=== PATIENT | female | born 1955 | race African-American/Black ===

== ENCOUNTER → 2016-08-01 | Outpatient (CLI) | payer BC ==
--- NOTE | 2016-08-02 08:00 | MM ---
Reason for exam: screening (asymptomatic). Last mammogram was performed 1 year ago. History: Patient is postmenopausal and has history of other cancer at age 47. Family history of breast cancer in sister. Benign left mammotome panel of the left breast, October 08, 2012. Took hormonal contraceptives beginning at age 15. Physical Findings: A clinical breast exam by your physician is recommended on an annual basis and results should be correlated with mammographic findings. MG Screening Mammo w CAD Bilateral CC and MLO view(s) were taken. Prior study comparison: July 27, 2015, bilateral MG screening mammo w CAD. May 26, 2014, bilateral MG screening mammo w CAD. The breast tissue is heterogeneously dense. This may lower the sensitivity of mammography. Finding: There are typically benign dystrophic, grouped/clustered calcifications in the posterior position of the left breast. Previous mammotome biopsy in the left breast. There is no dominant lesion. Asymmetric breast tissue in the left breast, stable. Left axillary pacemaker. ASSESSMENT: Benign, BI-RAD 2 RECOMMENDATION: Routine screening mammogram of both breasts in 1 year.
== END | disposition home or self-care (01) ==
LOC: RADMAMWWP 07:59
PROVIDERS: ATTEND Internal Medicine
DX: Z12.31 Encounter for screening mammogram for malignant neoplasm of breast (principal)

== ENCOUNTER → 2016-08-25 | Outpatient (CLI) | payer BC ==
[2016-08-25 11:12] LABS: Basophils # (A) 0.1 k/uL (0-0.2); Basophils % (A) 1 %; CH 30.9; Eosinophils # (A) 0.4 k/uL (0-0.7); Eosinophils % (A) 6 %; HCT 44.1 % (34.0-46.0); HDW 2.32; Luc # (Auto) 0.28; Luc % (Auto) 4; Lymphocytes # (A) 1.5 k/uL (1.0-4.8); Lymphocytes % (A) 23 %; MCH 30.8 pg (25.0-35.0); MCHC 31.8 g/dL (31.0-37.0); Monocytes # (A) 0.5 k/uL (0-1.0); Monocytes % (A) 8 %; Neutrophils # (A) 3.7 k/uL (1.3-7.7); Neutrophils % (A) 57 %; RBC 4.55 m/uL (3.80-5.40); RDW 12.9 % (11.5-15.5); WBC 6.4 k/uL (3.8-10.6); WBC (Perox) 6.52
[2016-08-25 11:16] LABS: Anion Gap 12 mmol/L; Blood Urea Nitrogen 14 mg/dL (7-17); Calcium 9.3 mg/dL (8.4-10.2); Carbon Dioxide 26 mmol/L (22-30); Chloride 103 mmol/L (98-107); Glucose 138 mg/dL (74-99); Non-African American GFR(MDRD) >60 (>60 ml/min/1.73 sqM); Sodium 141 mmol/L (137-145)
--- NOTE | 2016-08-25 11:48 | XR ---
EXAMINATION TYPE: XR chest 2V DATE OF EXAM: 08/25/2016 11:40 AM COMPARISON: 09/07/2015 HISTORY: 60-year-old female with cough and congestion for one week TECHNIQUE: Frontal and lateral views FINDINGS: Lung volumes slightly low with crowded vascular markings. Some diffuse interstitial prominence is unc hanged and appears chronic. Strandy atelectasis at the left base. No consolidation or pleural effusio n. Midthoracic vertebroplasty changes are present. Left anterior chest wall pacemaker generator with right atrial and right ventricular leads. No pleural effusion. IMPRESSION: Hypoventilatory changes. Other chronic parenchymal changes which could reflect chronic bronchitis/ast hma. No acute process seen.
== END | disposition home or self-care (01) ==
LOC: PROCWHC3 10:36
PROVIDERS: ATTEND Internal Medicine
DX: J98.4 Other disorders of lung (principal); J06.9 Acute upper respiratory infection, unspecified; E11.65 Type 2 diabetes mellitus with hyperglycemia; I10 Essential (primary) hypertension
CPT/HCPCS: 71020; 80048; 85025; 87502

== ENCOUNTER → 2016-11-14 | Outpatient (CLI) | payer BC ==
[2016-11-14 12:17] LABS: ALT 34 U/L (9-52); AST 25 U/L (14-36); Alkaline Phosphatase 132 U/L (38-126); Anion Gap 11 mmol/L; Blood Urea Nitrogen 16 mg/dL (7-17); Calcium 9.2 mg/dL (8.4-10.2); Carbon Dioxide 28 mmol/L (22-30); Chloride 103 mmol/L (98-107); Cholesterol 157 mg/dL (<200); Glucose 154 mg/dL (74-99); HDL Cholesterol 46 mg/dL (40-60); Non-African American GFR(MDRD) 59 (>60 ml/min/1.73 sqM); Potassium 4.4 mmol/L (3.5-5.1); Sodium 142 mmol/L (137-145); Total Bilirubin 0.6 mg/dL (0.2-1.3); Total Protein 8.2 g/dL (6.3-8.2); Triglycerides 237 mg/dL (<150)
[2016-11-14 12:18] LABS: Hemoglobin A1C 9.3 % (4.2-6.1)
== END | disposition home or self-care (01) ==
LOC: LABWHC1 11:20
PROVIDERS: ATTEND Internal Medicine Endocrinology, Diabetes & Metabolism
DX: E11.65 Type 2 diabetes mellitus with hyperglycemia (principal)
CPT/HCPCS: 36415; 80053; 80061; 82043; 82570; 83036

== ENCOUNTER → 2017-08-10 | Outpatient (CLI) | payer BC ==
--- NOTE | 2017-08-11 10:36 | XR ---
Thoracic spine HISTORY: Pain, osteoarthritis, degenerative disc disease 3 views of the thoracic spine correlated to previous exam 05/06/2015, CT 06/06/2015 The vertebral plasty change at T8 is again noted, slight kyphosis due to loss of height. There is mul tilevel spondylosis. Thoracic vertebral bodies are otherwise showing preserved height. There is a mil d spinal curvature. Pacemaker leads noted incidentally in the right atrium and ventricle, heart may b e enlarged. IMPRESSION: Postprocedural changes, thoracic spondylosis and additional findings above.
== END | disposition home or self-care (01) ==
LOC: RADXRMAIN 16:37
PROVIDERS: ATTEND Internal Medicine
DX: M47.814 Spondylosis without myelopathy or radiculopathy, thoracic region (principal); Z98.890 Other specified postprocedural states
CPT/HCPCS: 72072

== ENCOUNTER → 2017-09-13 | Outpatient (CLI) | payer BC ==
--- NOTE | 2017-09-14 10:50 | MM ---
Reason for exam: screening (asymptomatic). Last mammogram was performed 1 year and 1 month ago. History: Patient is postmenopausal and has history of other cancer at age 47. Family history of breast cancer in sister. Benign left mammotome panel of the left breast, October 08, 2012. Took hormonal contraceptives beginning at age 15. Physical Findings: A clinical breast exam by your physician is recommended on an annual basis and results should be correlated with mammographic findings. MG Screening Mammo w CAD Bilateral CC and MLO view(s) were taken. Prior study comparison: August 01, 2016, bilateral MG screening mammo w CAD. July 27, 2015, bilateral MG screening mammo w CAD. The breast tissue is heterogeneously dense. This may lower the sensitivity of mammography. Finding: There are typically benign round calcifications in both breasts. Asymmetric breast tissue in the left central position, stable. Left axillary pacemaker. Group of new calcifications left posterior upper aspect. ASSESSMENT: Incomplete: need additional imaging evaluation, BI-RAD 0 RECOMMENDATION: Special view mammogram of the left breast. If lesion persists on supplemental views, image directed ultrasound is recommended. [facility] will attempt to contact patient to return for supplemental views and ultrasound if indicated.
== END | disposition home or self-care (01) ==
LOC: RADMAMWWP 15:07
PROVIDERS: ATTEND Internal Medicine
DX: Z12.31 Encounter for screening mammogram for malignant neoplasm of breast (principal)
CPT/HCPCS: 77067

== ENCOUNTER → 2017-09-19 | Outpatient (CLI) | payer BC ==
--- NOTE | 2017-09-19 10:16 | MM ---
Reason for exam: additional evaluation requested from abnormal screening. Last mammogram was performed less than 1 month ago. History: Patient is postmenopausal and has history of other cancer at age 47. Family history of breast cancer in sister. Benign left mammotome panel of the left breast, October 08, 2012. Took hormonal contraceptives beginning at age 15. Physical Findings: Nurse did not find any significant physical abnormalities on exam. MG Work Up Mamm w CAD LT LM, CC with magnification, and ML with magnification view(s) were taken of the left breast. Prior study comparison: September 13, 2017, bilateral MG screening mammo w CAD. August 01, 2016, bilateral MG screening mammo w CAD. Coarse calcifications are not suspicious. Density left breast is improved. These results were verbally communicated with the patient and result sheet given to the patient on 09/19/17. ASSESSMENT: Benign, BI-RAD 2 RECOMMENDATION: Return to routine screening mammogram schedule for both breasts.
== END | disposition home or self-care (01) ==
LOC: RADMAMWWP 09:03
PROVIDERS: ATTEND Internal Medicine
DX: R92.8 Other abnormal and inconclusive findings on diagnostic imaging of breast (principal)
CPT/HCPCS: 77065

== ENCOUNTER → 2017-12-21 | Outpatient (CLI) | payer BC ==
--- NOTE | 2017-12-21 12:12 | XR ---
EXAMINATION TYPE: XR chest 2V DATE OF EXAM: 12/21/2017 COMPARISON: 08/25/2016 INDICATION: Pneumonia, short of breath, congestion TECHNIQUE: Frontal and lateral views of the chest are obtained. FINDINGS: The heart size is mildly prominent. The pulmonary vasculature is normal. The lungs are clear. Pacemaker overlies left chest. Prior vertebroplasty is within the mid thoracic spine. IMPRESSION: 1. No acute pulmonary process. 2. Exam is stable from comparison
[2017-12-21 12:42] LABS: Basophils % (A) 0 %; Eosinophils # (A) 0.1 k/uL (0-0.7); Eosinophils % (A) 1 %; HCT 39.5 % (34.0-46.0); HGB 12.8 gm/dL (11.4-16.0); Lymphocytes # (A) 2.9 k/uL (1.0-4.8); Lymphocytes % (A) 26 %; MCHC 32.4 g/dL (31.0-37.0); MCV 92.4 fL (80.0-100.0); Mean Platelet Volume 7.6; Monocytes # (A) 0.6 k/uL (0-1.0); Monocytes % (A) 5 %; Neutrophils # (A) 7.2 k/uL (1.3-7.7); Neutrophils % (A) 65 %; Platelet Count 217 k/uL (150-450); RBC 4.27 m/uL (3.80-5.40); RDW 13.1 % (11.5-15.5); WBC 11.1 k/uL (3.8-10.6)
[2017-12-21 12:55] LABS: Calcium 9.4 mg/dL (8.4-10.2); Potassium 4.1 mmol/L (3.5-5.1)
[2017-12-21 20:45] LABS: Hemoglobin A1C 10.1 % (4.0-6.0)
== END | disposition home or self-care (01) ==
LOC: RADXRMAIN 11:46
PROVIDERS: ATTEND Internal Medicine
DX: E11.22 Type 2 diabetes mellitus with diabetic chronic kidney disease (principal); N18.3 Chronic kidney disease, stage 3 (moderate); J12.9 Viral pneumonia, unspecified; J06.9 Acute upper respiratory infection, unspecified
CPT/HCPCS: 36415; 71046; 80048; 83036; 85025

== ENCOUNTER → 2018-06-20 | Outpatient (CLI) | payer BC ==
--- NOTE | 2018-06-20 15:22 | US ---
EXAMINATION TYPE: US kidneys/renal and bladder DATE OF EXAM: 06/20/2018 COMPARISON: NONE CLINICAL HISTORY: R10.9 left sided flank pain Z87.442 Personal. EXAM MEASUREMENTS: Right Kidney: 10.9 x 4.1 x 5.1 cm Left Kidney: 11.0 x 4.8 x 5.9 cm Morbidly obese patient limiting study. Right Kidney: parapelvic cysts noted largest measuring 1.0 x 0.9 x 0.9cm Left Kidney: parapelvic cysts noted largest measuring 1.4 x 1.2 x 1.3cm Bladder: limited views due to large pannus. IMPRESSION: 1. Bilateral small peripelvic cysts.
[2018-06-20 15:42] LABS: Basophils % (A) 1 %; Eosinophils # (A) 0.3 k/uL (0-0.7); Eosinophils % (A) 4 %; HCT 37.9 % (34.0-46.0); HGB 12.5 gm/dL (11.4-16.0); Lymphocytes # (A) 2.1 k/uL (1.0-4.8); Lymphocytes % (A) 30 %; MCH 30.5 pg (25.0-35.0); MCHC 32.9 g/dL (31.0-37.0); MCV 92.7 fL (80.0-100.0); Mean Platelet Volume 6.1; Monocytes # (A) 0.3 k/uL (0-1.0); Monocytes % (A) 4 %; Neutrophils # (A) 4.1 k/uL (1.3-7.7); Neutrophils % (A) 59 %; Platelet Count 331 k/uL (150-450); RBC 4.08 m/uL (3.80-5.40); RDW 12.7 % (11.5-15.5); WBC 6.9 k/uL (3.8-10.6)
[2018-06-20 15:43] LABS: Magnesium 2.3 mg/dL (1.6-2.3); Phosphorus 4.7 mg/dL (2.5-4.5); Potassium 4.5 mmol/L (3.5-5.1); Uric Acid 6.8 mg/dL (3.7-7.4)
[2018-06-20 19:25] LABS: Parathyroid Hormone Intact 52.5 pg/mL (14.0-72.0)
[2018-06-20 20:18] LABS: Vitamin D 25 Hydroxy 32.8 ng/mL (30.0-100.0)
== END | disposition home or self-care (01) ==
LOC: RADUSWWP 14:22
PROVIDERS: ATTEND Internal Medicine
DX: N28.1 Cyst of kidney, acquired (principal); I12.9 Hypertensive chronic kidney disease with stage 1 through stage 4 chronic kidney disease, or unspecified chronic kidney disease; N18.3 Chronic kidney disease, stage 3 (moderate); E55.9 Vitamin D deficiency, unspecified; C90.00 Multiple myeloma not having achieved remission; Z87.442 Personal history of urinary calculi; Z88.8 Allergy status to other drugs, medicaments and biological substances
CPT/HCPCS: 36415; 76770; 80048; 82306; 83735; 83970; 84100; 84550; 85025

== ENCOUNTER → 2018-07-10 | Outpatient (CLI) | payer BC ==
--- NOTE | 2018-07-11 08:54 | CT ---
EXAMINATION TYPE: CT thor lumbar spine wo con DATE OF EXAM: 07/10/2018 COMPARISON: 06/06/2015 HISTORY: Low back pain. CT DLP: [address] of the thoracic and lumbar spine was performed. Bone and soft tissue window settings a re submitted as well as coronal and sagittal reconstructions. Thoracic spine: Again noted are vertebroplasty changes at T9. Loss of height of the T9 vertebral segm ent. A small amount of methylmethacrylate is noted to extend posteriorly centrally and to the left. M ild central stenosis suggested. Overall appearance is unchanged. No new compression fractures are stanford ntified of the thoracic spine. There is scoliotic curvature noted. Mild scattered degenerative disc s pace narrowing and spondylosis. Lumbar spine: Grade 1 anterolisthesis L4 and L5 measuring 7.5 mm. No evidence for spondylolysis. Dege nerative change facet joints. Moderate degenerative narrowing L4-5 and L5-S1. Remaining levels are wi thin normal limits. IMPRESSION: 1. Vertebroplasty changes at T9 with extruded methylmethacrylate posteriorly as noted and mild centra l stenosis unchanged from prior study. 2. Grade 1 anterolisthesis L4 and L5 with associated degenerative change.
== END | disposition home or self-care (01) ==
LOC: RADCTMAIN 15:50
PROVIDERS: ATTEND Orthopaedic Surgery Orthopaedic Surgery of the Spine
DX: M48.04 Spinal stenosis, thoracic region (principal); M51.24 Other intervertebral disc displacement, thoracic region; M43.16 Spondylolisthesis, lumbar region; M47.816 Spondylosis without myelopathy or radiculopathy, lumbar region; Z85.79 Personal history of other malignant neoplasms of lymphoid, hematopoietic and related tissues; Z98.890 Other specified postprocedural states; Z95.0 Presence of cardiac pacemaker
CPT/HCPCS: 72128; 72131

== ENCOUNTER → 2018-07-20 | Outpatient (CLI) | payer BC ==
--- NOTE | 2018-07-20 11:37 | XR ---
EXAMINATION TYPE: XR chest 2V DATE OF EXAM: 07/20/2018 COMPARISON: Prior chest x-ray December 21, 2017. HISTORY: Presurgical study. TECHNIQUE: Frontal and lateral views of the chest are obtained. FINDINGS: There is chronic parenchymal change without suspicious focal air space opacity, pleural ef fusion, or pneumothorax seen. The cardiac silhouette size remains enlarged with dual lead pacemaker and atherosclerotic and ectatic thoracic aorta. Vertebral plasty at compression fracture mid to lower thoracic spine is redemonstrated. IMPRESSION: Cardiomegaly and chronic changes without acute pulmonary process. No significant change from prior.
[2018-07-20 11:46] LABS: Basophils # (A) 0.1 k/uL (0-0.2); Basophils % (A) 1 %; Eosinophils # (A) 0.4 k/uL (0-0.7); Eosinophils % (A) 7 %; HCT 39.5 % (34.0-46.0); HGB 12.5 gm/dL (11.4-16.0); Hypochromasia Slight; Lymphocytes # (A) 1.4 k/uL (1.0-4.8); Lymphocytes % (A) 25 %; MCH 30.3 pg (25.0-35.0); MCHC 31.6 g/dL (31.0-37.0); MCV 95.6 fL (80.0-100.0); Mean Platelet Volume 6.4; Monocytes # (A) 0.3 k/uL (0-1.0); Monocytes % (A) 6 %; Neutrophils # (A) 3.2 k/uL (1.3-7.7); Neutrophils % (A) 58 %; Platelet Count 322 k/uL (150-450); RBC 4.13 m/uL (3.80-5.40); RDW 13.2 % (11.5-15.5); WBC 5.5 k/uL (3.8-10.6)
[2018-07-20 12:03] LABS: Potassium 5.7 mmol/L (3.5-5.1)
[2018-07-20 12:09] LABS: Appearance,Urine Cloudy (Clear); Bacteria,Urine Many /hpf; Bilirubin,Urine Negative (Negative); Blood,Urine Negative (Negative); Color,Urine Yellow; Glucose,Urine (UA) Negative (Negative); Ketones,Urine Negative (Negative); Leukocyte Esterase,Urine Large (Negative); Mucus,Urine Occasional /hpf; Nitrite,Urine Negative (Negative); Protein,Urine Trace (Negative); RBC,Urine 2 /hpf (0-5); Specific Gravity,Urine 1.019 (1.001-1.035); Squamous Epithelial Cell,Urine 1 /hpf (0-4); Urobilinogen,Urine <2.0 mg/dL (<2.0); WBC,Urine 36 /hpf (0-5)
[2018-07-20 12:37] LABS: INR 1.1 (<1.2); Partial Thromboplastin Time 39.1 sec (22.0-30.0); Prothrombin Time 11.2 sec (9.0-12.0)
== END | disposition home or self-care (01) ==
LOC: LABPAT 10:11
PROVIDERS: ATTEND Orthopaedic Surgery Orthopaedic Surgery of the Spine
DX: Z01.818 Encounter for other preprocedural examination (principal); I51.7 Cardiomegaly; S22.089A Unspecified fracture of T11-T12 vertebra, initial encounter for closed fracture; R91.8 Other nonspecific abnormal finding of lung field; Z01.812 Encounter for preprocedural laboratory examination
CPT/HCPCS: 36415; 71046; 80048; 81001; 85025; 85610; 85730; 93005

== ENCOUNTER → 2018-07-23 | Outpatient (CLI) | payer BC | END | disposition home or self-care (01) | LOC: LABWHC1 12:35 | PROVIDERS: ATTEND Internal Medicine | DX: E87.5 Hyperkalemia (principal) | CPT/HCPCS: 36415; 84132 ==

== ENCOUNTER 2018-07-24 07:25 | Day surgery (SDC) | payer BC ==
[~2018-07-24 07:25] MED LIST: DEXAMETHASONE SOD PHOSPHATE 10 MG/ML 1 ML VIAL IV ONE; HYDROmorphone 0.5 MG/0.5 ML SYRINGE IVP PRN; MIDAZOLAM (PF) 2 MG/2 ML VIAL IV PRN; ONDANSETRON 4 MG/2 ML VIAL IVP ONE; SCOPOLAMINE 1.5MG/72HR PATCH TRANSDERM ONE; SODIUM CHLORIDE 0.9% IRRIGATIO 1,000 ML IRRIGATION ONE; ceFAZolin IN SWFI 2 GM/20 ML SYRINGE IVP ONE
[2018-07-24] MEDS ORDERED: LIDOCAINE 1% INJ 10MG/ML (20 ML MDV) ONE (08:03)
[2018-07-24] MEDS ORDERED: PHENYLEPHRINE-0.9% NACL SYG 1 MG/10 ML SYRINGE ONE (08:03)
[2018-07-24] MEDS ORDERED: PROPOFOL 10 MG/ML 20 ML VIAL IV ONE (08:03)
[2018-07-24] MEDS ORDERED: MIDAZOLAM 2 MG/2 ML VIAL ONE (08:03)
[2018-07-24] MEDS ORDERED: SUCCINYLCHOLINE CHLORIDE 100 MG/5 ML SYR IV ONE (08:03)
[2018-07-24] MEDS ORDERED: fentaNYL (PF) 50 MCG/ML 2 ML AMP ONE (08:03)
[2018-07-24] MEDS: LACTATED RINGERS 1,000 ML IV SCH (08:08)
[2018-07-24] MEDS ORDERED: LIDOCAINE 1% 20 ML VIAL (10MG/ML) FOR IV START INTRADERMA ONE (08:09)
[2018-07-24 08:33] LABS: Glucose,Whole Blood 144 mg/dL (75-99)
[2018-07-24] MEDS ORDERED: IOPAMIDOL M200 10 ML VIAL MISCELLANE ONE (09:27)
[2018-07-24] MEDS ORDERED: BENZOCAINE/MENTHOL LOZENG 1 EACH LOZENGE MUCOUS MEM PRN (09:39)
--- NOTE | 2018-07-24 09:39 | P.OP ---
Date of Procedure: 07/24/18 Preoperative Diagnosis: T12 vertebral compression fracture, acute Postoperative Diagnosis: Same Anesthesia: GETA Pathology: other (T12 vertebral body biopsy sent to pathology) Condition: stable Disposition: PACU Description of Procedure: BRIEF OPERATIVE NOTE Preoperative Diagnosis: Vertebral compression fracture T12, acute Postoperative Diagnosis: Same Procedure: Kyphoplasty of T12 Vertebral body biopsy of T12 Use of biplanar fluoroscopic guidance Surgeon: Dr. Padron Certified Pathology Assistant: Greg Sam is present throughout the entire the case persistence during positioning, dissection, exposure, visualization, and all crucial elements of the case as well as closure. Anesthesia: General anesthesia Estimated blood loss: Less than 10 mL Specimen: Vertebral body biopsy of T12 sent to pathology in formalin Complications: None apparent Components implanted: Bone cement approximate 6 mL Disposition: To recovery room in good stable condition. OPERATIVE INDICATIONS The patient has been having issues in their back ever since sustaining an injury. She has some evidence of osteopenia and sustained a compression fracture at T12. She had new acute pain at her upper lumbar lower thoracic area which correlated well with the new findings of fracture at T12. She was unable to tolerate brace use. The patient has been through conservative treatment. They attempted conservative care with bracing however they're not having any benefit despite brace use. They continue to have significant pain and debility due to their fracture. We discussed the fact that she has significant degenerative changes at her lower lumbar spine with spondylolisthesis and disc degeneration which was also continue returning to her pain at her lower back and her symptoms into her lower extremities. She understood that the fracture was causing new pain for her at T12 and this was not in dressing the issues at her lower lumbar spine. We discussed various treatment options including surgery, and the patient wishes to proceed with surgery We discussed the risk, patient's alternatives and benefits of surgery including but not limited to, risk of bleeding risk of infection, risk of need for further surgery, risk of decreased, loss of motion, loss of function, cement extravasation, nerve damage, paralysis, heart attack, blindness and . OPERATIVE SUMMARY After discussing all the risks, patient alternatives and benefits at length, the patient elected to proceed with surgical intervention, signed informed consent, and presented for their procedure. The patient was seen and examined in the preoperative holding area and the surgical site was marked. The patient was given antibiotics and brought to the operating room. The patient was sedated and intubated by anesthesia in standard fashion. The patient was positioned on to the operating room table in a prone position on the appropriate well-padded and well molded bilateral chest rolls. We were careful to pad any bony prominences and pressure points. We were careful to maintain the patient's cervical spine and good neutral alignment and position throughout. We used 2 C-arm machines to establish biplanar fluoroscopic guidance in AP and lateral positions. We were able to localize the fractures appropriately. The patient was prepped and draped in a normal standard fashion. An appropriate timeout and keystone protocol performed. We were able to proceed with the surgery. The local wound area was infiltrated with local anesthetic at T12 on the left. An incision was made over the lateral aspect of the pedicle over the appropriate levels with a small 2 mm stab incision. Intraoperative fluoroscopy was taken which showed a marker at the appropriate level of T12. With the appropriate level positively confirmed, I was able to position a sharp trocar over the lateral aspect of the pedicle. As able to advance the trocar into the pedicle and into the posterior aspect of vertebral body being careful to avoid penetration cephalad caudad or medially. The trocar was placed appropriately into the posterior aspect of vertebral body at the appropriate levels of T12. This was confirmed with C-arm guidance. With the trocar intact I was then able to take a bone biopsy with a biopsy punch or a bony drill. The biopsy specimen was passed off to be sent to pathology in formalin. I was then able to place the kyphoplasty balloon within the vertebral body. The position was checked on C-arm. I was able to inflate the balloon under low pressure and visualization with C-arm. The balloon was well enclosed within the vertebral body. The cement was prepared. With the cement at appropriate working condition the balloons were deflated and removed. I was able to place bony cement with trocar with the cement delivery device under low pressure. It had good fill within the vertebral body. We're able to place May 6 mL of bony cement within the T12 vertebral body There is no evidence of any extravasation of the cement posteriorly toward the canal. The cement was well contained at the appropriate levels. The cement was allowed to cure appropriately. The trochars removed and final images were taken on C-arm. This showed the cement at the appropriate levels at T12. We were able to proceed with closure. The wound was cleaned and dried and dressed with the appropriate dressing. The drapes were broken down. The patient was gently rolled back onto their hospital bed being careful to maintain their cervical spine and good neutral alignment and position. They were woken up by anesthesia, extubated, and brought to the recovery room in good stable condition. The patient will be admitted to the hospital for observation and for appropriate postoperative care, medical management and monitoring. We will continue to follow them closely about the postoperative course.
[2018-07-24] MEDS ORDERED: HYDROmorphone 0.5 MG/0.5 ML SYRINGE IVP PRN (09:40)
[2018-07-24] MEDS ORDERED: ONDANSETRON 4 MG/2 ML VIAL IVP PRN (09:40)
[2018-07-24] MEDS ORDERED: IBUPROFEN 600 MG TAB PO PRN (09:40)
[2018-07-24] MEDS ORDERED: HYDROcodone/APAP 5-325MG 1 EACH TAB PO PRN ×3 (09:40→09:41)
[2018-07-24 10:08] LABS: Glucose,Whole Blood 149 mg/dL (75-99)
[2018-07-24 11:11] LABS: Glucose,Whole Blood 177 mg/dL (75-99)
[2018-07-24 11:12] VITALS: BMI 35.7
[2018-07-24] MEDS: KETOROLAC 30 MG/ML 1 ML VIAL IVP PRN ×2 (11:15→19:43)
--- NOTE | 2018-07-24 11:17 | FL ---
EXAMINATION TYPE: FL guidance operating room, XR thoracic spine 2V DATE OF EXAM: 07/24/2018 CLINICAL HISTORY: Back pain compression fracture. TECHNIQUE: Fluoroscopy. Intraoperative 2 view thoracic spine. COMPARISON: CT thoracic spine July 10, 2018. FINDINGS: Fluoroscopic guidance was provided during kyphoplasty procedure performed by Dr. Padron. A total of 71 seconds of fluoroscopic time was utilized during the procedure and 2 spot intraoperative images are acquired. Intraoperative images acquired show new cement injection at suspected L1 level with perhaps minimal h eight loss. IMPRESSION: As Above.
[2018-07-24] MEDS: INSULIN ASPART (NovoLOG) 100 UNIT/ML VIAL SQ SCH ×3 (12:29→21:12)
[2018-07-24] MEDS ORDERED: INSULIN ASPART SQ SCH (12:30)
[2018-07-24] MEDS: ceFAZolin IN SWFI 2 GM/20 ML SYRINGE IVP SCH ×2 (16:13→23:31)
[2018-07-24 16:39] LABS: Glucose,Whole Blood 217 mg/dL (75-99)
[2018-07-24 19:40] LABS: Glucose,Whole Blood 209 mg/dL (75-99)
[2018-07-24] MEDS ORDERED: GABAPENTIN 100 MG CAP PO SCH (21:00)
[2018-07-24] MEDS ORDERED: amLODIPine 10 MG TAB PO SCH (21:00)
[2018-07-24] MEDS: APIXABAN 5 MG TAB PO SCH (21:11)
[2018-07-24] MEDS: NITROFURANTOIN MONOHYD/M-CRYST 100 MG CAP PO SCH (21:12)
[2018-07-24] MEDS: INSULIN DETEMIR (LEVEMIR) 100 UNIT/ML SYR SQ SCH ×2 (21:12→21:18)
[2018-07-25] MEDS: KETOROLAC 30 MG/ML 1 ML VIAL IVP PRN (02:35)
[2018-07-25 07:29] LABS: Glucose,Whole Blood 224 mg/dL (75-99)
[2018-07-25 07:35] VITALS: BP 144/82; PULSE 72; RESP 15; TEMP 98.6
[2018-07-25] MEDS: INSULIN ASPART (NovoLOG) 100 UNIT/ML VIAL SQ SCH (07:46)
--- NOTE | 2018-07-25 08:28 | P.DS ---
Providers Date of admission: 07/24/18 Attending physician: Michael Padron Primary care physician: Carl Cid [facility] Hospital Course: The patient presented on the day of admission as per their operative note. She feels her back is doing better at the site of the kyphoplasty. She is significantly better today than she was yesterday. Was able get some rest. She not have any changes on her lower extremities Physical Exam The incision site is clean dry and intact. There is no erythema no drainage. There is no purulence no evidence of infection. There is no active drainage. Abdomen soft and nontender. Chest has good excursion with deep inspiration and expiration. The patient has active and passive range of motion intact at the upper and lower extremities. There is no acute change in neurologic status. Hospital Course Postoperative day #1 status post T12 vertebral biopsy and kyphoplasty for her vertebral compression fracture. The patient has been making good progress postoperatively. She is having significant pain yesterday afternoon was having difficulty with her independent activities and was not safe with her mobilization on her own, and had to stay overnight for observation. They have completed the prophylactic antibiotics without any signs or symptoms of infection. The patient has been able to advance their diet, and is tolerating diet adequately. The pain was initially controlled with IV medications and is now controlled appropriately with oral medications. The patient has been able to increase their mobilization. The patient has progressed appropriately. I think they are in good stable condition for discharge today. They will be sent home with appropriate prescriptions. I answered their questions to the best of my ability in a language that they can understand and they are agreeable with the plan. They will follow up as directed in approximately 2 weeks or sooner if she is having any problems. Patient Condition at Discharge: Good Plan - Discharge Summary Discharge Rx Participant: Yes New Discharge Prescriptions: No Action amLODIPine [Norvasc] 10 mg PO HS Atenolol [Tenormin] 25 mg PO DAILY tab HYDROcodone/APAP 5-325MG [[place] 5-325] 1 tab PO Q4HR PRN PRN Reason: Pain Insulin Glargine,Hum.rec.anlog [Toujeo Solostar] 80 units SQ HS INSULIN ASPART (NovoLOG) [NovoLOG (formulary)] See Protocol SQ ACHS Ascorbic Acid [Vitamin C] 500 mg PO DAILY Gabapentin [Neurontin] 200 mg PO HS Apixaban [Eliquis] 5 mg PO BID Cholecalciferol (Vitamin D3) [Vitamin D3] 2,000 unit PO DAILY Nitrofurantoin Monohyd/M-Cryst [Macrobid] 100 mg PO Q12HR Discharge Medication List amLODIPine [Norvasc] 10 mg PO HS 05/28/15 [History] Atenolol [Tenormin] 25 mg PO DAILY tab 09/07/15 [Rx] Apixaban [Eliquis] 5 mg PO BID 07/22/18 [History] Ascorbic Acid [Vitamin C] 500 mg PO DAILY 07/22/18 [History] Cholecalciferol (Vitamin D3) [Vitamin D3] 2,000 unit PO DAILY 07/22/18 [History] Gabapentin [Neurontin] 200 mg PO HS 07/22/18 [History] HYDROcodone/APAP 5-325MG [[place] 5-325] 1 tab PO Q4HR PRN 07/22/18 [History] INSULIN ASPART (NovoLOG) [NovoLOG (formulary)] See Protocol SQ ACHS 07/22/18 [History] Insulin Glargine,Hum.rec.anlog [Toujeo Solostar] 80 units SQ HS 07/22/18 [History] Nitrofurantoin Monohyd/M-Cryst [Macrobid] 100 mg PO Q12HR 07/23/18 [History] Follow up Appointment(s)/Referral(s): Michael Padron DO [Doctor of Osteopathic Medicine] - 2 Weeks Activity/Diet/Wound Care/Special Instructions: Keep site clean. May shower with waterproof Tegaderm intact. Do not soak in a tub. After 72 hours postoperatively, patient May remove dressing and then may shower with area uncovered. Leave Steri-Strips intact and allow them to fray off on their own. May ambulate as tolerated. Avoid heavy or rigorous activity. No repetitive bending twisting or lifting. No overhead work. Discharge Disposition: HOME SELF-CARE
[2018-07-25] MEDS ORDERED: ASCORBIC ACID 500 MG TAB PO SCH (09:00)
[2018-07-25] MEDS ORDERED: CHOLECALCIFEROL 1,000 UNIT TAB PO SCH (09:00)
[2018-07-25] MEDS ORDERED: ATENOLOL 25 MG TAB PO SCH (09:00)
[2018-07-25] MEDS: NITROFURANTOIN MONOHYD/M-CRYST 100 MG CAP PO SCH (09:13)
[2018-07-25] MEDS: APIXABAN 5 MG TAB PO SCH (09:13)
[2018-07-25] MEDS: LACTATED RINGERS 1,000 ML IV SCH (09:22)
== END 2018-07-25 10:23 | disposition home or self-care (01) ==
LOC: OR 07:25 → 4SSUR 09:58 → OR 07-25 10:23
PROVIDERS: ATTEND Orthopaedic Surgery Orthopaedic Surgery of the Spine
DX: M48.54XA Collapsed vertebra, not elsewhere classified, thoracic region, initial encounter for fracture (principal); M85.80 Other specified disorders of bone density and structure, unspecified site; E11.22 Type 2 diabetes mellitus with diabetic chronic kidney disease; I12.9 Hypertensive chronic kidney disease with stage 1 through stage 4 chronic kidney disease, or unspecified chronic kidney disease; N18.9 Chronic kidney disease, unspecified; C90.00 Multiple myeloma not having achieved remission; Z72.0 Tobacco use; E78.5 Hyperlipidemia, unspecified; R63.4 Abnormal weight loss; Z68.35 Body mass index [BMI] 35.0-35.9, adult; I44.2 Atrioventricular block, complete; Z95.0 Presence of cardiac pacemaker; Z79.01 Long term (current) use of anticoagulants; Z79.4 Long term (current) use of insulin; Z79.899 Other long term (current) drug therapy; Z82.49 Family history of ischemic heart disease and other diseases of the circulatory system; Z88.8 Allergy status to other drugs, medicaments and biological substances; Z91.040 Latex allergy status
CPT/HCPCS: 72070; 88307; 88311; 88341; 88342

== ENCOUNTER → 2018-09-25 | Outpatient (CLI) | payer BC ==
--- NOTE | 2018-09-26 11:32 | MM ---
Reason for exam: screening (asymptomatic). Last mammogram was performed 1 year ago. History: Patient is postmenopausal and has history of other cancer at age 47. Family history of breast cancer in sister. Benign left mammotome panel of the left breast, October 08, 2012. Took hormonal contraceptives beginning at age 15. Physical Findings: A clinical breast exam by your physician is recommended on an annual basis and results should be correlated with mammographic findings. MG Screening Mammo w CAD Bilateral CC and MLO view(s) were taken. Prior study comparison: September 19, 2017, left breast MG work up mamm w CAD LT. September 13, 2017, bilateral MG screening mammo w CAD. The breast tissue is heterogeneously dense. This may lower the sensitivity of mammography. There are benign appearing regional, round calcifications bilaterally. There is no discrete abnormality. Left axillary pacemaker noted. ASSESSMENT: Benign, BI-RAD 2 RECOMMENDATION: Routine screening mammogram of both breasts in 1 year.
== END | disposition home or self-care (01) ==
LOC: RADMAMWWP 14:08
PROVIDERS: ATTEND Internal Medicine
DX: Z12.31 Encounter for screening mammogram for malignant neoplasm of breast (principal)
CPT/HCPCS: 77067

== ENCOUNTER → 2019-01-02 | Outpatient (CLI) | payer MEDICARE ==
--- NOTE | 2019-01-02 15:35 | XR ---
EXAMINATION TYPE: XR chest 2V DATE OF EXAM: 01/02/2019 COMPARISON: 07/20/2018 HISTORY: Shortness of breath and cough TECHNIQUE: Frontal and lateral views of the chest are obtained. FINDINGS: There is an enlarged cardiac mediastinal silhouette with dual lead left-sided cardiac klaus ce. Vertebroplasty change of a mid to lower thoracic vertebral body is seen as well as diffuse osseou s demineralization and mild multilevel degenerative changes of the thoracic spine. No new focal conso lidation, pleural effusion or pneumothorax. IMPRESSION: Stable exam from the prior with enlarged cardiomediastinal silhouette. No acute pulmonar y process.
[2019-01-02 15:47] LABS: Basophils % (A) 0 %; Eosinophils # (A) 0.1 k/uL (0-0.7); Eosinophils % (A) 1 %; HGB 9.3 gm/dL (11.4-16.0); Hypochromasia Slight; Lymphocytes # (A) 1.7 k/uL (1.0-4.8); Lymphocytes % (A) 20 %; MCHC 31.1 g/dL (31.0-37.0); MCV 90.2 fL (80.0-100.0); Mean Platelet Volume 6.7; Monocytes # (A) 0.6 k/uL (0-1.0); Monocytes % (A) 6 %; Neutrophils # (A) 6.1 k/uL (1.3-7.7); Neutrophils % (A) 70 %; Platelet Count 547 k/uL (150-450); RBC 3.32 m/uL (3.80-5.40); RDW 14.2 % (11.5-15.5); WBC 8.8 k/uL (3.8-10.6)
[2019-01-02 18:56] LABS: African American GFR (CKD) 77.8 (60.0-200.0); Anion Gap 10.7 mmol/L (4.00-12.00); Carbon Dioxide 29.3 mmol/L (21.6-31.8); Potassium 5.4 mmol/L (3.5-5.5)
[2019-01-02 20:14] LABS: Iron Saturation 6.9 (12.00-45.00)
== END | disposition home or self-care (01) ==
LOC: LABWHC1 14:36
PROVIDERS: ATTEND Internal Medicine
DX: I51.7 Cardiomegaly (principal); D64.9 Anemia, unspecified; K92.2 Gastrointestinal hemorrhage, unspecified
CPT/HCPCS: 36415; 71046; 80048; 82728; 83010; 83540; 83550; 83615; 85025

== ENCOUNTER → 2019-01-08 | Outpatient (CLI) | payer MEDICARE ==
[2019-01-08 08:59] LABS: Reticulocyte % 1.4 % (0.5-2.0)
[2019-01-08 17:57] LABS: Albumin 3.6 g/dL (3.80-4.90); Albumin/Globulin Ratio 0.97 (1.60-3.17); Bilirubin, Conjugated 0.3 mg/dL (0.20-0.40); Bilirubin,Unconjugated 0.1 mg/dL; Globulin 3.7 g/dL (1.6-3.3); Total Bilirubin 0.4 mg/dL (0.2-1.2); Total Protein 7.3 g/dL (6.2-8.2)
== END | disposition home or self-care (01) ==
LOC: LABWHC1 08:14
PROVIDERS: ATTEND Internal Medicine
DX: C90.00 Multiple myeloma not having achieved remission (principal); D58.9 Hereditary hemolytic anemia, unspecified
CPT/HCPCS: 36415; 80076; 82533; 83021; 85045; 86850; 86880

== ENCOUNTER 2019-07-11 16:34 | Inpatient (IN) | payer MEDICARE ==
[2019-07-11] MEDS ORDERED: SODIUM CHLORIDE 0.9% 1,000 ML IV ONE (17:10)
[2019-07-11] MEDS ORDERED: ACETAMINOPHEN TAB 500 MG TAB PO STA (17:10)
[2019-07-11 17:32] LABS: Basophils % (A) 0 %; Eosinophils # (A) 1.7 k/uL (0-0.7); Eosinophils % (A) 16 %; HCT 35.5 % (34.0-46.0); HGB 11.5 gm/dL (11.4-16.0); Lymphocytes # (A) 0.7 k/uL (1.0-4.8); Lymphocytes % (A) 6 %; MCH 33.3 pg (25.0-35.0); MCHC 32.5 g/dL (31.0-37.0); MCV 102.7 fL (80.0-100.0); Macrocytosis Slight; Mean Platelet Volume 10.5; Monocytes # (A) 0.7 k/uL (0-1.0); Monocytes % (A) 6 %; Neutrophils # (A) 7.3 k/uL (1.3-7.7); Neutrophils % (A) 68 %; Platelet Count 112 k/uL (150-450); RBC 3.45 m/uL (3.80-5.40); RDW 14.6 % (11.5-15.5); WBC 10.8 k/uL (3.8-10.6)
[2019-07-11] MEDS ORDERED: VANCOMYCIN IV PER PHARMACY 1 EACH MISC MISCELLANE PRN (17:35)
[2019-07-11 17:37] LABS: INR 1.3 (<1.2); Partial Thromboplastin Time 31.2 sec (22.0-30.0); Prothrombin Time 12.8 sec (9.0-12.0)
[2019-07-11 17:41] LABS: Albumin 3.7 g/dL (3.5-5.0); Calcium 8.2 mg/dL (8.4-10.2); Total Bilirubin 1.2 mg/dL (0.2-1.3); Total Protein 6.2 g/dL (6.3-8.2)
[2019-07-11] MEDS ORDERED: CEFEPIME 2 GM in SODIUM CHLORIDE 0.9% 100 ML IVPB STA (17:41)
[2019-07-11 17:51] LABS: Potassium 5.8 mmol/L (3.5-5.1)
[2019-07-11 18:07] LABS: Appearance,Urine Cloudy (Clear); Bacteria,Urine Occasional /hpf; Bilirubin,Urine Negative (Negative); Blood,Urine Negative (Negative); Budding Yeast,Urine Occasional /hpf; Color,Urine Yellow; Glucose,Urine (UA) Negative (Negative); Hyaline Casts,Urine 3 /lpf (0-2); Ketones,Urine Negative (Negative); Leukocyte Esterase,Urine Large (Negative); Mucus,Urine Rare /hpf; Nitrite,Urine Negative (Negative); PH, Urine 5.5 (5.0-8.0); Protein,Urine 2+ (Negative); RBC,Urine 4 /hpf (0-5); Specific Gravity,Urine 1.024 (1.001-1.035); Squamous Epithelial Cell,Urine 10 /hpf (0-4); WBC,Urine 11 /hpf (0-5)
[2019-07-11] MEDS ORDERED: AZITHROMYCIN 500 MG in SODIUM CHLORIDE 0.9% 250 ML IVPB STA (18:27)
--- NOTE | 2019-07-11 18:29 | XR ---
EXAMINATION TYPE: XR chest 2V DATE OF EXAM: 07/11/2019 COMPARISON: 12/21/2017 HISTORY: Fever TECHNIQUE: 2 views FINDINGS: Heart is enlarged. There is mild pulmonary congestion. There is no pleural effusion. There is vertebroplasty in the mid thoracic spine with 50% compression deformity of T8 vertebra. There is l eft axillary pacemaker. There is right side central venous catheter with tip in the superior vena cav a. IMPRESSION: Cardiomegaly. Mild pulmonary congestion increased compared to last exam. No obvious heart failure. Minimal pneumonia or atelectasis in the left lower lobe is possible.
[2019-07-11] MEDS ORDERED: VANCOMYCIN 1,500 MG in SODIUM CHLORIDE 0.9% 250 ML IVPB ONE (18:30)
--- NOTE | 2019-07-11 18:31 | ED ---
General Adult HPI - General Chief complaint: Fever Stated complaint: fever/possible coronovirus Time Seen by Provider: 07/11/19 16:56 Source: patient, family, RN notes reviewed, old records reviewed Mode of arrival: wheelchair Limitations: no limitations - History of Present Illness Initial comments: 63-year-old female history of multiple myeloma currently on chemotherapy presenting with fever. She's had cough and mild dyspnea, she's had nasal conges tion and upper respiratory symptoms for the past several days. She was sent in by primary care physician with concern for possible coronavirus as she has a sister contact with who was in [place] approximately 2 weeks ago. She herself has not travel to [place]. Her [id number] have been quarantined and was released, no evidence of coronavirus. Most recent chemotherapy was 2 days ago. Denies abdominal pain nausea vomiting. Denying dysuria or hematuria. - Related Data Home Medications Medication Instructions Recorded Confirmed amLODIPine [Norvasc] 10 mg PO HS 05/28/15 07/24/18 Apixaban [Eliquis] 5 mg PO BID 07/22/18 07/24/18 Ascorbic Acid [Vitamin C] 500 mg PO DAILY 07/22/18 07/24/18 Cholecalciferol (Vitamin D3) 2,000 unit PO DAILY 07/22/18 07/24/18 [Vitamin D3] Gabapentin [Neurontin] 200 mg PO HS 07/22/18 07/24/18 HYDROcodone/APAP 5-325MG [[place] 1 tab PO Q4HR PRN 07/22/18 07/24/18 5-325] INSULIN ASPART (NovoLOG) [NovoLOG See Protocol SQ ACHS 07/22/18 07/24/18 (formulary)] Insulin Glargine,Hum.rec.anlog 80 units SQ HS 07/22/18 07/24/18 [Toujeo Solostar] Nitrofurantoin Monohyd/M-Cryst 100 mg PO Q12HR 07/23/18 07/24/18 [Macrobid] Previous Rx's Medication Instructions Recorded Atenolol [Tenormin] 25 mg PO DAILY tab 09/07/15 Allergies Allergy/AdvReac Type Severity Reaction Status Date / Time latex Allergy Rash/Hives Verified 07/11/19 17:06 Review of Systems ROS Statement: Those systems with pertinent positive or pertinent negative responses have been documented in the HPI. ROS Other: All systems not noted in ROS Statement are negative. Past Medical History Past Medical History: Cancer, Diabetes Mellitus, Hyperlipidemia, Hypertension, Osteoarthritis (OA), Renal Disease Additional Past Medical History / Comment(s): MULTIPLE MYELOMA 2008 had chemo in 2007, renal failure with cancer tx and had dialysis for 2 months, 05/28/15 pathologic thoracic vertebra fracture-back pain is getting better per pt, IDDM type II, slight leaky heart valve, hysterectomy d/t uterine fibroids, hx of H pylori History of Any Multi-Drug Resistant Organisms: None Reported Past Surgical History: Back Surgery, Cholecystectomy, Hysterectomy Additional Past Surgical History / Comment(s): colonoscopy, rt carpal tunnel release, T9 kyphoplasty with bx, oophorectomy, cyst of inner R thigh, R foot surgery d/t stepping on something, AV fistula inserted and removed Past Anesthesia/Blood Transfusion Reactions: No Reported Reaction Additional Past Anesthesia/Blood Transfusion Reaction / Comment(s): Pt has received blood in the past without reaction. Past Psychological History: No Psychological Hx Reported Smoking Status: Never smoker Past Alcohol Use History: None Reported Past Drug Use History: None Reported - Past Family History Mother Family Medical History: Congestive Heart Failure (CHF) Additional Family Medical History / Comment(s): Mother of CHF at age 76 yrs. Father Family Medical History: Myocardial Infarction (UT) Additional Family Medical History / Comment(s): Father of a [place] at age 46 yrs. General Exam Limitations: no limitations General appearance: alert, in no apparent distress Head exam: Present: atraumatic, normocephalic Eye exam: Present: normal appearance, PERRL ENT exam: Present: normal exam Neck exam: Present: normal inspection. Absent: tenderness, meningismus Respiratory exam: Present: respiratory distress, wheezes, rhonchi, decreased breath sounds Cardiovascular Exam: Present: regular rate, normal rhythm GI/Abdominal exam: Present: soft. Absent: distended, tenderness Extremities exam: Present: normal inspection, normal capillary refill. Absent: pedal edema Neurological exam: Present: alert, oriented X3, CN II-XII intact. Absent: motor sensory deficit Psychiatric exam: Present: normal affect, normal mood Skin exam: Present: warm, dry, intact. Absent: cyanosis, diaphoretic Course Vital Signs 07/11/19 07/11/19 16:52 18:39 Temperature 103.1 F H 102.1 F H Pulse Rate 115 H 93 Respiratory 26 H 22 Rate Blood Pressure 117/70 102/57 O2 Sat by Pulse 94 L 96 Oximetry EKG Findings - EKG Comments: EKG Findings:: 2 AV paced rhythm, rate of 60, MA interval prolonged 374, QRS duration 146, QTC 427 Medical Decision Making - Medical Decision Making 63-year-old female on chemotherapy with history of multiple myeloma presenting with fever, cough. X-ray showing concern for bilateral pneumonia versus fluid overload with the presence of fever, this will be treated as healthcare assoc iated pneumonia. She started on azithromycin, cefepime, vancomycin. She is not leukopenic, total white count is 10.8. She has some chronic kidney disease which is at baseline. Lactic of 2.1. Influenza is negative. She will be admitted on IV antibiotics. Infectious diseases placed on consult. Regarding the possible exposure to cold virus, this is discussed with local 40s, they recommend no further testing at this time as the patient's sister had been quarantined for 2 weeks and she's had no contact or travel to [place] otherwise. - Lab Data Result diagrams: 07/11/19 17:10 07/11/19 17:10 Lab Results 07/11/19 07/11/19 07/11/19 Range/Units 17:10 17:10 17:10 WBC 10.8 H (3.8-10.6) k/uL RBC 3.45 L (3.80-5.40) m/uL Hgb 11.5 (11.4-16.0) gm/dL Hct 35.5 (34.0-46.0) % MCV 102.7 H (80.0-100.0) fL MCH 33.3 (25.0-35.0) pg MCHC 32.5 (31.0-37.0) g/dL RDW 14.6 (11.5-15.5) % Plt Count 112 L (150-450) k/uL Neutrophils % 68 % Lymphocytes % 6 % Monocytes % 6 % Eosinophils % 16 % Basophils % 0 % Neutrophils # 7.3 (1.3-7.7) k/uL Lymphocytes # 0.7 L (1.0-4.8) k/uL Monocytes # 0.7 (0-1.0) k/uL Eosinophils # 1.7 H (0-0.7) k/uL Basophils # 0.0 (0-0.2) k/uL Macrocytosis Slight PT (9.0-12.0) sec INR (<1.2) APTT (22.0-30.0) sec Sodium 133 L (137-145) mmol/L Potassium 5.8 H (3.5-5.1) mmol/L Chloride 102 (98-107) mmol/L Carbon Dioxide 23 (22-30) mmol/L Anion Gap 8 mmol/L BUN 50 H (7-17) mg/dL Creatinine 1.87 H (0.52-1.04) mg/dL Est GFR (CKD-EPI)AfAm 32 (>60 ml/min/1.73 sqM) Est GFR (CKD-EPI)NonAf 28 (>60 ml/min/1.73 sqM) Glucose 220 H (74-99) mg/dL Plasma Lactic Acid Cain (0.7-2.0) mmol/L Calcium 8.2 L (8.4-10.2) mg/dL Total Bilirubin 1.2 (0.2-1.3) mg/dL AST 39 H (14-36) U/L ALT 14 (4-34) U/L Alkaline Phosphatase 88 (38-126) U/L Total Protein 6.2 L (6.3-8.2) g/dL Albumin 3.7 (3.5-5.0) g/dL Urine Color Urine Appearance (Clear) Urine pH (5.0-8.0) Ur Specific [place] (1.001-1.035) Urine Protein (Negative) Urine Glucose (UA) (Negative) Urine Ketones (Negative) Urine Blood (Negative) Urine Nitrite (Negative) Urine Bilirubin (Negative) Urine Urobilinogen (<2.0) mg/dL Ur Leukocyte Esterase (Negative) Urine RBC (0-5) /hpf Urine WBC (0-5) /hpf Ur Squamous Epith Cells (0-4) /hpf Urine Bacteria (None) /hpf Hyaline Casts (0-2) /lpf Urine Mucus (None) /hpf Urine Yeast (Budding) (None) /hpf Influenza Type A RNA Not Detected (Not Detectd) Influenza Type B (PCR) Not Detected (Not Detectd) 0207/11/19 07/11/19 Range/Units 17:10 17:10 17:35 WBC (3.8-10.6) k/uL RBC (3.80-5.40) m/uL Hgb (11.4-16.0) gm/dL Hct (34.0-46.0) % MCV (80.0-100.0) fL MCH (25.0-35.0) pg MCHC (31.0-37.0) g/dL RDW (11.5-15.5) % Plt Count (150-450) k/uL Neutrophils % % Lymphocytes % % Monocytes % % Eosinophils % % Basophils % % Neutrophils # (1.3-7.7) k/uL Lymphocytes # (1.0-4.8) k/uL Monocytes # (0-1.0) k/uL Eosinophils # (0-0.7) k/uL Basophils # (0-0.2) k/uL Macrocytosis PT 12.8 H (9.0-12.0) sec INR 1.3 H (<1.2) APTT 31.2 H (22.0-30.0) sec Sodium (137-145) mmol/L Potassium (3.5-5.1) mmol/L Chloride (98-107) mmol/L Carbon Dioxide (22-30) mmol/L Anion Gap mmol/L BUN (7-17) mg/dL Creatinine (0.52-1.04) mg/dL Est GFR (CKD-EPI)AfAm (>60 ml/min/1.73 sqM) Est GFR (CKD-EPI)NonAf (>60 ml/min/1.73 sqM) Glucose (74-99) mg/dL Plasma Lactic Acid Cain 2.1 H* (0.7-2.0) mmol/L Calcium (8.4-10.2) mg/dL Total Bilirubin (0.2-1.3) mg/dL AST (14-36) U/L ALT (4-34) U/L Alkaline Phosphatase (38-126) U/L Total Protein (6.3-8.2) g/dL Albumin (3.5-5.0) g/dL Urine Color Yellow Urine Appearance Cloudy H (Clear) Urine pH 5.5 (5.0-8.0) Ur Specific [place] 1.024 (1.001-1.035) Urine Protein 2+ H (Negative) Urine Glucose (UA) Negative (Negative) Urine Ketones Negative (Negative) Urine Blood Negative (Negative) Urine Nitrite Negative (Negative) Urine Bilirubin Negative (Negative) Urine Urobilinogen 2.0 (<2.0) mg/dL Ur Leukocyte Esterase Large H (Negative) Urine RBC 4 (0-5) /hpf Urine WBC 11 H (0-5) /hpf Ur Squamous Epith Cells 10 H (0-4) /hpf Urine Bacteria Occasional H (None) /hpf Hyaline Casts 3 H (0-2) /lpf Urine Mucus Rare H (None) /hpf Urine Yeast (Budding) Occasional H (None) /hpf Influenza Type A RNA (Not Detectd) Influenza Type B (PCR) (Not Detectd) Disposition Clinical Impression: HCAP (healthcare-associated pneumonia), Multiple myeloma, Sepsis Disposition: ADMITTED IP TO THIS [facility] Condition: Stable Is patient prescribed a controlled substance at d/c from ED?: No Referrals: Carl Cid MD [Primary Care Provider] - 1-2 days Decision to Admit Reason: Admit from EC Decision Date: 07/11/19 Decision Time: 18:55
[2019-07-11] MEDS ORDERED: NALOXONE 0.4 MG/ML 1 ML VIAL IV PRN (18:52)
[2019-07-11 20:44] LABS: Creatine Kinase <20 U/L (30-135)
[2019-07-11 20:54] LABS: Creatine Kinase MB <0.2 ng/mL (0.0-2.4)
--- NOTE | 2019-07-11 21:22 | P.HPIM ---
History of Present Illness H&P Date: 07/11/19 (Fever, cough, bilateral pneumonia, immunocompromised treated with chemo l last session last week.) Chief Complaint: Patient presented to the office with the coughing fever and splinting left. Dictation on the history and physical by Dr. PAYAN Patient request to be seen in the office emergently because of her current illness itches started 3 days ago and the continue to be bothering her was cough splinting of her ribs on the left side. And that she is immunocompromised last week she had her sufficient for the chemotherapy for multiple myeloma. She is under care of Dr. CARREON the hematology oncology. Patient stated also that she has talked to her [id number] in [place] who was in [place] visiting her son and she has quarantined for coronavirus before she returned to the [place] for 2 weeks however they did not find infection, patient afraid that she had it as well. Because of the fever and chills and she had a mask patient examined with the underlying rhonchi's on the chest bilateral and elevated temperature, Patient directed to the emergency room to be evaluated and further treatment with the exposure to the coronavirus could be a carrier. Patient presented to the emergency room with Dr. River and he did the contact a CBC and she had no risk monitored the discussion between the ER and a CBC and regarding of the ovalle virus. Patient has immunocompromised she had a chest x-ray and the chest x-ray was indicator of underlying increase fluid or pulmonary congestion however with the fever and chills it looks like more of pneumonia and subsequently in the ER the started her on the antibiotic and consultation with the infectious disease. And subsequently admitted to the hospital after the started the antibiotic. Patient with history of diabetes mellitus type 2 insulin-dependent, hypertension with hypertensive cardiovascular disease, and history of partial treatment of UTI with nitrofurantoin, she is on insulin-dependent on a long-acting insulin similar to Lantus and NovoLog short acting insulin she is followed by Dr. Pricila Contreras right of way worker. Patient with history of pacemaker and atrial fibrillation and she is anticoagulated with an elliquis anticoagulant. And she had some vitamin D deficiency in the past as well Patient has long standing history of multiple myeloma and currently she is on chemo by Dr. Carreon hematology oncology last chemo last week. 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 She has #3 diabetes mellitus type 2 insulin-dependent and metabolic syndrome, she recently had the irregularities and the pacemaker by the cardiology with the atrial fibrillation and currently on the pacemaker dependent. Family history she has a daughter and a son and she is . Hypertension. Review of system: She is conscious alert oriented 3 no patient was ambulatory and she had complain of respiratory and splinting on her left side of the lower chest and coughing and with the fever and chills she denied any cardiovascular symptoms however she had a pacemaker. GI no symptoms no nausea vomiting or diarrhea. But she had minimal headache In the no complaint. Musculoskeletal equal she generalized weakness. Review of rest also 14 bullet noncontributory. Physical examination On admission her temperature 103 0.1 F oral. And her heart rate was 1 15/m regular and respiratory was 26/m and blood pressure 117/70 with the pulse ox on room air was 94. Subsequently her vital sign blood pressure dropped down to 102 and 109 systolic. On the examination As mentioned patient was conscious alert oriented, head was normocephalic atraumatic, pupil was equal reactive, normal hearing no ear ache, oropharynx was negative with natural teeth and able to eat and swallow. Neck was supple no JVD no thyromegaly no lymphadenopathy trachea midline. Her chest is inspiratory and expiratory rhonchi's bilateral, could not elicit dullness. Infraclavicular pacemaker on the left side and the heart was regular and the rate has been fluctuating from tachycardia cardia with atrial fibrillation. The PMI in the fifth intercostal space with midclavicular line normal S1 and S2 no gallop. However positive murmur. The abdomen was soft positive bowel sounds no organ palpable Extremities: No edema and positive pulses. She has a history of disc surgery in the past and she had degenerative osteoarthritis of the spine. Laboratories: #1 plasma lactic acid 2.1 high #2 potassium is 5.8 with hyperkalemia #3 her BUN is 50 and creatinine 1.87 with EGFR for female 32 blood sugar was 220 with the underlying diabetes her hemoglobin is 11.5 and MCV 102.7. PT 12.8, INR 1.3, PTT 31.2 minimally above the normal range. Sodium on the low side 133. Anion gap is 8., AST 39, a LT 14, alk phos 88, CK less than 20, BMP 5530. Albumin is 3.7 and total protein 6.2 Urine analysis indicating urine is cloudy 2+ protein, large leukocyte Estrace, negative nitrite and WBC 11 culture will be pending. Influenza a and B was negative. Assessment: #1 clinical suspicious with the fever and chills associated with pneumonia probably bilateral. #2 immunocompromised with the recent chemotherapy last week. #3 uricemia with underlying elevated BUN and creatinine acute on the top of chronic. #4 lactic acidemia. And elevated pro-BMP and pacemaker. #5 overload versus pneumonia is questionable. Known #6 multiple myeloma with the recent last week chemotherapy. #7 diabetes mellitus type 2 insulin-dependent. #8 history of hypertension with hypertensive heart disease. #9 chronic kidney disease with the acute exacerbation in association with UTI and sepsis. Plan: #1 consultation with the infectious disease #2 consultation with the cardiology with the use of the pacemaker possibility of congestive heart failure versus pneumonia Because of elevated BUN and creatinine are lactic acid considered dehydration and increase the IV fluid temporary. Until seen by the cardiology to find out his opinion and OT recommended as well continue the oxygen nasal cannula and we have of progression of disease who may have to do with a computed tomography scan of the chest. Past Medical History Past Medical History: Cancer, Diabetes Mellitus, Hyperlipidemia, Hypertension, Osteoarthritis (OA), Renal Disease Additional Past Medical History / Comment(s): MULTIPLE MYELOMA 2007 had chemo in 2007, renal failure with cancer tx and had dialysis for 2 months, 05/28/15 pathologic thoracic vertebra fracture-back pain is getting better per pt, IDDM type II, slight leaky heart valve, hysterectomy d/t uterine fibroids, hx of H pylori History of Any Multi-Drug Resistant Organisms: None Reported Past Surgical History: Back Surgery, Cholecystectomy, Hysterectomy Additional Past Surgical History / Comment(s): colonoscopy, rt carpal tunnel release, T9 kyphoplasty with bx, oophorectomy, cyst of inner R thigh, R foot surgery d/t stepping on something, AV fistula inserted and removed Past Anesthesia/Blood Transfusion Reactions: No Reported Reaction Additional Past Anesthesia/Blood Transfusion Reaction / Comment(s): Pt has received blood in the past without reaction. Past Psychological History: No Psychological Hx Reported Smoking Status: Never smoker Past Alcohol Use History: None Reported Past Drug Use History: None Reported - Past Family History Mother Family Medical History: Congestive Heart Failure (CHF) Additional Family Medical History / Comment(s): Mother of CHF at age 76 yrs. Father Family Medical History: Myocardial Infarction (CT) Additional Family Medical History / Comment(s): Father of a [place] at age 46 yrs. Medications and Allergies Home Medications Medication Instructions Recorded Confirmed Type amLODIPine [Norvasc] 10 mg PO HS 05/28/15 07/24/18 History Atenolol [Tenormin] 25 mg PO DAILY tab 09/07/15 07/24/18 Rx Apixaban [Eliquis] 5 mg PO BID 07/22/18 07/24/18 History Ascorbic Acid [Vitamin C] 500 mg PO DAILY 07/22/18 07/24/18 History Cholecalciferol (Vitamin D3) 2,000 unit PO DAILY 07/22/18 07/24/18 History [Vitamin D3] Gabapentin [Neurontin] 200 mg PO HS 07/22/18 07/24/18 History HYDROcodone/APAP 5-325MG [[place] 1 tab PO Q4HR PRN 07/22/18 07/24/18 History 5-325] INSULIN ASPART (NovoLOG) [NovoLOG See Protocol SQ ACHS 07/22/18 07/24/18 History (formulary)] Insulin Glargine,Hum.rec.anlog 80 units SQ HS 07/22/18 07/24/18 History [Toujeo Solostar] Nitrofurantoin Monohyd/M-Cryst 100 mg PO Q12HR 07/23/18 07/24/18 History [Macrobid] Allergies Allergy/AdvReac Type Severity Reaction Status Date / Time latex Allergy Rash/Hives Verified 07/11/19 17:06 Physical Exam Vitals: Vital Signs Temp Pulse Resp BP Pulse Ox 07/11/19 18:39 102.1 F H 93 22 102/57 96 07/11/19 16:52 103.1 F H 115 H 26 H 117/70 94 L Intake and Output 07/11/19 07/11/19 07/11/19 06:59 14:59 22:59 Other: Weight 80.286 kg Results CBC & Chem 7: 07/11/19 17:10 07/11/19 17:10 Labs: Abnormal Lab Results - Last 24 Hours (Table) 07/11/19 07/11/19 07/11/19 Range/Units 17:10 17:10 17:10 WBC 10.8 H (3.8-10.6) k/uL RBC 3.45 L (3.80-5.40) m/uL MCV 102.7 H (80.0-100.0) fL Plt Count 112 L (150-450) k/uL Lymphocytes # 0.7 L (1.0-4.8) k/uL Eosinophils # 1.7 H (0-0.7) k/uL PT (9.0-12.0) sec INR (<1.2) APTT (22.0-30.0) sec Sodium 133 L (137-145) mmol/L Potassium 5.8 H (3.5-5.1) mmol/L BUN 50 H (7-17) mg/dL Creatinine 1.87 H (0.52-1.04) mg/dL Glucose 220 H (74-99) mg/dL Plasma Lactic Acid Cain 2.1 H* (0.7-2.0) mmol/L Calcium 8.2 L (8.4-10.2) mg/dL AST 39 H (14-36) U/L Total Protein 6.2 L (6.3-8.2) g/dL Urine Appearance (Clear) Urine Protein (Negative) Ur Leukocyte Esterase (Negative) Urine WBC (0-5) /hpf Ur Squamous Epith Cells (0-4) /hpf Urine Bacteria (None) /hpf Hyaline Casts (0-2) /lpf Urine Mucus (None) /hpf Urine Yeast (Budding) (None) /hpf 07/11/19 07/11/19 Range/Units 17:10 17:35 WBC (3.8-10.6) k/uL RBC (3.80-5.40) m/uL MCV (80.0-100.0) fL Plt Count (150-450) k/uL Lymphocytes # (1.0-4.8) k/uL Eosinophils # (0-0.7) k/uL PT 12.8 H (9.0-12.0) sec INR 1.3 H (<1.2) APTT 31.2 H (22.0-30.0) sec Sodium (137-145) mmol/L Potassium (3.5-5.1) mmol/L BUN (7-17) mg/dL Creatinine (0.52-1.04) mg/dL Glucose (74-99) mg/dL Plasma Lactic Acid Cain (0.7-2.0) mmol/L Calcium (8.4-10.2) mg/dL AST (14-36) U/L Total Protein (6.3-8.2) g/dL Urine Appearance Cloudy H (Clear) Urine Protein 2+ H (Negative) Ur Leukocyte Esterase Large H (Negative) Urine WBC 11 H (0-5) /hpf Ur Squamous Epith Cells 10 H (0-4) /hpf Urine Bacteria Occasional H (None) /hpf Hyaline Casts 3 H (0-2) /lpf Urine Mucus Rare H (None) /hpf Urine Yeast (Budding) Occasional H (None) /hpf
[2019-07-11] MEDS: SODIUM CHLORIDE 0.9% 1,000 ML IV SCH (23:04)
[2019-07-11] MEDS: APIXABAN 5 MG TAB PO SCH (23:42)
[2019-07-12 07:18] LABS: Glucose,Whole Blood 206 mg/dL (75-99)
[2019-07-12] MEDS: SODIUM CHLORIDE 0.9% 1,000 ML IV SCH ×2 (07:35→16:29)
[2019-07-12] MEDS: INSULIN ASPART (NovoLOG) 100 UNIT/ML VIAL SQ SCH ×4 (07:47→20:54)
[2019-07-12] MEDS: APIXABAN 5 MG TAB PO SCH ×2 (07:47→20:53)
[2019-07-12 08:25] LABS: Calcium 7.9 mg/dL (8.4-10.2); Potassium 4.4 mmol/L (3.5-5.1)
[2019-07-12 08:39] LABS: HCT 34.6 % (34.0-46.0); HGB 11.1 gm/dL (11.4-16.0); MCH 33.4 pg (25.0-35.0); MCHC 32.2 g/dL (31.0-37.0); MCV 103.6 fL (80.0-100.0); Macrocytosis Slight; Mean Platelet Volume 11.2; RBC 3.34 m/uL (3.80-5.40); RDW 14.7 % (11.5-15.5)
[2019-07-12 11:16] LABS: Band Neutrophils % 1 %; Basophils # (M) 0.07 k/uL (0-0.2); Monocytes # (M) 0.28 k/uL (0-1.0); Neutrophils % (M) 73 %; Nucleated Red Blood Cells 1 /100 WBC (0-0); Total Cells Counted 200
[2019-07-12 11:20] LABS: Eosinophils # (M) 1.04 k/uL (0-0.7); Lymphocytes # (M) 0.55 k/uL (1.0-4.8); WBC 6.9 k/uL (3.8-10.6)
[2019-07-12 11:23] LABS: Platelet Count 98 k/uL (150-450)
[2019-07-12 11:47] LABS: Glucose,Whole Blood 193 mg/dL (75-99)
--- NOTE | 2019-07-12 12:31 | P.NPCON ---
History of Present Illness - Reason for Consult Consult date: 07/12/19 acute renal failure - Chief Complaint Acute kidney injury and chronic kidney disease - History of Present Illness This is a 63-year-old female known to us with chronic kidney disease, multiple myeloma since 2007, presented with fever cough for 2 days and has been diagnosed with pneumonia. Interestingly enough there was some questionable coronavirus, she is supposedly met a [id number] who had been current time after visit [place]. She was recently back on chemotherapy Her past history significant for dialysis dependent acute kidney injury in 2007 for 2 months. She's been followed by Dr. Njaera. She came in with a creatinine peaked at 1.87 and is improved to 1.23 this morning Denies any nausea vomiting diarrhea abdominal pain dysuria frequency abdominal pain. Past Medical History Past Medical History: Cancer, Diabetes Mellitus, Hyperlipidemia, Hypertension, Osteoarthritis (OA), Renal Disease Additional Past Medical History / Comment(s): MULTIPLE MYELOMA 2007 had chemo in 2007, renal failure with cancer tx and had dialysis for 2 months, 05/28/15 pathologic thoracic vertebra fracture-back pain is getting better per pt, IDDM type II, slight leaky heart valve, hysterectomy d/t uterine fibroids, hx of H pylori History of Any Multi-Drug Resistant Organisms: None Reported Past Surgical History: Back Surgery, Cholecystectomy, Hysterectomy Additional Past Surgical History / Comment(s): colonoscopy, rt carpal tunnel release, T9 kyphoplasty with bx, oophorectomy, cyst of inner R thigh, R foot surgery d/t stepping on something, AV fistula inserted and removed Past Anesthesia/Blood Transfusion Reactions: No Reported Reaction Additional Past Anesthesia/Blood Transfusion Reaction / Comment(s): Pt has received blood in the past without reaction. Past Psychological History: No Psychological Hx Reported Smoking Status: Never smoker Past Alcohol Use History: None Reported Past Drug Use History: None Reported - Past Family History Mother Family Medical History: Congestive Heart Failure (CHF) Additional Family Medical History / Comment(s): Mother of CHF at age 76 yrs. Father Family Medical History: Myocardial Infarction (MD) Additional Family Medical History / Comment(s): Father of a MD at age 46 yrs. Medications and Allergies Home Medications Medication Instructions Recorded Confirmed Type amLODIPine [Norvasc] 10 mg PO HS 05/28/15 07/11/19 History Atenolol [Tenormin] 25 mg PO DAILY tab 09/07/15 07/11/19 Rx Apixaban [Eliquis] 5 mg PO BID 07/22/18 07/11/19 History Ascorbic Acid [Vitamin C] 500 mg PO DAILY 07/22/18 07/11/19 History Cholecalciferol (Vitamin D3) 2,000 unit PO DAILY 07/22/18 07/11/19 History [Vitamin D3] Gabapentin [Neurontin] 200 mg PO HS 07/22/18 07/11/19 History INSULIN ASPART (NovoLOG) [NovoLOG See Protocol SQ ACHS 07/22/18 07/11/19 History (formulary)] Ferrous Sulfate [Feosol] 325 mg PO DAILY 07/11/19 07/11/19 History Folic Acid 0.4 mg PO DAILY 07/11/19 07/11/19 History Gabapentin [Neurontin] 100 mg PO DAILY 07/11/19 07/11/19 History Allergies Allergy/AdvReac Type Severity Reaction Status Date / Time latex Allergy Rash/Hives Verified 07/11/19 21:47 Physical Exam Vitals: Vital Signs Temp Pulse Pulse Pulse Resp BP BP 07/12/19 12:09 100 F H 90 18 142/76 07/12/19 05:10 99.9 F H 99 18 160/80 07/11/19 21:42 98 F 83 17 116/86 07/11/19 20:30 99.3 F 84 18 109/64 07/11/19 18:39 102.1 F H 93 22 102/57 07/11/19 16:52 103.1 F H 115 H 26 H 117/70 Pulse Ox 07/12/19 12:09 94 L 07/12/19 05:10 92 L 07/11/19 21:42 96 07/11/19 20:30 96 07/11/19 18:39 96 07/11/19 16:52 94 L Intake and Output 07/11/19 07/12/19 07/12/19 22:59 06:59 14:59 Other: Voiding Method Toilet Toilet # Voids 1 2 1 Weight 80.286 kg On examination she is awake alert oriented comfortable A chin exam no JVP neck is supple no facial asymmetry Lungs are clear to auscultation fair air entry bilaterally Heart sounds are unremarkable Abdomen soft nontender no organomegaly status masses Extremity exam was no edema Neurologically awake alert oriented Results - Lab Results Most recent lab results Calcium 7.9 mg/dL (8.4-10.2) L 07/12/19 07:43 07/12/19 07:43 07/12/19 07:43 Assessment and Plan Plan: Impression 1. Acute kidney injury from prerenal from pneumonia creatinine peaked at 1.8 in 2-1.23 with hydration 2. Hyperkalemia secondary to acute kidney injury. Potassium is 5.8 on admission. Improved to 4.4 this morning with hydration 3. Chronic kidney disease, stage II with a GFR of 68-77 mL per minute, etiology is diabetic nephropathy with proteinuria of 4 97 mg/g of creatinine on 06/13/2019 3. History of multiple myeloma since 2007 on chemotherapy intermittently. More recent chemotherapy started 4. Anemia off chronic illness hemoglobin 7.1 5. Thrombocytopenia from possible chemotherapy versus myeloma. Placed on his 98,000. Recommendation 1. Continue IV fluids 100 mL of normal saline per hour. 2. Watch labs. 3. Patient is on vancomycin watch for acute kidney injury keep trough levels below 15
[2019-07-12 14:19] VITALS: BMI 31.3
--- NOTE | 2019-07-12 14:32 | P.CRDCN ---
History of Present Illness Consult date: 07/12/19 Chief complaint: Shortness of breath History of present illness: This is a very pleasant 63-year-old -[place] female patient who follows with Dr. Tan in the office on regular basis with a past medical history significant for multiple myeloma, currently the patient is on chemotherapy, history of permanent pacemaker implantation, history of diabetes, presented to the emergency room complaining of fever. The patient was experiencing shortness of breath associated with cough productive of sputum. No symptoms of chest pain or chest discomfort beach she checked her temperature at home and came in to be elevated at 103. Because of that she decided to come to the hospital. The patient was diagnosed with pneumonia and she was started on antibiotic. She stated that she is feeling better. Apparently she still hypoxic and requiring oxygen through nasal cannula. She denies any symptoms of chest pain or chest discomfort. She did not have any change in her weight or gaining weight recently. No orthopnea or PND. No lower extremities edema. The patient just had chemotherapy about 2 days ago for multiple myeloma. The EKG revealed a paced rhythm. The chest x-ray did not show any acute abnormalities. The BNP came in to be elevated but the patient clinically does not look in any overt congestive heart failure at this point of time. The last echocardiogram was from 2016 and that revealed normal left ventricular systolic function. We will obtain an echocardiogram at this point to assess ejection fraction. Past Medical History Past Medical History: Cancer, Diabetes Mellitus, Hyperlipidemia, Hypertension, Osteoarthritis (OA), Renal Disease Additional Past Medical History / Comment(s): MULTIPLE MYELOMA 2007 had chemo in 2007, renal failure with cancer tx and had dialysis for 2 months, 05/28/15 pathologic thoracic vertebra fracture-back pain is getting better per pt, IDDM type II, slight leaky heart valve, hysterectomy d/t uterine fibroids, hx of H pylori History of Any Multi-Drug Resistant Organisms: None Reported Past Surgical History: Back Surgery, Cholecystectomy, Hysterectomy Additional Past Surgical History / Comment(s): colonoscopy, rt carpal tunnel release, T9 kyphoplasty with bx, oophorectomy, cyst of inner R thigh, R foot surgery d/t stepping on something, AV fistula inserted and removed Past Anesthesia/Blood Transfusion Reactions: No Reported Reaction Additional Past Anesthesia/Blood Transfusion Reaction / Comment(s): Pt has received blood in the past without reaction. Past Psychological History: No Psychological Hx Reported Smoking Status: Never smoker Past Alcohol Use History: None Reported Past Drug Use History: None Reported - Past Family History Mother Family Medical History: Congestive Heart Failure (CHF) Additional Family Medical History / Comment(s): Mother of CHF at age 76 yrs. Father Family Medical History: Myocardial Infarction (SD) Additional Family Medical History / Comment(s): Father of a SD at age 46 yrs. Medications and Allergies Home Medications Medication Instructions Recorded Confirmed Type amLODIPine [Norvasc] 10 mg PO HS 05/28/15 07/11/19 History Atenolol [Tenormin] 25 mg PO DAILY tab 09/07/15 07/11/19 Rx Apixaban [Eliquis] 5 mg PO BID 07/22/18 07/11/19 History Ascorbic Acid [Vitamin C] 500 mg PO DAILY 07/22/18 07/11/19 History Cholecalciferol (Vitamin D3) 2,000 unit PO DAILY 07/22/18 07/11/19 History [Vitamin D3] Gabapentin [Neurontin] 200 mg PO HS 07/22/18 07/11/19 History INSULIN ASPART (NovoLOG) [NovoLOG See Protocol SQ ACHS 07/22/18 07/11/19 History (formulary)] Ferrous Sulfate [Feosol] 325 mg PO DAILY 07/11/19 07/11/19 History Folic Acid 0.4 mg PO DAILY 07/11/19 07/11/19 History Gabapentin [Neurontin] 100 mg PO DAILY 07/11/19 07/11/19 History Allergies Allergy/AdvReac Type Severity Reaction Status Date / Time latex Allergy Rash/Hives Verified 07/11/19 21:47 Physical Exam Vitals: Vital Signs Temp Pulse Pulse Pulse Resp BP BP 07/12/19 12:09 100 F H 90 18 142/76 07/12/19 05:10 99.9 F H 99 18 160/80 07/11/19 21:42 98 F 83 17 116/86 07/11/19 20:30 99.3 F 84 18 109/64 07/11/19 18:39 102.1 F H 93 22 102/57 07/11/19 16:52 103.1 F H 115 H 26 H 117/70 Pulse Ox 07/12/19 12:09 94 L 07/12/19 05:10 92 L 07/11/19 21:42 96 02/21/20 20:30 96 07/11/19 18:39 96 07/11/19 16:52 94 L Intake and Output 07/11/19 07/12/19 07/12/19 22:59 06:59 14:59 Intake Total 2570 Balance 2570 Intake: Intake, IV Titration 1450 Amount Cefepime 2 gm In Sodium 100 Chloride 0.9% 100 ml @ 200 mls/hr IVPB Q24H LUCY Rx#:[id number] Sodium Chloride 0.9% 1, 1100 000 ml @ 100 mls/hr IV . Q10H LUCY Rx#:[id number] Vancomycin 1,500 mg In 250 Sodium Chloride 0.9% 250 ml @ 125 mls/hr IVPB Q24H LUCY Rx#:[id number] Oral 1120 Other: Voiding Method Toilet Toilet # Voids 1 2 4 Weight 80.286 kg 80.286 kg - Constitutional General appearance: no acute distress - Respiratory Respiratory: bilateral: diminished - Cardiovascular Rhythm: regular Heart sounds: normal: S1, S2 Results 07/12/19 07:43 07/12/19 07:43 Cardiac Enzymes 07/11/19 07/11/19 07/11/19 Range/Units 17:10 17:10 17:10 AST 39 H (14-36) U/L CK-MB (CK-2) <0.2 (0.0-2.4) ng/mL Troponin I 0.013 (0.000-0.034) ng/mL Coagulation 07/11/19 Range/Units 17:10 PT 12.8 H (9.0-12.0) sec APTT 31.2 H (22.0-30.0) sec CBC 07/11/19 07/12/19 Range/Units 17:10 07:43 WBC 10.8 H 6.9 (3.8-10.6) k/uL RBC 3.45 L 3.34 L (3.80-5.40) m/uL Hgb 11.5 11.1 L (11.4-16.0) gm/dL Hct 35.5 34.6 (34.0-46.0) % Plt Count 112 L 98 L (150-450) k/uL Comprehensive Metabolic Panel 02/21/20 02/22/20 Range/Units 17:10 07:43 Sodium 133 L 135 L (137-145) mmol/L Potassium 5.8 H 4.4 (3.5-5.1) mmol/L Chloride 102 104 (98-107) mmol/L Carbon Dioxide 23 25 (22-30) mmol/L BUN 50 H 36 H (7-17) mg/dL Creatinine 1.87 H 1.23 H (0.52-1.04) mg/dL Glucose 220 H 195 H (74-99) mg/dL Calcium 8.2 L 7.9 L (8.4-10.2) mg/dL AST 39 H (14-36) U/L ALT 14 (4-34) U/L Alkaline Phosphatase 88 (38-126) U/L Total Protein 6.2 L (6.3-8.2) g/dL Albumin 3.7 (3.5-5.0) g/dL Current Medications Generic Name Dose Route Start Last Admin Trade Name Freq PRN Reason Stop Dose Admin Acetaminophen 650 mg 07/11/19 18:52 Tylenol Tab PO Q6HR PRN Mild Pain or Fever > 100.5 Apixaban 5 mg 07/11/19 23:45 07/12/19 07:47 Eliquis PO 5 mg BID LUCY Administration Cefepime HCl 2 gm/ Sodium 100 mls @ 200 mls/hr 07/12/19 18:00 Chloride IVPB Q24H LUCY Vancomycin HCl 1,500 mg/ 250 mls @ 125 mls/hr 07/12/19 16:00 Sodium Chloride IVPB Q24H LUCY Sodium Chloride 1,000 mls @ 100 mls/hr 07/11/19 20:30 07/12/19 07:35 Saline 0.9% IV 100 mls/hr .Q10H LUCY Administration Insulin Aspart 0 unit 07/12/19 07:30 07/12/19 13:09 Novolog SQ 2 unit ACHS LUCY Administration Protocol Naloxone HCl 0.2 mg 07/11/19 18:52 Narcan IV Q2M PRN Opioid Reversal Intake and Output 07/11/19 07/12/19 07/12/19 22:59 06:59 14:59 Intake Total 2570 Balance 2570 Intake: Intake, IV Titration 1450 Amount Cefepime 2 gm In Sodium 100 Chloride 0.9% 100 ml @ 200 mls/hr IVPB Q24H LUCY Rx#:[id number] Sodium Chloride 0.9% 1, 1100 000 ml @ 100 mls/hr IV . Q10H LUCY Rx#:[id number] Vancomycin 1,500 mg In 250 Sodium Chloride 0.9% 250 ml @ 125 mls/hr IVPB Q24H LUCY Rx#:[id number] Oral 1120 Other: Voiding Method Toilet Toilet # Voids 1 2 4 Weight 80.286 kg 80.286 kg Patient Weight 07/13/19 06:59 Weight 80.286 kg 07/12/19 07:43 07/12/19 07:43 Assessment and Plan Assessment: Assessment #1 pneumonia #2 multiple myeloma status post chemotherapy #3 status post permanent pacemaker #4 diabetes type 2 Plan #1 the patient's clinical picture seems to be consistent with a pneumonia more than heart failure, in spite of elevated BNP #2 currently she is on antibiotic #3 obtain an echocardiogram was Doppler #4 follow-up with the patient Thank you for allowing us participate in her care
--- NOTE | 2019-07-12 15:38 | P.PN ---
Subjective Progress Note Date: 07/12/19 (Fever temp 100 F oral) Principal diagnosis: Diagnosis: #1 clinical picture with fever, cough splinting and the chest x-ray clinically: Compatible with pneumonia, especially patient immunocompromised with her last chemotherapy last Sunday. #2 underlying acute renal failure on the top of chronic. #3 hypercholesterolemia potassium 5.8 on admission. #4 diabetes mellitus type 2 insulin-dependent. #5 pacemaker with her rhythm dependent on the pacemaker with a history of atrial fib in the past. #6 hypertension with hypertensive heart disease. #7 multiple myeloma since 2007. Currently on chemotherapy, by Dr. Carreon. Dictation on progress note date of service 07/12/[address] Cid. Patient seen and evaluated today [id number]. Discussed with the patient and her sister and daughter was in the room, she is on the oncology floor. I did discuss it also is her nurse Christine FELDMAN. Laboratories: White count improved from 10.8-6.9. Hemoglobin 11.5 and today is 11.1. Hematocrit is 35.5 today is 34.6. Platelet count 112 and today 98. On the chemistry her potassium was 5.8 on admission and today is 4.4 corrected. With the hydration her BUN was 50 today BUN 36, as well as creatinine 1.87 and today 1.3. Her blood sugar in the morning as been also improved to 195 and she is on insulin to scale only no long-acting insulin. AST minimally elevated at 39 however that a LT normal 14, troponin was normal 0.013, total protein 6.2 and albumin 3.7. Her culture of the urine received to the lab however result is pending. On examination: Patient is alert oriented 3 no acute distress no acute chest pain and she is getting the echocardiogram ordered by Dr. Horn cardiology. Her temperature has been persistent high with the progression of the temperature 99.9 to 100 F oral. Today her pulse rate 88/m and respiratory rate 18 and blood pressure 142/76 and yesterday. Doppler to 160/80 and pulse ox on 3 L nasal cannula was 94. Percent On exam: The head was normocephalic and atraumatic pupil was equal reactive conjunctiva was pink trachea midline and no lymphadenopathy can be found. The chest was auscultation and she had still restriction with a deep breathing questionable pleuritis and she had scattered bilateral rhonchi. The heart regular on pacemaker demand. The abdomen is soft positive bowel sounds obese Extremities no edema and positive pulses. Neurologically stable no lateralizing sign no neck stiffness. Assessment: Clinical picture and supportive of pneumonia bilateral with the underlying fever chills resistant Immunocompromise with the chemotherapy lost 1 on last Sunday. Diabetes mellitus type 2 insulin-dependent. Hypertension was hypertensive heart disease. History spine surgery by Dr. 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 Recommendation and plan. #1 because of the persistent temperature despite [address] Juan infectious disease. #2 requested today consultation with Dr. martins with oncologist to see if this is related to her multiple myeloma. #3 underlying sepsis. #4 obtain computed tomography scan of the chest without contrast. #5 history of chronic kidney disease with the acute kidney injury currently with the current improvement in the BUN and creatinine. #6 diabetes mellitus type 2 insulin-dependent monitored. Objective - Vital Signs Vital signs: Vital Signs Temp 100 F H 07/12/19 12:09 Pulse 88 07/12/19 15:11 Resp 18 07/12/19 15:11 BP 142/76 07/12/19 12:09 Pulse Ox 94 L 07/12/19 12:09 Intake & Output 07/11/19 07/12/19 07/12/19 18:59 06:59 18:59 Intake Total 2570 Balance 2570 Weight 80.286 kg 80.286 kg 80.286 kg Intake: Intake, IV Titration 1450 Amount Cefepime 2 gm In Sodium 100 Chloride 0.9% 100 ml @ 200 mls/hr IVPB Q24H LUCY Rx#:[id number] Sodium Chloride 0.9% 1, 1100 000 ml @ 100 mls/hr IV . Q10H LUCY Rx#:[id number] Vancomycin 1,500 mg In 250 Sodium Chloride 0.9% 250 ml @ 125 mls/hr IVPB Q24H LUCY Rx#:[id number] Oral 1120 Other: Voiding Method Toilet Toilet # Voids 2 4 - Labs CBC & Chem 7: 07/12/19 07:43 07/12/19 07:43 Labs: Abnormal Lab Results - Last 24 Hours (Table) 07/11/19 07/11/19 07/11/19 Range/Units 17:10 17:10 17:10 WBC 10.8 H (3.8-10.6) k/uL RBC 3.45 L (3.80-5.40) m/uL Hgb (11.4-16.0) gm/dL MCV 102.7 H (80.0-100.0) fL Plt Count 112 L (150-450) k/uL Lymphocytes # 0.7 L (1.0-4.8) k/uL Lymphocytes # (Manual) (1.0-4.8) k/uL Eosinophils # 1.7 H (0-0.7) k/uL Eosinophils # (Manual) (0-0.7) k/uL Nucleated RBCs (0-0) /100 WBC PT (9.0-12.0) sec INR (<1.2) APTT (22.0-30.0) sec Sodium 133 L (137-145) mmol/L Potassium 5.8 H (3.5-5.1) mmol/L BUN 50 H (7-17) mg/dL Creatinine 1.87 H (0.52-1.04) mg/dL Glucose 220 H (74-99) mg/dL POC Glucose (mg/dL) (75-99) mg/dL Plasma Lactic Acid Cain 2.1 H* (0.7-2.0) mmol/L Calcium 8.2 L (8.4-10.2) mg/dL AST 39 H (14-36) U/L Total Creatine Kinase (30-135) U/L Total Protein 6.2 L (6.3-8.2) g/dL Urine Appearance (Clear) Urine Protein (Negative) Ur Leukocyte Esterase (Negative) Urine WBC (0-5) /hpf Ur Squamous Epith Cells (0-4) /hpf Urine Bacteria (None) /hpf Hyaline Casts (0-2) /lpf Urine Mucus (None) /hpf Urine Yeast (Budding) (None) /hpf 07/11/19 07/11/19 07/11/19 Range/Units 17:10 17:10 17:35 WBC (3.8-10.6) k/uL RBC (3.80-5.40) m/uL Hgb (11.4-16.0) gm/dL MCV (80.0-100.0) fL Plt Count (150-450) k/uL Lymphocytes # (1.0-4.8) k/uL Lymphocytes # (Manual) (1.0-4.8) k/uL Eosinophils # (0-0.7) k/uL Eosinophils # (Manual) (0-0.7) k/uL Nucleated RBCs (0-0) /100 WBC PT 12.8 H (9.0-12.0) sec INR 1.3 H (<1.2) APTT 31.2 H (22.0-30.0) sec Sodium (137-145) mmol/L Potassium (3.5-5.1) mmol/L BUN (7-17) mg/dL Creatinine (0.52-1.04) mg/dL Glucose (74-99) mg/dL POC Glucose (mg/dL) (75-99) mg/dL Plasma Lactic Acid Cain (0.7-2.0) mmol/L Calcium (8.4-10.2) mg/dL AST (14-36) U/L Total Creatine Kinase <20 L (30-135) U/L Total Protein (6.3-8.2) g/dL Urine Appearance Cloudy H (Clear) Urine Protein 2+ H (Negative) Ur Leukocyte Esterase Large H (Negative) Urine WBC 11 H (0-5) /hpf Ur Squamous Epith Cells 10 H (0-4) /hpf Urine Bacteria Occasional H (None) /hpf Hyaline Casts 3 H (0-2) /lpf Urine Mucus Rare H (None) /hpf Urine Yeast (Budding) Occasional H (None) /hpf 07/12/19 07/12/19 07/12/19 Range/Units 07:17 07:43 07:43 WBC (3.8-10.6) k/uL RBC 3.34 L (3.80-5.40) m/uL Hgb 11.1 L (11.4-16.0) gm/dL MCV 103.6 H (80.0-100.0) fL Plt Count 98 L (150-450) k/uL Lymphocytes # (1.0-4.8) k/uL Lymphocytes # (Manual) 0.55 L (1.0-4.8) k/uL Eosinophils # (0-0.7) k/uL Eosinophils # (Manual) 1.04 H (0-0.7) k/uL Nucleated RBCs 1 H (0-0) /100 WBC PT (9.0-12.0) sec INR (<1.2) APTT (22.0-30.0) sec Sodium 135 L (137-145) mmol/L Potassium (3.5-5.1) mmol/L BUN 36 H (7-17) mg/dL Creatinine 1.23 H (0.52-1.04) mg/dL Glucose 195 H (74-99) mg/dL POC Glucose (mg/dL) 206 H (75-99) mg/dL Plasma Lactic Acid Cain (0.7-2.0) mmol/L Calcium 7.9 L (8.4-10.2) mg/dL AST (14-36) U/L Total Creatine Kinase (30-135) U/L Total Protein (6.3-8.2) g/dL Urine Appearance (Clear) Urine Protein (Negative) Ur Leukocyte Esterase (Negative) Urine WBC (0-5) /hpf Ur Squamous Epith Cells (0-4) /hpf Urine Bacteria (None) /hpf Hyaline Casts (0-2) /lpf Urine Mucus (None) /hpf Urine Yeast (Budding) (None) /hpf 07/12/19 Range/Units 11:46 WBC (3.8-10.6) k/uL RBC (3.80-5.40) m/uL Hgb (11.4-16.0) gm/dL MCV (80.0-100.0) fL Plt Count (150-450) k/uL Lymphocytes # (1.0-4.8) k/uL Lymphocytes # (Manual) (1.0-4.8) k/uL Eosinophils # (0-0.7) k/uL Eosinophils # (Manual) (0-0.7) k/uL Nucleated RBCs (0-0) /100 WBC PT (9.0-12.0) sec INR (<1.2) APTT (22.0-30.0) sec Sodium (137-145) mmol/L Potassium (3.5-5.1) mmol/L BUN (7-17) mg/dL Creatinine (0.52-1.04) mg/dL Glucose (74-99) mg/dL POC Glucose (mg/dL) 193 H (75-99) mg/dL Plasma Lactic Acid Cain (0.7-2.0) mmol/L Calcium (8.4-10.2) mg/dL AST (14-36) U/L Total Creatine Kinase (30-135) U/L Total Protein (6.3-8.2) g/dL Urine Appearance (Clear) Urine Protein (Negative) Ur Leukocyte Esterase (Negative) Urine WBC (0-5) /hpf Ur Squamous Epith Cells (0-4) /hpf Urine Bacteria (None) /hpf Hyaline Casts (0-2) /lpf Urine Mucus (None) /hpf Urine Yeast (Budding) (None) /hpf Microbiology - Last 24 Hours (Table) 07/11/19 17:35 Urine Culture - Preliminary Urine,Voided
[2019-07-12] MEDS ORDERED: VANCOMYCIN 1,500 MG in SODIUM CHLORIDE 0.9% 250 ML IVPB SCH (16:00)
--- NOTE | 2019-07-12 16:01 | ECHOF ---
Referral Reason:atrial fib .htnurgency,tia MEASUREMENTS -------- HEIGHT: 160.0 cm WEIGHT: 80.3 kg BP: 160/80 RVIDd: 2.5 cm (< 3.3) IVSd: 1.9 cm (0.6 - 1.1) LVIDd: 4.3 cm (3.9 - 5.3) LVPWd: 1.5 cm (0.6 - 1.1) IVSs: 2.4 cm LVIDs: 2.9 cm LVPWs: 2.0 cm LAESV Index (A-L): 42.34 ml/m Ao Diam: 3.3 cm (2.0 - 3.7) AV Cusp: 2.1 cm (1.5 - 2.6) MV E David: 0.45 m/s MV DecT: 110 ms MV A David: 1.07 m/s MV E/A Ratio: 0.42 AR PHT: 505 ms RAP: 5.00 mmHg RVSP: 74.77 mmHg FINDINGS -------- Sinus rhythm. This was a technically adequate study. The left ventricular size is normal. There is moderate concentric left ventricular hypertrophy. O verall left ventricular systolic function is mildly impaired with, an EF between 45 - 50 %. Increas ed Lap Grade II Diastolic Dysfunction. Apical septum LV wall motion is hypokinetic. The right ventricle is normal in size. LA is severely dilated >40 ml/m2 The right atrium was not well visualized. Electronic pacemaker lead seen in the right atrial cavity . Interatrial and interventricular septum intact. The aortic valve is trileaflet and appears structurally normal. There is mild aortic valve sclerosi s. There is mild aortic regurgitation. There is no evidence of aortic stenosis. Mild mitral annular calcification present. Moderate mitral regurgitation is present. Moderate to severe tricuspid regurgitation present. There is severe pulmonary hypertension. The r ight ventricular systolic pressure, as measured by Doppler, is 74.77mmHg. Trace/mild (physiologic) pulmonic regurgitation. The aortic root size is normal. IVC Not well visulized. There is a small, generalized pericardial effusion present. CONCLUSIONS -------- 1. Sinus rhythm. 2. This was a technically adequate study. 3. The left ventricular size is normal. 4. There is moderate concentric left ventricular hypertrophy. 5. Overall left ventricular systolic function is mildly impaired with, an EF between 45 - 50 %. 6. Increased Lap Grade II Diastolic Dysfunction. 7. Apical septum LV wall motion is hypokinetic. 8. The right ventricle is normal in size. 9. LA is severely dilated >40 ml/m2 10. The right atrium was not well visualized. 11. Electronic pacemaker lead seen in the right atrial cavity. 12. Interatrial and interventricular septum intact. 13. The aortic valve is trileaflet and appears structurally normal. 14. There is mild aortic valve sclerosis. 15. There is mild aortic regurgitation. 16. There is no evidence of aortic stenosis. 17. Mild mitral annular calcification present. 18. Moderate mitral regurgitation is present. 19. Moderate to severe tricuspid regurgitation present. 20. There is severe pulmonary hypertension. 21. The right ventricular systolic pressure, as measured by Doppler, is 74.77mmHg. 22. Trace/mild (physiologic) pulmonic regurgitation. 23. The aortic root size is normal. 24. IVC Not well visulized. 25. There is a small, generalized pericardial effusion present. ASSISTANT UNIT FORESTER: Yessica Cruz RDCS
--- NOTE | 2019-07-12 16:10 | CT ---
EXAMINATION TYPE: CT chest wo con DATE OF EXAM: 07/12/2019 COMPARISON: None HISTORY: Pneumonia and fever. CT DLP: 445.6 mGycm Automated exposure control for dose reduction was used. Multiple axial sections were obtained from the thoracic inlet to the diaphragm without contrast. There is a patchy reticular nodular pulmonary infiltrate in the mid and lower lung pickard. There is s ome patchy mild atelectasis at the lung bases. Heart is enlarged. There is coronary artery calcificat ion. There is no pericardial effusion. There is no pleural fluid. The bony thorax shows compression d eformities with vertebroplasty at L1 and T9. IMPRESSION: Cardiomegaly. Patchy pulmonary infiltrates in the mid and lower lung pickard bilaterally could relate to heart failure and or inflammatory disease. No suspicious pulmonary mass.
[2019-07-12] MEDS: ASCORBIC ACID 500 MG TAB PO SCH (16:18)
[2019-07-12] MEDS: ATENOLOL 25 MG TAB PO SCH (16:18)
--- NOTE | 2019-07-12 16:50 | P.CONS ---
History of Present Illness - Reason for Consult Consult date: 07/12/19 Multifocal pneumonia Requesting physician: Carl Cid - Chief Complaint Fever 1 day - History of Present Illness Patient is 63-year-old -Greek female with a past medical history significant for multiple myeloma for the patient is currently on chemotherapy, patient presented to [facility] ER yesterday with a chief complaints of fever cough and congestion, patient's symptom has been going on for a day or 2 before she presented to hospital, apparently the patient was exposed to her sister who was in [place], the sister was subsequently quarantined on arrival to the and has been cleared of ovalle virus, patient on presentation hospital have a fever of 103F, patient was tachycardic with heart rate 115, patient initial white count was slightly elevated 10.8 repeat is 6.9, influenza serology was negative, patient did have a chest x-ray shows cardia megaly mild pulmonary vascular congestion increase from last exam, the patient does have a positive UA urine showing large [place] histories 11 WBC and some budding yeast, patient was initially treated with cefepime and Zithromax subsequently when he has been changed over to vancomycin and cefepime infection disease was consulted for further recommendation regarding antibiotic therapy, patient did have a borderline kidney. On presentation hospital with a creatinine 1.87 and repeat is 1.23, patient is breathing slightly comfortably, denies having any hemoptysis or chest pain no URI symptoms no nausea no vomiting and abdominal pain and no diarrhea Review of Systems Positive point has been mentioned in the HPI rest of the systems are negative Past Medical History Past Medical History: Cancer, Diabetes Mellitus, Hyperlipidemia, Hypertension, Osteoarthritis (OA), Renal Disease Additional Past Medical History / Comment(s): MULTIPLE MYELOMA 2008 had chemo in 2007, renal failure with cancer tx and had dialysis for 2 months, 05/28/15 pathologic thoracic vertebra fracture-back pain is getting better per pt, IDDM type II, slight leaky heart valve, hysterectomy d/t uterine fibroids, hx of H pylori History of Any Multi-Drug Resistant Organisms: None Reported Past Surgical History: Back Surgery, Cholecystectomy, Hysterectomy Additional Past Surgical History / Comment(s): colonoscopy, rt carpal tunnel release, T9 kyphoplasty with bx, oophorectomy, cyst of inner R thigh, R foot surgery d/t stepping on something, AV fistula inserted and removed Past Anesthesia/Blood Transfusion Reactions: No Reported Reaction Additional Past Anesthesia/Blood Transfusion Reaction / Comm: Pt has received blood in the past without reaction. Past Psychological History: No Psychological Hx Reported Smoking Status: Never smoker Past Alcohol Use History: None Reported Past Drug Use History: None Reported - Past Family History Mother Family Medical History: Congestive Heart Failure (CHF) Additional Family Medical History / Comment(s): Mother of CHF at age 76 yrs. Father Family Medical History: Myocardial Infarction ([place]) Additional Family Medical History / Comment(s): Father of a [place] at age 46 yrs. Medications and Allergies Home Medications Medication Instructions Recorded Confirmed Type amLODIPine [Norvasc] 10 mg PO HS 05/28/15 07/11/19 History Atenolol [Tenormin] 25 mg PO DAILY tab 09/07/15 07/11/19 Rx Apixaban [Eliquis] 5 mg PO BID 07/22/18 07/11/19 History Ascorbic Acid [Vitamin C] 500 mg PO DAILY 07/22/18 07/11/19 History Cholecalciferol (Vitamin D3) 2,000 unit PO DAILY 07/22/18 07/11/19 History [Vitamin D3] Gabapentin [Neurontin] 200 mg PO HS 07/22/18 07/11/19 History INSULIN ASPART (NovoLOG) [NovoLOG See Protocol SQ ACHS 07/22/18 07/11/19 History (formulary)] Ferrous Sulfate [Feosol] 325 mg PO DAILY 07/11/19 07/11/19 History Folic Acid 0.4 mg PO DAILY 07/11/19 07/11/19 History Gabapentin [Neurontin] 100 mg PO DAILY 07/11/19 07/11/19 History Allergies Allergy/AdvReac Type Severity Reaction Status Date / Time latex Allergy Rash/Hives Verified 07/11/19 21:47 Physical Exam Vitals: Vital Signs Temp Pulse Pulse Pulse Resp BP BP 07/12/19 12:09 100 F H 90 18 142/76 07/12/19 05:10 99.9 F H 99 18 160/80 07/11/19 21:42 98 F 83 17 116/86 07/11/19 20:30 99.3 F 84 18 109/64 07/11/19 18:39 102.1 F H 93 22 102/57 07/11/19 16:52 103.1 F H 115 H 26 H 117/70 Pulse Ox 07/12/19 12:09 94 L 07/12/19 05:10 92 L 07/11/19 21:42 96 07/11/19 20:30 96 07/11/19 18:39 96 07/11/19 16:52 94 L Intake and Output 07/11/19 07/12/19 07/12/19 22:59 06:59 14:59 Intake Total 2570 Balance 2570 Intake: Intake, IV Titration 1450 Amount Cefepime 2 gm In Sodium 100 Chloride 0.9% 100 ml @ 200 mls/hr IVPB Q24H [facility] Rx#:[id number] Sodium Chloride 0.9% 1, 1100 000 ml @ 100 mls/hr IV . Q10H [facility] Rx#:[id number] Vancomycin 1,500 mg In 250 Sodium Chloride 0.9% 250 ml @ 125 mls/hr IVPB Q24H [facility] Rx#:[id number] Oral 1120 Other: Voiding Method Toilet Toilet # Voids 1 2 4 Weight 80.286 kg GENERAL DESCRIPTION: Elderly female lying in bed, no distress. No tachypnea or accessory muscle of respiration use. HEENT: Shows Pallor , no scleral icterus. Oral mucous membrane is dry. No pharyngeal erythema or thrush NECK: Trachea central, no thyromegaly. LUNGS: Unlabored breathing. Decreased breath sound at the base. No wheeze or crackle. HEART: S1, S2, regular rate and rhythm. No loud murmur ABDOMEN: Soft, no tenderness , guarding or rigidity, no organomegaly EXTREMITIES: No edema of feet. SKIN: No rash, no masses palpable. NEUROLOGICAL: The patient is awake, alert, oriented x3, mood and affect normal. Results CBC & Chem 7: 07/12/19 07:43 07/12/19 07:43 Labs: Abnormal Lab Results - Last 24 Hours (Table) 07/11/19 07/11/19 07/11/19 Range/Units 17:10 17:10 17:10 WBC 10.8 H (3.8-10.6) k/uL RBC 3.45 L (3.80-5.40) m/uL Hgb (11.4-16.0) gm/dL MCV 102.7 H (80.0-100.0) fL Plt Count 112 L (150-450) k/uL Lymphocytes # 0.7 L (1.0-4.8) k/uL Lymphocytes # (Manual) (1.0-4.8) k/uL Eosinophils # 1.7 H (0-0.7) k/uL Eosinophils # (Manual) (0-0.7) k/uL Nucleated RBCs (0-0) /100 WBC PT (9.0-12.0) sec INR (<1.2) APTT (22.0-30.0) sec Sodium 133 L (137-145) mmol/L Potassium 5.8 H (3.5-5.1) mmol/L BUN 50 H (7-17) mg/dL Creatinine 1.87 H (0.52-1.04) mg/dL Glucose 220 H (74-99) mg/dL POC Glucose (mg/dL) (75-99) mg/dL Plasma Lactic Acid Cain 2.1 H* (0.7-2.0) mmol/L Calcium 8.2 L (8.4-10.2) mg/dL AST 39 H (14-36) U/L Total Creatine Kinase (30-135) U/L Total Protein 6.2 L (6.3-8.2) g/dL Urine Appearance (Clear) Urine Protein (Negative) Ur Leukocyte Esterase (Negative) Urine WBC (0-5) /hpf Ur Squamous Epith Cells (0-4) /hpf Urine Bacteria (None) /hpf Hyaline Casts (0-2) /lpf Urine Mucus (None) /hpf Urine Yeast (Budding) (None) /hpf 07/11/19 07/11/19 07/11/19 Range/Units 17:10 17:10 17:35 WBC (3.8-10.6) k/uL RBC (3.80-5.40) m/uL Hgb (11.4-16.0) gm/dL MCV (80.0-100.0) fL Plt Count (150-450) k/uL Lymphocytes # (1.0-4.8) k/uL Lymphocytes # (Manual) (1.0-4.8) k/uL Eosinophils # (0-0.7) k/uL Eosinophils # (Manual) (0-0.7) k/uL Nucleated RBCs (0-0) /100 WBC PT 12.8 H (9.0-12.0) sec INR 1.3 H (<1.2) APTT 31.2 H (22.0-30.0) sec Sodium (137-145) mmol/L Potassium (3.5-5.1) mmol/L BUN (7-17) mg/dL Creatinine (0.52-1.04) mg/dL Glucose (74-99) mg/dL POC Glucose (mg/dL) (75-99) mg/dL Plasma Lactic Acid Cain (0.7-2.0) mmol/L Calcium (8.4-10.2) mg/dL AST (14-36) U/L Total Creatine Kinase <20 L (30-135) U/L Total Protein (6.3-8.2) g/dL Urine Appearance Cloudy H (Clear) Urine Protein 2+ H (Negative) Ur Leukocyte Esterase Large H (Negative) Urine WBC 11 H (0-5) /hpf Ur Squamous Epith Cells 10 H (0-4) /hpf Urine Bacteria Occasional H (None) /hpf Hyaline Casts 3 H (0-2) /lpf Urine Mucus Rare H (None) /hpf Urine Yeast (Budding) Occasional H (None) /hpf 07/12/19 07/12/19 07/12/19 Range/Units 07:17 07:43 07:43 WBC (3.8-10.6) k/uL RBC 3.34 L (3.80-5.40) m/uL Hgb 11.1 L (11.4-16.0) gm/dL MCV 103.6 H (80.0-100.0) fL Plt Count 98 L (150-450) k/uL Lymphocytes # (1.0-4.8) k/uL Lymphocytes # (Manual) 0.55 L (1.0-4.8) k/uL Eosinophils # (0-0.7) k/uL Eosinophils # (Manual) 1.04 H (0-0.7) k/uL Nucleated RBCs 1 H (0-0) /100 WBC PT (9.0-12.0) sec INR (<1.2) APTT (22.0-30.0) sec Sodium 135 L (137-145) mmol/L Potassium (3.5-5.1) mmol/L BUN 36 H (7-17) mg/dL Creatinine 1.23 H (0.52-1.04) mg/dL Glucose 195 H (74-99) mg/dL POC Glucose (mg/dL) 206 H (75-99) mg/dL Plasma Lactic Acid Cain (0.7-2.0) mmol/L Calcium 7.9 L (8.4-10.2) mg/dL AST (14-36) U/L Total Creatine Kinase (30-135) U/L Total Protein (6.3-8.2) g/dL Urine Appearance (Clear) Urine Protein (Negative) Ur Leukocyte Esterase (Negative) Urine WBC (0-5) /hpf Ur Squamous Epith Cells (0-4) /hpf Urine Bacteria (None) /hpf Hyaline Casts (0-2) /lpf Urine Mucus (None) /hpf Urine Yeast (Budding) (None) /hpf 07/12/19 Range/Units 11:46 WBC (3.8-10.6) k/uL RBC (3.80-5.40) m/uL Hgb (11.4-16.0) gm/dL MCV (80.0-100.0) fL Plt Count (150-450) k/uL Lymphocytes # (1.0-4.8) k/uL Lymphocytes # (Manual) (1.0-4.8) k/uL Eosinophils # (0-0.7) k/uL Eosinophils # (Manual) (0-0.7) k/uL Nucleated RBCs (0-0) /100 WBC PT (9.0-12.0) sec INR (<1.2) APTT (22.0-30.0) sec Sodium (137-145) mmol/L Potassium (3.5-5.1) mmol/L BUN (7-17) mg/dL Creatinine (0.52-1.04) mg/dL Glucose (74-99) mg/dL POC Glucose (mg/dL) 193 H (75-99) mg/dL Plasma Lactic Acid Cain (0.7-2.0) mmol/L Calcium (8.4-10.2) mg/dL AST (14-36) U/L Total Creatine Kinase (30-135) U/L Total Protein (6.3-8.2) g/dL Urine Appearance (Clear) Urine Protein (Negative) Ur Leukocyte Esterase (Negative) Urine WBC (0-5) /hpf Ur Squamous Epith Cells (0-4) /hpf Urine Bacteria (None) /hpf Hyaline Casts (0-2) /lpf Urine Mucus (None) /hpf Urine Yeast (Budding) (None) /hpf Microbiology - Last 24 Hours (Table) 07/11/19 17:35 Urine Culture - Preliminary Urine,Voided Assessment and Plan Assessment: 1-patient presented to hospital with fever and respiratory symptoms, the patient did have a negative influenza testing chest x-ray is mostly cardiomegaly and pulmonary vascular congestion and did not show any consolidation, the patient did have a positive UA source of the fever could be related to urinary symptoms though underlying pneumonia possible atypical not entirely excluded, and this patient who did have history of multiple myeloma on chemotherapy though did have a normal white count she did have a mildly elevated creatinine and high risk of nephrotoxicity from the vancomycin (1) UTI (urinary tract infection) Current Visit: Yes Status: Acute Code(s): N39.0 - URINARY TRACT INFECTION, SITE NOT SPECIFIED SNOMED Code(s): 68874304 (2) Pneumonia Current Visit: Yes Status: Acute Code(s): J18.9 - PNEUMONIA, UNSPECIFIED ORGANISM SNOMED Code(s): 062735823 (3) Sepsis Current Visit: Yes Status: Acute Code(s): A41.9 - SEPSIS, UNSPECIFIED [facility] SNOMED Code(s): 91850941 Plan: 1-we will obtain sputum for Gram stain and culture 2-check Procalcitonin level 3-we will check urine for Legionella antigen 4-discontinue cefepime and vancomycin 5-start the patient on Rocephin 2 g daily and oral Levaquin We will follow on clinical condition and cultures to further adjust medication if needed Thank you for this consultation will follow this patient with you Time with Patient: Greater than 30
[2019-07-12 17:06] LABS: Glucose,Whole Blood 164 mg/dL (75-99)
[2019-07-12] MEDS: LEVOFLOXACIN 500 MG TAB PO SCH (17:31)
[2019-07-12] MEDS ORDERED: CEFEPIME 2 GM in SODIUM CHLORIDE 0.9% 100 ML IVPB SCH (18:00)
[2019-07-12 20:47] LABS: Glucose,Whole Blood 173 mg/dL (75-99)
[2019-07-12] MEDS: amLODIPine 10 MG TAB PO SCH (20:53)
[2019-07-12] MEDS: ACETAMINOPHEN TAB 325 MG TAB PO PRN (20:53)
[2019-07-13] MEDS: ACETAMINOPHEN TAB 325 MG TAB PO PRN ×2 (04:47→21:48)
[2019-07-13] MEDS: SODIUM CHLORIDE 0.9% 1,000 ML IV SCH ×3 (05:56→21:05)
[2019-07-13 07:18] LABS: Glucose,Whole Blood 157 mg/dL (75-99)
[2019-07-13 07:56] LABS: Basophils % (A) 0 %; Eosinophils # (A) 0.1 k/uL (0-0.7); Eosinophils % (A) 2 %; HCT 33.2 % (34.0-46.0); HGB 10.7 gm/dL (11.4-16.0); Lymphocytes # (A) 0.8 k/uL (1.0-4.8); Lymphocytes % (A) 14 %; MCH 33.2 pg (25.0-35.0); MCHC 32.2 g/dL (31.0-37.0); MCV 103.3 fL (80.0-100.0); Macrocytosis Slight; Mean Platelet Volume 11.2; Monocytes # (A) 0.2 k/uL (0-1.0); Monocytes % (A) 3 %; Neutrophils # (A) 4.3 k/uL (1.3-7.7); Neutrophils % (A) 77 %; RBC 3.22 m/uL (3.80-5.40); RDW 14.7 % (11.5-15.5); WBC 5.5 k/uL (3.8-10.6)
[2019-07-13 08:00] LABS: Platelet Count 91 k/uL (150-450)
[2019-07-13] MEDS: APIXABAN 5 MG TAB PO SCH ×2 (08:20→21:03)
[2019-07-13] MEDS: FERROUS SULFATE 325 MG TAB PO SCH (08:20)
[2019-07-13] MEDS: ATENOLOL 25 MG TAB PO SCH (08:20)
[2019-07-13] MEDS: ASCORBIC ACID 500 MG TAB PO SCH (08:20)
[2019-07-13] MEDS: INSULIN ASPART (NovoLOG) 100 UNIT/ML VIAL SQ SCH ×4 (08:20→21:02)
[2019-07-13] MEDS: FOLIC ACID 1 MG TAB PO SCH (08:21)
[2019-07-13] MEDS: CHOLECALCIFEROL 1,000 UNIT TAB PO SCH (08:21)
[2019-07-13] MEDS ORDERED: FUROSEMIDE 10 MG/ML 2 ML VIAL IV ONE (09:43)
--- NOTE | 2019-07-13 09:48 | P.PN ---
Subjective Progress Note Date: 07/13/19 Principal diagnosis: Shortness of breath This is a very pleasant 63-year-old -[place] female patient who follows with Dr. Tan in the office on regular basis with a past medical history significant for multiple myeloma, currently the patient is on chemotherapy, history of permanent pacemaker implantation, history of diabetes, presented to the emergency room complaining of fever. The patient was experiencing shortness of breath associated with cough productive of sputum. No symptoms of chest pain or chest discomfort beach she checked her temperature at home and came in to be elevated at 103. Because of that she decided to come to the hospital. The patient was diagnosed with pneumonia and she was started on antibiotic. She stated that she is feeling better. Apparently she still hypoxic and requiring oxygen through nasal cannula. She denies any symptoms of chest pain or chest discomfort. She did not have any change in her weight or gaining weight rec ently. No orthopnea or PND. No lower extremities edema. The patient just had chemotherapy about 2 days ago for multiple myeloma. The EKG revealed a paced rhythm. The chest x-ray did not show any acute abnormalities. The BNP came in to be elevated but the patient clinically does not look in any overt congestive heart failure at this point of time. The last echocardiogram was from 2015 and that revealed normal left ventricular systolic function. We will obtain an echocardiogram at this point to assess ejection fraction. The patient was seen today, July [id number]. She stated that she is feeling better indeterminable shortness of breath and no symptoms of chest pain or chest discomfort. On examination she still have diminished breathing sounds bilaterally. No lower extremities edema. I do feel that the patient does have a component of heart failure in addition to pneumonia and I am going to give the patient a dose of IV Lasix today. I will obtain a chest x-ray and also a BMP. She underwent an echocardiogram which revealed mildly impaired LV function with EF of around 45% with moderate mitral regurgitation, severe tricuspid regurgitation, severe pulmonary hypertension, and mild pericardial effusion. Objective - Vital Signs Vital signs: Vital Signs Temp 99.9 F H 07/13/19 04:59 Pulse 80 07/13/19 04:59 Resp 16 07/13/19 04:59 BP 144/71 07/13/19 04:59 Pulse Ox 96 07/13/19 04:59 Intake & Output 07/12/19 07/13/19 07/13/19 18:59 06:59 18:59 Intake Total 2570 Balance 2570 Weight 80.286 kg Intake: Intake, IV Titration 1450 Amount Cefepime 2 gm In Sodium 100 Chloride 0.9% 100 ml @ 200 mls/hr IVPB Q24H [facility] Rx#:[id number] Sodium Chloride 0.9% 1, 1100 000 ml @ 100 mls/hr IV . Q10H [facility] Rx#:[id number] Vancomycin 1,500 mg In 250 Sodium Chloride 0.9% 250 ml @ 125 mls/hr IVPB Q24H [facility] Rx#:[id number] Oral 1120 Other: Voiding Method Toilet Toilet # Voids 4 2 - Constitutional General appearance: Present: no acute distress - Respiratory Respiratory: bilateral: diminished - Cardiovascular Rhythm: regular Heart sounds: normal: S1, S2 - Labs CBC & Chem 7: 07/13/19 06:56 07/13/19 06:56 Labs: Abnormal Lab Results - Last 24 Hours (Table) 07/12/19 07/12/19 07/12/19 Range/Units 07:43 11:46 17:04 RBC (3.80-5.40) m/uL Hgb (11.4-16.0) gm/dL Hct (34.0-46.0) % MCV (80.0-100.0) fL Plt Count 98 L (150-450) k/uL Lymphocytes # (1.0-4.8) k/uL Lymphocytes # (Manual) 0.55 L (1.0-4.8) k/uL Eosinophils # (Manual) 1.04 H (0-0.7) k/uL Nucleated RBCs 1 H (0-0) /100 WBC Sodium (137-145) mmol/L BUN (7-17) mg/dL Glucose (74-99) mg/dL POC Glucose (mg/dL) 193 H 164 H (75-99) mg/dL Calcium (8.4-10.2) mg/dL 07/12/19 07/13/19 07/13/19 Range/Units 20:45 06:56 06:56 RBC 3.22 L (3.80-5.40) m/uL Hgb 10.7 L (11.4-16.0) gm/dL Hct 33.2 L (34.0-46.0) % MCV 103.3 H (80.0-100.0) fL Plt Count 91 L (150-450) k/uL Lymphocytes # 0.8 L (1.0-4.8) k/uL Lymphocytes # (Manual) (1.0-4.8) k/uL Eosinophils # (Manual) (0-0.7) k/uL Nucleated RBCs (0-0) /100 WBC Sodium 136 L (137-145) mmol/L BUN 20 H (7-17) mg/dL Glucose 156 H (74-99) mg/dL POC Glucose (mg/dL) 173 H (75-99) mg/dL Calcium 8.0 L (8.4-10.2) mg/dL 07/13/19 Range/Units 07:17 RBC (3.80-5.40) m/uL Hgb (11.4-16.0) gm/dL Hct (34.0-46.0) % MCV (80.0-100.0) fL Plt Count (150-450) k/uL Lymphocytes # (1.0-4.8) k/uL Lymphocytes # (Manual) (1.0-4.8) k/uL Eosinophils # (Manual) (0-0.7) k/uL Nucleated RBCs (0-0) /100 WBC Sodium (137-145) mmol/L BUN (7-17) mg/dL Glucose (74-99) mg/dL POC Glucose (mg/dL) 157 H (75-99) mg/dL Calcium (8.4-10.2) mg/dL Microbiology - Last 24 Hours (Table) 07/11/19 17:35 Urine Culture - Final Urine,Voided 07/11/19 17:10 Blood Culture - Preliminary Blood No Growth after 24 hours Assessment and Plan Assessment: Assessment #1 acute hypoxic respiratory failure secondary to pneumonia with a component of heart failure #2 mild congestive heart failure exacerbation secondary to systolic dysfunction #3 moderate mitral regurgitation #4 severe pulmonary hypertension #5 multiple myeloma and status post chemotherapy #6 status post permanent pacemaker Plan #1 I am going to give the patient a dose of IV Lasix #2 continue monitor the kidney function and electrolytes #3 obtain a chest x-ray and BMP #4 the echo was reviewed and described above #5 follow-up with the patient
[2019-07-13 11:39] LABS: Glucose,Whole Blood 178 mg/dL (75-99)
--- NOTE | 2019-07-13 12:57 | XR ---
EXAMINATION TYPE: XR chest 1V portable DATE OF EXAM: 07/13/2019 HISTORY: wheezing. REFERENCE: Previous study dated 07/11/2019. FINDINGS: There is a bipolar pacing device in place on the left. The heart is enlarged. There is vascular congestion and pulmonary edema. No definite pleural fluid is seen. IMPRESSION: WORSENING CHANGES OF CONGESTIVE HEART FAILURE.
[2019-07-13] MEDS: CEFEPIME 2 GM in SODIUM CHLORIDE 0.9% 100 ML IVPB SCH ×2 (13:02→21:03)
--- NOTE | 2019-07-13 13:14 | P.PN ---
Subjective Progress Note Date: 07/13/19 Principal diagnosis: This is a 63-year-old female followed up with acute kidney injury secondary to pneumonia and prerenal state. She has multiple myeloma since 2007 and was recen tly restarted on chemotherapy a week ago approximately. Her creatinine improved with hydration, creatinine peaked at 1.87 and improved to 1.2 yesterday and today was 0.8. She has fair amount of urine output but not collected therefore not documented as to the amount She had high grade temperature yesterday and it repeat chest x-ray shows significant worsening of lung findings which could be either pneumonia or CHF or a combination thereof.. She was given IV Lasix this morning 20 mg 1 dose with good subjective increase in urine output Objective - Vital Signs Vital signs: Vital Signs Temp 98.5 F 07/13/19 11:55 Pulse 76 07/13/19 11:55 Resp 17 07/13/19 11:55 BP 148/82 07/13/19 11:55 Pulse Ox 99 07/13/19 12:01 Intake & Output 07/12/19 07/13/19 07/13/19 18:59 06:59 18:59 Intake Total 2570 Balance 2570 Weight 80.286 kg Intake: Intake, IV Titration 1450 Amount Cefepime 2 gm In Sodium 100 Chloride 0.9% 100 ml @ 200 mls/hr IVPB Q24H [facility] Rx#:[id number] Sodium Chloride 0.9% 1, 1100 000 ml @ 100 mls/hr IV . Q10H [facility] Rx#:[id number] Vancomycin 1,500 mg In 250 Sodium Chloride 0.9% 250 ml @ 125 mls/hr IVPB Q24H [facility] Rx#:[id number] Oral 1120 Other: Voiding Method Toilet Toilet Toilet # Voids 4 2 On examination is awake alert oriented on nasal cannula oxygen HEENT exam no JVP neck is supple no facial asymmetry Lungs are significant for occasional wheezing good air entry bilaterally Heart sounds are unremarkable for any murmur rub gallop Abdomen soft nontender Extremity exam was no edema Neuro logically awake alert oriented - Labs CBC & Chem 7: 07/13/19 06:56 07/13/19 06:56 Labs: Abnormal Lab Results - Last 24 Hours (Table) 07/12/19 07/12/19 07/13/19 Range/Units 17:04 20:45 06:56 RBC (3.80-5.40) m/uL Hgb (11.4-16.0) gm/dL Hct (34.0-46.0) % MCV (80.0-100.0) fL Plt Count (150-450) k/uL Lymphocytes # (1.0-4.8) k/uL Sodium 136 L (137-145) mmol/L BUN 20 H (7-17) mg/dL Glucose 156 H (74-99) mg/dL POC Glucose (mg/dL) 164 H 173 H (75-99) mg/dL Calcium 8.0 L (8.4-10.2) mg/dL 07/13/19 07/13/19 07/13/19 Range/Units 06:56 07:17 11:38 RBC 3.22 L (3.80-5.40) m/uL Hgb 10.7 L (11.4-16.0) gm/dL Hct 33.2 L (34.0-46.0) % MCV 103.3 H (80.0-100.0) fL Plt Count 91 L (150-450) k/uL Lymphocytes # 0.8 L (1.0-4.8) k/uL Sodium (137-145) mmol/L BUN (7-17) mg/dL Glucose (74-99) mg/dL POC Glucose (mg/dL) 157 H 178 H (75-99) mg/dL Calcium (8.4-10.2) mg/dL Microbiology - Last 24 Hours (Table) 07/11/19 17:35 Urine Culture - Final Urine,Voided 07/11/19 17:10 Blood Culture - Preliminary Blood No Growth after 24 hours Assessment and Plan Plan: Impression 1. Acute kidney injury from prerenal from pneumonia creatinine peaked at 1.8 in 2-1.23 and further to 0.8 with hydration 2. Hyperkalemia secondary to acute kidney injury. Potassium is 5.8 on admission. Improved to 4.0 this morning with hydration 3. Chronic kidney disease, stage II with a GFR of 68-77 mL per minute, etiology is diabetic nephropathy with proteinuria of 4 97 mg/g of creatinine on 06/13/2019 3. History of multiple myeloma since 2007 on chemotherapy intermittently. More recent chemotherapy started about a week ago prior to admission 4. Anemia off chronic illness hemoglobin 10.7 5. Thrombocytopenia from possible chemotherapy versus myeloma. Platelet count is trending down from 112,000-91,000 Recommendation 1. Keep vein open and reduce IV fluids because of concern for CHF right chest x-ray. 2. strict I's and O's. 3. Patient had received 1 dose of 20 mg IV Lasix will watch her urine output. 4. repeat chest x-ray tomorrow 5.Patient is on vancomycin watch for acute kidney injury keep trough levels below 15
--- NOTE | 2019-07-13 15:38 | P.PN ---
Subjective Progress Note Date: 07/13/19 (Fever spikes during the night) Principal diagnosis: Dictation on the progress note date of service 07/13/[address] Cid Patient seen evaluated [id number]. I did discuss it with Dr. mcgee nephrology, and I did consult Dr. Carreon on 07/12/2019. Also consulted Dr. Sanchez infectious disease yesterday and was started her on antibiotic cefepime and vancomycin. During the night patient spikes temperature with the chills to 103/104. Nursing staff called me during the late night and advised that the Tylenol has not been helping and the wants to use ibuprofen alternated with the Tylenol. I did discuss with them that her kidney failure is significant in the past and we do not to use nonsteroidal anti-inflammatory especially with her to keep the kidney improving, and also she should call Dr. Sanchez infectious disease to have alternative. Also I did discuss it with Dr. mcgee and he agreed no nonsteroidal anti-inflammatory. I did also ask for a CAT scan of the chest to clarify the issue of pneumonia, related to the multiple myeloma that she has been taking chemotherapy for it, computed tomography scan of the chest was indicating cardiomegaly, patchy pulmonary infiltrate in the mid and lower lung field bilaterally and they are suspicious could be inflammatory versus congestive heart failure but no pulmonary mass. She had echocardiogram which indicating that she has sinus rhythm and she had moderate concentric left ventricular hypertrophy and an ejection fraction is 45- 50 with increased grade 2 diastolic dysfunction and the left ventricle wall motion diastolic dysfunction and also the apical septum of the left ventricle hypokinetic. Left atrium severely dilated more than 40 mL per meter square as well as she has electronic pacemaker left infraclavicular and she had the infra atrial and ventricular septum is intact. The aortic valve is trileaflet normal structure and she had a mild aortic valvular sclerosis and mild early regurgitation no evidence of aortic stenosis she has mild mitral annular calcification moderate mitral regurgitation moderate to severe tricuspid regurgitation and severe pulmonary hypertension with the pearson measured by Doppler 74.77 mmHg and she had small generalized pericardial effusion present and IVC not well visualized. With the possibility of combination of both and the patient on anti-biotic which has been changed to Rocephin and [place] changed again to cefepime and added Levaquin by mouth and discontinuation of vancomycin. This patient seen today [id number] she feeling better her temperature is down 80 5.5F oral. Her heart rate is 76 with the left infraclavicular pacemaker and respiratory rate 17 per minute with the cough and shortness of breath. Her blood pressure 148/82 with a mean blood pressure 104. She is on nasal cannula 3 L permanent. On examination: Head was normocephalic atraumatic pupils equal reactive no icterus. Oropharynx negative, normal hearing. Neck was supple no JVD no thyromegaly no lymphadenopathy. Trachea midline no neck stiffness. Her chest bilateral rhonchi's and wheezes The heart regular sinus rhythm with the pacemaker infraclavicular and echocardiogram mentioned above with decreased systolic function with the possibility of congestive heart failure as well as well as a computed tomography scan indicating pneumonia with a fever and chills and the spiking temperatures she had influenza A and B- however Dr. Sanchez he may check it again to clarify why she is spiking. Extremities no edema and positive pulses. And she is ambulatory with currently she is in bed. Assessment: #1 patient presented with splinting and cough and shortness of breath and the CAT scan was in fever of pneumonia. #2 underlying ejection fraction impaired with the is possibility of underlying congestive heart failure acute on the top of chronic with the leaky valve and pulmonary hypertension which bilateral biventricular and systolic and diastolic. #3 fever and chills on admission and spiked last night currently she is on antibiotic. #3 hypertension with hypertensive heart disease. #4 atrial fibrillation and infraclavicular pacemaker and on anticoagulant eliquis. #5 she is a diabetic with the insulin-dependent type 2. #6 hypothyroidism which is controlled. Plan: #1 patient followed by bioprocessing manufacturing technician Dr. mcgee and cardiology Dr. Horn. And infectious disease Dr. Juan. #2 blood pressure is fairly well controlled #3 blood culture was done in the was no growth, however we will be obtaining blood culture if any further spikes 250 MASA part. And urine culture was skin yin. #[address] Montiel to clarify duration of visit from the multiple myeloma or not and what his thoughts on these finding and how much she can help us with her current illness. #5 her laboratory indicating white count today 5.5 however patient received chemo last week last Sunday and unclear to depend on the white count, hemoglobin is 10.7 with the underlying anemia and she had a macrocytosis as wel l. Her chemistry profile was indicating sodium 136, potassium 4, chloride 104 carbon dioxide 25, neck and mammogram is 7 and a BUN of 20, and a creatinine 0.82 with significant improvement. Estimated glomerular filtration rate is for for -Turkish female her 87. Blood sugar is 156, is insulin to scale. #6 initial influenza A and B was negative and repeated today and also was negative her plasma lactic acid 1.4 and her BNP is elevated 4710 currently the IV fluid 20 mL/h event open. #7 will continue monitoring. And obtain lab in a.m. Objective - Vital Signs Vital signs: Vital Signs Temp 98.5 F 07/13/19 11:55 Pulse 76 07/13/19 15:02 Resp 17 07/13/19 15:02 BP 148/82 07/13/19 11:55 Pulse Ox 99 07/13/19 12:01 Intake & Output 07/12/19 07/13/19 07/13/19 18:59 06:59 18:59 Intake Total 2570 2585 Balance 2570 2585 Weight 80.286 kg Intake: Intake, IV Titration 1450 1225 Amount Cefepime 2 gm In Sodium 100 Chloride 0.9% 100 ml @ 200 mls/hr IVPB Q12HR [facility] Rx#:[id number] Cefepime 2 gm In Sodium 100 Chloride 0.9% 100 ml @ 200 mls/hr IVPB Q24H [facility] Rx#:[id number] Sodium Chloride 0.9% 1, 1100 825 000 ml @ 20 mls/hr IV . Q24H [facility] Rx#:[id number] Vancomycin 1,500 mg In 250 250 Sodium Chloride 0.9% 250 ml @ 125 mls/hr IVPB Q24H [facility] Rx#:[id number] cefTRIAXone 2 gm In 50 Sodium Chloride 0.9% 50 ml @ 100 mls/hr IVPB Q24H [facility] Rx#:[id number] Oral 1120 1360 Other: Voiding Method Toilet Toilet Toilet # Voids 4 2 5 - Labs CBC & Chem 7: 07/13/19 06:56 07/13/19 06:56 Labs: Abnormal Lab Results - Last 24 Hours (Table) 07/12/19 07/12/19 07/13/19 Range/Units 17:04 20:45 06:56 RBC (3.80-5.40) m/uL Hgb (11.4-16.0) gm/dL Hct (34.0-46.0) % MCV (80.0-100.0) fL Plt Count (150-450) k/uL Lymphocytes # (1.0-4.8) k/uL Sodium 136 L (137-145) mmol/L BUN 20 H (7-17) mg/dL Glucose 156 H (74-99) mg/dL POC Glucose (mg/dL) 164 H 173 H (75-99) mg/dL Calcium 8.0 L (8.4-10.2) mg/dL 07/13/19 07/13/19 07/13/19 Range/Units 06:56 07:17 11:38 RBC 3.22 L (3.80-5.40) m/uL Hgb 10.7 L (11.4-16.0) gm/dL Hct 33.2 L (34.0-46.0) % MCV 103.3 H (80.0-100.0) fL Plt Count 91 L (150-450) k/uL Lymphocytes # 0.8 L (1.0-4.8) k/uL Sodium (137-145) mmol/L BUN (7-17) mg/dL Glucose (74-99) mg/dL POC Glucose (mg/dL) 157 H 178 H (75-99) mg/dL Calcium (8.4-10.2) mg/dL Microbiology - Last 24 Hours (Table) 07/11/19 17:35 Urine Culture - Final Urine,Voided 07/11/19 17:10 Blood Culture - Preliminary Blood No Growth after 24 hours
[2019-07-13] MEDS: LEVOFLOXACIN 500 MG TAB PO SCH (16:28)
[2019-07-13 17:08] LABS: Glucose,Whole Blood 192 mg/dL (75-99)
--- NOTE | 2019-07-13 17:18 | PN ---
PROGRESS NOTE DATE OF SERVICE: 07/13/2019 REASON FOR FOLLOWUP: Fever and pneumonia. INTERVAL HISTORY: The patient did spike a fever last night of 102.3 Fahrenheit. Repeat flu and culture were ordered which has not been done. This morning he patient is afebrile. She is feeling slightly better. The patient did have a cough which remains to be dry in nature. Not bringing up any sputum. No nausea, no vomiting. No abdominal pain. No diarrhea. PHYSICAL EXAMINATION: Blood pressure 148/82 with a pulse of 76, temperature 98.5. 99% on 3 L nasal cannula. General description is an elderly female lying in bed in no distress. Respiratory system: Unlabored breathing. Decreased breath sounds in the base, with no wheeze. Heart S1, S2. Regular rate and rhythm. Abdomen soft, no tenderness. LABS: Hemoglobin 10.7, white count 5.5, BUN of 20, creatinine 0.82. Blood and urine culture so far negative. Sputum has not been collected. DIAGNOSTIC IMPRESSION AND PLAN: Patient admitted hospital with fever, respiratory symptoms with mostly diffuse infiltrate concern for possible atypical pneumonia. Patient is currently covered with cefepime and Levaquin to continue while waiting for the condition to stabilize, and culture to finalize. Continue supportive care. Family at the bedside, questions were answered. MMODL / IJN: [id number] /
[2019-07-13 20:49] LABS: Glucose,Whole Blood 133 mg/dL (75-99)
[2019-07-13] MEDS: amLODIPine 10 MG TAB PO SCH (21:03)
[2019-07-14 07:09] LABS: Glucose,Whole Blood 138 mg/dL (75-99)
--- NOTE | 2019-07-14 07:11 | XR ---
EXAMINATION TYPE: XR chest 1V portable DATE OF EXAM: 07/14/2019 COMPARISON: 07/13/2019 HISTORY: Wheezing and fever TECHNIQUE: Single frontal view of the chest is obtained. FINDINGS: Cardiomediastinal silhouette is enlarged. Mild interstitial pulmonary edema is seen. Right -sided Mediport is present. Dual lead left-sided device is noted. No acute osseous pathology. IMPRESSION: Mild interstitial pulmonary edema and enlarged cardiomediastinal silhouette of congestiv e heart failure. Stable findings from the prior.
[2019-07-14 07:39] LABS: HCT 35.1 % (34.0-46.0); HGB 11.1 gm/dL (11.4-16.0); MCH 32.8 pg (25.0-35.0); MCHC 31.5 g/dL (31.0-37.0); MCV 103.9 fL (80.0-100.0); Macrocytosis Slight; Mean Platelet Volume 10.3; RBC 3.38 m/uL (3.80-5.40); RDW 14.8 % (11.5-15.5); WBC 2.8 k/uL (3.8-10.6)
[2019-07-14] MEDS: ATENOLOL 25 MG TAB PO SCH (08:02)
[2019-07-14] MEDS: CEFEPIME 2 GM in SODIUM CHLORIDE 0.9% 100 ML IVPB SCH ×2 (08:02→20:17)
[2019-07-14] MEDS: APIXABAN 5 MG TAB PO SCH ×2 (08:02→20:15)
[2019-07-14] MEDS: CHOLECALCIFEROL 1,000 UNIT TAB PO SCH (08:03)
[2019-07-14] MEDS: FOLIC ACID 1 MG TAB PO SCH (08:03)
[2019-07-14] MEDS: FERROUS SULFATE 325 MG TAB PO SCH (08:03)
[2019-07-14] MEDS: INSULIN ASPART (NovoLOG) 100 UNIT/ML VIAL SQ SCH ×4 (08:04→20:22)
[2019-07-14] MEDS: ASCORBIC ACID 500 MG TAB PO SCH (08:12)
[2019-07-14 08:18] LABS: African American GFR (CKD) >90 (>60 ml/min/1.73 sqM); Anion Gap 6 mmol/L; Blood Urea Nitrogen 17 mg/dL (7-17); Calcium 8.1 mg/dL (8.4-10.2); Carbon Dioxide 26 mmol/L (22-30); Chloride 105 mmol/L (98-107); Glucose 134 mg/dL (74-99); Non-African American GFR(CKD) 83 (>60 ml/min/1.73 sqM); Potassium 3.7 mmol/L (3.5-5.1); Sodium 137 mmol/L (137-145)
[2019-07-14 08:29] LABS: Platelet Count 96 k/uL (150-450)
[2019-07-14 09:54] LABS: Eosinophils # (M) 0.06 k/uL (0-0.7); Lymphocytes # (M) 0.48 k/uL (1.0-4.8); Monocytes # (M) 0.08 k/uL (0-1.0); Neutrophils # (M) 2.18 k/uL (1.3-7.7); Neutrophils % (M) 78 %; Nucleated Red Blood Cells 0 /100 WBC (0-0); Total Cells Counted 100
[2019-07-14 09:55] LABS: Poikilocytosis (M) Present
[2019-07-14] MEDS: IPRATROPIUM-ALBUTEROL 3 ML NEB INHALATION SCH ×5 (10:03→23:18)
[2019-07-14 11:21] LABS: Glucose,Whole Blood 137 mg/dL (75-99)
[2019-07-14] MEDS: ONDANSETRON 4 MG/2 ML VIAL IVP PRN ×2 (12:23→18:04)
--- NOTE | 2019-07-14 15:12 | P.PN ---
Subjective This is a pleasant 63-year-old -[place] female past medical history significant for multiple myeloma currently undergoing chemotherapy, permanent pacemaker implantation, diabetes mellitus and hypertension. She follows in the office with Dr. Tan. We are following her secondary to heart failure. She is seen and examined laying flat resting comfortably in bed in no acute distress. She denies chest pain, shortness of breath, dizziness or palpitations. She is coughing with significant sputum production. Blood pressure 145/74 heart rate 79 temperature of 100.5F. Laboratory data reviewed, WBC 2.8, hemoglobin 11.1, platelets 96, sodium 137, potassium 3.7, creatinine 0.76 and TSH 2.25. Repeat chest x-ray today reveals mild interstitial pulmonary edema, stable from prior. GENERAL: Well-appearing, well-nourished and in no acute distress. NECK: Supple without JVD or thyromegaly. LUNGS: Breath sounds clear to auscultation bilaterally. Respiration equal and unlabored. No wheezes, rales or rhonchi. Diminished bilaterally. HEART: Regular rate and rhythm without murmurs, rubs or gallops. S1 and S2 heard. EXTREMITIES: Normal range of motion, no edema. No clubbing or cyanosis. Peripheral pulses intact. ASSESSMENT Acute hypoxic respiratory failure secondary to pneumonia with a component of heart failure Pneumonia Febrile illness Acute on chronic systolic heart failure, mild. Improved Valvular heart disease Severe pulmonary hypertension Multiple myeloma PLAN Initiate Lasix 40 mg by mouth daily. Ongoing medical management and treatment of underlying pneumonia. Nurse Practitioner note has been reviewed, I agree with a documented findings and plan of care. Patient was seen and examined. Objective - Vital Signs Vital signs: Vital Signs Temp 100.5 F H 07/14/19 12:12 Pulse 79 07/14/19 12:12 Resp 18 07/14/19 12:12 BP 145/74 07/14/19 12:12 Pulse Ox 98 07/14/19 12:12 Intake & Output 07/13/19 07/14/19 07/14/19 18:59 06:59 18:59 Intake Total 2585 Output Total 200 1000 Balance 2385 -1000 Intake: Intake, IV Titration 1225 Amount Cefepime 2 gm In Sodium 100 Chloride 0.9% 100 ml @ 200 mls/hr IVPB Q12HR [facility] Rx#:[id number] Sodium Chloride 0.9% 1, 825 000 ml @ 20 mls/hr IV . Q24H [facility] Rx#:[id number] Vancomycin 1,500 mg In 250 Sodium Chloride 0.9% 250 ml @ 125 mls/hr IVPB Q24H [facility] Rx#:[id number] cefTRIAXone 2 gm In 50 Sodium Chloride 0.9% 50 ml @ 100 mls/hr IVPB Q24H [facility] Rx#:[id number] Oral 1360 Output: Urine 200 1000 Other: Voiding Method Toilet Toilet # Voids 1 - Labs CBC & Chem 7: 07/14/19 07:20 07/14/19 07:20 Labs: Abnormal Lab Results - Last 24 Hours (Table) 07/13/19 07/13/19 07/13/19 Range/Units 06:56 17:07 20:48 WBC (3.8-10.6) k/uL RBC (3.80-5.40) m/uL Hgb (11.4-16.0) gm/dL MCV (80.0-100.0) fL Plt Count (150-450) k/uL Lymphocytes # (Manual) (1.0-4.8) k/uL Glucose (74-99) mg/dL POC Glucose (mg/dL) 192 H 133 H (75-99) mg/dL Calcium (8.4-10.2) mg/dL Procalcitonin 1.52 H (0.02-0.09) ng/mL 07/14/19 07/14/19 07/14/19 Range/Units 07:05 07:20 07:20 WBC 2.8 L (3.8-10.6) k/uL RBC 3.38 L (3.80-5.40) m/uL Hgb 11.1 L (11.4-16.0) gm/dL MCV 103.9 H (80.0-100.0) fL Plt Count 96 L (150-450) k/uL Lymphocytes # (Manual) 0.48 L (1.0-4.8) k/uL Glucose 134 H (74-99) mg/dL POC Glucose (mg/dL) 138 H (75-99) mg/dL Calcium 8.1 L (8.4-10.2) mg/dL Procalcitonin (0.02-0.09) ng/mL 07/14/19 Range/Units 11:20 WBC (3.8-10.6) k/uL RBC (3.80-5.40) m/uL Hgb (11.4-16.0) gm/dL MCV (80.0-100.0) fL Plt Count (150-450) k/uL Lymphocytes # (Manual) (1.0-4.8) k/uL Glucose (74-99) mg/dL POC Glucose (mg/dL) 137 H (75-99) mg/dL Calcium (8.4-10.2) mg/dL Procalcitonin (0.02-0.09) ng/mL Microbiology - Last 24 Hours (Table) 07/13/19 00:29 Blood Culture - Preliminary Blood No Growth after 24 hours 07/11/19 17:10 Blood Culture - Preliminary Blood No Growth after 48 hours
--- NOTE | 2019-07-14 15:57 | US ---
EXAMINATION TYPE: US abdomen complete DATE OF EXAM: 07/14/2019 COMPARISON: NONE CLINICAL HISTORY: vomiting , abd pain. influenza A patient with nausea and vomiting, SOB EXAM MEASUREMENTS: Liver Length: 21.8 cm Gallbladder Wall: Surgically absent CBD: 0.7 cm Spleen: 8.7 cm Right Kidney: 9.7 x 4.4 x 4.5 cm Left Kidney: 10.5 x 3.5 x 4.8 cm *difficult to image due to shortness of breath, laboured breathing, inability to roll Pancreas: not seen due to bowel gas Liver: enlarged and heterogenous with possible nodular contour Gallbladder: Surgically absent Evidence for sonographic Mirza's sign: no CBD: wnl Spleen: limited views, wnl Right Kidney: wnl Left Kidney: wnl Upper IVC: wnl Abd Aorta: wnl The liver is heterogenous. The intrahepatic portion of the IVC and proximal abdominal aorta are with in normal limits. There is no evidence of cholelithiasis. Common bile duct is unremarkable. The pa ncreas is obscured. The spleen is limited. Kidneys are symmetric and free of hydronephrosis. No ashutosh al lesions are seen. IMPRESSION: 1. Hepatomegaly with heterogenous hepatic echotexture, which can be seen in hepatocellular disease or hepatic steatosis. There is a possible nodular contour that would suggest cirrhosis back to be furth er evaluated with CT abdomen. 2. Pancreas is obscured by overlying bowel gas and spleen is limited in visualization.
--- NOTE | 2019-07-14 16:01 | P.CONS ---
History of Present Illness - Reason for Consult Consult date: 07/14/19 Multiple myeloma, on treatment, post chemo fever Requesting physician: Carl Cid - Chief Complaint Fever, nausea and vomiting - History of Present Illness Mrs. Mary is a very pleasant 63-year-old female patient of Dr. Carreon with a long-standing history of multiple myeloma, status post multiple treatments. Most recently on Kyprolis regimen. She completed of cycle #6 last Sunday. By Sunday night she was experiencing vomiting, by she had a fever of 100.3 Fahrenheit. She came into the hospital with persistent symptoms. This a.m. she is experiencing nausea and vomiting, bilious emesis, cough with yellow sputum, she continues to have fever. General malaise and weakness, denies abdominal pain, cramping, dysuria, hematuria, diarrhea, constipation, hematochezia, melena, lower extremity swelling, no acute pain. Influenza testing was negative, Patient was diagnosed with IgG kappa multiple myeloma in June 2007 when she presented with acute renal failure. She was treated with Velcade and Decadron, excellent response, declined bone marrow transplant. At some point in time she she did not continue on therapy, opted for monitoring only. She was seen back in 2012 with evidence of early progression. She agreed only to maintenance Velcade at that time. This was held in 04/04 due to some progression of neuropathy in the feet. She also had other medical issues that complicated her health Velcade and decadron were resumed in 04/05 due to slow progressive increase in her light chain levels and M protein. Steroids stopped in 07/07, Velcade held 11/04 due to progressive neuropathy. Revlimid was recommended as maintenance but patient was worried about side effects. She continued on tor. She had steady progression of M protein in light chain. Keppra list was recommended in June 2017, patient refused due to possible side effects. She agreed to take Neurontin and resume the Velcade and dex. Velcade was stopped on 03/14/18 due to progressive neuropathy, pt refused to increase her neurontin dose. Labs from 01/02/19 showed a significant increase with M protein 1.3 g/dL, and Light chain 137 mg/L. The patient was admitted to [facility] with chills and fever. Infection was ruled out and it is felt that her symptoms were due to myeloma. She was started on Decadron bolus and then discharged. She ultimately agreed to start treatment with kyprolis (without dex, pt refused), which was initiated in 02/06. The last 2 cycles she has had similar symptoms as stated above Review of Systems 14 point review of systems is negative except as stated in HPI Past Medical History Past Medical History: Cancer, Diabetes Mellitus, Hyperlipidemia, Hypertension, Osteoarthritis (OA), Renal Disease Additional Past Medical History / Comment(s): MULTIPLE MYELOMA 2007 had chemo in 2007, renal failure with cancer tx and had dialysis for 2 months, 05/28/15 pathologic thoracic vertebra fracture-back pain is getting better per pt, IDDM type II, slight leaky heart valve, hysterectomy d/t uterine fibroids, hx of H pylori History of Any Multi-Drug Resistant Organisms: None Reported Past Surgical History: Back Surgery, Cholecystectomy, Hysterectomy Additional Past Surgical History / Comment(s): colonoscopy, rt carpal tunnel release, T9 kyphoplasty with bx, oophorectomy, cyst of inner R thigh, R foot surgery d/t stepping on something, AV fistula inserted and removed Past Anesthesia/Blood Transfusion Reactions: No Reported Reaction Additional Past Anesthesia/Blood Transfusion Reaction / Comm: Pt has received blood in the past without reaction. Past Psychological History: No Psychological Hx Reported Smoking Status: Never smoker Past Alcohol Use History: None Reported Past Drug Use History: None Reported - Past Family History Mother Family Medical History: Congestive Heart Failure (CHF) Additional Family Medical History / Comment(s): Mother of CHF at age 76 yrs. Father Family Medical History: Myocardial Infarction (TX) Additional Family Medical History / Comment(s): Father of a TX at age 46 yrs. Medications and Allergies Home Medications Medication Instructions Recorded Confirmed Type amLODIPine [Norvasc] 10 mg PO HS 05/28/15 07/11/19 History Atenolol [Tenormin] 25 mg PO DAILY tab 09/07/15 07/11/19 Rx Apixaban [Eliquis] 5 mg PO BID 07/22/18 07/11/19 History Ascorbic Acid [Vitamin C] 500 mg PO DAILY 07/22/18 07/11/19 History Cholecalciferol (Vitamin D3) 2,000 unit PO DAILY 07/22/18 07/11/19 History [Vitamin D3] Gabapentin [Neurontin] 200 mg PO HS 07/22/18 07/11/19 History INSULIN ASPART (NovoLOG) [NovoLOG See Protocol SQ ACHS 07/22/18 07/11/19 History (formulary)] Ferrous Sulfate [Feosol] 325 mg PO DAILY 07/11/19 07/11/19 History Folic Acid 0.4 mg PO DAILY 07/11/19 07/11/19 History Gabapentin [Neurontin] 100 mg PO DAILY 07/11/19 07/11/19 History Allergies Allergy/AdvReac Type Severity Reaction Status Date / Time latex Allergy Rash/Hives Verified 07/11/19 21:47 Physical Exam Vitals: Vital Signs Temp Pulse Resp BP Pulse Ox 07/14/19 05:00 98.8 F 78 155/82 94 L 07/14/19 03:00 99.3 F 07/14/19 00:10 99.0 F 07/13/19 23:00 101.4 F H 07/13/19 21:00 102.4 F H 83 19 143/74 95 07/13/19 15:02 76 17 07/13/19 12:01 99 07/13/19 11:55 98.5 F 76 17 148/82 99 Intake and Output 07/13/19 07/14/19 07/14/19 22:59 06:59 14:59 Output Total 200 1000 Balance -200 -1000 Output: Urine 200 1000 Other: Voiding Method Toilet # Voids 1 - Constitutional General appearance: average body habitus, cooperative, mild distress - EENT Eyes: anicteric sclerae, EOMI ENT: hearing grossly normal, normal oropharynx - Neck Neck: no lymphadenopathy - Respiratory Respiratory: bilateral: wheezing - Cardiovascular Rhythm: regular Heart sounds: normal: S1, S2 Abnormal Heart Sounds: no systolic murmur, no diastolic murmur, no rub, no S3 Gallop, no S4 Gallop, no click, no other leg Peripheral Edema: bilateral: None - Gastrointestinal General gastrointestinal: no absent bowel sounds, no decreased bowel sounds, no distended, no hepatomegaly, no hyperactive bowel sounds, normal bowel sounds, no organomegaly, no rigid, no scaphoid, soft, no splenomegaly, no tenderness, no umbilical hernia, no ventral hernia - Integumentary Integumentary: normal - Neurologic Neurologic: CNII-XII intact - Musculoskeletal Musculoskeletal: generalized weakness, strength equal bilaterally - Psychiatric Psychiatric: A&O x's 3, appropriate affect, intact judgment & insight Results CBC & Chem 7: 07/14/19 07:20 07/14/19 07:20 Labs: Abnormal Lab Results - Last 24 Hours (Table) 07/13/19 07/13/19 07/13/19 Range/Units 11:38 17:07 20:48 WBC (3.8-10.6) k/uL RBC (3.80-5.40) m/uL Hgb (11.4-16.0) gm/dL MCV (80.0-100.0) fL Plt Count (150-450) k/uL Lymphocytes # (Manual) (1.0-4.8) k/uL Glucose (74-99) mg/dL POC Glucose (mg/dL) 178 H 192 H 133 H (75-99) mg/dL Calcium (8.4-10.2) mg/dL 07/14/19 07/14/19 07/14/19 Range/Units 07:05 07:20 07:20 WBC 2.8 L (3.8-10.6) k/uL RBC 3.38 L (3.80-5.40) m/uL Hgb 11.1 L (11.4-16.0) gm/dL MCV 103.9 H (80.0-100.0) fL Plt Count 96 L (150-450) k/uL Lymphocytes # (Manual) 0.48 L (1.0-4.8) k/uL Glucose 134 H (74-99) mg/dL POC Glucose (mg/dL) 138 H (75-99) mg/dL Calcium 8.1 L (8.4-10.2) mg/dL Microbiology - Last 24 Hours (Table) 07/13/19 00:29 Blood Culture - Preliminary Blood No Growth after 24 hours 07/11/19 17:10 Blood Culture - Preliminary Blood No Growth after 48 hours Chest x-ray: report reviewed CT scan - chest: report reviewed Assessment and Plan (1) Pneumonia Narrative/Plan: Concern is for appropriate antibody formation in a patient with a significantly weakened immune system. Dr. Carreon is going to discuss the case with Infectious Disease. Agree with treatment for the same per ID Current Visit: Yes Status: Acute Priority: High Code(s): J18.9 - PNEUMONIA, UNSPECIFIED ORGANISM SNOMED Code(s): 671645638 (2) Sepsis Narrative/Plan: pancultures pending. Current Visit: Yes Status: Acute Priority: High Code(s): A41.9 - SEPSIS, U NSPECIFIED ORGANISM SNOMED Code(s): 14745369 (3) Multiple myeloma Narrative/Plan: No treatment currently due. Hold for now Ig levels ordered for evaluation Current Visit: No Status: Chronic Priority: Medium Code(s): C90.00 - MULTIPLE MYELOMA NOT HAVING ACHIEVED REMISSION SNOMED Code(s): 900805101 Plan: Doctor attests: I performed a history and physical examination of this patient, developed impression and plan of care. Discussed with dictator. I agree with dictators note, documented as a scribe.
--- NOTE | 2019-07-14 16:11 | PN ---
PROGRESS NOTE DATE OF SERVICE: 07/14/2019 This patient is a 63-year-old female. Height 5 feet 3 inches, weight 80.286 kg with BMI 31.4 kg/m2. BSA 1.84 m2. ALLERGIC TO LATEX. The patient is seen today and evaluated. Her was at bedside as well. She is complaining of nausea, vomiting and heaves all night, worsening in the morning. At that time we started her on Zofran IV. We also did consult Oncology/Hematology, Dr. Carreon for evaluation and he did come and see her this morning. On today's examination she has fluctuating temperature and blood pressure is stable. She is hypertensive, blood pressure 145/74 with mean 97. Her oxygen on room air is 98% and her oral temperature is 100.5. Her pulse rate 79. She was seen by Cardiology because of the demanding pacemaker and also she had today on 07/14/19 a chest x-ray; the result was mild interstitial pulmonary edema and enlarged cardiomediastinal silhouette with the underlying congestive heart failure. The patient also had an echocardiogram and cardiology consultation as well as nephrology and infectious disease (Dr. Sanchez) consultations. They found that her overall left ventricular systolic function was impaired, with ejection fraction between 45% and 50%, and she had increased , grade 2 diastolic dysfunction. She had apical septum, left ventricular wall motion hypokinesis. She has also left atrium severely dilated, more than 40 mL/m2. She had severe pulmonary hypertension and her right ventricular systolic pressure was measured by Doppler and found to be 74.77 mmHg. She has physiologic pulmonary regurgitation and she has a small generalized pericardial effusion. I did talk to Dr. Bishop in regard to the hypokinesis of the left ventricular wall motion with the probability of underlying systolic dysfunction as well as diastolic dysfunction. Currently she also has severe tricuspid regurgitation, severe pulmonary hypertension as well as mild aortic regurgitation. Dr. Sanchez saw her yesterday and his impression was possible apical pneumonia with temperature fluctuation and she is currently on antibiotic. She had nephrology consultation as well. Today's labs indicate that her white count has dropped to 2.8 and the hemoglobin 11.1 and the hematocrit 35.1, MCV 103.9. Platelet count is 96, with the underlying mild thrombocytopenia. No evidence of coughing blood or urination with blood. Her chemistry was indicating sodium 137, potassium 3.7, chloride 105, carbon dioxide 26. Her anion gap is 6, BUN 17, and creatinine 0.76, with stability of the renal function with the hydration. Estimated glomerular filtration rate is 83. The patient is diabetic and they are monitoring the POC glucose. Currently it was 137 and 138, which is stable. Her TSH is 2.250, normal. The calcium was 8.1. With the underlying temperature 100.5F orally, the patient is still feeling nauseated. We started her on the Zofran and we will see if Dr. Carreon has any input in that regard. However, we do not have any note. He did not state any changes or tell the patient new information. We will wait for his discussion in regard to the patient's current temperature and fluctuation. On examination, the patient is conscious. She is alert. She was in distress from the nausea and vomiting. Her head was normocephalic, atraumatic. Pupils equal, reactive. She is on the anemic side, however. The hemoglobin was 11.1. The oropharynx was negative except that she is nauseated. The neck was supple. No JVD. No thyromegaly. No lymphadenopathy. Trachea midline. The lungs revealed decreased air entry to the bases and occasional wheezes and rhonchi. The heart revealed regular sinus and she has a pacemaker, left infraclavicular, and she has a history of underlying atrial fibrillation, as mentioned. She had also severe tricuspid regurgitation. The abdomen revealed no tenderness in the 4 quadrants. Extremities: No edema and positive pulses. ASSESSMENT: 1. Underlying acute fever and chills. In spite of antibiotic therapy, the fever is fluctuating and etiology is unclear except that we had a CT of the chest indicating cardiomegaly and patchy pulmonary infiltrate in the mid and lower lung pickard bilaterally, and the heart failure consideration. We have now ischemic cardiomyopathy as assessment with the bilateral congestive heart failure being highly considered. 2. Leukopenia. We do not know if it is viral versus bacterial at this time. PLAN: We will continue the current treatment and continue the antibiotic. So far the blood culture is negative. The urine culture is nonspecific. The blood culture again is negative, with more than 100,000 skin yin. We will be watching for the fever and we will see what other treatment is needed except current support and Dr. Carreon's recommendation from Hematology/Oncology. Continuation of control of diabetes. She is currently on levofloxacin p.o. and she is on ceftriaxone 2 grams IV piggyback once a day as well as cefepime, still active. She is on Tylenol and rest of the medication and amlodipine as well. Folic acid. Furosemide. She was given furosemide 20 mg q.12 hours because of the high suspicion for congestive heart failure, biventricular, with the evidence of impairment of the systolic function to 45%, questionable ischemic heart disease. Her current blood pressure is 145/74. With these findings, we may be able to increase her diuresis. However, we will wait for tomorrow. We may have to consult Pulmonary if no to the temperature. MMODL / IJN: [id number] /
[2019-07-14 17:00] LABS: Glucose,Whole Blood 118 mg/dL (75-99)
[2019-07-14] MEDS: LEVOFLOXACIN 500 MG TAB PO SCH (18:01)
[2019-07-14] MEDS: FUROSEMIDE 40 MG TAB PO SCH (18:01)
[2019-07-14 20:10] LABS: Glucose,Whole Blood 196 mg/dL (75-99)
[2019-07-14] MEDS: amLODIPine 10 MG TAB PO SCH (20:15)
[2019-07-14] MEDS: ACETAMINOPHEN TAB 325 MG TAB PO PRN (20:15)
[2019-07-14] MEDS: SODIUM CHLORIDE 0.9% 1,000 ML IV SCH (20:19)
[2019-07-14] MEDS ORDERED: IOPAMIDOL CONTRAST (ORAL USE) VIAL PO PRN (21:45)
[2019-07-15] MEDS: IPRATROPIUM-ALBUTEROL 3 ML NEB INHALATION SCH ×5 (03:19→21:21)
[2019-07-15] MEDS: ONDANSETRON 4 MG/2 ML VIAL IVP PRN (05:00)
[2019-07-15] MEDS: ACETAMINOPHEN TAB 325 MG TAB PO PRN ×2 (05:00→20:30)
--- NOTE | 2019-07-15 05:30 | PN ---
PROGRESS NOTE DATE OF SERVICE: 07/14/2019 REASON FOR FOLLOWUP: Fever. INTERVAL HISTORY: The patient continues to spike a fever mostly in the evening area. This morning she was having slight nausea and vomiting, but no abdominal pain. No diarrhea. No chest pain, shortness of breath or cough. PHYSICAL EXAMINATION: Blood pressure 149/76, pulse of 88, temperature 103.5. She is 95% on 3 L nasal cannula. General description is an elderly female lying in bed in no distress. RESPIRATORY SYSTEM: Unlabored breathing, decreased in intensity breath sounds. No wheeze. HEART: S1, S2. Regular rate and rhythm. ABDOMEN: Soft, no tenderness. EXTREMITIES: No edema of the feet. LABS: Hemoglobin 11.1, white count 2.8, BUN of 17, creatinine 0.76. Ultrasound for any acute abnormality. DIAGNOSTIC IMPRESSION AND PLAN: Patient with a fever in this patient who does not have any hemodynamic instability or tachycardia with these episodes of fever with question of possible tumor fever. We will obtain a CT abdomen and pelvis to rule out other etiologies. Continue with cefepime and Levaquin and monitoring clinical course closely. Continue supportive care. MMODL / IJN: [id number] /
[2019-07-15 07:03] LABS: Glucose,Whole Blood 136 mg/dL (75-99)
[2019-07-15 08:47] LABS: Calcium 8.2 mg/dL (8.4-10.2); Potassium 3.5 mmol/L (3.5-5.1)
[2019-07-15] MEDS: ATENOLOL 25 MG TAB PO SCH (08:51)
[2019-07-15] MEDS: CEFEPIME 2 GM in SODIUM CHLORIDE 0.9% 100 ML IVPB SCH ×2 (08:51→20:19)
[2019-07-15] MEDS: APIXABAN 5 MG TAB PO SCH ×2 (08:51→20:19)
[2019-07-15] MEDS: ASCORBIC ACID 500 MG TAB PO SCH (08:51)
[2019-07-15] MEDS: FERROUS SULFATE 325 MG TAB PO SCH (08:51)
[2019-07-15] MEDS: FOLIC ACID 1 MG TAB PO SCH (08:51)
[2019-07-15] MEDS: CHOLECALCIFEROL 1,000 UNIT TAB PO SCH (08:52)
[2019-07-15] MEDS: INSULIN ASPART (NovoLOG) 100 UNIT/ML VIAL SQ SCH ×4 (08:52→20:19)
[2019-07-15] MEDS: FUROSEMIDE 40 MG TAB PO SCH (08:52)
--- NOTE | 2019-07-15 09:19 | CT ---
EXAMINATION TYPE: CT abdomen pelvis w con DATE OF EXAM: 07/15/2019 COMPARISON: 06/06/2015 HISTORY: 63-year-old female Fever and abdominal pain TECHNIQUE: Contiguous axial scanning of the abdomen and pelvis following administration of 100 ml Iso sharron 300 IV contrast. Delayed images through the kidneys and coronal/sagittal reconstructions perform ed. CT DLP: 1895 mGycm Automated exposure control for dose reduction was used. FINDINGS: Heart mildly enlarged. Small pericardial effusion measuring 8 mm thick. Pacer leads are pre sent. Patchy bibasilar infiltrates and groundglass. Trace right effusion. Findings new from prior. Small hiatal hernia. Liver measures larger to 22.3 cm likely due to the presence of a Tracie's lobe. No focal liver lesion . Portal venous system is patent. No biliary ductal dilatation. Cholecystectomy clips. Adrenal glands, left kidney, spleen, and pancreas appear within normal limits. Couple small renal cortical cysts on the right measuring 8 mm. Prominent but not enlarged/post inflammatory. 9 mm portacaval lymph node. Scattered small retroperito yaneli lymph nodes measuring up to 8 mm, likely reactive. No dilated small bowel, free fluid, or free air. Some liquid stool within the right side of the colon and scattered colonic diverticulosis. No pericol onic inflammatory change. Mild circumferential bladder wall thickening. Prostate gland measures 5 cm wide. Multiple pelvic liqu ids. No abnormal fluid collection in the pelvis or pelvic lymphadenopathy. Bones: Degenerative changes of the hips SI joints, left greater than right. Facet arthropathy lower l umbar spine with grade 1 anterolisthesis at L4-L5. Left L5 hemisacralization with thin degenerative a ssimilation joint. Prior vertebroplasty changes at T8 and T12. IMPRESSION: 1. NEW EXTENSIVE BIBASILAR INFILTRATES. CORRELATE FOR INFECTIOUS OR ASPIRATION PNEUMONITIS. 2. TRACE RIGHT EFFUSION AND SMALL PERICARDIAL EFFUSION. 3. SOME LIQUID STOOL WITHIN THE RIGHT SIDE OF THE COLON. CORRELATE FOR POSSIBLE ENTERITIS. 4. SMALL HIATAL HERNIA.
[2019-07-15 09:34] LABS: HCT 35.1 % (34.0-46.0); HGB 11.3 gm/dL (11.4-16.0); MCH 32.6 pg (25.0-35.0); MCHC 32.2 g/dL (31.0-37.0); MCV 101.2 fL (80.0-100.0); Macrocytosis Slight; Mean Platelet Volume 10.2; Platelet Count 125 k/uL (150-450); RBC 3.47 m/uL (3.80-5.40); RDW 14.8 % (11.5-15.5)
[2019-07-15 10:39] LABS: Band Neutrophils % 2 %; Eosinophils # (M) 0.04 k/uL (0-0.7); Lymphocytes # (M) 0.44 k/uL (1.0-4.8); Monocytes # (M) 0.16 k/uL (0-1.0); Neutrophils % (M) 66 %; Nucleated Red Blood Cells 0 /100 WBC (0-0); Total Cells Counted 100
[2019-07-15 10:43] LABS: Poikilocytosis (M) Present
[2019-07-15 11:25] LABS: Glucose,Whole Blood 157 mg/dL (75-99)
[2019-07-15 11:31] LABS: Immunoglobulin M 19.6 mg/dL (40.0-280.0)
[2019-07-15 11:32] LABS: Immunoglobulin A 28.1 mg/dL (60.0-350.0)
[2019-07-15] MEDS ORDERED: VANCOMYCIN IV PER PHARMACY 1 EACH MISC MISCELLANE PRN (12:23)
[2019-07-15] MEDS: VANCOMYCIN 1,500 MG in SODIUM CHLORIDE 0.9% 250 ML IVPB SCH ×2 (12:51→22:59)
[2019-07-15] MEDS: PANTOPRAZOLE 40 MG/10 ML VIAL IVP SCH (12:51)
--- NOTE | 2019-07-15 15:28 | P.PN ---
Subjective Progress Note Date: 07/15/19 Principal diagnosis: multiple myeloma, on treatment, fevers In follow-up today patient continues to generally feel unwell, MAXIMUM TEMPERATURE overnight 103.5 Fahrenheit, she is tolerating small amounts of liquids, still having nausea and vomiting, no hematemesis, cough still persists, no hemoptysis, abdominal pain or cramping, she did have an episode of diarrhea today, denies dysuria or hematuria, has generalized weakness but is still trying to ambulate Objective - Vital Signs Vital signs: Vital Signs Temp 98.8 F 07/15/19 11:48 Pulse 77 07/15/19 11:48 Resp 17 07/15/19 11:48 BP 121/65 07/15/19 11:48 Pulse Ox 97 07/15/19 11:48 Intake & Output 07/14/19 07/15/19 07/15/19 18:59 06:59 18:59 Intake Total 240 Balance 240 Intake: Oral 240 Other: Voiding Method Toilet - Constitutional General appearance: Present: average body habitus, cooperative, no acute distress - EENT EENT Comment(s): DRY MUCOUS MEMBRANES Eyes: Present: anicteric sclerae, EOMI ENT: Present: hearing grossly normal - Respiratory Respiratory: bilateral: wheezing (slightly less than yesterday) - Cardiovascular Rhythm: regular Heart sounds: normal: S1, S2 Abnormal Heart Sounds: Absent: systolic murmur, diastolic murmur, rub, S3 Gallop, S4 Gallop, click, other - Peripheral edema leg Peripheral Edema: bilateral: None - Gastrointestinal General gastrointestinal: Present: normal bowel sounds, soft - Neurologic Neurologic: Present: CNII-XII intact - Musculoskeletal Musculoskeletal: Present: generalized weakness - Psychiatric Psychiatric: Present: A&O x's 3, appropriate affect, intact judgment & insight - Labs CBC & Chem 7: 07/15/19 07:51 07/15/19 07:51 Labs: Abnormal Lab Results - Last 24 Hours (Table) 07/14/19 07/14/19 07/14/19 Range/Units 07:20 16:58 20:09 WBC (3.8-10.6) k/uL RBC (3.80-5.40) m/uL Hgb (11.4-16.0) gm/dL MCV (80.0-100.0) fL Plt Count (150-450) k/uL Lymphocytes # (Manual) (1.0-4.8) k/uL Sodium (137-145) mmol/L Glucose (74-99) mg/dL POC Glucose (mg/dL) 118 H 196 H (75-99) mg/dL Calcium (8.4-10.2) mg/dL C-Reactive Protein (<10.0) mg/L Procalcitonin (0.02-0.09) ng/mL IgA 28.1 L (60.0-350.0) mg/dL IgM 19.6 L (40.0-280.0) mg/dL 07/14/19 07/14/19 07/15/19 Range/Units 22:56 22:56 07:02 WBC (3.8-10.6) k/uL RBC (3.80-5.40) m/uL Hgb (11.4-16.0) gm/dL MCV (80.0-100.0) fL Plt Count (150-450) k/uL Lymphocytes # (Manual) (1.0-4.8) k/uL Sodium (137-145) mmol/L Glucose (74-99) mg/dL POC Glucose (mg/dL) 136 H (75-99) mg/dL Calcium (8.4-10.2) mg/dL C-Reactive Protein 68.9 H (<10.0) mg/L Procalcitonin 1.00 H (0.02-0.09) ng/mL IgA (60.0-350.0) mg/dL IgM (40.0-280.0) mg/dL 07/15/19 07/15/19 07/15/19 Range/Units 07:51 07:51 11:14 WBC 2.0 L (3.8-10.6) k/uL RBC 3.47 L (3.80-5.40) m/uL Hgb 11.3 L (11.4-16.0) gm/dL MCV 101.2 H (80.0-100.0) fL Plt Count 125 L (150-450) k/uL Lymphocytes # (Manual) 0.44 L (1.0-4.8) k/uL Sodium 135 L (137-145) mmol/L Glucose 140 H (74-99) mg/dL POC Glucose (mg/dL) 157 H (75-99) mg/dL Calcium 8.2 L (8.4-10.2) mg/dL C-Reactive Protein (<10.0) mg/L Procalcitonin (0.02-0.09) ng/mL IgA (60.0-350.0) mg/dL IgM (40.0-280.0) mg/dL Microbiology - Last 24 Hours (Table) 07/13/19 00:29 Blood Culture - Preliminary Blood No Growth after 48 hours 07/13/19 21:37 Blood Culture - Preliminary Blood No Growth after 24 hours 07/13/19 21:29 Blood Culture - Preliminary Blood No Growth after 24 hours 07/11/19 17:10 Blood Culture - Preliminary Blood No Growth after 72 hours - Imaging and Cardiology CT scan - abdomen: report reviewed (bibasilar infiltrates) CT scan - pelvis: report reviewed (possible enteritis) Assessment and Plan (1) Pneumonia Narrative/Plan: Dr. Carreon and Dr. Sanchez discussed the case. Viral testing was done by PCR, less likely to miss diagnosis. Infectious disease reviewed CT of the chest, antibiotics have been changed. Current Visit: Yes Status: Acute Priority: High Code(s): J18.9 - PNEUMONIA, UNSPECIFIED ORGANISM SNOMED Code(s): 006919862 (2) Sepsis Narrative/Plan: Pancultures pending, negative so far. Current Visit: Yes Status: Acute Priority: High Code(s): A41.9 - SEPSIS, UNSPECIFIED ORGANISM SNOMED Code(s): 90217027 (3) Multiple myeloma Narrative/Plan: No treatment currently due. Hold for now Ig levels ordered for evaluation-IgG levels are adequate, no IVIG recommended at this time Current Visit: No Status: Chronic Priority: Medium Code(s): C90.00 - MULTIPLE MYELOMA NOT HAVING ACHIEVED REMISSION SNOMED Code(s): 768461126 Plan: Reviewed patient's chart with RN, oral medications changed to IV whenever possible due to patient's intractable nausea and vomiting. Protonix added daily IV push. Continue supportive medications and IV fluids.
--- NOTE | 2019-07-15 15:54 | P.CNPUL ---
History of Present Illness Reason for consult: dyspnea, cough, pneumonia Chief complaint: Shortness of breath and cough History of present illness: Patient is 63-year-old -[place] female with a past medical history significant for multiple myeloma for the patient is currently on chemotherapy, patient presented to [facility] ER with a chief complaints of fever cough and congestion, patient's symptom has been going on for a day or 2 before she presented to hospital, apparently the patient was exposed to her sister who was in [place], the sister was subsequently quarantined on arrival to the [place] and has been cleared of ovalle virus, patient on presentation hospital have a fever of 103F, patient was tachycardic with heart rate 115, patient initial white count was slightly elevated 10.8 repeat is 6.9, influenza serology was negative, patient did have a chest x-ray shows cardia megaly mild pulmonary vascular congestion increase from last exam, the patient does have a positive UA urine showing large [place] histories 11 WBC and some budding yeast, patient was initially treated with cefepime and Zithromax subsequently when he has been changed over to vancomycin and cefepime infection disease following that patient. On presentation hospital with a creatinine 1.87 and repeat is 1.23, patient is breathing slightly comfortably, denies having any hemoptysis or chest pain no URI symptoms no nausea no vomiting and abdominal pain and no diarrhea, patient continued to cough up thick tenacious sputum and short of breath, computed tomography scan of the chest revealed bilateral patchy pulmonary infiltrate predominantly in mid and lower lung field Review of Systems All systems: negative Past Medical History Past Medical History: Cancer, Diabetes Mellitus, Hyperlipidemia, Hypertension, Osteoarthritis (OA), Renal Disease Additional Past Medical History / Comment(s): MULTIPLE MYELOMA 2007 had chemo in 2007, renal failure with cancer tx and had dialysis for 2 months, 05/28/15 pathologic thoracic vertebra fracture-back pain is getting better per pt, IDDM type II, slight leaky heart valve, hysterectomy d/t uterine fibroids, hx of H pylori History of Any Multi-Drug Resistant Organisms: None Reported Past Surgical History: Back Surgery, Cholecystectomy, Hysterectomy Additional Past Surgical History / Comment(s): colonoscopy, rt carpal tunnel release, T9 kyphoplasty with bx, oophorectomy, cyst of inner R thigh, R foot surgery d/t stepping on something, AV fistula inserted and removed Past Anesthesia/Blood Transfusion Reactions: No Reported Reaction Additional Past Anesthesia/Blood Transfusion Reaction / Comment(s): Pt has received blood in the past without reaction. Past Psychological History: No Psychological Hx Reported Smoking Status: Never smoker Past Alcohol Use History: None Reported Past Drug Use History: None Reported - Past Family History Mother Family Medical History: Congestive Heart Failure (CHF) Additional Family Medical History / Comment(s): Mother of CHF at age 76 yrs. Father Family Medical History: Myocardial Infarction (IL) Additional Family Medical History / Comment(s): Father of a IL at age 46 yrs. Medications and Allergies Home Medications Medication Instructions Recorded Confirmed Type amLODIPine [Norvasc] 10 mg PO HS 05/28/15 07/11/19 History Atenolol [Tenormin] 25 mg PO DAILY tab 09/07/15 07/11/19 Rx Apixaban [Eliquis] 5 mg PO BID 07/22/18 07/11/19 History Ascorbic Acid [Vitamin C] 500 mg PO DAILY 07/22/18 07/11/19 History Cholecalciferol (Vitamin D3) 2,000 unit PO DAILY 07/22/18 07/11/19 History [Vitamin D3] Gabapentin [Neurontin] 200 mg PO HS 07/22/18 07/11/19 History INSULIN ASPART (NovoLOG) [NovoLOG See Protocol SQ ACHS 07/22/18 07/11/19 History (formulary)] Ferrous Sulfate [Feosol] 325 mg PO DAILY 07/11/19 07/11/19 History Folic Acid 0.4 mg PO DAILY 07/11/19 07/11/19 History Gabapentin [Neurontin] 100 mg PO DAILY 07/11/19 07/11/19 History Allergies Allergy/AdvReac Type Severity Reaction Status Date / Time latex Allergy Rash/Hives Verified 07/11/19 21:47 Physical Exam Vitals: Vital Signs Temp Pulse Pulse Resp BP Pulse Ox 07/15/19 11:48 98.8 F 77 17 121/65 97 07/15/19 11:47 73 07/15/19 11:37 72 07/15/19 07:50 100.3 F H 80 76 20 136/73 07/15/19 07:39 80 07/15/19 04:23 100.2 F H 87 18 148/78 95 07/15/19 00:00 18 07/14/19 22:45 101.3 F H 07/14/19 20:45 103.5 F H 88 18 149/76 95 07/14/19 19:09 84 07/14/19 19:01 80 Intake and Output 07/15/19 07/15/19 07/15/19 06:59 14:59 22:59 Other: Voiding Method Toilet - Constitutional General appearance: average body habitus, cooperative, mild distress - EENT Eyes: anicteric sclerae, EOMI ENT: hearing grossly normal, normal oropharynx - Neck Neck: no lymphadenopathy - Respiratory Respiratory: bilateral: wheezing - Cardiovascular Rhythm: regular Heart sounds: normal: S1, S2 Abnormal Heart Sounds: no systolic murmur, no diastolic murmur, no rub, no S3 Gallop, no S4 Gallop, no click, no other leg Peripheral Edema: bilateral: None - Gastrointestinal General gastrointestinal: no absent bowel sounds, no decreased bowel sounds, no distended, no hepatomegaly, no hyperactive bowel sounds, normal bowel sounds, no organomegaly, no rigid, no scaphoid, soft, no splenomegaly, no tenderness, no umbilical hernia, no ventral hernia - Integumentary Integumentary: normal - Neurologic Neurologic: CNII-XII intact - Musculoskeletal Musculoskeletal: generalized weakness, strength equal bilaterally - Psychiatric Psychiatric: A&O x's 3, appropriate affect, intact judgment & insight Results - Laboratory Findings CBC and BMP: 07/15/19 07:51 07/15/19 07:51 PT/INR, D-dimer PT 12.8 sec (9.0-12.0) H 07/11/19 17:10 INR 1.3 (<1.2) H 07/11/19 17:10 Abnormal lab findings: Abnormal Labs 07/11/19 07/11/19 07/11/19 17:10 17:10 17:10 WBC 10.8 H RBC 3.45 L Hgb Hct MCV 102.7 H Plt Count 112 L Lymphocytes # 0.7 L Lymphocytes # (Manual) Eosinophils # 1.7 H Eosinophils # (Manual) Nucleated RBCs PT INR APTT Sodium 133 L Potassium 5.8 H BUN 50 H Creatinine 1.87 H Glucose 220 H POC Glucose (mg/dL) Plasma Lactic Acid Cain 2.1 H* Calcium 8.2 L AST 39 H Total Creatine Kinase C-Reactive Protein Total Protein 6.2 L Procalcitonin Urine Appearance Urine Protein Ur Leukocyte Esterase Urine WBC Ur Squamous Epith Cells Urine Bacteria Hyaline Casts Urine Mucus Urine Yeast (Budding) IgA IgM 07/11/19 07/11/19 07/11/19 17:10 17:10 17:35 WBC RBC Hgb Hct MCV Plt Count Lymphocytes # Lymphocytes # (Manual) Eosinophils # Eosinophils # (Manual) Nucleated RBCs PT 12.8 H INR 1.3 H APTT 31.2 H Sodium Potassium BUN Creatinine Glucose POC Glucose (mg/dL) Plasma Lactic Acid Cain Calcium AST Total Creatine Kinase <20 L C-Reactive Protein Total Protein Procalcitonin Urine Appearance Cloudy H Urine Protein 2+ H Ur Leukocyte Esterase Large H Urine WBC 11 H Ur Squamous Epith Cells 10 H Urine Bacteria Occasional H Hyaline Casts 3 H Urine Mucus Rare H Urine Yeast (Budding) Occasional H IgA IgM 07/12/19 07/12/19 07/12/19 07:17 07:43 07:43 WBC RBC 3.34 L Hgb 11.1 L Hct MCV 103.6 H Plt Count 98 L Lymphocytes # Lymphocytes # (Manual) 0.55 L Eosinophils # Eosinophils # (Manual) 1.04 H Nucleated RBCs 1 H PT INR APTT Sodium 135 L Potassium BUN 36 H Creatinine 1.23 H Glucose 195 H POC Glucose (mg/dL) 206 H Plasma Lactic Acid Cain Calcium 7.9 L AST Total Creatine Kinase C-Reactive Protein Total Protein Procalcitonin Urine Appearance Urine Protein Ur Leukocyte Esterase Urine WBC Ur Squamous Epith Cells Urine Bacteria Hyaline Casts Urine Mucus Urine Yeast (Budding) IgA IgM 07/12/19 07/12/19 07/12/19 11:46 17:04 20:45 WBC RBC Hgb Hct MCV Plt Count Lymphocytes # Lymphocytes # (Manual) Eosinophils # Eosinophils # (Manual) Nucleated RBCs PT INR APTT Sodium Potassium BUN Creatinine Glucose POC Glucose (mg/dL) 193 H 164 H 173 H Plasma Lactic Acid Cain Calcium AST Total Creatine Kinase C-Reactive Protein Total Protein Procalcitonin Urine Appearance Urine Protein Ur Leukocyte Esterase Urine WBC Ur Squamous Epith Cells Urine Bacteria Hyaline Casts Urine Mucus Urine Yeast (Budding) IgA IgM 07/13/19 07/13/19 07/13/19 06:56 06:56 06:56 WBC RBC 3.22 L Hgb 10.7 L Hct 33.2 L MCV 103.3 H Plt Count 91 L Lymphocytes # 0.8 L Lymphocytes # (Manual) Eosinophils # Eosinophils # (Manual) Nucleated RBCs PT INR APTT Sodium 136 L Potassium BUN 20 H Creatinine Glucose 156 H POC Glucose (mg/dL) Plasma Lactic Acid Cain Calcium 8.0 L AST Total Creatine Kinase C-Reactive Protein Total Protein Procalcitonin 1.52 H Urine Appearance Urine Protein Ur Leukocyte Esterase Urine WBC Ur Squamous Epith Cells Urine Bacteria Hyaline Casts Urine Mucus Urine Yeast (Budding) IgA IgM 07/13/19 07/13/19 07/13/19 07:17 11:38 17:07 WBC RBC Hgb Hct MCV Plt Count Lymphocytes # Lymphocytes # (Manual) Eosinophils # Eosinophils # (Manual) Nucleated RBCs PT INR APTT Sodium Potassium BUN Creatinine Glucose POC Glucose (mg/dL) 157 H 178 H 192 H Plasma Lactic Acid Cain Calcium AST Total Creatine Kinase C-Reactive Protein Total Protein Procalcitonin Urine Appearance Urine Protein Ur Leukocyte Esterase Urine WBC Ur Squamous Epith Cells Urine Bacteria Hyaline Casts Urine Mucus Urine Yeast (Budding) IgA IgM 07/13/19 07/14/19 07/14/19 20:48 07:05 07:20 WBC RBC Hgb Hct MCV Plt Count Lymphocytes # Lymphocytes # (Manual) Eosinophils # Eosinophils # (Manual) Nucleated RBCs PT INR APTT Sodium Potassium BUN Creatinine Glucose 134 H POC Glucose (mg/dL) 133 H 138 H Plasma Lactic Acid Cani Calcium 8.1 L AST Total Creatine Kinase C-Reactive Protein Total Protein Procalcitonin Urine Appearance Urine Protein Ur Leukocyte Esterase Urine WBC Ur Squamous Epith Cells Urine Bacteria Hyaline Casts Urine Mucus Urine Yeast (Budding) IgA IgM 07/14/19 07/14/19 07/14/19 07:20 07:20 11:20 WBC 2.8 L RBC 3.38 L Hgb 11.1 L Hct MCV 103.9 H Plt Count 96 L Lymphocytes # Lymphocytes # (Manual) 0.48 L Eosinophils # Eosinophils # (Manual) Nucleated RBCs PT INR APTT Sodium Potassium BUN Creatinine Glucose POC Glucose (mg/dL) 137 H Plasma Lactic Acid Cain Calcium AST Total Creatine Kinase C-Reactive Protein Total Protein Procalcitonin Urine Appearance Urine Protein Ur Leukocyte Esterase Urine WBC Ur Squamous Epith Cells Urine Bacteria Hyaline Casts Urine Mucus Urine Yeast (Budding) IgA 28.1 L IgM 19.6 L 07/14/19 07/14/19 07/14/19 16:58 20:09 22:56 WBC RBC Hgb Hct MCV Plt Count Lymphocytes # Lymphocytes # (Manual) Eosinophils # Eosinophils # (Manual) Nucleated RBCs PT INR APTT Sodium Potassium BUN Creatinine Glucose POC Glucose (mg/dL) 118 H 196 H Plasma Lactic Acid Cain Calcium AST Total Creatine Kinase C-Reactive Protein 68.9 H Total Protein Procalcitonin Urine Appearance Urine Protein Ur Leukocyte Esterase Urine WBC Ur Squamous Epith Cells Urine Bacteria Hyaline Casts Urine Mucus Urine Yeast (Budding) IgA IgM 07/14/19 07/15/19 07/15/19 22:56 07:02 07:51 WBC RBC Hgb Hct MCV Plt Count Lymphocytes # Lymphocytes # (Manual) Eosinophils # Eosinophils # (Manual) Nucleated RBCs PT INR APTT Sodium 135 L Potassium BUN Creatinine Glucose 140 H POC Glucose (mg/dL) 136 H Plasma Lactic Acid Cain Calcium 8.2 L AST Total Creatine Kinase C-Reactive Protein Total Protein Procalcitonin 1.00 H Urine Appearance Urine Protein Ur Leukocyte Esterase Urine WBC Ur Squamous Epith Cells Urine Bacteria Hyaline Casts Urine Mucus Urine Yeast (Budding) IgA IgM 07/15/19 07/15/19 07:51 11:14 WBC 2.0 L RBC 3.47 L Hgb 11.3 L Hct MCV 101.2 H Plt Count 125 L Lymphocytes # Lymphocytes # (Manual) 0.44 L Eosinophils # Eosinophils # (Manual) Nucleated RBCs PT INR APTT Sodium Potassium BUN Creatinine Glucose POC Glucose (mg/dL) 157 H Plasma Lactic Acid Cain Calcium AST Total Creatine Kinase C-Reactive Protein Total Protein Procalcitonin Urine Appearance Urine Protein Ur Leukocyte Esterase Urine WBC Ur Squamous Epith Cells Urine Bacteria Hyaline Casts Urine Mucus Urine Yeast (Budding) IgA IgM - Diagnostic Findings Chest x-ray: report reviewed, image reviewed CT scan - chest: report reviewed, image reviewed Assessment and Plan Assessment: Bilateral pneumonia Leukopenia Sepsis Acute on chronic respiratory failure Multiple myeloma Plan: Continue IV antibiotics Consider IgG therapy Bronchodilators Further recommendations pending plan of care as per clinical response of patient
--- NOTE | 2019-07-15 16:47 | PN ---
PROGRESS NOTE DATE OF SERVICE: 07/15/2019 REASON FOR FOLLOWUP: Fever and pneumonia. INTERVAL HISTORY: The patient is currently afebrile. However, the patient did spike a fever last night of 103.5 and 100.3 this morning and 98.8 now. Patient has been feeling weak and tired, with no energy. the patient does have a cough and is bringing up a significant amount of purulent sputum. Sputum was requested 2 days ago; not collected. No chest pain. No nausea, no vomiting. No abdominal pain, no diarrhea. PHYSICAL EXAMINATION: Blood pressure 121/65 with a pulse of 77, temperature 98.8, T-max 103. She is 97% on 3 L nasal cannula. General description is an elderly female lying in bed in no distress. RESPIRATORY SYSTEM: Unlabored breathing with decreased breath sounds at the base. No wheeze. HEART: S1, S2. Regular rate and rhythm. ABDOMEN: Soft. No tenderness. LABS: Hemoglobin is 11.3, white count 2.0, BUN of 17, creatinine 0.89. Blood culture has been negative. No sputum collected. DIAGNOSTIC IMPRESSION AND PLAN: Patient with a fever which is likely multifactorial; could be related to multiple myeloma. However, CT did show significant consolidation that could be Gram-negative or Gram-positive. With overall fever persisting despite being on Rocephin, we will add vancomycin to cover for the Gram-positive. The nurses have been instructed to obtain a sputum culture so we can adjust antibiotics further. Plan of care was discussed with the patient's as well as the oncologist and the admitting physician. TOL / MADONNAN: [id number] /
[2019-07-15 17:09] LABS: Glucose,Whole Blood 128 mg/dL (75-99)
--- NOTE | 2019-07-15 19:05 | P.PN ---
Subjective Progress Note Date: 07/15/19 (Leukopenia) Progress note dictation date of service 07/15/[address] Joaquim Park. Patient's seen today [id number] and discussed with her family and the patient her at bedside Mr. Hfof and her daughter as well and her sister. Patient on isolation due to leukopenia. Her temperature 98.8 F oral and the patient in the pulse rate 73-75/m regular sinus and her blood pressure 121/65 and a mean 83. The pulse ox 97% on 3 L nasal cannula. Her laboratory: WBC 2, hemoglobin is 11.3, MCV 101.2, platelet count 125 was mild thrombocytopenia. Her lymphocytes is 0.44 low. C-reactive protein 68.9 with significantly high and pro-calcitonin is 1 which is also high. Diabetes mellitus controlled with the insulin to scale and POC glucose has been an average 128 and 157. Computed tomography scan of the abdomen indicating there is a new extensive bibasilar infiltrate and correlates with infectious or aspiration pneumonitis. Trace right effusion and small pericardial effusion, small liquid stool within the right side of the colon correlates with enteritis, small hiatal hernia. On exam patient conscious alert oriented 3 and she able to go to the bathroom and have a BM. Head was normocephalic and atraumatic pupil was equal reactive conjunctiva was pink sclera nonicteric and the the oropharynx was negative and no nausea no vomiting the chest she has underlying rhonchi's bilateral with the underlying pneumonia and occasional wheezes. And heart regular sinus rhythm and blood pressure was controlled. She had echocardiogram with the echo ejection fraction 45-50% and left ventricular hypokinetic grade 2 diastolic dysfunction, apical septum of the left ventricular wall motion is hypokinetic. She had left atrium dilated more than 40 mL per meter square. And she had a pacemaker left infraclavicular. She had a wart icteric regurgitation mild. No aortic stenosis. She had a moderate mitral regurg and moderate to severe tricuspid regurg and pulmonary hypertension severe. Her right ventricular systolic pressure measured by Doppler 74.77 mmHg. She had small generalized pericardial effusion. Extremities we have no edema and positive pulses. Neurologically no lateralizing sign , no confusion or agitation. Assessment: #1 sepsis with leukopenia #2 possible leukopenia associated with the last chemotherapy last week. #3 right sided pneumonia upper middle and lower and extensive. #4 shortness of breath number #5 cardiomyopathy with impaired ejection fraction and acute on the top of ronic with the systolic improvement and diastolic. 9 #6 multiple myeloma under treatment with chemotherapy. #7 diabetes mellitus type 2 insulin-dependent. #8 underlying hepatic steatosis considered. Plan: #1 we'll continue the current treatment and edematous radiation, seen by multiple consultants, cardiology, nephrology, infectious disease, pulmonary, oncology. Plan continue the current treatment wait for the results of investigation for further consideration depend on the results, lab tomorrow. Objective - Vital Signs Vital signs: Vital Signs Temp 98.8 F 07/15/19 11:48 Pulse 75 07/15/19 16:29 Resp 17 07/15/19 11:48 BP 121/65 07/15/19 11:48 Pulse Ox 97 07/15/19 16:23 Intake & Output 07/14/19 07/15/19 07/15/19 18:59 06:59 18:59 Intake Total 240 Balance 240 Intake: Oral 240 Other: Voiding Method Toilet - Labs CBC & Chem 7: 07/15/19 07:51 07/15/19 07:51 Labs: Abnormal Lab Results - Last 24 Hours (Table) 07/14/19 07/14/19 07/14/19 Range/Units 07:20 20:09 22:56 WBC (3.8-10.6) k/uL RBC (3.80-5.40) m/uL Hgb (11.4-16.0) gm/dL MCV (80.0-100.0) fL Plt Count (150-450) k/uL Lymphocytes # (Manual) (1.0-4.8) k/uL Sodium (137-145) mmol/L Glucose (74-99) mg/dL POC Glucose (mg/dL) 196 H (75-99) mg/dL Calcium (8.4-10.2) mg/dL C-Reactive Protein 68.9 H (<10.0) mg/L Procalcitonin (0.02-0.09) ng/mL IgA 28.1 L (60.0-350.0) mg/dL IgM 19.6 L (40.0-280.0) mg/dL 07/14/19 07/15/19 07/15/19 Range/Units 22:56 07:02 07:51 WBC (3.8-10.6) k/uL RBC (3.80-5.40) m/uL Hgb (11.4-16.0) gm/dL MCV (80.0-100.0) fL Plt Count (150-450) k/uL Lymphocytes # (Manual) (1.0-4.8) k/uL Sodium 135 L (137-145) mmol/L Glucose 140 H (74-99) mg/dL POC Glucose (mg/dL) 136 H (75-99) mg/dL Calcium 8.2 L (8.4-10.2) mg/dL C-Reactive Protein (<10.0) mg/L Procalcitonin 1.00 H (0.02-0.09) ng/mL IgA (60.0-350.0) mg/dL IgM (40.0-280.0) mg/dL 07/15/19 07/15/19 07/15/19 Range/Units 07:51 11:14 17:08 WBC 2.0 L (3.8-10.6) k/uL RBC 3.47 L (3.80-5.40) m/uL Hgb 11.3 L (11.4-16.0) gm/dL MCV 101.2 H (80.0-100.0) fL Plt Count 125 L (150-450) k/uL Lymphocytes # (Manual) 0.44 L (1.0-4.8) k/uL Sodium (137-145) mmol/L Glucose (74-99) mg/dL POC Glucose (mg/dL) 157 H 128 H (75-99) mg/dL Calcium (8.4-10.2) mg/dL C-Reactive Protein (<10.0) mg/L Procalcitonin (0.02-0.09) ng/mL IgA (60.0-350.0) mg/dL IgM (40.0-280.0) mg/dL Microbiology - Last 24 Hours (Table) 07/15/19 16:26 Sputum Culture - Preliminary Sputum 07/13/19 00:29 Blood Culture - Preliminary Blood No Growth after 48 hours 07/13/19 21:37 Blood Culture - Preliminary Blood No Growth after 24 hours 07/13/19 21:29 Blood Culture - Preliminary Blood No Growth after 24 hours 07/11/19 17:10 Blood Culture - Preliminary Blood No Growth after 72 hours
[2019-07-15 20:14] LABS: Glucose,Whole Blood 173 mg/dL (75-99)
[2019-07-15] MEDS: amLODIPine 10 MG TAB PO SCH (20:19)
[2019-07-15] MEDS: SODIUM CHLORIDE 0.9% 1,000 ML IV SCH (23:49)
[2019-07-16] MEDS: IPRATROPIUM-ALBUTEROL 3 ML NEB INHALATION SCH ×6 (00:31→20:56)
[2019-07-16] MEDS: ACETAMINOPHEN TAB 325 MG TAB PO PRN ×3 (05:05→23:46)
[2019-07-16 06:52] LABS: Glucose,Whole Blood 144 mg/dL (75-99)
[2019-07-16] MEDS: INSULIN ASPART (NovoLOG) 100 UNIT/ML VIAL SQ SCH ×4 (08:09→20:54)
[2019-07-16] MEDS: CHOLECALCIFEROL 1,000 UNIT TAB PO SCH (08:09)
[2019-07-16] MEDS: ASCORBIC ACID 500 MG TAB PO SCH (08:10)
[2019-07-16] MEDS: FERROUS SULFATE 325 MG TAB PO SCH (08:10)
[2019-07-16] MEDS: APIXABAN 5 MG TAB PO SCH ×2 (08:10→20:29)
[2019-07-16] MEDS: FOLIC ACID 1 MG TAB PO SCH (08:10)
[2019-07-16] MEDS: ATENOLOL 25 MG TAB PO SCH (08:10)
[2019-07-16] MEDS: FUROSEMIDE 40 MG TAB PO SCH (08:10)
[2019-07-16 08:54] LABS: INR 1.1 (<1.2); Partial Thromboplastin Time 33.1 sec (22.0-30.0); Prothrombin Time 10.8 sec (9.0-12.0)
[2019-07-16 08:58] LABS: ALT 24 U/L (4-34); AST 68 U/L (14-36); African American GFR (CKD) >90 (>60 ml/min/1.73 sqM); Albumin 2.9 g/dL (3.5-5.0); Alkaline Phosphatase 130 U/L (38-126); Bilirubin, Delta 0.1 mg/dL (0.0-0.2); Bilirubin,Unconjugated 0.5 mg/dL (0.0-1.1); LDH 2013 U/L (313-618); Non-African American GFR(CKD) 80 (>60 ml/min/1.73 sqM); Total Bilirubin 0.6 mg/dL (0.2-1.3); Total Protein 5.4 g/dL (6.3-8.2)
[2019-07-16 09:00] LABS: MCH 32.5 pg (25.0-35.0); MCHC 31.5 g/dL (31.0-37.0); Macrocytosis Slight; Mean Platelet Volume 8.9; Platelet Count 163 k/uL (150-450); RBC 3.39 m/uL (3.80-5.40); RDW 14.6 % (11.5-15.5)
[2019-07-16 09:08] LABS: WBC 1.4 k/uL (3.8-10.6)
[2019-07-16] MEDS: FILGRASTIM-SNDZ 480 MCG/0.8 ML SYRINGE SQ SCH (10:31)
[2019-07-16] MEDS: VANCOMYCIN 1,500 MG in SODIUM CHLORIDE 0.9% 250 ML IVPB SCH ×4 (10:31→23:43)
[2019-07-16] MEDS: ONDANSETRON 4 MG/2 ML VIAL IVP PRN (10:31)
[2019-07-16] MEDS: PANTOPRAZOLE 40 MG/10 ML VIAL IVP SCH (10:31)
[2019-07-16] MEDS: CEFEPIME 2 GM in SODIUM CHLORIDE 0.9% 100 ML IVPB SCH ×3 (10:32→20:30)
[2019-07-16 11:02] LABS: Eosinophils # (M) 0.04 k/uL (0-0.7); Lymphocytes # (M) 0.52 k/uL (1.0-4.8); Monocytes # (M) 0.08 k/uL (0-1.0); Neutrophils # (M) 0.76 k/uL (1.3-7.7); Neutrophils % (M) 54 %; Nucleated Red Blood Cells 0 /100 WBC (0-0); Total Cells Counted 100
--- NOTE | 2019-07-16 11:02 | P.PN ---
Subjective Progress Note Date: 07/16/19 Principal diagnosis: multiple myeloma, on treatment, fevers In follow-up today patient stable, MAXIMUM TEMPERATURE overnight 100.6 Fahrenheit, she is tolerating small amounts of liquids/Popsicle, nausea less, fewer episodes of wretching, cough is more productive, no BM today, denies abdominal pain or cramping Objective - Vital Signs Vital signs: Vital Signs Temp 99.4 F 07/16/19 08:26 Pulse 74 07/16/19 08:26 Resp 20 07/16/19 08:26 BP 126/73 07/16/19 08:26 Pulse Ox 99 07/16/19 08:26 Intake & Output 07/15/19 07/16/19 07/16/19 18:59 06:59 18:59 Intake Total 240 Balance 240 Intake: Oral 240 Other: Voiding Method Toilet - Constitutional General appearance: Present: average body habitus, cooperative, no acute distress - EENT Eyes: Present: anicteric sclerae, EOMI - Respiratory Respiratory: bilateral: rhonchi, wheezing (less) - Cardiovascular Rhythm: regular Heart sounds: normal: S1, S2 Abnormal Heart Sounds: Absent: systolic murmur, diastolic murmur, rub, S3 Gallop, S4 Gallop, click, other - Peripheral edema leg Peripheral Edema: bilateral: None - Gastrointestinal General gastrointestinal: Present: normal bowel sounds, soft. Absent: absent bowel sounds, decreased bowel sounds, distended, hepatomegaly, hyperactive bowel sounds, organomegaly, rigid, scaphoid, splenomegaly, tenderness, umbilical hernia, ventral hernia - Integumentary Integumentary: Present: normal, normal turgor - Neurologic Neurologic: Present: CNII-XII intact - Musculoskeletal Musculoskeletal: Present: generalized weakness - Psychiatric Psychiatric: Present: A&O x's 3, appropriate affect, intact judgment & insight - Labs CBC & Chem 7: 07/16/19 08:28 07/16/19 08:28 Labs: Abnormal Lab Results - Last 24 Hours (Table) 07/14/19 07/14/19 07/15/19 Range/Units 07:20 22:56 11:14 WBC (3.8-10.6) k/uL RBC (3.80-5.40) m/uL Hgb (11.4-16.0) gm/dL MCV (80.0-100.0) fL APTT (22.0-30.0) sec POC Glucose (mg/dL) 157 H (75-99) mg/dL AST (14-36) U/L Alkaline Phosphatase (38-126) U/L Lactate Dehydrogenase (313-618) U/L Total Protein (6.3-8.2) g/dL Albumin (3.5-5.0) g/dL Procalcitonin 1.00 H (0.02-0.09) ng/mL IgA 28.1 L (60.0-350.0) mg/dL IgM 19.6 L (40.0-280.0) mg/dL 07/15/19 07/15/19 07/16/19 Range/Units 17:08 20:13 06:51 WBC (3.8-10.6) k/uL RBC (3.80-5.40) m/uL Hgb (11.4-16.0) gm/dL MCV (80.0-100.0) fL APTT (22.0-30.0) sec POC Glucose (mg/dL) 128 H 173 H 144 H (75-99) mg/dL AST (14-36) U/L Alkaline Phosphatase (38-126) U/L Lactate Dehydrogenase (313-618) U/L Total Protein (6.3-8.2) g/dL Albumin (3.5-5.0) g/dL Procalcitonin (0.02-0.09) ng/mL IgA (60.0-350.0) mg/dL IgM (40.0-280.0) mg/dL 07/16/19 07/16/19 07/16/19 Range/Units 08:28 08:28 08:28 WBC 1.4 L* (3.8-10.6) k/uL RBC 3.39 L (3.80-5.40) m/uL Hgb 11.0 L (11.4-16.0) gm/dL MCV 103.0 H (80.0-100.0) fL APTT 33.1 H (22.0-30.0) sec POC Glucose (mg/dL) (75-99) mg/dL AST 68 H (14-36) U/L Alkaline Phosphatase 130 H (38-126) U/L Lactate Dehydrogenase 2013 H (313-618) U/L Total Protein 5.4 L (6.3-8.2) g/dL Albumin 2.9 L (3.5-5.0) g/dL Procalcitonin (0.02-0.09) ng/mL IgA (60.0-350.0) mg/dL IgM (40.0-280.0) mg/dL Microbiology - Last 24 Hours (Table) 07/15/19 16:26 Gram Stain - Preliminary Sputum Sputum Culture - Preliminary 07/13/19 00:29 Blood Culture - Preliminary Blood No Growth after 72 hours 07/14/19 22:56 Blood Culture - Preliminary Blood No Growth after 24 hours 07/13/19 21:29 Blood Culture - Preliminary Blood No Growth after 48 hours 07/13/19 21:37 Blood Culture - Preliminary Blood No Growth after 48 hours 07/11/19 17:10 Blood Culture - Preliminary Blood No Growth after 96 hours - Imaging and Cardiology CT scan - abdomen: report reviewed CT scan - pelvis: report reviewed Pulmonary and IM reports reviewed Assessment and Plan (1) Leukopenia Narrative/Plan: Due in part from disease, exacerbated by acute severe febrile illness. GCSF initiated, CBC daily to monitor ANC. Current Visit: Yes Status: Acute Priority: High Code(s): D72.819 - DECREASED WHITE BLOOD CELL COUNT, UNSPECIFIED SNOMED Code(s): 74617595 (2) Pneumonia Narrative/Plan: Fever pattern improving slowly. ID changed antibiotics Current Visit: Yes Status: Acute Priority: High Code(s): J18.9 - PNEUMONIA, UNSPECIFIED ORGANISM SNOMED Code(s): 229901112 (3) Sepsis Narrative/Plan: Cultures negative thus far Current Visit: Yes Status: Acute Priority: High Code(s): A41.9 - SEPSIS, UNSPECIFIED ORGANISM SNOMED Code(s): 14595715 (4) Multiple myeloma Narrative/Plan: No treatment currently due. Hold for now Ig levels ordered for evaluation-IgG levels are adequate, IgA and IgM are about 50% of normal. Need to calculate against myeloma labs done recently in office, further recommendations to follow Current Visit: No Status: Chronic Priority: Medium Code(s): C90.00 - MULTIPLE MYELOMA NOT HAVING ACHIEVED REMISSION SNOMED Code(s): 162324009 Plan: Continue supportive medications and IV fluids. Summarized pt hospital course, images, and plan of care to family
[2019-07-16 11:10] LABS: Anisocytosis (M) Present; Poikilocytosis (M) Present
[2019-07-16 11:50] LABS: Glucose,Whole Blood 166 mg/dL (75-99)
--- NOTE | 2019-07-16 13:15 | PN ---
PROGRESS NOTE ADMISSION DATE: 07/11/2019. DATE OF SERVICE: 07/16/2019 Patient initially admitted with severe shortness of breath and splinting and subsequently admitted to the hospital oncology floor with the recent chemotherapy that she received in [facility] for the multiple myeloma. Patient has other history of hypertension with hypertensive heart disease and history of gastroesophageal reflux disease and history of discogenic disease. And history of underlying shortness of breath and bronchitis and occasional asthma. Today as patient is seen [id number] and examined her vital signs indicating that her temperature is 99.4 oral and her pulse rate is 76 and regular. She had an infraclavicular pacemaker as well and she had her temperature during the night, 100.6 at 5 am, which has been during the night elevation of the temperature with pyrexia and associated with underlying history of pneumonia and she had pneumonia and right upper lobe and right middle lobe and the lower lobe and she has been seen currently Dr. Drake Contreras, Pulmonary and Critical, she is seen by Dr. Sanchez, the Infectious Disease, she seen by the Oncology Hematology, Dr. Carreon and she was seen by the groundman, Dr. Gaitan, Dr. Najera and Dr. Ricks. Today, her respiratory rate is 20 and her pulse is 74 but regular. She had history of a pacemaker and recently the blood pressure was controlled, 126/73, and on nasal cannula 99% on 3 L. Patient also on this admission, she had seen the cardiology, Dr. Bishop, and he also ordered the echocardiogram and the echocardiogram was indicating the new information for us and that was the event that her heart is sinus rhythm and she has moderate concentric left ventricular hypertrophy as well as ejection fraction 45-50, which is down from previous ones and she has a grade 2 diastolic dysfunction and she had apical septum left ventricular wall motion and hypokinesis and it is unclear if she had any history of [place] versus that she has effect of chemo on her heart. She had also found that she had mild aortic regurgitation but no stenosis and she had as well moderate mitral regurgitation and severe tricuspid regurgitation and she had the hypokinesis as mentioned above and right ventricular systolic pressure is 74.77, which indicating severe pulmonary hypertension and she had a physiologic pulmonary regurgitation because of the pulmonary hypertension. With these findings, she had a systolic and diastolic dysfunction, acute, probably new for us. I am not sure that she had that chronically before this echo. Patient we did see her today and she is seen by the oncology, PA nurse practitioner Mrs Ayla Turpin and they restarted her on treatment because her white count went down to 1.4 and as noted she does not have any abdominal pain and but she had episodes of nausea. Their impression that laboratory was 1.4 WBC and RBC 3.39, hemoglobin of 11 and MCV 103, and her AST 68, ALT was normal and alkaline phosphatase 130, and lactate LDH was 2013 and total protein 5.4, and albumin 2.9 with the mild protein calorie deficiency and the culture was so far negative with the markedly elevation of VHL with the impression that underlying multiple myeloma but not achieved remission and with the leukopenia as well, pneumonia and unspecified organism so far, sepsis and multiple myeloma. Also, she has diabetes type 2, controlled with the insulin to scale. PHYSICAL EXAMINATION: Patient is conscious, alert, oriented. HEENT was negative. She is still having the nausea with the drop in the white count. The chest was bilateral rhonchi and wheezes. Heart was regular sinus rhythm and the abdomen was nontender. Positive bowel sounds. EXTREMITIES: No edema. Apparently, patient is still worsening general condition with the neutropenia has been progressively down and we will be waiting for the improvement as meanwhile we are patient already started on medication and she is already on apixaban 5 mg twice a day with a history of atrial fibrillation and she is on insulin and she also started by Ayla Turpin, the PA for the Oncology on Filgrast IM which is"Zarxio" 480 mcg daily and that is for improvement or similar to the stimulator to the bone marrow for the white count improvement with the dipping of the WBC. PLAN: Will continue the current treatment and will continue the recommendation of the consultants and the patient her general condition is guarded and neutropenic patient. MMODL / IJN: [id number] /
--- NOTE | 2019-07-16 13:32 | CDI ---
Documentation Clarification Form Date: 07/16/2019 01:14:34 PM From: Janelle De La Rosa RN, CCDS Admit Date: 07/11/2019 06:52:00 PM Patient Name: Tana Mary Visit Number: [id number] ATTENTION: The Clinical Documentation Specialists (CDI) and [facility] Coding Staff appreciate your assistance in clarifying documentation. Please respond to the clarification below the line at the bottom and electronically sign. The CDI & [facility] Coding staff will review the response and follow-up if needed. Please note: Queries are made part of the Legal Health Record. If you have any questions, please contact the author of this message via ITS. Dr. Carl Cid Pneumonia was documented in your H&P and progress notes. History/Risk Factors: Immunocomprimised from chemo last week, coughing, fever, IDDM2, vitamin D def Clinical Indicators: 07/15 progress Note: "right sided pneumonia upper middle and lower and extensive." Admission Vital signs: Temp 103.1, Hr 115, RR 26, B/P 117/70, spo2 94% ra WBC Trending since admission:10.8/6.9/5.5/5.8/2/1.4 Left shift: 5.1/2.18/1.3/.76 07/14 CXR: Mild interstitial pulmonary edema and enlarged cardiomediastinal silhouette of congestive heart failure." 07/15 Attending Lung/Breathing assessment: the chest she has underlying rhonchi bilateral with the underlying pneumonia and occasional wheezes." Treatment: Antibiotics 07/11 Zithromax 500 mg IVPB x 1 dose 07/11 to current Cefepime 2 gm IVPB Q 12 hrs 07/13 Ceftriaxone 2 gm IVPB OT 07/11 to Current IV Vanco PTD O2: 2-3 L Breathing TX: Duoneb INH Q 4 hrs In order to capture the severity of condition, please clarify if the condition signifies and you are treating for: Aspiration Pneumonia, identify if: Due to solids or liquids Bacterial Pneumonia, specify causal organism (if known) Gram Negative Pneumonia Due to Strep Due to Staph Due to E. coli Other bacteria (please specify) Viral Pneumonia, specify casual organism (if known) Other, please specify Unable to determine (Last Revision: August 2017) probably aspiration secondary dysphagia to solid and liquid per swallowing study. [facility]
--- NOTE | 2019-07-16 14:28 | PN ---
PROGRESS NOTE She was seen on 07/16/2019. She is feeling slightly better, but feels quite weak. She has a poor appetite and is starting to just take some liquids. On physical examination, her temperature is 99.4, respiratory rate of 20, pulse rate of 74, blood pressure 126/73, O2 saturation on 3 L by nasal cannula is 99%. HEENT: Unremarkable. Chest reveals scattered rhonchi. Cardiovascular system reveals an S1, S2. Abdomen is soft. There is trace pedal edema. White count is 1.4, hemoglobin of 11, platelet count of 163,000. IMPRESSION: 1. Neutropenic sepsis with pneumonia. 2. Multiple myeloma. 3. Medical debility. At this point in time, would continue the patient on antibiotics per ID. Continue filgrastim. Continue bronchodilators. Her prognosis is fair. MMODL / IJN: [id number] /
[2019-07-16 16:17] LABS: Glucose,Whole Blood 143 mg/dL (75-99)
[2019-07-16] MEDS: amLODIPine 10 MG TAB PO SCH (20:29)
[2019-07-16 20:40] LABS: Glucose,Whole Blood 166 mg/dL (75-99)
--- NOTE | 2019-07-16 21:57 | PN ---
PROGRESS NOTE DATE OF SERVICE: 07/16/2019. REASON FOR FOLLOWUP: Pneumonia. INTERVAL HISTORY: The patient's overall fever pattern has improved. She did have a low-grade fever of 100.7 this morning. Afebrile since then. Not feeling as great, though. Still having some cough with occasional sputum. No nausea, no vomiting. No abdominal pain or diarrhea. PHYSICAL EXAMINATION: On admission blood pressure 160/84 with a pulse of 74, temperature 99.5. She is 95% on room air. General description is an elderly female lying in bed in no distress. RESPIRATORY SYSTEM: Unlabored breathing with decreased intensity of breath sounds. No wheeze. HEART: S1, S2. Regular rate and rhythm. ABDOMEN: Soft. No tenderness. LABS: Hemoglobin is 11, white count 1.4, creatinine 0.78. Blood culture has been negative. Sputum culture is pending. DIAGNOSTIC IMPRESSION AND PLAN: Patient with fever. Concern likely for pneumonia. Patient is currently covered with vancomycin and cefepime; to continue, adjusting antibiotic on the basis of the culture report. Continue with supportive care. MMODL / IJN: [id number] /
[2019-07-16] MEDS: SODIUM CHLORIDE 0.9% 1,000 ML IV SCH (23:42)
[2019-07-17] MEDS: IPRATROPIUM-ALBUTEROL 3 ML NEB INHALATION SCH ×7 (00:52→23:55)
[2019-07-17 06:47] LABS: Glucose,Whole Blood 130 mg/dL (75-99)
[2019-07-17] MEDS: INSULIN ASPART (NovoLOG) 100 UNIT/ML VIAL SQ SCH ×4 (06:53→21:27)
[2019-07-17] MEDS: CEFEPIME 2 GM in SODIUM CHLORIDE 0.9% 100 ML IVPB SCH ×2 (08:34→21:27)
[2019-07-17] MEDS: PANTOPRAZOLE 40 MG/10 ML VIAL IVP SCH ×2 (08:36→21:27)
[2019-07-17] MEDS: ONDANSETRON 4 MG/2 ML VIAL IVP PRN (08:36)
[2019-07-17] MEDS: FUROSEMIDE 40 MG TAB PO SCH (08:37)
[2019-07-17] MEDS: APIXABAN 5 MG TAB PO SCH ×2 (08:37→21:27)
[2019-07-17] MEDS: CHOLECALCIFEROL 1,000 UNIT TAB PO SCH (08:37)
[2019-07-17] MEDS: ASCORBIC ACID 500 MG TAB PO SCH (08:37)
[2019-07-17] MEDS: FERROUS SULFATE 325 MG TAB PO SCH (08:37)
[2019-07-17] MEDS: ATENOLOL 25 MG TAB PO SCH (08:37)
[2019-07-17] MEDS: FOLIC ACID 1 MG TAB PO SCH (08:38)
[2019-07-17] MEDS: FILGRASTIM-SNDZ 480 MCG/0.8 ML SYRINGE SQ SCH (09:16)
--- NOTE | 2019-07-17 10:38 | P.PN ---
Subjective Progress Note Date: 07/17/19 Principal diagnosis: multiple myeloma, on treatment, fevers In follow-up today no fever overnight, still having nausea, wretching, tolerating small amounts of liquids/soft oral intake, cough continues to be productive, BM is soft stool. She has epigastric discomfort Objective - Vital Signs Vital signs: Vital Signs Temp 97.8 F 07/17/19 05:00 Pulse 76 07/17/19 07:31 Resp 16 07/17/19 05:00 BP 124/70 07/17/19 05:00 Pulse Ox 95 07/17/19 05:00 Intake & Output 07/16/19 07/17/19 07/17/19 18:59 06:59 18:59 Other: Voiding Method Toilet Toilet - Constitutional General appearance: Present: average body habitus, cooperative, no acute distress - EENT Eyes: Present: anicteric sclerae, EOMI ENT: Present: hearing grossly normal, normal oropharynx - Respiratory Respiratory: bilateral: rales (bases) - Cardiovascular Rhythm: regular Heart sounds: normal: S1, S2 - Peripheral edema leg Peripheral Edema: bilateral: None - Gastrointestinal General gastrointestinal: Present: normal bowel sounds, soft Localized gastrointestinal: tender: epigastric periumbilical - Neurologic Neurologic: Present: CNII-XII intact - Musculoskeletal Musculoskeletal: Present: generalized weakness, strength equal bilaterally - Psychiatric Psychiatric: Present: A&O x's 3, appropriate affect, intact judgment & insight - Labs CBC & Chem 7: 07/16/19 08:28 07/16/19 08:28 Labs: Abnormal Lab Results - Last 24 Hours (Table) 07/16/19 07/16/19 07/16/19 Range/Units 08:28 11:49 16:16 Neutrophils # (Manual) 0.76 L (1.3-7.7) k/uL Lymphocytes # (Manual) 0.52 L (1.0-4.8) k/uL POC Glucose (mg/dL) 166 H 143 H (75-99) mg/dL 07/16/19 07/17/19 Range/Units 20:38 06:44 Neutrophils # (Manual) (1.3-7.7) k/uL Lymphocytes # (Manual) (1.0-4.8) k/uL POC Glucose (mg/dL) 166 H 130 H (75-99) mg/dL Microbiology - Last 24 Hours (Table) 07/13/19 00:29 Blood Culture - Preliminary Blood No Growth after 96 hours 07/14/19 22:56 Blood Culture - Preliminary Blood No Growth after 48 hours 07/13/19 21:37 Blood Culture - Preliminary Blood No Growth after 72 hours 07/13/19 21:29 Blood Culture - Preliminary Blood No Growth after 72 hours 07/11/19 17:10 Blood Culture - Preliminary Blood No Growth after 120 hours 07/15/19 16:26 Gram Stain - Preliminary Sputum Sputum Culture - Preliminary Assessment and Plan (1) Intractable nausea and vomiting Narrative/Plan: Pt typically has intractable N,V during chemo-per infusion nurses, c/w anticipatory symptoms. Currently though, she is not on any treatment and her symptoms are not improving as would be anticipated at this time. I was informed today that she has a Hx of gastric ulcers and she had H-pylori infection diagnosed in 2016. Have requested a GI consult. Antiemetic regimen changed Pt refused ativan and olanzapine supportive meds for nausea Current Visit: Yes Status: Acute Priority: High Code(s): R11.2 - NAUSEA WITH VOMITING, UNSPECIFIED SNOMED Code(s): 662934580 (2) Leukopenia Narrative/Plan: Due in part from disease, exacerbated by acute severe febrile illness. GCSF initiated. No labs reported as of this dictation. Will review when available and treat accordingly Current Visit: Yes Status: Acute Priority: High Code(s): D72.819 - DECREASED WHITE BLOOD CELL COUNT, UNSPECIFIED SNOMED Code(s): 83147704 (3) Pneumonia Narrative/Plan: ID following closely Current Visit: Yes Status: Acute Priority: High Code(s): J18.9 - PNEUMONIA, UNSPECIFIED ORGANISM SNOMED Code(s): 783032379 (4) Sepsis Narrative/Plan: Cultures negative. Fever pattern normal for the last 24 hours Current Visit: Yes Status: Acute Priority: High Code(s): A41.9 - SEPSIS, UNSPECIFIED ORGANISM SNOMED Code(s): 82624040 (5) Multiple myeloma Narrative/Plan: No treatment currently due. Hold for now Ig levels ordered for evaluation-IgG levels are adequate after office chart review and calculations. IgA and IgM are about 50% of normal. Current Visit: No Status: Chronic Priority: Medium Code(s): C90.00 - MULTIPLE MYELOMA NOT HAVING ACHIEVED REMISSION SNOMED Code(s): 807037182
[2019-07-17] MEDS ORDERED: VANCOMYCIN TROUGH DUE 1 EACH MISC MISCELLANE ONE (11:00)
[2019-07-17 11:29] LABS: Basophils % (A) 0 %; Eosinophils # (A) 0.2 k/uL (0-0.7); Eosinophils % (A) 1 %; HCT 34.2 % (34.0-46.0); HGB 10.7 gm/dL (11.4-16.0); Hypochromasia Slight; Lymphocytes # (A) 0.7 k/uL (1.0-4.8); Lymphocytes % (A) 5 %; MCH 32.8 pg (25.0-35.0); MCHC 31.2 g/dL (31.0-37.0); MCV 105.4 fL (80.0-100.0); Macrocytosis Moderate; Monocytes # (A) 0.3 k/uL (0-1.0); Monocytes % (A) 3 %; Neutrophils % (A) 88 %; Platelet Count 168 k/uL (150-450); Poikilocytosis Slight; RBC 3.24 m/uL (3.80-5.40); RDW 14.7 % (11.5-15.5); WBC 12.5 k/uL (3.8-10.6)
[2019-07-17 11:42] LABS: Calcium 8.1 mg/dL (8.4-10.2); Potassium 3.7 mmol/L (3.5-5.1)
[2019-07-17] MEDS ORDERED: PROCHLORPERAZINE SUPPOSITORY 25 MG SUPP RECTAL PRN (11:43)
[2019-07-17 11:58] LABS: Glucose,Whole Blood 142 mg/dL (75-99)
[2019-07-17] MEDS: ONDANSETRON 4 MG/2 ML VIAL IVP SCH ×3 (12:00→23:50)
[2019-07-17] MEDS: VANCOMYCIN 1,500 MG in SODIUM CHLORIDE 0.9% 250 ML IVPB SCH (12:00)
[2019-07-17] MEDS ORDERED: TRIMETHOBENZAMIDE 300 MG CAP PO PRN (13:21)
--- NOTE | 2019-07-17 13:46 | P.PN ---
Subjective Progress Note Date: 07/17/19 (WBC 12.5 leukopenia resolved .) Progress note date of service 07/17/[address] Cid date of service . Patient seen evaluated [id number]. Laboratory indicating WBC 12.5, hemoglobin 10.7, MCV 105.4, with neutrophil 11 and patient is receiving bone marrow stimulant. Oncology. Patient was in the neck NID post chemotherapy for multiple myeloma and recovering. Also she has pneumonia on the right side of the lung as well. She has multiple antibiotic was managed by Dr. Sanchez infectious disease, also seen by pulmonary and critical care Dr. Drake Contreras, as well as Dr. Carreon hematology oncology who treated her for multiple myeloma and the last chemotherapy was about 2 weeks ago. Patient also seen by Dr. Bishop cardiology as well with the underlying deterioration of her cardiac function. Chemistry chemistry is normal sodium 138 potassium 3.7 and her BUN 19 and creatinine 0.93. Her carbon dioxide 26 and her EGFR for 75% and glucose 141. Her vancomycin trough is 24.2 which is mildly above the 20 and pharmacy I will adjust for the dose. On the vital sign is temperature is 97.8 and pulse rate 78 she has left infraclavicular pacemaker with a history of intermittent atrial fibrillation currently sinus rhythm with a rate stable blood pressure 124/70 is stable and saturation 95% nasal cannula on 3 L On exam patient conscious alert oriented 3 more clear today and feeling much better with the elevated white count after she had the injection for stimulation of the bone marrow. HEENT negative head was normocephalic and atraumatic pupils equal reactive conjunctiva was pink sclera was nonicteric. Neck was supple no stiffness and no thyromegaly. No lymphadenopathy. Chest is elevated bilateral she had still recovering from the pneumonia and the rhonchi's on the right side Heart regular sinus rhythm compensated Abdomen is soft positive bowel sounds. Patient has problem was nausea and vomiting they consulted the gastrointestinal gastroenterology Dr. Dragan ngo and we will has adjusted her medication. She feeling much better now and able to eat some fruit. Extremities no edema. Pulses. Assessment Patient is recovery with white count is improved and will planning for a repeat chest x-ray tomorrow and laboratory tomorrow and we will have to clarify the sclerae clearance OF the multiple physicians before discharge home it may take 2 days to get clearance and rehab. Objective - Vital Signs Vital signs: Vital Signs Temp 97.8 F 07/17/19 05:00 Pulse 84 07/17/19 11:09 Resp 16 07/17/19 05:00 BP 124/70 07/17/19 05:00 Pulse Ox 95 07/17/19 05:00 Intake & Output 07/16/19 07/17/19 07/17/19 18:59 06:59 18:59 Other: Voiding Method Toilet Toilet - Labs CBC & Chem 7: 07/17/19 11:14 07/17/19 11:14 Labs: Abnormal Lab Results - Last 24 Hours (Table) 07/16/19 07/16/19 07/17/19 Range/Units 16:16 20:38 06:44 WBC (3.8-10.6) k/uL RBC (3.80-5.40) m/uL Hgb (11.4-16.0) gm/dL MCV (80.0-100.0) fL Neutrophils # (1.3-7.7) k/uL Lymphocytes # (1.0-4.8) k/uL BUN (7-17) mg/dL Glucose (74-99) mg/dL POC Glucose (mg/dL) 143 H 166 H 130 H (75-99) mg/dL Calcium (8.4-10.2) mg/dL 07/17/19 07/17/19 07/17/19 Range/Units 11:14 11:14 11:54 WBC 12.5 H (3.8-10.6) k/uL RBC 3.24 L (3.80-5.40) m/uL Hgb 10.7 L (11.4-16.0) gm/dL MCV 105.4 H (80.0-100.0) fL Neutrophils # 11.0 H (1.3-7.7) k/uL Lymphocytes # 0.7 L (1.0-4.8) k/uL BUN 19 H (7-17) mg/dL Glucose 141 H (74-99) mg/dL POC Glucose (mg/dL) 142 H (75-99) mg/dL Calcium 8.1 L (8.4-10.2) mg/dL Microbiology - Last 24 Hours (Table) 07/13/19 00:29 Blood Culture - Preliminary Blood No Growth after 96 hours 07/14/19 22:56 Blood Culture - Preliminary Blood No Growth after 48 hours 07/13/19 21:37 Blood Culture - Preliminary Blood No Growth after 72 hours 07/13/19 21:29 Blood Culture - Preliminary Blood No Growth after 72 hours 07/11/19 17:10 Blood Culture - Preliminary Blood No Growth after 120 hours 07/15/19 16:26 Gram Stain - Preliminary Sputum Sputum Culture - Preliminary
--- NOTE | 2019-07-17 14:15 | PN ---
PROGRESS NOTE DATE OF SERVICE: 07/17/2019 REASON FOR FOLLOWUP: Pneumonia. INTERVAL HISTORY: The patient overall fells better, has improved. The last T-max has been 99.5 this morning. The patient is 97.8. The patient is breathing comfortably. She did have some cough and is bringing up purulent sputum. No hemoptysis. No chest pain. No abdominal pain. Still has some nausea and no diarrhea. PHYSICAL EXAMINATION: Blood pressure 124/70 with a pulse of 60, temperature 97.8, she is 95% on 3 L nasal cannula. General description is an elderly female, lying in bed in no distress. RESPIRATORY SYSTEM: Unlabored breathing. Decreased breath sounds in the bases, no wheeze. HEART: S1, S2. Regular rate and rhythm. ABDOMEN: Soft, no tenderness. LABS: Hemoglobin is 10.2, white count of 12.5, creatinine 0.93. Vancomycin trough is 24.2. Sputum culture currently pending. Blood culture has been negative so far. DIAGNOSTIC IMPRESSION AND PLAN: Patient with a fever, source is likely pneumonia. The patient is broadly covered with cefepime and vanco was discontinue, adjust antibiotics further based on the culture report, clinical response, continue supportive care. MMODL / IJN: [id number] /
--- NOTE | 2019-07-17 15:35 | P.PN ---
Subjective Progress Note Date: 07/17/19 Principal diagnosis: Bilateral pneumonia Leukopenia Sepsis Acute on chronic respiratory failure Multiple myeloma 07/17/2019, patient the is still having chest pain but severity has improved less congested able to ambulate and move around denies any chest pain, has been on breathing treatments steroids, has been continued on antibiotics along with anticoagulation Patient is 63-year-old -[place] female with a past medical history significant for multiple myeloma for the patient is currently on chemotherapy, patient presented to [facility] ER with a chief complaints of fever cough and congestion, patient's symptom has been going on for a day or 2 before she presented to hospital, apparently the patient was exposed to her sister who was in [place], the sister was subsequently quarantined on arrival to the and has been cleared of ovalle virus, patient on presentation hospital have a fever of 103F, patient was tachycardic with heart rate 115, patient initial white count was slightly elevated 10.8 repeat is 6.9, influenza serology was negative, patient did have a chest x-ray shows cardia megaly mild pulmonary vascular congestion increase from last exam, the patient does have a positive UA urine showing large [place] histories 11 WBC and some budding yeast, patient was initially treated with cefepime and Zithromax subsequently when he has been changed over to vancomycin and cefepime infection disease following that patient. On presentation hospital with a creatinine 1.87 and repeat is 1.23, patient is breathing slightly comfortably, denies having any hemoptysis or chest pain no URI symptoms no nausea no vomiting and abdominal pain and no diarrhea, patient continued to cough up thick tenacious sputum and short of breath, computed tomography scan of the chest revealed bilateral patchy pulmonary infiltrate predominantly in mid and lower lung field Objective - Vital Signs Vital signs: Vital Signs Temp 97.8 F 07/17/19 13:00 Pulse 70 07/17/19 15:27 Resp 16 07/17/19 15:27 BP 113/65 07/17/19 13:00 Pulse Ox 100 07/17/19 15:14 Intake & Output 07/16/19 07/17/19 07/17/19 18:59 06:59 18:59 Other: Voiding Method Toilet Toilet - Exam - Constitutional General appearance: average body habitus, cooperative, mild distress - EENT Eyes: anicteric sclerae, EOMI ENT: hearing grossly normal, normal oropharynx - Neck Neck: no lymphadenopathy - Respiratory Respiratory: bilateral: wheezing improved compared to yesterday's exam - Cardiovascular Rhythm: regular Heart sounds: normal: S1, S2 Abnormal Heart Sounds: no systolic murmur, no diastolic murmur, no rub, no S3 Gallop, no S4 Gallop, no click, no other leg Peripheral Edema: bilateral: None - Gastrointestinal General gastrointestinal: no absent bowel sounds, no decreased bowel sounds, no distended, no hepatomegaly, no hyperactive bowel sounds, normal bowel sounds, no organomegaly, no rigid, no scaphoid, soft, no splenomegaly, no tenderness, no umbilical hernia, no ventral hernia - Integumentary Integumentary: normal - Neurologic Neurologic: CNII-XII intact - Musculoskeletal Musculoskeletal: generalized weakness, strength equal bilaterally - Psychiatric Psychiatric: A&O x's 3, appropriate affect, intact judgment & insight - Labs CBC & Chem 7: 07/17/19 11:14 07/17/19 11:14 Labs: Abnormal Lab Results - Last 24 Hours (Table) 07/16/19 07/16/19 07/17/19 Range/Units 16:16 20:38 06:44 WBC (3.8-10.6) k/uL RBC (3.80-5.40) m/uL Hgb (11.4-16.0) gm/dL MCV (80.0-100.0) fL Neutrophils # (1.3-7.7) k/uL Lymphocytes # (1.0-4.8) k/uL BUN (7-17) mg/dL Glucose (74-99) mg/dL POC Glucose (mg/dL) 143 H 166 H 130 H (75-99) mg/dL Calcium (8.4-10.2) mg/dL 07/17/19 07/17/19 07/17/19 Range/Units 11:14 11:14 11:54 WBC 12.5 H (3.8-10.6) k/uL RBC 3.24 L (3.80-5.40) m/uL Hgb 10.7 L (11.4-16.0) gm/dL MCV 105.4 H (80.0-100.0) fL Neutrophils # 11.0 H (1.3-7.7) k/uL Lymphocytes # 0.7 L (1.0-4.8) k/uL BUN 19 H (7-17) mg/dL Glucose 141 H (74-99) mg/dL POC Glucose (mg/dL) 142 H (75-99) mg/dL Calcium 8.1 L (8.4-10.2) mg/dL Microbiology - Last 24 Hours (Table) 07/13/19 00:29 Blood Culture - Preliminary Blood No Growth after 96 hours 07/14/19 22:56 Blood Culture - Preliminary Blood No Growth after 48 hours 07/13/19 21:37 Blood Culture - Preliminary Blood No Growth after 72 hours 07/13/19 21:29 Blood Culture - Preliminary Blood No Growth after 72 hours 07/11/19 17:10 Blood Culture - Preliminary Blood No Growth after 120 hours Assessment and Plan Assessment: Bilateral pneumonia Leukopenia Sepsis Acute on chronic respiratory failure Multiple myeloma Plan: Continue IV antibiotics Consider IgG therapy Bronchodilators Further recommendations pending plan of care as per clinical response of patient Time with Patient: Greater than 30
[2019-07-17 17:25] LABS: Glucose,Whole Blood 145 mg/dL (75-99)
[2019-07-17 20:26] LABS: Glucose,Whole Blood 143 mg/dL (75-99)
[2019-07-17] MEDS: amLODIPine 10 MG TAB PO SCH (21:27)
[2019-07-17] MEDS: SODIUM CHLORIDE 0.9% 1,000 ML IV SCH (21:52)
--- NOTE | 2019-07-17 23:41 | P.CONS ---
History of Present Illness - Reason for Consult Consult date: 07/17/19 Nausea and vomiting Requesting physician: Kirstin Turpin - Chief Complaint Fevers, cough, congestion - History of Present Illness 63-year-old female with multiple medical comorbidities including multiple myeloma, hypertension, osteoarthritis, diabetes mellitus and history of H. pylori infection presented to the hospital with a constellation of complaints cough, fever and congestion. Currently the patient is being treated for bilateral lower lobe pneumonia. Patient is currently receiving treatment with chemotherapy for multiple myeloma with last treatment approximately one week ago. She has been complaining of vomiting today. She states that the nausea and vomiting started after receiving her last chemotherapy she reports one week of associated vomiting productive of villous emesis. She does believe that she had 1 darker colored bowel movements but denies any gross blood in her stools. Previously she had a history of Helicobacter pylori infection and ulcers in 2016 but is unsure of any previous colonoscopy. Laboratory evaluation today significant for a WBC 12.5, hemoglobin 10.7, platelet count 160,000, total bilirubin 0.6, alkaline phosphatase 130, AST 68 and ALT 24. Computed tomography scan of the abdomen and pelvis was significant for bibasilar infiltrate lungs, small hiatal hernia and liquid stool in the colon. Review of Systems REVIEW OF SYSTEMS: CONSTITUTIONAL: Denies any chills, weight change or fatigue, but the patient had been complaining of fevers. CARDIOVASCULAR: Denies any chest pain, palpitations high or low blood pressures RESPIRATORY: Denies any shortness of breath, hemoptysis and states that cough and congestion on presentation is somewhat improved. GENITOURINARY: No dysuria or hematuria. MUSCULOSKELETAL: No weakness reported. SKIN: Denies any new rashes or lesions, jaundice or pallor. PSYCHIATRIC: Denies any depression or anxiety. NEUROLOGY: Denies headache, denies any new focal deficits. EARS/NOSE/THROAT: No recent hearing change, congestion, nasal discharge or sore throat. EYES: No pain in eyes, discharge or change in vision. GASTROINTESTINAL: As per HPI. Past Medical History Past Medical History: Cancer, Diabetes Mellitus, Hyperlipidemia, Hypertension, Osteoarthritis (OA), Renal Disease Additional Past Medical History / Comment(s): MULTIPLE MYELOMA 2007 had chemo in 2007, renal failure with cancer tx and had dialysis for 2 months, 05/28/15 pathologic thoracic vertebra fracture-back pain is getting better per pt, IDDM type II, slight leaky heart valve, hysterectomy d/t uterine fibroids, hx of H pylori History of Any Multi-Drug Resistant Organisms: None Reported Past Surgical History: Back Surgery, Cholecystectomy, Hysterectomy Additional Past Surgical History / Comment(s): colonoscopy, rt carpal tunnel release, T9 kyphoplasty with bx, oophorectomy, cyst of inner R thigh, R foot surgery d/t stepping on something, AV fistula inserted and removed Past Anesthesia/Blood Transfusion Reactions: No Reported Reaction Additional Past Anesthesia/Blood Transfusion Reaction / Comm: Pt has received blood in the past without reaction. Past Psychological History: No Psychological Hx Reported Smoking Status: Never smoker Past Alcohol Use History: None Reported Past Drug Use History: None Reported - Past Family History Mother Family Medical History: Congestive Heart Failure (CHF) Additional Family Medical History / Comment(s): Mother of CHF at age 76 yrs. Father Family Medical History: Myocardial Infarction (NH) Additional Family Medical History / Comment(s): Father of a NH at age 46 yrs. Medications and Allergies Home Medications Medication Instructions Recorded Confirmed Type amLODIPine [Norvasc] 10 mg PO HS 05/28/15 07/11/19 History Atenolol [Tenormin] 25 mg PO DAILY tab 09/07/15 07/11/19 Rx Apixaban [Eliquis] 5 mg PO BID 07/22/18 07/11/19 History Ascorbic Acid [Vitamin C] 500 mg PO DAILY 07/22/18 07/11/19 History Cholecalciferol (Vitamin D3) 2,000 unit PO DAILY 07/22/18 07/11/19 History [Vitamin D3] Gabapentin [Neurontin] 200 mg PO HS 07/22/18 07/11/19 History INSULIN ASPART (NovoLOG) [NovoLOG See Protocol SQ ACHS 07/22/18 07/11/19 History (formulary)] Ferrous Sulfate [Feosol] 325 mg PO DAILY 07/11/19 07/11/19 History Folic Acid 0.4 mg PO DAILY 07/11/19 07/11/19 History Gabapentin [Neurontin] 100 mg PO DAILY 07/11/19 07/11/19 History Allergies Allergy/AdvReac Type Severity Reaction Status Date / Time latex Allergy Rash/Hives Verified 07/11/19 21:47 Physical Exam Vitals: Vital Signs Temp Pulse Pulse Resp BP Pulse Ox 07/17/19 19:47 71 16 07/17/19 19:34 70 16 07/17/19 15:27 70 16 07/17/19 15:14 71 16 100 07/17/19 13:00 97.8 F 72 16 113/65 94 L 07/17/19 11:09 84 07/17/19 11:00 78 07/17/19 07:31 76 07/17/19 07:22 74 07/17/19 05:00 97.8 F 60 16 124/70 95 Intake and Output 07/17/19 07/17/19 07/17/19 06:59 14:59 22:59 Intake Total 240 Balance 240 Intake: Oral 240 Other: Voiding Method Toilet On physical examination, patient appears comfortable in no apparent distress. HEAD: Normocephalic, atraumatic. EYES: No scleral icterus. No conjunctival injection. MOUTH: No lesions, tongue midline. NECK: Trachea midline, no gross abnormalities. CHEST: Decreased air entry in all lung pickard, no wheezing appreciated. HEART: S1-S2 appreciated. ABDOMEN: Soft, obese. Bowel sounds are positive. No organomegaly. No guarding or rigidity. EXTREMITIES: No pedal edema. SKIN: No rashes, no jaundice. NEUROLOGIC: Alert and oriented x3. No focal deficits. Results CBC & Chem 7: 07/17/19 11:14 07/17/19 11:14 Labs: Abnormal Lab Results - Last 24 Hours (Table) 07/17/19 07/17/19 07/17/19 Range/Units 06:44 11:14 11:14 WBC 12.5 H (3.8-10.6) k/uL RBC 3.24 L (3.80-5.40) m/uL Hgb 10.7 L (11.4-16.0) gm/dL MCV 105.4 H (80.0-100.0) fL Neutrophils # 11.0 H (1.3-7.7) k/uL Lymphocytes # 0.7 L (1.0-4.8) k/uL BUN 19 H (7-17) mg/dL Glucose 141 H (74-99) mg/dL POC Glucose (mg/dL) 130 H (75-99) mg/dL Calcium 8.1 L (8.4-10.2) mg/dL 07/17/19 07/17/19 07/17/19 Range/Units 11:54 17:23 20:25 WBC (3.8-10.6) k/uL RBC (3.80-5.40) m/uL Hgb (11.4-16.0) gm/dL MCV (80.0-100.0) fL Neutrophils # (1.3-7.7) k/uL Lymphocytes # (1.0-4.8) k/uL BUN (7-17) mg/dL Glucose (74-99) mg/dL POC Glucose (mg/dL) 142 H 145 H 143 H (75-99) mg/dL Calcium (8.4-10.2) mg/dL Microbiology - Last 24 Hours (Table) 07/11/19 17:10 Blood Culture - Final Blood No Growth after 144 hours 07/13/19 00:29 Blood Culture - Preliminary Blood No Growth after 96 hours 07/14/19 22:56 Blood Culture - Preliminary Blood No Growth after 48 hours 07/13/19 21:37 Blood Culture - Preliminary Blood No Growth after 72 hours 07/13/19 21:29 Blood Culture - Preliminary Blood No Growth after [address] scan - abdomen: report reviewed (Computed tomography scan of the abdomen and pelvis was significant for bibasilar infiltrate lungs, small hiatal hernia and liquid stool in the colon.) Assessment and Plan (1) Intractable nausea and vomiting Narrative/Plan: 63-year-old female with multiple medical comorbidities including multiple myelom a for which she receives chemotherapy 1 week ago currently hospitalized with infiltrates seen on imaging and being treated for pneumonia. The patient had reported 1 week of nausea and vomiting with decreased oral intake after receiving chemotherapy. Unknown etiology of symptoms, likely related to medication side effects,, cannot rule out a component of gastroesophageal reflux disease or other upper GI etiology. No signs or symptoms of GI bleeding to suggest peptic ulcer disease. Current Visit: Yes Status: Acute Priority: High Code(s): R11.2 - NAUSEA WITH VOMITING, UNSPECIFIED SNOMED Code(s): 831013701 (2) History of peptic ulcer disease Current Visit: Yes Status: Acute Code(s): Z87.11 - PERSONAL HISTORY OF PEPTIC ULCER DISEASE SNOMED Code(s): 425815440 (3) HCAP (healthcare-associated pneumonia) Current Visit: Yes Status: Acute Code(s): J18.9 - PNEUMONIA, UNSPECIFIED ORGANISM SNOMED Code(s): 523931255 (4) Multiple myeloma Current Visit: No Status: Chronic Priority: Medium Code(s): C90.00 - MULTIPLE MYELOMA NOT HAVING ACHIEVED REMISSION SNOMED Code(s): 179251944 Plan: Supportive care Okay for diet as tolerated Protonix 40 mg twice daily added Zofran changed to [id number] Tigan added as needed for breakthrough nausea No plans for endoscopic evaluation as the patient would be at higher risk in the setting of current treatment of pneumonia without any signs or symptoms to suggest GI bleed at this time we'll continue to treat medically Thank you for allowing us to participate in the care of the patient we will continue to follow
[2019-07-18] MEDS: IPRATROPIUM-ALBUTEROL 3 ML NEB INHALATION SCH ×5 (03:49→20:07)
[2019-07-18] MEDS: VANCOMYCIN 1,500 MG in SODIUM CHLORIDE 0.9% 250 ML IVPB SCH ×2 (04:00→20:58)
[2019-07-18] MEDS: ONDANSETRON 4 MG/2 ML VIAL IVP SCH ×4 (05:56→23:02)
[2019-07-18 06:52] LABS: Glucose,Whole Blood 118 mg/dL (75-99)
[2019-07-18] MEDS: INSULIN ASPART (NovoLOG) 100 UNIT/ML VIAL SQ SCH ×4 (07:01→20:40)
--- NOTE | 2019-07-18 07:19 | XR ---
EXAMINATION TYPE: XR chest 2V DATE OF EXAM: 07/18/2019 COMPARISON: 07/14/2019 HISTORY: Pneumonia. Follow-up exam. TECHNIQUE: Frontal and lateral views of the chest are obtained. FINDINGS: Worsening fluid overload with more fullness in opacity in the right hilar region and right lung base. Moderate interstitial pulmonary edema and enlarged cardiomediastinal silhouette with dual -lead left-sided cardiac device. Stable right-sided Mediport. Kyphoplasty change and osseous minerali zation are again noted. Cholecystectomy clips are seen. IMPRESSION: Worsening fluid overload, likely decompensated congestive heart failure, with right brigida r opacity most likely related to confluent pulmonary edema rather than pneumonia.
[2019-07-18 07:39] LABS: Basophils # (A) 0.1 k/uL (0-0.2); Basophils % (A) 0 %; Eosinophils # (A) 0.5 k/uL (0-0.7); Eosinophils % (A) 2 %; HCT 34.9 % (34.0-46.0); HGB 10.6 gm/dL (11.4-16.0); Hypochromasia Slight; Lymphocytes % (A) 5 %; MCH 31.9 pg (25.0-35.0); MCHC 30.3 g/dL (31.0-37.0); MCV 105.2 fL (80.0-100.0); Macrocytosis Moderate; Mean Platelet Volume 8.8; Monocytes # (A) 0.5 k/uL (0-1.0); Monocytes % (A) 2 %; Neutrophils # (A) 19.5 k/uL (1.3-7.7); Neutrophils % (A) 89 %; Platelet Count 211 k/uL (150-450); Poikilocytosis Slight; RBC 3.32 m/uL (3.80-5.40); RDW 14.7 % (11.5-15.5); WBC 21.9 k/uL (3.8-10.6)
[2019-07-18 07:50] LABS: Albumin 2.9 g/dL (3.5-5.0); Calcium 8.2 mg/dL (8.4-10.2); Potassium 3.4 mmol/L (3.5-5.1); Total Bilirubin 0.6 mg/dL (0.2-1.3); Total Protein 5.5 g/dL (6.3-8.2)
[2019-07-18] MEDS: CHOLECALCIFEROL 1,000 UNIT TAB PO SCH (08:32)
[2019-07-18] MEDS: ATENOLOL 25 MG TAB PO SCH (08:32)
[2019-07-18] MEDS: FERROUS SULFATE 325 MG TAB PO SCH (08:32)
[2019-07-18] MEDS: FUROSEMIDE 40 MG TAB PO SCH (08:33)
[2019-07-18] MEDS: APIXABAN 5 MG TAB PO SCH ×2 (08:33→20:40)
[2019-07-18] MEDS: CEFEPIME 2 GM in SODIUM CHLORIDE 0.9% 100 ML IVPB SCH ×2 (08:33→23:02)
[2019-07-18] MEDS: FOLIC ACID 1 MG TAB PO SCH (08:33)
[2019-07-18] MEDS: ASCORBIC ACID 500 MG TAB PO SCH (08:33)
[2019-07-18] MEDS: PANTOPRAZOLE 40 MG/10 ML VIAL IVP SCH ×2 (08:33→20:40)
[2019-07-18] MEDS: FILGRASTIM-SNDZ 480 MCG/0.8 ML SYRINGE SQ SCH (08:34)
[2019-07-18 11:33] LABS: Glucose,Whole Blood 170 mg/dL (75-99)
--- NOTE | 2019-07-18 13:29 | P.PN ---
Subjective Progress Note Date: 07/18/19 Dictation on the progress note date of service 07/18/[address] Park. Patient seen and evaluated [id number] and discussed with her the plan. I did also discuss it with Dr. Drake Contreras pulmonary and critical care as well as discussed with Dr. Sanchez infectious disease. The chest x-ray done today showed worsening fluid overload and likely decompensated congestive heart failure with the right hilar opacity most likely related to confluent pulmonary edema rather than pneumonia. WBC 21.9 with a hemoglobin 10.6 and hematocrit 34.9 and MCV 105.2. Her chemistry indicating that her sodium 140, potassium 3.4 and chloride 109 carbon dioxide 25, and her BUN 14 and creatinine 0.98. And her blood sugar 107 and estimated glomerular filtration rate for -[place] 70. Calcium 8.2 and the her alkaline phosphatase 131 her total protein 5.5 and albumin 2.9 with the a LT 18 and AST 54 Vital sign indicating that temperature 97.5 F oral and the pulse 72/m and regular and she has a left infraclavicular pacemaker however she is sinus and respiratory rate 16 blood pressure 130/74 and a mean 92 and the pulse ox 99 on 3 L. Physical exam: She has rhonchi's and inspiratory crackles on the right side of the lung and very audible as in regard of the left lung. And his HEENT was negative. Neck was supple no JVD. And no lymphadenopathy trachea midline. Chest as mentioned the presence of rhonchi's and the chest x-ray showed the volume expansion and down Heart regular sinus rhythm questionable decompensation The abdomen is soft positive bowel sounds no diarrhea. Extremities no edema. The underlying severe mitral regurgitation and severe tricuspid regurg with the in association with elevation of troponin and pro-BMP with the underlying congestive heart failure. Assessment leukopenia has been resolved #2 underlying pneumonia and #3 congestive heart failure. Plan mild aggressive diuresis. Patient also followed by the cardiology thank you Objective - Vital Signs Vital signs: Vital Signs Temp 97.5 F L 07/18/19 12:08 Pulse 72 07/18/19 12:08 Resp 16 07/18/19 12:08 BP 130/74 07/18/19 12:08 Pulse Ox 99 07/18/19 12:08 Intake & Output 02/27/20 02/28/20 02/28/20 18:59 06:59 18:59 Intake Total 1110 Balance 1110 Intake: Intake, IV Titration 510 Amount Cefepime 2 gm In Sodium 100 Chloride 0.9% 100 ml @ 200 mls/hr IVPB Q12HR [facility] Rx#:[id number] Sodium Chloride 0.9% 1, 160 000 ml @ 20 mls/hr IV . Q24H [facility] Rx#:[id number] Vancomycin 1,500 mg In 250 Sodium Chloride 0.9% 250 ml @ 125 mls/hr IVPB Q16H [facility] Rx#:[id number] Oral 600 Other: Voiding Method Toilet Toilet - Labs CBC & Chem 7: 07/18/19 06:33 07/18/19 06:33 Labs: Abnormal Lab Results - Last 24 Hours (Table) 07/17/19 07/17/19 07/18/19 Range/Units 17:23 20:25 06:33 WBC (3.8-10.6) k/uL RBC (3.80-5.40) m/uL Hgb (11.4-16.0) gm/dL MCV (80.0-100.0) fL MCHC (31.0-37.0) g/dL Neutrophils # (1.3-7.7) k/uL Potassium 3.4 L (3.5-5.1) mmol/L Chloride 109 H (98-107) mmol/L Glucose 107 H (74-99) mg/dL POC Glucose (mg/dL) 145 H 143 H (75-99) mg/dL Calcium 8.2 L (8.4-10.2) mg/dL AST 54 H (14-36) U/L Alkaline Phosphatase 131 H (38-126) U/L Total Protein 5.5 L (6.3-8.2) g/dL Albumin 2.9 L (3.5-5.0) g/dL 07/18/19 07/18/19 07/18/19 Range/Units 06:33 06:51 11:32 WBC 21.9 H (3.8-10.6) k/uL RBC 3.32 L (3.80-5.40) m/uL Hgb 10.6 L (11.4-16.0) gm/dL MCV 105.2 H (80.0-100.0) fL MCHC 30.3 L (31.0-37.0) g/dL Neutrophils # 19.5 H (1.3-7.7) k/uL Potassium (3.5-5.1) mmol/L Chloride (98-107) mmol/L Glucose (74-99) mg/dL POC Glucose (mg/dL) 118 H 170 H (75-99) mg/dL Calcium (8.4-10.2) mg/dL AST (14-36) U/L Alkaline Phosphatase (38-126) U/L Total Protein (6.3-8.2) g/dL Albumin (3.5-5.0) g/dL Microbiology - Last 24 Hours (Table) 07/15/19 16:26 Gram Stain - Final Sputum Sputum Culture - Final 07/13/19 00:29 Blood Culture - Preliminary Blood No Growth after 120 hours 07/14/19 22:56 Blood Culture - Preliminary Blood No Growth after 72 hours 07/13/19 21:29 Blood Culture - Preliminary Blood No Growth after 96 hours 07/13/19 21:37 Blood Culture - Preliminary Blood No Growth after 96 hours 07/11/19 17:10 Blood Culture - Final Blood No Growth after 144 hours
[2019-07-18] MEDS ORDERED: POTASSIUM CHLORIDE 10 MEQ in WATER FOR INJECTION 1 100ML.BAG IVPB ONE (13:32)
[2019-07-18] MEDS: FUROSEMIDE 10 MG/ML 4 ML VIAL IV SCH ×2 (13:50→20:40)
[2019-07-18] MEDS ORDERED: FUROSEMIDE 10 MG/ML 4 ML VIAL IV STA (13:53)
--- NOTE | 2019-07-18 13:53 | P.PN ---
Subjective Progress Note Date: 07/18/19 Principal diagnosis: Bilateral pneumonia Leukopenia Sepsis Acute on chronic respiratory failure Multiple myeloma 07/18/2019, patient seen eval examined during the rounds labs reviewed medications reviewed patient remains short of breath but severity has improved compared to yesterday exam, patient has a chest x-ray done today hard copies reviewed suggestive of fluid overload with hilar fullness and interstitial edema patient will benefit from Lasix, white cell count up to 21,900, patient is on filgrastim 07/17/2019, patient the is still having chest pain but severity has improved less congested able to ambulate and move around denies any chest pain, has been on breathing treatments steroids, has been continued on antibiotics along with anticoagulation Patient is 63-year-old -[place] female with a past medical history significant for multiple myeloma for the patient is currently on chemotherapy, patient presented to [facility] ER with a chief complaints of fever cough and congestion, patient's symptom has been going on for a day or 2 before she presented to hospital, apparently the patient was exposed to her sister who was in [place], the sister was subsequently quarantined on arrival to the and has been cleared of ovalle virus, patient on presentation hospital have a fever of 103F, patient was tachycardic with heart rate 115, patient initial white count was slightly elevated 10.8 repeat is 6.9, influenza serology was negative, patient did have a chest x-ray shows cardia megaly mild pulmonary vascular congestion increase from last exam, the patient does have a positive UA urine showing large [place] histories 11 WBC and some budding yeast, patient was initially treated with cefepime and Zithromax subsequently when he has been changed over to vancomycin and cefepime infection disease following that patient. On presentation hospital with a creatinine 1.87 and repeat is 1.23, patient is breathing slightly comfortably, denies having any hemoptysis or chest pain no URI symptoms no nausea no vomiting and abdominal pain and no diarrhea, patient continued to cough up thick tenacious sputum and short of breath, computed tomography scan of the chest revealed bilateral patchy pulmonary infiltrate predominantly in mid and lower lung field Objective - Vital Signs Vital signs: Vital Signs Temp 97.5 F L 07/18/19 12:08 Pulse 72 07/18/19 12:08 Resp 16 07/18/19 12:08 BP 130/74 07/18/19 12:08 Pulse Ox 99 07/18/19 12:08 Intake & Output 07/17/19 07/18/19 07/18/19 18:59 06:59 18:59 Intake Total 1110 Balance 1110 Intake: Intake, IV Titration 510 Amount Cefepime 2 gm In Sodium 100 Chloride 0.9% 100 ml @ 200 mls/hr IVPB Q12HR [facility] Rx#:[id number] Sodium Chloride 0.9% 1, 160 000 ml @ 20 mls/hr IV . Q24H [facility] Rx#:[id number] Vancomycin 1,500 mg In 250 Sodium Chloride 0.9% 250 ml @ 125 mls/hr IVPB Q16H [facility] Rx#:[id number] Oral 600 Other: Voiding Method Toilet Toilet - Exam - Constitutional General appearance: average body habitus, cooperative, mild distress - EENT Eyes: anicteric sclerae, EOMI ENT: hearing grossly normal, normal oropharynx - Neck Neck: no lymphadenopathy - Respiratory Respiratory: bilateral: wheezing improved compared to yesterday's exam, diffuse crackles are present the bases along with midlung field - Cardiovascular Rhythm: regular Heart sounds: normal: S1, S2 Abnormal Heart Sounds: no systolic murmur, no diastolic murmur, no rub, no S3 Gallop, no S4 Gallop, no click, no other leg Peripheral Edema: bilateral: None - Gastrointestinal General gastrointestinal: no absent bowel sounds, no decreased bowel sounds, no distended, no hepatomegaly, no hyperactive bowel sounds, normal bowel sounds, no organomegaly, no rigid, no scaphoid, soft, no splenomegaly, no tenderness, no umbilical hernia, no ventral hernia - Integumentary Integumentary: normal - Neurologic Neurologic: CNII-XII intact - Musculoskeletal Musculoskeletal: generalized weakness, strength equal bilaterally - Psychiatric Psychiatric: A&O x's 3, appropriate affect, intact judgment & insight - Labs CBC & Chem 7: 07/18/19 06:33 07/18/19 06:33 Labs: Abnormal Lab Results - Last 24 Hours (Table) 07/17/19 07/17/19 07/18/19 Range/Units 17:23 20:25 06:33 WBC (3.8-10.6) k/uL RBC (3.80-5.40) m/uL Hgb (11.4-16.0) gm/dL MCV (80.0-100.0) fL MCHC (31.0-37.0) g/dL Neutrophils # (1.3-7.7) k/uL Potassium 3.4 L (3.5-5.1) mmol/L Chloride 109 H (98-107) mmol/L Glucose 107 H (74-99) mg/dL POC Glucose (mg/dL) 145 H 143 H (75-99) mg/dL Calcium 8.2 L (8.4-10.2) mg/dL AST 54 H (14-36) U/L Alkaline Phosphatase 131 H (38-126) U/L Total Protein 5.5 L (6.3-8.2) g/dL Albumin 2.9 L (3.5-5.0) g/dL 07/18/19 07/18/19 07/18/19 Range/Units 06:33 06:51 11:32 WBC 21.9 H (3.8-10.6) k/uL RBC 3.32 L (3.80-5.40) m/uL Hgb 10.6 L (11.4-16.0) gm/dL MCV 105.2 H (80.0-100.0) fL MCHC 30.3 L (31.0-37.0) g/dL Neutrophils # 19.5 H (1.3-7.7) k/uL Potassium (3.5-5.1) mmol/L Chloride (98-107) mmol/L Glucose (74-99) mg/dL POC Glucose (mg/dL) 118 H 170 H (75-99) mg/dL Calcium (8.4-10.2) mg/dL AST (14-36) U/L Alkaline Phosphatase (38-126) U/L Total Protein (6.3-8.2) g/dL Albumin (3.5-5.0) g/dL Microbiology - Last 24 Hours (Table) 07/15/19 16:26 Gram Stain - Final Sputum Sputum Culture - Final 07/13/19 00:29 Blood Culture - Preliminary Blood No Growth after 120 hours 07/14/19 22:56 Blood Culture - Preliminary Blood No Growth after 72 hours 07/13/19 21:29 Blood Culture - Preliminary Blood No Growth after 96 hours 07/13/19 21:37 Blood Culture - Preliminary Blood No Growth after 96 hours 07/11/19 17:10 Blood Culture - Final Blood No Growth after 144 hours Assessment and Plan Assessment: Bilateral pneumonia Evidence of fluid overload with interstitial edema and perihilar fullness Leukopenia, resolved now Sepsis Acute on chronic respiratory failure Multiple myeloma Plan: Continue IV antibiotics Will give furosemide 40 mg IV 1 Bronchodilators Further recommendations pending plan of care as per clinical response of patient Time with Patient: Greater than 30
--- NOTE | 2019-07-18 15:37 | P.PN ---
Subjective Progress Note Date: 07/18/19 The patient's fever pattern is improved with no significant fever over the last 24 hours. Her cough and shortness of breath also significantly improved. She did develop some shortness of breath due to fluid overload. She continues to be troubled with nausea and vomiting with upper abdominal discomfort which she states feels like an "ulcer" Generalized weakness persists. Oral intake is diminished Objective - Vital Signs Vital signs: Vital Signs Temp 97.5 F L 07/18/19 12:08 Pulse 72 07/18/19 12:08 Resp 16 07/18/19 12:08 BP 130/74 07/18/19 12:08 Pulse Ox 99 07/18/19 12:08 Intake & Output 07/17/19 07/18/19 07/18/19 18:59 06:59 18:59 Intake Total 1110 Balance 1110 Weight 80.286 kg Intake: Intake, IV Titration 510 Amount Cefepime 2 gm In Sodium 100 Chloride 0.9% 100 ml @ 200 mls/hr IVPB Q12HR [facility] Rx#:[id number] Sodium Chloride 0.9% 1, 160 000 ml @ 20 mls/hr IV . Q24H [facility] Rx#:[id number] Vancomycin 1,500 mg In 250 Sodium Chloride 0.9% 250 ml @ 125 mls/hr IVPB Q16H [facility] Rx#:[id number] Oral 600 Other: Voiding Method Toilet Toilet # Voids 4 - Constitutional General appearance: Present: no acute distress - EENT Eyes: Present: EOMI ENT: Present: hearing grossly normal, normal oropharynx - Respiratory Respiratory: bilateral: rales - Cardiovascular Rhythm: regular Heart sounds: normal: S1, S2 - Gastrointestinal General gastrointestinal: Present: normal bowel sounds, soft Localized gastrointestinal: tender: epigastric periumbilical - Integumentary Integumentary: Present: normal - Neurologic Neurologic: Present: CNII-XII intact - Musculoskeletal Musculoskeletal: Present: generalized weakness, strength equal bilaterally - Psychiatric Psychiatric: Present: A&O x's 3, appropriate affect - Labs CBC & Chem 7: 07/18/19 06:33 07/18/19 06:33 Labs: Abnormal Lab Results - Last 24 Hours (Table) 07/17/19 07/17/19 07/18/19 Range/Units 17:23 20:25 06:33 WBC (3.8-10.6) k/uL RBC (3.80-5.40) m/uL Hgb (11.4-16.0) gm/dL MCV (80.0-100.0) fL MCHC (31.0-37.0) g/dL Neutrophils # (1.3-7.7) k/uL Potassium 3.4 L (3.5-5.1) mmol/L Chloride 109 H (98-107) mmol/L Glucose 107 H (74-99) mg/dL POC Glucose (mg/dL) 145 H 143 H (75-99) mg/dL Calcium 8.2 L (8.4-10.2) mg/dL AST 54 H (14-36) U/L Alkaline Phosphatase 131 H (38-126) U/L Total Protein 5.5 L (6.3-8.2) g/dL Albumin 2.9 L (3.5-5.0) g/dL 07/18/19 07/18/19 07/18/19 Range/Units 06:33 06:51 11:32 WBC 21.9 H (3.8-10.6) k/uL RBC 3.32 L (3.80-5.40) m/uL Hgb 10.6 L (11.4-16.0) gm/dL MCV 105.2 H (80.0-100.0) fL MCHC 30.3 L (31.0-37.0) g/dL Neutrophils # 19.5 H (1.3-7.7) k/uL Potassium (3.5-5.1) mmol/L Chloride (98-107) mmol/L Glucose (74-99) mg/dL POC Glucose (mg/dL) 118 H 170 H (75-99) mg/dL Calcium (8.4-10.2) mg/dL AST (14-36) U/L Alkaline Phosphatase (38-126) U/L Total Protein (6.3-8.2) g/dL Albumin (3.5-5.0) g/dL Microbiology - Last 24 Hours (Table) 07/15/19 16:26 Gram Stain - Final Sputum Sputum Culture - Final 07/13/19 00:29 Blood Culture - Preliminary Blood No Growth after 120 hours 07/14/19 22:56 Blood Culture - Preliminary Blood No Growth after 72 hours 07/13/19 21:29 Blood Culture - Preliminary Blood No Growth after 96 hours 07/13/19 21:37 Blood Culture - Preliminary Blood No Growth after 96 hours 07/11/19 17:10 Blood Culture - Final Blood No Growth after 144 hours Assessment and Plan (1) Pneumonia Narrative/Plan: The patient is starting to respond to current treatment, with broad-spectrum antibiotics, and oxygen as well as breathing treatments. Cough as well as shortness of breath is definitely improved, along with fever pattern. Cultures remained negative. Case was discussed with ID. They did confirm that the negative influenza testing would rule out infection, as this is a PCR for the antigen rather than antibody-dependent. As the patient is responding to conventional therapy, at this time more aggressive workup which is bronchoscopy to rule out atypical infection would not be indicated. Continue treatment per pulmonary medicine and ID Current Visit: Yes Status: Acute Priority: High Code(s): J18.9 - PNEUMO REI, UNSPECIFIED ORGANISM SNOMED Code(s): 541800493 (2) Leukopenia Narrative/Plan: Due to antineoplastic chemotherapy, as well as Added stress of acute infection. WBC is now normalized. G-CSF will be discontinued Current Visit: Yes Status: Acute Priority: High Code(s): D72.819 - DECREASED WHITE BLOOD CELL COUNT, UNSPECIFIED SNOMED Code(s): 99973291 (3) Sepsis Narrative/Plan: [place] to be due to pneumonia. The patient is improved with ongoing treatment as noted above Current Visit: Yes Status: Acute Priority: High Code(s): A41.9 - SEPSIS, U NSPECIFIED ORGANISM SNOMED Code(s): 09351318 (4) Multiple myeloma Narrative/Plan: Her current treatment ( Kyprolis) is on hold until acute condition resolves Current Visit: No Status: Chronic Priority: Medium Code(s): C90.00 - MULTIPLE MYELOMA NOT HAVING ACHIEVED REMISSION SNOMED Code(s): 899741384 (5) Intractable nausea and vomiting Narrative/Plan: The patient was previously having nausea and vomiting, transiently after each chemotherapy dose, which should last about 1-2 days. This was partially controlled with antiemetics, and would then resolves spontaneously The patient is currently having more persistent symptoms. She has not been on chemotherapy for several days and and thus her current presentation is felt to be unrelated. This is most likely due to stress gastritis and/or her other medications. The patient was seen by GI, who adjusted her medications to treat for gastritis, as well as to supportively treat her symptoms. At this time an EGD was not felt to be indicated, which is reasonable. However, if symptoms persist despite ongoing management, I will discuss with GI to reconsider intervention Current Visit: Yes Status: Acute Priority: High Code(s): R11.2 - NAUSEA WITH VOMITING, UNSPECIFIED SNOMED Code(s): 391800880
--- NOTE | 2019-07-18 16:15 | PN ---
PROGRESS NOTE DATE OF SERVICE: 07/18/2019. REASON FOR FOLLOWUP: Pneumonia. INTERVAL HISTORY: The patient is currently afebrile. She has been breathing slightly comfortably. Patient's cough has decreased in intensity bringing up sputum. No nausea, no vomiting. No abdominal pain or diarrhea. PHYSICAL EXAMINATION: Her blood pressure is 130/74 with a pulse of 72, temperature 97.5. She is 99% on 3 L nasal cannula. General description is an elderly female lying in bed in no distress. RESPIRATORY SYSTEM: Unlabored breathing with decreased breath sounds at the base. No wheeze. HEART: S1, S2. Regular rate and rhythm. ABDOMEN: Soft. No tenderness. LABS/IMAGING: White count of 21,000. Chest x-ray shows worsening fluid overload with right hilar opacity, likely related to pneumonia. DIAGNOSTIC IMPRESSION AND PLAN: Patient admitted to hospital with difficulty breathing, fever, with concern for pneumonia. This patient does have underlying multiple myeloma. The patient's fever has resolved. X-ray showing worsening findings. May benefit from diuresis, and if no improvement may benefit from bronchoscopy and deep cultures. Currently covered with vancomycin and cefepime; to continue and continue with supportive care. MMODL / IJN: [id number] /
[2019-07-18 17:07] LABS: Glucose,Whole Blood 139 mg/dL (75-99)
[2019-07-18 20:21] LABS: Glucose,Whole Blood 189 mg/dL (75-99)
[2019-07-18] MEDS: amLODIPine 10 MG TAB PO SCH (20:40)
[2019-07-18] MEDS: SODIUM CHLORIDE 0.9% 1,000 ML IV SCH (23:39)
[2019-07-19] MEDS: IPRATROPIUM-ALBUTEROL 3 ML NEB INHALATION SCH ×7 (00:03→23:53)
[2019-07-19] MEDS: ONDANSETRON 4 MG/2 ML VIAL IVP SCH ×4 (05:26→23:45)
[2019-07-19 07:10] LABS: Glucose,Whole Blood 151 mg/dL (75-99)
[2019-07-19] MEDS: FERROUS SULFATE 325 MG TAB PO SCH (08:15)
[2019-07-19] MEDS: APIXABAN 5 MG TAB PO SCH ×2 (08:15→20:29)
[2019-07-19] MEDS: FOLIC ACID 1 MG TAB PO SCH (08:15)
[2019-07-19] MEDS: ATENOLOL 25 MG TAB PO SCH (08:15)
[2019-07-19] MEDS: ASCORBIC ACID 500 MG TAB PO SCH (08:15)
[2019-07-19] MEDS: CHOLECALCIFEROL 1,000 UNIT TAB PO SCH (08:15)
[2019-07-19] MEDS: CEFEPIME 2 GM in SODIUM CHLORIDE 0.9% 100 ML IVPB SCH (08:16)
[2019-07-19] MEDS: FUROSEMIDE 10 MG/ML 4 ML VIAL IV SCH ×2 (08:16→20:29)
[2019-07-19] MEDS: INSULIN ASPART (NovoLOG) 100 UNIT/ML VIAL SQ SCH ×4 (08:16→20:29)
[2019-07-19] MEDS: PANTOPRAZOLE 40 MG/10 ML VIAL IVP SCH (08:16)
[2019-07-19] MEDS ORDERED: VANCOMYCIN TROUGH DUE 1 EACH MISC MISCELLANE ONE (11:00)
[2019-07-19 11:17] LABS: Glucose,Whole Blood 215 mg/dL (75-99)
[2019-07-19 11:32] LABS: Calcium 8.5 mg/dL (8.4-10.2); Magnesium 1.8 mg/dL (1.6-2.3); Potassium 3.2 mmol/L (3.5-5.1)
[2019-07-19 11:39] LABS: Basophils # (A) 0.1 k/uL (0-0.2); Basophils % (A) 0 %; Eosinophils # (A) 0.9 k/uL (0-0.7); Eosinophils % (A) 4 %; HCT 34.5 % (34.0-46.0); HGB 10.7 gm/dL (11.4-16.0); Hypochromasia Slight; Lymphocytes % (A) 5 %; MCH 32.3 pg (25.0-35.0); MCHC 31.1 g/dL (31.0-37.0); MCV 103.8 fL (80.0-100.0); Macrocytosis Slight; Mean Platelet Volume 8.4; Monocytes # (A) 0.8 k/uL (0-1.0); Monocytes % (A) 4 %; Neutrophils % (A) 86 %; Platelet Count 303 k/uL (150-450); Poikilocytosis Slight; RBC 3.32 m/uL (3.80-5.40); RDW 14.7 % (11.5-15.5); WBC 23.3 k/uL (3.8-10.6)
--- NOTE | 2019-07-19 14:58 | PN ---
PROGRESS NOTE DATE OF SERVICE: 07/19/2019 REASON FOR FOLLOWUP: Pneumonia. INTERVAL HISTORY: The patient is currently afebrile. Patient has been breathing more comfortably. Still complaining of nausea and vomiting, but no abdominal pain. No diarrhea. No chest pain or shortness of breath. Did have some cough and bringing up some sputum. PHYSICAL EXAMINATION: Blood pressure is 110/65 with a pulse of 65, temperature 98.2. She is a 95% on 2 L nasal cannula. General description is an elderly female lying in bed in no distress. RESPIRATORY SYSTEM: Unlabored breathing. Decreased intensity of breath sounds. No wheeze. HEART: S1, S2. Regular rate and rhythm. ABDOMEN: Soft, no tenderness. LABS: Hemoglobin is 10.7, white count 23.3, BUN of 12, creatinine 1.07. Sputum has been usual respiratory yin. DIAGNOSTIC IMPRESSION AND PLAN: Patient admitted to the hospital with fever with concern for right-sided pneumonia, question of aspiration etiology. Sputum has been negative for resistant pathogen. Antibiotic will be adjusted to Unasyn and if the patient continues to improve to finish therapy with oral Augmentin and monitoring clinical course closely. Family at the bedside. Their questions were answered. MMODL / IJN: [id number] /
[2019-07-19] MEDS ORDERED: Potassium Replacement Protocol 1 EACH MISC MISCELLANE PRN (15:27)
--- NOTE | 2019-07-19 15:35 | P.PN ---
Subjective Progress Note Date: 07/19/19 Principal diagnosis: Nausea and vomiting Patient seen lying in bed reporting that she tolerated some fruit today. Still having Episodes of Nausea and Vomiting However per Nursing Staff She Is Only Bring up a Small Amount of Sputum at These Times. Objective - Vital Signs Vital signs: Vital Signs Temp 97.5 F L 07/18/19 12:08 Pulse 72 07/18/19 12:08 Resp 16 07/18/19 12:08 BP 130/74 07/18/19 12:08 Pulse Ox 99 07/18/19 12:08 Intake & Output 07/17/19 07/18/19 07/18/19 18:59 06:59 18:59 Intake Total 1110 Balance 1110 Intake: Intake, IV Titration 510 Amount Cefepime 2 gm In Sodium 100 Chloride 0.9% 100 ml @ 200 mls/hr IVPB Q12HR [facility] Rx#:[id number] Sodium Chloride 0.9% 1, 160 000 ml @ 20 mls/hr IV . Q24H [facility] Rx#:[id number] Vancomycin 1,500 mg In 250 Sodium Chloride 0.9% 250 ml @ 125 mls/hr IVPB Q16H [facility] Rx#:[id number] Oral 600 Other: Voiding Method Toilet Toilet - Exam On physical examination, patient appears comfortable in no apparent distress. HEAD: Normocephalic, atraumatic. EYES: No scleral icterus. No conjunctival injection. MOUTH: No lesions, tongue midline. NECK: Trachea midline, no gross abnormalities. ABDOMEN: Soft, obese. Bowel sounds are positive. No organomegaly. No guarding or rigidity. EXTREMITIES: No pedal edema. SKIN: No rashes, no jaundice. NEUROLOGIC: Alert and oriented x3. No focal deficits. - Labs CBC & Chem 7: 07/19/19 10:54 07/19/19 10:54 Labs: Abnormal Lab Results - Last 24 Hours (Table) 07/17/19 07/17/19 07/18/19 Range/Units 17:23 20:25 06:33 WBC (3.8-10.6) k/uL RBC (3.80-5.40) m/uL Hgb (11.4-16.0) gm/dL MCV (80.0-100.0) fL MCHC (31.0-37.0) g/dL Neutrophils # (1.3-7.7) k/uL Potassium 3.4 L (3.5-5.1) mmol/L Chloride 109 H (98-107) mmol/L Glucose 107 H (74-99) mg/dL POC Glucose (mg/dL) 145 H 143 H (75-99) mg/dL Calcium 8.2 L (8.4-10.2) mg/dL AST 54 H (14-36) U/L Alkaline Phosphatase 131 H (38-126) U/L Total Protein 5.5 L (6.3-8.2) g/dL Albumin 2.9 L (3.5-5.0) g/dL 07/18/19 07/18/19 07/18/19 Range/Units 06:33 06:51 11:32 WBC 21.9 H (3.8-10.6) k/uL RBC 3.32 L (3.80-5.40) m/uL Hgb 10.6 L (11.4-16.0) gm/dL MCV 105.2 H (80.0-100.0) fL MCHC 30.3 L (31.0-37.0) g/dL Neutrophils # 19.5 H (1.3-7.7) k/uL Potassium (3.5-5.1) mmol/L Chloride (98-107) mmol/L Glucose (74-99) mg/dL POC Glucose (mg/dL) 118 H 170 H (75-99) mg/dL Calcium (8.4-10.2) mg/dL AST (14-36) U/L Alkaline Phosphatase (38-126) U/L Total Protein (6.3-8.2) g/dL Albumin (3.5-5.0) g/dL Microbiology - Last 24 Hours (Table) 07/15/19 16:26 Gram Stain - Final Sputum Sputum Culture - Final 07/13/19 00:29 Blood Culture - Preliminary Blood No Growth after 120 hours 07/14/19 22:56 Blood Culture - Preliminary Blood No Growth after 72 hours 07/13/19 21:29 Blood Culture - Preliminary Blood No Growth after 96 hours 07/13/19 21:37 Blood Culture - Preliminary Blood No Growth after 96 hours 07/11/19 17:10 Blood Culture - Final Blood No Growth after 144 hours Assessment and Plan (1) Intractable nausea and vomiting Narrative/Plan: 63-year-old female with multiple medical comorbidities including multiple myeloma for which she receives chemotherapy 1 week ago currently hospitalized with infiltrates seen on imaging and being treated for pneumonia. The patient had reported 1 week of nausea and vomiting with decreased oral intake after receiving chemotherapy. Unknown etiology of symptoms, likely related to medication side effects,, cannot rule out a component of gastroesophageal reflux disease or other upper GI etiology. No signs or symptoms of GI bleeding to suggest peptic ulcer disease. Current Visit: Yes Status: Acute Priority: High Code(s): R11.2 - NAUSEA WITH VOMITING, UNSPECIFIED SNOMED Code(s): 191546155 (2) History of peptic ulcer disease Current Visit: Yes Status: Acute Code(s): Z87.11 - PERSONAL HISTORY OF PEPTIC ULCER DISEASE SNOMED Code(s): 441449749 (3) HCAP (healthcare-associated pneumonia) Current Visit: Yes Status: Acute Code(s): J18.9 - PNEUMONIA, UNSPECIFIED ORGANISM SNOMED Code(s): 650825518 (4) Multiple myeloma Current Visit: No Status: Chronic Priority: Medium Code(s): C90.00 - MULTIPLE MYELOMA NOT HAVING ACHIEVED REMISSION SNOMED Code(s): 132839067 Plan: Supportive care Okay for diet as tolerated Protonix 40 mg twice daily added Zofran changed to [id number] Tigan added as needed for breakthrough nausea No plans for endoscopic evaluation as the patient would be at higher risk in the setting of current treatment of pneumonia without any signs or symptoms to suggest GI bleed at this time we'll continue to treat medically Thank you for allowing us to participate in the care of the patient we will continue to follow
--- NOTE | 2019-07-19 15:40 | P.PN ---
Subjective Progress Note Date: 07/19/19 Principal diagnosis: Nausea and vomiting Patient seen sitting bedside. She is reporting overall she is feeling somewhat better today. Breathing is better and nausea improved. She does report some persistent nausea this morning. Objective - Vital Signs Vital signs: Vital Signs Temp 98.2 F 07/19/19 08:00 Pulse 76 07/19/19 08:30 Resp 17 07/19/19 08:00 BP 110/65 07/19/19 08:00 Pulse Ox 95 07/19/19 08:22 Intake & Output 07/18/19 07/19/19 07/19/19 18:59 06:59 18:59 Intake Total 690 Balance 690 Weight 80.286 kg Intake: Intake, IV Titration 490 Amount Cefepime 2 gm In Sodium 100 Chloride 0.9% 100 ml @ 200 mls/hr IVPB Q12HR [facility] Rx#:[id number] Sodium Chloride 0.9% 1, 140 000 ml @ 20 mls/hr IV . Q24H [facility] Rx#:[id number] Vancomycin 1,500 mg In 250 Sodium Chloride 0.9% 250 ml @ 125 mls/hr IVPB Q16H [facility] Rx#:[id number] Oral 200 Other: Voiding Method Toilet Toilet Toilet # Voids 4 1 - Exam On physical examination, patient appears comfortable in no apparent distress. HEAD: Normocephalic, atraumatic. EYES: No scleral icterus. No conjunctival injection. MOUTH: No lesions, tongue midline. NECK: Trachea midline, no gross abnormalities. ABDOMEN: Soft, obese. Bowel sounds are positive. No organomegaly. No guarding or rigidity. EXTREMITIES: No pedal edema. SKIN: No rashes, no jaundice. NEUROLOGIC: Alert and oriented x3. No focal deficits. - Labs CBC & Chem 7: 07/19/19 10:54 07/19/19 10:54 Labs: Abnormal Lab Results - Last 24 Hours (Table) 07/18/19 07/18/19 07/19/19 Range/Units 17:03 20:19 07:09 WBC (3.8-10.6) k/uL RBC (3.80-5.40) m/uL Hgb (11.4-16.0) gm/dL MCV (80.0-100.0) fL Neutrophils # (1.3-7.7) k/uL Eosinophils # (0-0.7) k/uL Potassium (3.5-5.1) mmol/L Carbon Dioxide (22-30) mmol/L Creatinine (0.52-1.04) mg/dL Glucose (74-99) mg/dL POC Glucose (mg/dL) 139 H 189 H 151 H (75-99) mg/dL 07/19/19 07/19/19 07/19/19 Range/Units 10:54 10:54 11:16 WBC 23.3 H (3.8-10.6) k/uL RBC 3.32 L (3.80-5.40) m/uL Hgb 10.7 L (11.4-16.0) gm/dL MCV 103.8 H (80.0-100.0) fL Neutrophils # 20.0 H (1.3-7.7) k/uL Eosinophils # 0.9 H (0-0.7) k/uL Potassium 3.2 L (3.5-5.1) mmol/L Carbon Dioxide 32 H (22-30) mmol/L Creatinine 1.07 H (0.52-1.04) mg/dL Glucose 201 H (74-99) mg/dL POC Glucose (mg/dL) 215 H (75-99) mg/dL Microbiology - Last 24 Hours (Table) 07/13/19 00:29 Blood Culture - Final Blood No Growth after 144 hours 07/14/19 22:56 Blood Culture - Preliminary Blood No Growth after 96 hours 07/13/19 21:29 Blood Culture - Preliminary Blood No Growth after 120 hours 07/13/19 21:37 Blood Culture - Preliminary Blood No Growth after 120 hours 07/15/19 16:26 Gram Stain - Final Sputum Sputum Culture - Final Assessment and Plan (1) Intractable nausea and vomiting Narrative/Plan: 63-year-old female with multiple medical comorbidities including multiple myeloma for which she receives chemotherapy 1 week ago currently hospitalized with infiltrates seen on imaging and being treated for pneumonia. The patient had reported 1 week of nausea and vomiting with decreased oral intake after receiving chemotherapy. Unknown etiology of symptoms, likely related to medication side effects,, cannot rule out a component of gastroesophageal reflux disease or other upper GI etiology. No signs or symptoms of GI bleeding to s uggest peptic ulcer disease. Current Visit: Yes Status: Acute Priority: High Code(s): R11.2 - NAUSEA WITH VOMITING, UNSPECIFIED SNOMED Code(s): 463460725 (2) History of peptic ulcer disease Current Visit: Yes Status: Acute Code(s): Z87.11 - PERSONAL HISTORY OF PEPTIC ULCER DISEASE SNOMED Code(s): 409928848 (3) HCAP (healthcare-associated pneumonia) Current Visit: Yes Status: Acute Code(s): J18.9 - PNEUMONIA, UNSPECIFIED ORGANISM SNOMED Code(s): 778330819 (4) Multiple myeloma Current Visit: No Status: Chronic Priority: Medium Code(s): C90.00 - MULTIPLE MYELOMA NOT HAVING ACHIEVED REMISSION SNOMED Code(s): 051221874 Plan: Supportive care Okay for diet as tolerated Protonix 40 mg twice daily added Zofran changed to [id number] Tigan added as needed for breakthrough nausea Dietary modifications discussed with the patient today including smaller more frequent meals No plans for endoscopic evaluation as the patient would be at higher risk in the setting of current treatment of pneumonia without any signs or symptoms to sug gest GI bleed at this time we'll continue to treat medically Thank you for allowing us to participate in the care of the patient we will continue to follow
--- NOTE | 2019-07-19 16:34 | PN ---
PROGRESS NOTE DATE OF SERVICE: 07/19/2019 Age 63, female, . NEW DATA: She is a FULL CODE. Height is 5 feet 3 inches, weight 80.286 kg, and her BMI is 31.4 kg/m2 as well as her BSA 1.84 m2. ALLERGIES: Her allergy is to LATEX. The patient seen today [id number] and evaluated and apparently they transferred her from the [place] to the [facility] on the 4th floor. The patient has no symptoms at this time. No fever, no chills, and she feeling much better. Her gastritis has been improved as well. Currently, her vital signs are indicating 97.9, heart rate 60 per minute, and she had left infraclavicular pacemaker. Her respiratory rate 17 and her blood pressure 114/56 with a mean 75. She is on oxygen and has been improved. Currently, her pulse ox on 2 L nasal cannula is 96%. On the examination, the patient is conscious, alert, oriented. Her daughter at bedside. HEENT: The head was normocephalic, atraumatic. Pupil was equal, reactive and the conjunctivae was pink. Sclerae nonicteric. The oropharynx natural teeth and able to eat and swallow with no evidence of dysphagia. The neck was supple. No JVD. No thyromegaly. No lymphadenopathy. Trachea midline. Her lungs today markedly improved of the underlying congestive heart failure and the rales were resolved. Also she had history of pneumonia on the right upper middle lung, which is progressively improved as well as she has been today seen by Dr. Sanchez, Infectious Disease, and he discontinued the vancomycin and currently she is on Unasyn. On the lung is a marked improvement and will be obtaining the chest x-ray on Sunday. Her abdomen is soft, nontender, positive bowel sounds. No nausea, no vomiting and no diarrhea. In the lower extremities, no edema and positive pulses. LABORATORY DATA: Her laboratory data indicating that white count is 23.3 with the leukocytosis secondary to the injection for bone marrow stimulation which has been discontinued by Dr. Carreon, Hematology/Oncology and after the response was normalized of white count. Patient is still on apixaban for the anticoagulation as well and the antibiotic had been adjusted with the vancomycin discontinued as well as the cefepime was discontinued and she was on Protonix and that also IV has been discontinued. Vancomycin as mentioned was discontinued. She was on apixaban, which she continued to be with the Tenormin is the same. On the laboratory as mentioned, her potassium was 3.2, and we will continue the potassium orally and her estimated glomerular filtration rate for 63 and her blood sugar was 201 this morning with the underlying diabetes mellitus and hyperglycemia covered by insulin to scale. Her magnesium 1.8, and the vancomycin trough level 26.3, however, that was discontinued already today. The echocardiogram was indicating that she was sinus rhythm as well as she had moderate left ventricular hypertrophy. She has also impaired ejection fraction down to 45% to 50%. She had diastolic dysfunction and she had apical septal left ventricular motion abnormality with hypokinesis. She had severely dilated left atrium with more than 40 mL/m2 and she had associated congestive heart failure. She has as well mild aortic regurgitation. No stenosis and she has moderate mitral regurgitation as well as severe tricuspid regurgitation with severe pulmonary hypertension with the right ventricular systolic pressure is 74.77 mmHg. The patient is still on the diuresis and we will be obtaining a chest x-ray on Sunday. ASSESSMENT: 1. Sepsis. 2. Leukopenia was 1.4. WBC probably associated with the last chemotherapy that she had it was 10 days prior to the dipping with nidus. Also she had pneumonia extensively on the right lung as well as she has now impaired ejection fraction, systolic and diastolic acute with no underlying chronic. Patient improving gradually and we have consulted the Pulmonary and Critical Care as well as Infectious Disease as well as Nephrology as well as Cardiology as well as Gastroenterology. We will be continuing the current treatment and will supply the potassium. We discussed before with Dr. Sanchez yesterday and he stated that we are going to continue the therapy and treatment and adjustment until Sunday and subsequently if she is doing well, he will let us know before discharge because of added diagnosis of sepsis as well as no blood culture was shown, but the leukopenia, neutropenic fever was present. MMODL / IJN: [id number] /
[2019-07-19 17:33] LABS: Glucose,Whole Blood 150 mg/dL (75-99)
[2019-07-19] MEDS ORDERED: VANCOMYCIN 1,500 MG in SODIUM CHLORIDE 0.9% 250 ML IVPB SCH (18:00)
[2019-07-19] MEDS: AMPICILLIN-SULBACTAM 3 GM in SODIUM CHLORIDE 0.9% 100 ML IVPB SCH ×2 (18:07→23:41)
[2019-07-19] MEDS: POTASSIUM CHLORIDE ER 20 MEQ TAB.ER PO SCH ×2 (18:07→18:09)
[2019-07-19] MEDS: PANTOPRAZOLE 40 MG TABLET PO SCH (18:08)
[2019-07-19 20:03] LABS: Glucose,Whole Blood 205 mg/dL (75-99)
[2019-07-19] MEDS: amLODIPine 10 MG TAB PO SCH (20:29)
[2019-07-19] MEDS: SODIUM CHLORIDE 0.9% 1,000 ML IV SCH (23:34)
[2019-07-20] MEDS: IPRATROPIUM-ALBUTEROL 3 ML NEB INHALATION SCH ×6 (03:12→23:32)
[2019-07-20] MEDS: ONDANSETRON 4 MG/2 ML VIAL IVP SCH ×3 (05:45→17:53)
[2019-07-20] MEDS: AMPICILLIN-SULBACTAM 3 GM in SODIUM CHLORIDE 0.9% 100 ML IVPB SCH ×3 (06:02→17:53)
[2019-07-20 06:10] LABS: Basophils # (A) 0.1 k/uL (0-0.2); Basophils % (A) 1 %; Eosinophils # (A) 0.9 k/uL (0-0.7); Eosinophils % (A) 6 %; HCT 35.3 % (34.0-46.0); HGB 10.8 gm/dL (11.4-16.0); Hypochromasia Slight; Lymphocytes # (A) 1.1 k/uL (1.0-4.8); Lymphocytes % (A) 8 %; MCH 31.9 pg (25.0-35.0); MCHC 30.7 g/dL (31.0-37.0); MCV 104.1 fL (80.0-100.0); Macrocytosis Slight; Mean Platelet Volume 8.5; Monocytes # (A) 0.9 k/uL (0-1.0); Monocytes % (A) 6 %; Neutrophils # (A) 10.9 k/uL (1.3-7.7); Neutrophils % (A) 76 %; Platelet Count 357 k/uL (150-450); Poikilocytosis Slight; RBC 3.39 m/uL (3.80-5.40); RDW 14.7 % (11.5-15.5); WBC 14.4 k/uL (3.8-10.6)
[2019-07-20 06:27] LABS: Calcium 8.8 mg/dL (8.4-10.2); Potassium 3.3 mmol/L (3.5-5.1)
--- NOTE | 2019-07-20 07:01 | XR ---
EXAMINATION TYPE: XR chest 2V DATE OF EXAM: 07/20/2019 HISTORY: F/U pneumonia and CHF. REFERENCE: Previous study dated 07/18/2019. FINDINGS: There is a bipolar pacing device in place on the left. There is a Mediport in place via a right subclavian approach. Its tip is in the superior vena cava. There is multichamber cardiac enlargement. Pulmonary vasculature and pulmonary edema have improved. I suspect tiny, bilateral effusions. IMPRESSION: IMPROVING CHANGES OF CONGESTIVE HEART FAILURE.
[2019-07-20 07:06] LABS: Glucose,Whole Blood 167 mg/dL (75-99)
[2019-07-20] MEDS: APIXABAN 5 MG TAB PO SCH ×2 (09:23→21:54)
[2019-07-20] MEDS: ASCORBIC ACID 500 MG TAB PO SCH (09:23)
[2019-07-20] MEDS: PANTOPRAZOLE 40 MG TABLET PO SCH ×2 (09:23→17:53)
[2019-07-20] MEDS: FOLIC ACID 1 MG TAB PO SCH (09:23)
[2019-07-20] MEDS: ATENOLOL 25 MG TAB PO SCH (09:23)
[2019-07-20] MEDS: CHOLECALCIFEROL 1,000 UNIT TAB PO SCH (09:24)
[2019-07-20] MEDS: FERROUS SULFATE 325 MG TAB PO SCH (09:24)
[2019-07-20] MEDS: INSULIN ASPART (NovoLOG) 100 UNIT/ML VIAL SQ SCH ×4 (09:24→21:54)
[2019-07-20] MEDS: POTASSIUM CHLORIDE ER 20 MEQ TAB.ER PO SCH ×4 (09:25→17:53)
[2019-07-20] MEDS: FUROSEMIDE 10 MG/ML 4 ML VIAL IV SCH (09:25)
[2019-07-20 11:52] LABS: Glucose,Whole Blood 166 mg/dL (75-99)
--- NOTE | 2019-07-20 14:27 | P.PN ---
Subjective Progress Note Date: 07/20/19 (Fever resolved.) This is dictation progress note date of service 07/20/2019. Dictation by Dr. Cid. Patient seen and evaluated [id number] discussed with the plan. Patient's conscious alert oriented 3 no wheezing sleeping comfortably. No pain chest or abdomen or musculoskeletal. Her vital sign today indicating that temperature 98.4 F oral. Heart rate 64 bpm with the underlying left infraclavi cular pacemaker. Her breath sound 17 nonlabored. Blood pressure 122/71 and mean pressure is 8890 pulse ox 97% on 2 L/m Laboratory indicating WBC 14 .4 which improving after discontinuation of the st imulation of the bone marrow. Anemia with hemoglobin 10.8 and macrocytosis with MCV 104.1. Chemistry sodium 144 potassium 3.3 and chloride 104 carbon dioxide 34, anion gap of 6 and BUN of 12 Creatinine 1.15 with the EGFR for -[place] 58. Pleurisy glucose has been stable with colored with insulin and this morning was 190 however subsequent CBG was 166. And the calcium 8.8 Blood culture no growth, sputum culture normal yin, Chest x-ray this morning on 07/20/2019 is improving the congestive heart failure. On exam conscious alert oriented 3 no acute respiratory distress comfortable. HEENT negative, neck was supple no JVD, chest improved with the presence of minimal rhonchi's and rales and a chest x-ray indicating improving changes of congestive heart failure. Heart was regular sinus rhythm with the patient pacemaker in the left infraclavicular no gallop. She had ischemic cardiomyopathy with the echocardiogram on this admission with pulmonary hypertension. Severe, she had also severe tricuspid regurg and improvement in ejection fraction to 45-50% with the dilated left atrium severely more than 40 mL per meter squared and the diastolic dysfunction grade 2. Mild aortic regurgitation as well as. Abdomen assessment was of bowel sounds no tenderness. Extremities no edema and positive pulses. Neurologically no lateralizing sign stable. Assessment: #1 fever and chill has resolved no recurrence. #2 underlying right sided pneumonia not present on the new x-ray with the probably treated with the antibiotic. #3 as mentioned above she had congestive heart failure systolic and diastolic acute with the improvement of left ventricular function as well as diastolic grade 2 #4 no previous history of AR with the underlying cardiomyopathy, severe valvular disease with severe mitral regurg and tricuspid regurg and the pulmonary hypertension as well as severely dilated left atrium and currently on pacemaker. In association with pulmonary hypertension. #5 diuresis with the mild hypokalemia. #6 chronic renal failure recover she is at grade 3 chronic kidney disease. #7 multiple myeloma with the history of chemotherapy 2 weeks ago. #8 history of leukopenic with pyrexia and fever and immunocompromise state and reaching the neutrophil 1.4 recovered with bone marrow stimulation injection by oncology hematology. Plan: #1 Dr. Sanchez infectious disease will assess the patient tomorrow for possible discharge and changing antibiotic to oral. #2 DC his IV to hep fell. #3 changing Lasix to 40 mg by mouth twice a day. #4 and Aldactone 12.5 mg for the congestive heart failure as well as for hypokalemia with the diuresis. #5 if cleared by apparent content management consultant we'll discharge in 24 hour to 48 hour as long as patient is stable. #6 ambulate and physical therapy. Objective - Vital Signs Vital signs: Vital Signs Temp 98.4 F 07/20/19 07:49 Pulse 64 07/20/19 08:05 Resp 17 07/20/19 07:49 BP 122/71 07/20/19 07:49 Pulse Ox 97 07/20/19 07:49 Intake & Output 07/19/19 07/20/19 07/20/19 18:59 06:59 18:59 Intake Total 570 Balance 570 Weight 80.286 kg Intake: Intake, IV Titration 280 Amount Ampicillin-Sulbactam 3 gm 100 In Sodium Chloride 0.9% 100 ml @ 200 mls/hr IVPB Q6HR [facility] Rx#:[id number] Sodium Chloride 0.9% 1, 180 000 ml @ 20 mls/hr IV . Q24H [facility] Rx#:[id number] Oral 290 Other: Voiding Method Toilet Toilet Toilet # Voids 2 - Labs CBC & Chem 7: 07/20/19 05:34 07/20/19 10:59 Labs: Abnormal Lab Results - Last 24 Hours (Table) 07/19/19 07/19/19 07/20/19 Range/Units 17:32 19:59 05:34 WBC 14.4 H (3.8-10.6) k/uL RBC 3.39 L (3.80-5.40) m/uL Hgb 10.8 L (11.4-16.0) gm/dL MCV 104.1 H (80.0-100.0) fL MCHC 30.7 L (31.0-37.0) g/dL Neutrophils # 10.9 H (1.3-7.7) k/uL Eosinophils # 0.9 H (0-0.7) k/uL Potassium (3.5-5.1) mmol/L Carbon Dioxide (22-30) mmol/L Creatinine (0.52-1.04) mg/dL Glucose (74-99) mg/dL POC Glucose (mg/dL) 150 H 205 H (75-99) mg/dL 07/20/19 07/20/19 07/20/19 Range/Units 05:34 07:05 10:59 WBC (3.8-10.6) k/uL RBC (3.80-5.40) m/uL Hgb (11.4-16.0) gm/dL MCV (80.0-100.0) fL MCHC (31.0-37.0) g/dL Neutrophils # (1.3-7.7) k/uL Eosinophils # (0-0.7) k/uL Potassium 3.3 L 3.4 L (3.5-5.1) mmol/L Carbon Dioxide 34 H (22-30) mmol/L Creatinine 1.15 H (0.52-1.04) mg/dL Glucose 190 H (74-99) mg/dL POC Glucose (mg/dL) 167 H (75-99) mg/dL 07/20/19 Range/Units 11:50 WBC (3.8-10.6) k/uL RBC (3.80-5.40) m/uL Hgb (11.4-16.0) gm/dL MCV (80.0-100.0) fL MCHC (31.0-37.0) g/dL Neutrophils # (1.3-7.7) k/uL Eosinophils # (0-0.7) k/uL Potassium (3.5-5.1) mmol/L Carbon Dioxide (22-30) mmol/L Creatinine (0.52-1.04) mg/dL Glucose (74-99) mg/dL POC Glucose (mg/dL) 166 H (75-99) mg/dL Microbiology - Last 24 Hours (Table) 07/14/19 22:56 Blood Culture - Preliminary Blood No Growth after 120 hours 07/13/19 21:29 Blood Culture - Final Blood No Growth after 144 hours 07/13/19 21:37 Blood Culture - Final Blood No Growth after 144 hours
--- NOTE | 2019-07-20 14:57 | P.PN ---
Subjective Progress Note Date: 07/19/19 Principal diagnosis: Bilateral pneumonia Leukopenia Sepsis Acute on chronic respiratory failure Multiple myeloma 07/19/2019, patient seen eval examined during the rounds breathing has improved, patient is on Lasix, wbc have improved as well able to get up and move around, isolation for neutropenic respiratory has been discontinued 07/18/2019, patient seen eval examined during the rounds labs reviewed medications reviewed patient remains short of breath but severity has improved compared to yesterday exam, patient has a chest x-ray done today hard copies reviewed suggestive of fluid overload with hilar fullness and interstitial edema patient will benefit from Lasix, white cell count up to 21,900, patient is on filgrastim 07/17/2019, patient the is still having chest pain but severity has improved less congested able to ambulate and move around denies any chest pain, has been on breathing treatments steroids, has been continued on antibiotics along with anticoagulation Patient is 63-year-old -[place] female with a past medical history significant for multiple myeloma for the patient is currently on chemotherapy, patient presented to [facility] ER with a chief complaints of fever cough and congestion, patient's symptom has been going on for a day or 2 before she presented to hospital, apparently the patient was exposed to her sister who was in [place], the sister was subsequently quarantined on arrival to the and has been cleared of ovalle virus, patient on presentation hospital have a fever of 103F, patient was tachycardic with heart rate 115, patient initial white count was slightly elevated 10.8 repeat is 6.9, influenza serology was negative, patient did have a chest x-ray shows cardia megaly mild pulmonary vascular congestion increase from last exam, the patient does have a positive UA urine showing large [place] histories 11 WBC and some budding yeast, patient was initially treated with cefepime and Zithromax subsequently when he has been changed over to vancomycin and cefepime infection disease following that patie nt. On presentation hospital with a creatinine 1.87 and repeat is 1.23, patient is breathing slightly comfortably, denies having any hemoptysis or chest pain no URI symptoms no nausea no vomiting and abdominal pain and no diarrhea, patient continued to cough up thick tenacious sputum and short of breath, computed tomography scan of the chest revealed bilateral patchy pulmonary infiltrate predominantly in mid and lower lung field Objective - Vital Signs Vital signs: Vital Signs Temp 97.9 F 07/19/19 14:55 Pulse 60 07/19/19 16:05 Resp 17 07/19/19 14:55 BP 114/56 07/19/19 14:55 Pulse Ox 98 07/19/19 15:55 Intake & Output 07/19/19 07/19/19 07/20/19 06:59 18:59 06:59 Intake Total 690 Balance 690 Intake: Intake, IV Titration 490 Amount Cefepime 2 gm In Sodium 100 Chloride 0.9% 100 ml @ 200 mls/hr IVPB Q12HR [facility] Rx#:[id number] Sodium Chloride 0.9% 1, 140 000 ml @ 20 mls/hr IV . Q24H [facility] Rx#:[id number] Vancomycin 1,500 mg In 250 Sodium Chloride 0.9% 250 ml @ 125 mls/hr IVPB Q16H [facility] Rx#:[id number] Oral 200 Other: Voiding Method Toilet Toilet # Voids 1 - Exam - Constitutional General appearance: average body habitus, cooperative, mild distress - EENT Eyes: anicteric sclerae, EOMI ENT: hearing grossly normal, normal oropharynx - Neck Neck: no lymphadenopathy - Respiratory Respiratory: bilateral: wheezing improved compared to yesterday's exam, diffuse crackles are present the bases along with midlung field - Cardiovascular Rhythm: regular Heart sounds: normal: S1, S2 Abnormal Heart Sounds: no systolic murmur, no diastolic murmur, no rub, no S3 Gallop, no S4 Gallop, no click, no other leg Peripheral Edema: bilateral: None - Gastrointestinal General gastrointestinal: no absent bowel sounds, no decreased bowel sounds, no distended, no hepatomegaly, no hyperactive bowel sounds, normal bowel sounds, no organomegaly, no rigid, no scaphoid, soft, no splenomegaly, no tenderness, no um bilical hernia, no ventral hernia - Integumentary Integumentary: normal - Neurologic Neurologic: CNII-XII intact - Musculoskeletal Musculoskeletal: generalized weakness, strength equal bilaterally - Psychiatric Psychiatric: A&O x's 3, appropriate affect, intact judgment & insight - Labs CBC & Chem 7: 07/20/19 05:34 07/20/19 10:59 Labs: Abnormal Lab Results - Last 24 Hours (Table) 07/18/19 07/19/19/20 Range/Units 20:19 07:09 10:54 WBC 23.3 H (3.8-10.6) k/uL RBC 3.32 L (3.80-5.40) m/uL Hgb 10.7 L (11.4-16.0) gm/dL MCV 103.8 H (80.0-100.0) fL Neutrophils # 20.0 H (1.3-7.7) k/uL Eosinophils # 0.9 H (0-0.7) k/uL Potassium (3.5-5.1) mmol/L Carbon Dioxide (22-30) mmol/L Creatinine (0.52-1.04) mg/dL Glucose (74-99) mg/dL POC Glucose (mg/dL) 189 H 151 H (75-99) mg/dL 07/19/19 07/19/19 07/19/19 Range/Units 10:54 11:16 17:32 WBC (3.8-10.6) k/uL RBC (3.80-5.40) m/uL Hgb (11.4-16.0) gm/dL MCV (80.0-100.0) fL Neutrophils # (1.3-7.7) k/uL Eosinophils # (0-0.7) k/uL Potassium 3.2 L (3.5-5.1) mmol/L Carbon Dioxide 32 H (22-30) mmol/L Creatinine 1.07 H (0.52-1.04) mg/dL Glucose 201 H (74-99) mg/dL POC Glucose (mg/dL) 215 H 150 H (75-99) mg/dL Microbiology - Last 24 Hours (Table) 07/13/19 00:29 Blood Culture - Final Blood No Growth after 144 hours 07/14/19 22:56 Blood Culture - Preliminary Blood No Growth after 96 hours 07/13/19 21:29 Blood Culture - Preliminary Blood No Growth after 120 hours 07/13/19 21:37 Blood Culture - Preliminary Blood No Growth after 120 hours Assessment and Plan Assessment: Bilateral pneumonia Evidence of fluid overload with interstitial edema and perihilar fullness Leukopenia, resolved now Sepsis Acute on chronic respiratory failure Multiple myeloma Plan: Continue IV antibiotics Observe clinical course closely Bronchodilators Further recommendations pending plan of care as per clinical response of patient Time with Patient: Greater than 30
[2019-07-20] MEDS ORDERED: Potassium Replacement Protocol 1 EACH MISC MISCELLANE PRN (14:58)
--- NOTE | 2019-07-20 14:58 | P.PN ---
Subjective Progress Note Date: 07/20/19 Principal diagnosis: Bilateral pneumonia Leukopenia Sepsis Acute on chronic respiratory failure Multiple myeloma 07/20/2019, patient seen eval examined during the rounds labs reviewed medications reviewed care plan discussed as per infectious status continued to improve, patient has some crackles up a part of the chest which has improved as last chest x-ray continued to show CHF-like changes but improved Dez, 07/19/2019, patient seen eval examined during the rounds breathing has improved, patient is on Lasix, wbc have improved as well able to get up and move around, isolation for neutropenic respiratory has been discontinued 07/18/2019, patient seen eval examined during the rounds labs reviewed medications reviewed patient remains short of breath but severity has improved compared to yesterday exam, patient has a chest x-ray done today hard copies reviewed suggestive of fluid overload with hilar fullness and interstitial edema patient will benefit from Lasix, white cell count up to 21,900, patient is on filgrastim 07/17/2019, patient the is still having chest pain but severity has improved less congested able to ambulate and move around denies any chest pain, has been on breathing treatments steroids, has been continued on antibiotics along with anticoagulation Patient is 63-year-old -[place] female with a past medical history significant for multiple myeloma for the patient is currently on chemotherapy, patient presented to [facility] ER with a chief complaints of fever cough and congestion, patient's symptom has been going on for a day or 2 before she presented to hospital, apparently the patient was exposed to her sister who was in [place], the sister was subsequently quarantined on arrival to the and has been cleared of ovalle virus, patient on presentation hospital have a fever of 103F, patient was tachycardic with heart rate 115, patient initial white count was slightly elevated 10.8 repeat is 6.9, influenza serology was negative, patient did have a chest x-ray shows cardia megaly mild pulmonary vascular co ngestion increase from last exam, the patient does have a positive UA urine showing large [place] histories 11 WBC and some budding yeast, patient was initially treated with cefepime and Zithromax subsequently when he has been changed over to vancomycin and cefepime infection disease following that patient. On presentation hospital with a creatinine 1.87 and repeat is 1.23, patient is breathing slightly comfortably, denies having any hemoptysis or chest pain no URI symptoms no nausea no vomiting and abdominal pain and no diarrhea, patient continued to cough up thick tenacious sputum and short of breath, computed tomography scan of the chest revealed bilateral patchy pulmonary infiltrate predominantly in mid and lower lung field Objective - Vital Signs Vital signs: Vital Signs Temp 98.4 F 07/20/19 07:49 Pulse 64 07/20/19 08:05 Resp 17 07/20/19 07:49 BP 122/71 07/20/19 07:49 Pulse Ox 97 07/20/19 07:49 Intake & Output 07/19/19 07/20/19 07/20/19 18:59 06:59 18:59 Intake Total 570 Balance 570 Weight 80.286 kg Intake: Intake, IV Titration 280 Amount Ampicillin-Sulbactam 3 gm 100 In Sodium Chloride 0.9% 100 ml @ 200 mls/hr IVPB Q6HR [facility] Rx#:[id number] Sodium Chloride 0.9% 1, 180 000 ml @ 20 mls/hr IV . Q24H [facility] Rx#:[id number] Oral 290 Other: Voiding Method Toilet Toilet Toilet # Voids 2 - Exam - Constitutional General appearance: average body habitus, cooperative, mild distress - EENT Eyes: anicteric sclerae, EOMI ENT: hearing grossly normal, normal oropharynx - Neck Neck: no lymphadenopathy - Respiratory Respiratory: bilateral: wheezing improved compared to yesterday's exam, diffuse crackles are present the bases along with midlung field - Cardiovascular Rhythm: regular Heart sounds: normal: S1, S2 Abnormal Heart Sounds: no systolic murmur, no diastolic murmur, no rub, no S3 Gallop, no S4 Gallop, no click, no other leg Peripheral Edema: bilateral: None - Gastrointestinal General gastrointestinal: no absent bowel sounds, no decreased bowel sounds, no distended, no hepatomegaly, no hyperactive bowel sounds, normal bowel sounds, no organomegaly, no rigid, no scaphoid, soft, no splenomegaly, no tenderness, no umbilical hernia, no ventral hernia - Integumentary Integumentary: normal - Neurologic Neurologic: CNII-XII intact - Musculoskeletal Musculoskeletal: generalized weakness, strength equal bilaterally - Psychiatric Psychiatric: A&O x's 3, appropriate affect, intact judgment & insight - Labs CBC & Chem 7: 07/20/19 05:34 07/20/19 10:59 Labs: Abnormal Lab Results - Last 24 Hours (Table) 07/19/19 07/19/19 07/20/19 Range/Units 17:32 19:59 05:34 WBC 14.4 H (3.8-10.6) k/uL RBC 3.39 L (3.80-5.40) m/uL Hgb 10.8 L (11.4-16.0) gm/dL MCV 104.1 H (80.0-100.0) fL MCHC 30.7 L (31.0-37.0) g/dL Neutrophils # 10.9 H (1.3-7.7) k/uL Eosinophils # 0.9 H (0-0.7) k/uL Potassium (3.5-5.1) mmol/L Carbon Dioxide (22-30) mmol/L Creatinine (0.52-1.04) mg/dL Glucose (74-99) mg/dL POC Glucose (mg/dL) 150 H 205 H (75-99) mg/dL 07/20/19 07/20/19 07/20/19 Range/Units 05:34 07:05 10:59 WBC (3.8-10.6) k/uL RBC (3.80-5.40) m/uL Hgb (11.4-16.0) gm/dL MCV (80.0-100.0) fL MCHC (31.0-37.0) g/dL Neutrophils # (1.3-7.7) k/uL Eosinophils # (0-0.7) k/uL Potassium 3.3 L 3.4 L (3.5-5.1) mmol/L Carbon Dioxide 34 H (22-30) mmol/L Creatinine 1.15 H (0.52-1.04) mg/dL Glucose 190 H (74-99) mg/dL POC Glucose (mg/dL) 167 H (75-99) mg/dL 07/20/19 Range/Units 11:50 WBC (3.8-10.6) k/uL RBC (3.80-5.40) m/uL Hgb (11.4-16.0) gm/dL MCV (80.0-100.0) fL MCHC (31.0-37.0) g/dL Neutrophils # (1.3-7.7) k/uL Eosinophils # (0-0.7) k/uL Potassium (3.5-5.1) mmol/L Carbon Dioxide (22-30) mmol/L Creatinine (0.52-1.04) mg/dL Glucose (74-99) mg/dL POC Glucose (mg/dL) 166 H (75-99) mg/dL Microbiology - Last 24 Hours (Table) 07/14/19 22:56 Blood Culture - Preliminary Blood No Growth after 120 hours 07/13/19 21:29 Blood Culture - Final Blood No Growth after 144 hours 07/13/19 21:37 Blood Culture - Final Blood No Growth after 144 hours Assessment and Plan Assessment: Bilateral pneumonia Evidence of fluid overload with interstitial edema and perihilar fullness Leukopenia, resolved now Sepsis Acute on chronic respiratory failure Multiple myeloma Plan: Continue IV antibiotics Observe clinical course closely Bronchodilators Further recommendations pending plan of care as per clinical response of patient Time with Patient: Greater than 30
[2019-07-20] MEDS: SPIRONOLACTONE 25 MG TAB PO SCH (16:24)
[2019-07-20] MEDS: FUROSEMIDE 40 MG TAB PO SCH (16:25)
[2019-07-20 17:12] LABS: Glucose,Whole Blood 222 mg/dL (75-99)
--- NOTE | 2019-07-20 18:30 | PN ---
PROGRESS NOTE DATE OF SERVICE: 07/20/2019. REASON FOR FOLLOWUP: Aspiration pneumonia. INTERVAL HISTORY: The patient is currently afebrile, has been breathing comfortably. Denies any chest pain. Cough decreased in intensity. Still bringing up some sputum and no nausea, some vomiting, but no diarrhea. PHYSICAL EXAMINATION: Blood pressure 152/70 with a pulse of 61, temperature 98.4. She is 97% on 2 L nasal cannula. General description is an elderly female lying in bed in no distress. Respiratory system: Unlabored breathing. Decreased breath sounds at the bases. No wheeze. Heart S1, S2. Regular rate and rhythm. Abdomen soft, no tenderness. LABS: Hemoglobin is 10.1, white count 14.4, creatinine is 1.15. Sputum has the usual respiratory yin. DIAGNOSTIC IMPRESSION AND PLAN: Patient with fever, source likely pneumonia with concern for aspiration etiology. The patient clinically responding to the Unasyn. To continue to finish therapy with oral Augmentin. Monitor clinical course closely. Continue supportive care. MMODL / IJN: [id number] /
[2019-07-20 20:17] LABS: Glucose,Whole Blood 177 mg/dL (75-99)
[2019-07-20] MEDS ORDERED: amLODIPine 5 MG TAB PO SCH (21:00)
[2019-07-21] MEDS: AMPICILLIN-SULBACTAM 3 GM in SODIUM CHLORIDE 0.9% 100 ML IVPB SCH ×3 (00:17→13:41)
[2019-07-21] MEDS: ONDANSETRON 4 MG/2 ML VIAL IVP SCH ×3 (00:20→13:41)
[2019-07-21] MEDS: IPRATROPIUM-ALBUTEROL 3 ML NEB INHALATION SCH ×3 (05:02→12:19)
[2019-07-21 06:48] LABS: Glucose,Whole Blood 178 mg/dL (75-99)
[2019-07-21 07:14] LABS: Calcium 8.9 mg/dL (8.4-10.2)
[2019-07-21 07:16] LABS: HCT 35.5 % (34.0-46.0); HGB 10.9 gm/dL (11.4-16.0); Hypochromasia Moderate; MCH 32.2 pg (25.0-35.0); MCHC 30.8 g/dL (31.0-37.0); MCV 104.5 fL (80.0-100.0); Macrocytosis Slight; Mean Platelet Volume 8.1; Platelet Count 380 k/uL (150-450); Poikilocytosis Slight; RDW 14.4 % (11.5-15.5); WBC 7.5 k/uL (3.8-10.6)
[2019-07-21 07:27] VITALS: BP 129/78; PULSE 62; RESP 16; TEMP 98.2
[2019-07-21] MEDS: FUROSEMIDE 40 MG TAB PO SCH (08:16)
[2019-07-21] MEDS: SPIRONOLACTONE 25 MG TAB PO SCH (08:16)
[2019-07-21] MEDS: APIXABAN 5 MG TAB PO SCH (08:16)
[2019-07-21] MEDS: CHOLECALCIFEROL 1,000 UNIT TAB PO SCH (08:16)
[2019-07-21] MEDS: PANTOPRAZOLE 40 MG TABLET PO SCH (08:16)
[2019-07-21] MEDS: FERROUS SULFATE 325 MG TAB PO SCH (08:16)
[2019-07-21] MEDS: ASCORBIC ACID 500 MG TAB PO SCH (08:17)
[2019-07-21] MEDS: FOLIC ACID 1 MG TAB PO SCH (08:17)
[2019-07-21] MEDS: ATENOLOL 25 MG TAB PO SCH (08:17)
[2019-07-21] MEDS: INSULIN ASPART (NovoLOG) 100 UNIT/ML VIAL SQ SCH ×2 (08:17→13:38)
[2019-07-21 08:31] LABS: Band Neutrophils % 2 %; Lymphocytes # (M) 0.83 k/uL (1.0-4.8); Neutrophils % (M) 60 %; Nucleated Red Blood Cells 0 /100 WBC (0-0); Total Cells Counted 200
--- NOTE | 2019-07-21 11:32 | P.PN ---
Subjective Progress Note Date: 07/21/19 Principal diagnosis: multiple myeloma, on treatment, fevers In follow-up today pt is sitting at bedside, she is doing much better, no fevers for several days, nausea and wretching are better, she is tolerating fluids very well now. Cough is productive with sputum clearing. Objective - Vital Signs Vital signs: Vital Signs Temp 98.2 F 07/21/19 07:27 Pulse 62 07/21/19 07:27 Resp 16 07/21/19 07:27 BP 129/78 07/21/19 07:27 Pulse Ox 99 07/21/19 07:27 Intake & Output 07/20/19 07/21/19 07/21/19 18:59 06:59 18:59 Weight 80.286 kg Other: Voiding Method Toilet Toilet - Constitutional General appearance: Present: average body habitus, cooperative, no acute distress - EENT Eyes: Present: anicteric sclerae, EOMI ENT: Present: hearing grossly normal - Respiratory Respiratory: bilateral: rales - Cardiovascular Rhythm: regular Heart sounds: normal: S1, S2 Abnormal Heart Sounds: Absent: systolic murmur, diastolic murmur, rub, S3 G allop, S4 Gallop, click, other - Peripheral edema leg Peripheral Edema: bilateral: None - Gastrointestinal General gastrointestinal: Present: normal bowel sounds, soft - Integumentary Integumentary: Present: normal - Neurologic Neurologic: Present: CNII-XII intact - Musculoskeletal Musculoskeletal: Present: generalized weakness, strength equal bilaterally - Psychiatric Psychiatric: Present: A&O x's 3, appropriate affect, intact judgment & insight - Labs CBC & Chem 7: 07/21/19 06:43 07/21/19 06:43 Labs: Abnormal Lab Results - Last 24 Hours (Table) 07/20/19 07/20/19 07/20/19 Range/Units 10:59 11:50 17:08 RBC (3.80-5.40) m/uL Hgb (11.4-16.0) gm/dL MCV (80.0-100.0) fL MCHC (31.0-37.0) g/dL Lymphocytes # (Manual) (1.0-4.8) k/uL Monocytes # (Manual) (0-1.0) k/uL Potassium 3.4 L (3.5-5.1) mmol/L Carbon Dioxide (22-30) mmol/L Creatinine (0.52-1.04) mg/dL Glucose (74-99) mg/dL POC Glucose (mg/dL) 166 H 222 H (75-99) mg/dL 07/20/19 07/21/19 07/21/19 Range/Units 20:15 06:43 06:43 RBC 3.40 L (3.80-5.40) m/uL Hgb 10.9 L (11.4-16.0) gm/dL MCV 104.5 H (80.0-100.0) fL MCHC 30.8 L (31.0-37.0) g/dL Lymphocytes # (Manual) 0.83 L (1.0-4.8) k/uL Monocytes # (Manual) 1.50 H (0-1.0) k/uL Potassium (3.5-5.1) mmol/L Carbon Dioxide 34 H (22-30) mmol/L Creatinine 1.05 H (0.52-1.04) mg/dL Glucose 176 H (74-99) mg/dL POC Glucose (mg/dL) 177 H (75-99) mg/dL 07/21/19 Range/Units 06:47 RBC (3.80-5.40) m/uL Hgb (11.4-16.0) gm/dL MCV (80.0-100.0) fL MCHC (31.0-37.0) g/dL Lymphocytes # (Manual) (1.0-4.8) k/uL Monocytes # (Manual) (0-1.0) k/uL Potassium (3.5-5.1) mmol/L Carbon Dioxide (22-30) mmol/L Creatinine (0.52-1.04) mg/dL Glucose (74-99) mg/dL POC Glucose (mg/dL) 178 H (75-99) mg/dL Microbiology - Last 24 Hours (Table) 07/14/19 22:56 Blood Culture - Final Blood No Growth after 144 hours - Imaging and Cardiology Chest x-ray: report reviewed (improvement in CHF) Assessment and Plan (1) Intractable nausea and vomiting Current Visit: Yes Status: Resolved Priority: High Code(s): R11.2 - NAUSEA WITH VOMITING, UNSPECIFIED SNOMED Code(s): 949437762 (2) Leukopenia Current Visit: Yes Status: Resolved Priority: High Code(s): D72.819 - DECREASED WHITE BLOOD CELL COUNT, UNSPECIFIED SNOMED Code(s): 46773223 (3) Pneumonia Narrative/Plan: ID following closely Current Visit: Yes Status: Acute Priority: High Code(s): J18.9 - PNEUMONIA, UNSPECIFIED ORGANISM SNOMED Code(s): 238328337 (4) Sepsis Narrative/Plan: Cultures negative. Pt improving Current Visit: Yes Status: Acute Priority: High Code(s): A41.9 - SEPSIS, UNSPECIFIED ORGANISM SNOMED Code(s): 48567372 (5) Multiple myeloma Narrative/Plan: No treatment currently due. Pt stated today that she does not want to f/u with Hem/Onc anymore. I told her we are available if she ever wants to talk about her MM. She verbalized understanding Current Visit: No Status: Chronic Priority: Medium Code(s): C90.00 - MULTIPLE MYELOMA NOT HAVING ACHIEVED REMISSION SNOMED Code(s): 902501436
[2019-07-21 12:15] LABS: Glucose,Whole Blood 254 mg/dL (75-99)
--- NOTE | 2019-07-21 12:22 | PN ---
PROGRESS NOTE DATE OF SERVICE: 07/21/2019 REASON FOR FOLLOWUP: Pneumonia aspiration. INTERVAL HISTORY: The patient is currently afebrile. Patient is breathing comfortably. Denies having any chest pain. She did have a cough though decreased in intensity. No nausea. No vomiting. No diarrhea. PHYSICAL EXAMINATION: Blood pressure 129/78 with a pulse of 62, temperature 98.2. She is 99% on 2 L nasal cannula. General description is an elderly female lying in bed in no distress. RESPIRATORY SYSTEM: Unlabored breathing. Decreased breath sounds at the bases. No wheeze. HEART: S1, S2. Regular rate and rhythm. ABDOMEN: Soft, no tenderness. LABS: Hemoglobin is 10.9, white count of 7.5, creatinine 1.05. Sputum has been usual respiratory yin. DIAGNOSTIC IMPRESSION AND PLAN: Patient with fever, source is likely pneumonia possible aspiration etiology. Clinically improving on Unasyn. Plan to finish therapy with oral Augmentin 875 b.i.d. for 7 to 10 days and close outpatient followup. MMODL / IJN: [id number] /
--- NOTE | 2019-07-21 13:46 | P.DS ---
Providers Date of admission: 07/11/19 18:52 Expected date of discharge: 07/21/19 Attending physician: Carl Cid Consults: 07/11/19 18:53 Consult Physician Routine Consulting Provider: Chula Sanchez Consult Reason/Comments: Sepsis, pneumonia Do you want consulting provider notified?: Yes 07/11/19 20:23 Consult Physician Routine Consulting Provider: Ellie Najera Consult Reason/Comments: Acute renal failure, dehydration, sepsis, lactic acid Do you want consulting provider notified?: Yes 07/12/19 09:23 Consult Physician Routine Consulting Provider: Liban Bishop Consult Reason/Comments: Pacemaker, increasedBMP, pneumonia versus congestive heart failure. Do you want consulting provider notified?: Yes 07/12/19 14:59 Consult Physician Routine Consulting Provider: Isidro Carreon Consult Reason/Comments: post chemo fevers Do you want consulting provider notified?: Yes 07/14/19 17:16 Consult Physician Routine Consulting Provider: Drake Contreras Consult Reason/Comments: pneumonia Do you want consulting provider notified?: Yes 07/15/19 14:28 Consult Physician Routine Consulting Provider: Goran Montalvo Consult Reason/Comments: pleural efffusion Do you want consulting provider notified?: Yes 07/17/19 10:13 Consult Physician Routine Consulting Provider: Jessica Ortega Consult Reason/Comments: Intractable N,V, Hx H-pylori infection 2016 Do you want consulting provider notified?: Yes Primary care physician: Carl Cid Final diagnosis: #1 acute hypoxic respiratory failure secondary to pneumonia of the right sided. #2 sepsis with neutropenic fever with white count 1.4. #3 severe pulmonary hypertension. #4 cardiomyopathy with acute systolic and diastolic with the impairment of the ejection fraction. #5 for heart disease with severe tricuspid regurg, left atrial severely dilated more than 40 mL per meter square. Grade 2 diastolic dysfunction, impaired ejection fraction to 4550 percent moderate concentric left ventricular hypertrophy, apical septum of the left ventricle wall motion hypokinesis. Moderate mitral regurg and mild aortic regurg. And physiologic pulmonary regurg. #6 left infraclavicular pacemaker. Cardiomyopathy #7 multiple myeloma not in remission. Since 2007 #8 severely febrile much neutropenia could be associated with the l last chemotherapy in [facility] for treatment of multiple myeloma. #9 acute kidney injury from prerenal from pneumonia with the repeat creatinine 2. #10 chronic kidney disease stage II with diabetic nephropathy and proteinuria. #11 anemia of chronic disease. #12 thrombo-cytopenia multifactorial associated with multiple myeloma versus chemo. #13 diabetes mellitus2 insulin-dependent covered with NovoLog to scale was fairly controlled. And she has been followed by Dr. Casandra Contreras financial investment adviser. On discharge: Patient afebrile conscious alert vital signs stable with temperature 98.2 F oral and pulse 62/m and respiratory rate 16 nonlabored and blood pressure controlled 129/78 and she is on 2 L nasal cannula. Patient will have 6 minute walk if she desaturated will be continuing the oxygen at home as well as the nebulizers. Prescription on the chart White count normalized to 7.5 with the hemoglobin 10.9 and MCV 104.5. Her chemistry sodium 142, potassium 4, and a chloride 105, carbon dioxide 34, BUN 14, creatinine 1.05 with the estimated glomerular filtration rate for - Burmese is 64 Patient stable general condition for discharge. Follow-up with cardiology Dr. C[place] And nephrology Dr. Montano and infectious disease by Dr. Sanchez and pulmonary by Dr. Drake Contreras and Dr. Carreon for her multiple myeloma. On exam: HEENT negative, neck was supple she had tricuspid regurg with the presence of JVD. Chest improved rales and rhonchi with the last chest x-ray was indicating congestive heart failure which is diuresis. Heart she had cardio myopathy with the hypokinesis and impaired systolic and diastolic function acute on the top of chronic. Abdomen is soft positive bowel sounds no tenderness history of nausea with the neutropenia resolved. Extremities: No edema and positive pulses. Neurologically stable no lateralizing sign. Plan discharge home today stable general condition with the nebulizers for inhalation therapy 4 times a day with the DuoNeb. As well as nebulizer machine as well as ambulation for 6 minute to see if the patient desaturated will be needed home oxygen concentrator and portable. Patient Condition at Discharge: Stable Plan - Discharge Summary New Discharge Prescriptions: New Spironolactone [Aldactone] 12.5 mg PO DAILY #30 tab Amoxic-Pot Clav 875-125Mg [Augmentin 875-125] 1 each PO Q12HR #20 tab Ipratropium-Albuterol Nebulize [Duoneb 0.5 mg-3 mg/3 ml Soln] 3 ml INHALATION RT-Q4H ml Furosemide [Lasix] 40 mg PO BID@0900,1600 #60 tab amLODIPine [Norvasc] 5 mg PO HS #30 tab Pantoprazole [Protonix] 40 mg PO AC-BID #30 tablet. Acetaminophen Tab [Tylenol] 650 mg PO Q6HR PRN tab PRN Reason: Mild Pain Or Fever > 100.5 Continue Atenolol [Tenormin] 25 mg PO DAILY tab INSULIN ASPART (NovoLOG) [NovoLOG (formulary)] See Protocol SQ ACHS Ascorbic Acid [Vitamin C] 500 mg PO DAILY Apixaban [Eliquis] 5 mg PO BID Cholecalciferol (Vitamin D3) [Vitamin D3] 2,000 unit PO DAILY Folic Acid 0.4 mg PO DAILY Ferrous Sulfate [Iron (65 MG Elemental)] 325 mg PO DAILY Discontinued amLODIPine [Norvasc] 10 mg PO HS Gabapentin [Neurontin] 200 mg PO HS Gabapentin [Neurontin] 100 mg PO DAILY Discharge Medication List Atenolol [Tenormin] 25 mg PO DAILY tab 09/07/15 [Rx] Apixaban [Eliquis] 5 mg PO BID 07/22/18 [History] Ascorbic Acid [Vitamin C] 500 mg PO DAILY 07/22/18 [History] Cholecalciferol (Vitamin D3) [Vitamin D3] 2,000 unit PO DAILY 07/22/18 [History] INSULIN ASPART (NovoLOG) [NovoLOG (formulary)] See Protocol SQ ACHS 07/22/18 [History] Ferrous Sulfate [Iron (65 MG Elemental)] 325 mg PO DAILY 07/11/19 [History] Folic Acid 0.4 mg PO DAILY 07/11/19 [History] Acetaminophen Tab [Tylenol] 650 mg PO Q6HR PRN tab 07/21/19 [Rx] Amoxic-Pot Clav 875-125Mg [Augmentin 875-125] 1 each PO Q12HR #20 tab 07/21/19 [Rx] Furosemide [Lasix] 40 mg PO BID@0900,1600 #60 tab 07/21/19 [Rx] Ipratropium-Albuterol Nebulize [Duoneb 0.5 mg-3 mg/3 ml Soln] 3 ml INHALATION RT-Q4H ml 07/21/19 [Rx] Pantoprazole [Protonix] 40 mg PO AC-BID #30 tablet. 07/21/19 [Rx] Spironolactone [Aldactone] 12.5 mg PO DAILY #30 tab 07/21/19 [Rx] amLODIPine [Norvasc] 5 mg PO HS #30 tab 07/21/19 [Rx] Follow up Appointment(s)/Referral(s): Isidro Carreon MD [STAFF PHYSICIAN] - As Needed (Cancelled f/u per Patient request. She will up PRN and contact office if she wants to be seen) Carl Cid MD [Primary Care Provider] - 1-2 days Discharge Disposition: HOME WITH HOME HEALTH SERVICES
[2019-07-21] MEDS ORDERED: AMOXIC-POT CLAV 875-125MG 1 EACH TAB PO SCH (21:00)
== END 2019-07-21 15:43 | disposition home or self-care (01) | DRG 871 ==
LOC: EC 16:34 → 5NMEDONC 18:52 → 4SSUR 07-18 15:29
PROVIDERS: ADMIT Internal Medicine; ATTEND Internal Medicine
DX: A41.9 Sepsis, unspecified organism (principal); J69.0 Pneumonitis due to inhalation of food and vomit; I50.41 Acute combined systolic (congestive) and diastolic (congestive) heart failure; J96.21 Acute and chronic respiratory failure with hypoxia; C90.00 Multiple myeloma not having achieved remission; I13.0 Hypertensive heart and chronic kidney disease with heart failure and stage 1 through stage 4 chronic kidney disease, or unspecified chronic kidney disease; I31.3 Pericardial effusion (noninflammatory); N17.9 Acute kidney failure, unspecified; N39.0 Urinary tract infection, site not specified; D70.1 Agranulocytosis secondary to cancer chemotherapy; D89.9 Disorder involving the immune mechanism, unspecified; I27.20 Pulmonary hypertension, unspecified; D63.8 Anemia in other chronic diseases classified elsewhere; D70.3 Neutropenia due to infection; E11.22 Type 2 diabetes mellitus with diabetic chronic kidney disease; K76.0 Fatty (change of) liver, not elsewhere classified; N18.3 Chronic kidney disease, stage 3 (moderate); E88.81 Metabolic syndrome and other insulin resistance; D69.59 Other secondary thrombocytopenia; D75.89 Other specified diseases of blood and blood-forming organs; E03.9 Hypothyroidism, unspecified; E78.00 Pure hypercholesterolemia, unspecified; E78.5 Hyperlipidemia, unspecified; E86.0 Dehydration; E87.5 Hyperkalemia; E87.6 Hypokalemia; G62.9 Polyneuropathy, unspecified; I25.5 Ischemic cardiomyopathy; I08.8 Other rheumatic multiple valve diseases; I48.0 Paroxysmal atrial fibrillation; K29.60 Other gastritis without bleeding; K44.9 Diaphragmatic hernia without obstruction or gangrene; M19.90 Unspecified osteoarthritis, unspecified site; K21.9 Gastro-esophageal reflux disease without esophagitis; M51.27 Other intervertebral disc displacement, lumbosacral region; E79.0 Hyperuricemia without signs of inflammatory arthritis and tophaceous disease; R13.10 Dysphagia, unspecified; T45.1X5A Adverse effect of antineoplastic and immunosuppressive drugs, initial encounter; R11.2 Nausea with vomiting, unspecified; R53.81 Other malaise; E66.9 Obesity, unspecified; Z68.31 Body mass index [BMI] 31.0-31.9, adult; Z79.01 Long term (current) use of anticoagulants; Z79.4 Long term (current) use of insulin; Z79.899 Other long term (current) drug therapy; Z91.040 Latex allergy status; Z86.19 Personal history of other infectious and parasitic diseases; Z87.11 Personal history of peptic ulcer disease; Z90.710 Acquired absence of both cervix and uterus; Z95.0 Presence of cardiac pacemaker; Z90.49 Acquired absence of other specified parts of digestive tract; Z90.721 Acquired absence of ovaries, unilateral; Z87.440 Personal history of urinary (tract) infections; Z82.49 Family history of ischemic heart disease and other diseases of the circulatory system
CPT/HCPCS: 36415; 71045; 71046; 71250; 74177; 76700; 80048; 80053; 80076; 80202; 81001; 82550; 82553; 82565; 82784; 83605; 83615; 83735; 83880; 84132; 84145; 84443; 84484; 85025; 85610; 85730; 86140; 87040; 87070; 87086; 87205; 87449; 87502; 93005; 93306; 94640; 94760; 96365; 96366; 96368; 99285

== ENCOUNTER → 2019-08-11 | Outpatient (CLI) | payer MEDICARE ==
--- NOTE | 2019-08-11 08:58 | XR ---
EXAMINATION TYPE: XR chest 2V DATE OF EXAM: 08/11/2019 COMPARISON: 07/20/2019 HISTORY: 63-year-old female weakness and shortness of breath, pneumonia TECHNIQUE: Frontal and lateral views FINDINGS: Right anterior chest wall injection port with subclavian access and catheter tip at the lower SVC lev el. Left anterior chest wall pacemaker generator with right atrial and right ventricular leads. Verte broplasty changes redemonstrated. Heart borderline to mildly enlarged. No consolidation or pleural ef fusion. IMPRESSION: Borderline to mild cardiomegaly. Otherwise, no acute cardiopulmonary process.
[2019-08-11 09:40] LABS: HCT 40.3 % (34.0-46.0); HGB 13.4 gm/dL (11.4-16.0); MCH 32.9 pg (25.0-35.0); MCHC 33.3 g/dL (31.0-37.0); Mean Platelet Volume 7.5; Platelet Count 239 k/uL (150-450); RBC 4.08 m/uL (3.80-5.40); WBC 3.6 k/uL (3.8-10.6)
[2019-08-11 09:43] LABS: MCV 98.9 fL (80.0-100.0)
[2019-08-11 10:50] LABS: Basophils # (M) 0.07 k/uL (0-0.2); Eosinophils # (M) 0.72 k/uL (0-0.7); Lymphocytes # (M) 1.33 k/uL (1.0-4.8); Monocytes # (M) 0.25 k/uL (0-1.0); Neutrophils # (M) 1.22 k/uL (1.3-7.7); Neutrophils % (M) 34 %; Nucleated Red Blood Cells 0 /100 WBC (0-0); Total Cells Counted 100
[2019-08-11 10:51] LABS: Poikilocytosis (M) Present
[2019-08-11 11:05] LABS: Erythrocyte Sedimentation Rate 70 mm/hr (0-20)
[2019-08-11 17:07] LABS: Albumin 4.3 g/dL (3.80-4.90); Albumin/Globulin Ratio 1.48 (1.60-3.17); Anion Gap 10.4 mmol/L (4.00-12.00); BUN/Creat Ratio 19.41 Ratio (12.00-20.00); Calcium 9.5 mg/dL (8.7-10.3); Carbon Dioxide 27.6 mmol/L (21.6-31.8); Chol/HDL Ratio 6.14; Globulin 2.9 g/dL (1.6-3.3); Non-African American GFR(CKD) 31.1 (60.0-200.0); Potassium 4.1 mmol/L (3.5-5.5); Total Bilirubin 0.5 mg/dL (0.2-1.2); Total Protein 7.2 g/dL (6.2-8.2)
[2019-08-11 18:58] LABS: Hemoglobin A1C 7.8 % (4.0-6.0)
== END | disposition home or self-care (01) ==
LOC: LABWHC1 08:15
PROVIDERS: ATTEND Internal Medicine
DX: E11.65 Type 2 diabetes mellitus with hyperglycemia (principal); E78.5 Hyperlipidemia, unspecified; J18.9 Pneumonia, unspecified organism; I51.7 Cardiomegaly
CPT/HCPCS: 36415; 71046; 80053; 80061; 82550; 83036; 83721; 83880; 84443; 85025; 85652

== ENCOUNTER → 2019-08-15 | Outpatient (CLI) | payer MEDICARE ==
--- NOTE | 2019-08-15 14:00 | CT ---
EXAMINATION TYPE: CT brain wo con DATE OF EXAM: 08/15/2019 COMPARISON: None HISTORY: apraxia CT DLP: 927.3 mGycm Automated exposure control for dose reduction was used. TECHNIQUE: CT scan of the head is performed without contrast. FINDINGS: Isodense structure in the left parietal lobe obscures the gonzalez-white matter interface and a ppears more rounded and masslike on coronal series 7 image 45 and sagittal series 8 image 35. This is marked on axial series 6 image 22. Overall this measures approximately 2.3 cm. Only minimal surround ing vasogenic edema. No midline shift. There is no acute intracranial hemorrhage or midline shift identified. There is diffuse ventricular a nd sulcal prominence consistent with diffuse age-related cerebral atrophy. Old lacunar injury seen of the genu of the left internal capsule. There is low-attenuation in the periventricular white matter consistent with chronic small vessel ischemic change. The globes are intact. Inspissated secretions are seen in the sphenoid sinus. Visualized ethmoid sinuses and mastoid air cells are well aerated. Fr ontal sinuses are hypoplastic. Atherosclerosis is seen of the intracranial vasculature. IMPRESSION: 1. Isodense masslike structure in the left parietal lobe with mild surrounding vasogenic edema. Given the minimal amount of vasogenic edema low-grade intra-axial tumor or extra-axial meningioma is favor ed. MRI with contrast is recommended for further evaluation. No current midline shift. 2. No acute intracranial hemorrhage or midline shift.
== END | disposition home or self-care (01) ==
LOC: RADCTMAIN 13:16
PROVIDERS: ATTEND Internal Medicine
DX: G93.6 Cerebral edema (principal); R22.0 Localized swelling, mass and lump, head; Z91.040 Latex allergy status; Z88.8 Allergy status to other drugs, medicaments and biological substances; R40.4 Transient alteration of awareness
CPT/HCPCS: 70450

== ENCOUNTER → 2019-08-29 | Outpatient (CLI) | payer MEDICARE ==
[2019-08-29 15:26] LABS: Albumin/Globulin Ratio 1.74 (1.60-3.17); Anion Gap 9.9 mmol/L (4.00-12.00); BUN/Creat Ratio 39.09 Ratio (12.00-20.00); Calcium 9.1 mg/dL (8.7-10.3); Carbon Dioxide 31.1 mmol/L (21.6-31.8); Globulin 2.3 g/dL (1.6-3.3); Non-African American GFR(CKD) 52.6 (60.0-200.0); Potassium 4.8 mmol/L (3.5-5.5); Total Bilirubin 0.4 mg/dL (0.2-1.2); Total Protein 6.3 g/dL (6.2-8.2)
== END | disposition home or self-care (01) ==
LOC: LABWHC1 08:13
PROVIDERS: ATTEND Internal Medicine
DX: I11.0 Hypertensive heart disease with heart failure (principal); I50.9 Heart failure, unspecified; E87.8 Other disorders of electrolyte and fluid balance, not elsewhere classified
CPT/HCPCS: 36415; 80053; 83880

== ENCOUNTER → 2019-09-18 | Outpatient (CLI) | payer MEDICARE ==
--- NOTE | 2019-09-18 14:06 | CT ---
EXAMINATION TYPE: CT brain wo con DATE OF EXAM: 09/18/2019 HISTORY: follow up mass, possible right side cva CT DLP: 1629 mGycm. Automated Exposure Control for Dose Reduction was Utilized. TECHNIQUE: CT scan of the head is performed without contrast. COMPARISON: CT brain August 15, 2019. FINDINGS: There is no acute intracranial hemorrhage or midline shift identified. There is diffuse v entricular and sulcal prominence consistent with diffuse age-related cerebral atrophy. Area of low at tenuation deep left parietal lobe shows more prominence from prior study. Location around lucent are as throughout the calvarium redemonstrated for reference left frontal region axial image 17 and right parietal region axial image 15. Dense calcification distal internal carotid artery level bilaterally . The globes are intact and the visualized sinuses are clear. IMPRESSION: No acute intracranial hemorrhage or midline shift. There is mild diffuse age-related ce rebral atrophy redemonstrated. Increasing left parietal hypodensity or vasogenic edema suggests prob able mass or neoplasm at this level. Contrast enhanced MRI follow-up is advised. Nonspecific bony les ions should be correlated clinically. Lytic metastatic disease and myeloma are in differential.
--- NOTE | 2019-09-18 14:14 | US ---
EXAMINATION TYPE: US carotid duplex BILAT DATE OF EXAM: 09/18/2019 COMPARISON: NONE CLINICAL HISTORY: I63.511, I63.50. Patient states having a possible stroke. Patient states she was u nable to talk or read. EXAM MEASUREMENTS: RIGHT: Peak Systolic Velocity (PSV) cm/sec ----- Right CCA: 55.2 ----- Right ICA: 54.0 ----- Right ECA: 91.8 ICA/CCA ratio: 1.0 RIGHT: End Diastole cm/sec ----- Right CCA: 11.8 ----- Right ICA: 18.2 ----- Right ECA: 10.2 LEFT: Peak Systolic Velocity (PSV) cm/sec ----- Left CCA: 44.8 ----- Left ICA: 58.1 ----- Left ECA: 73.5 ICA/CCA ratio: 1.3 LEFT: End Diastole cm/sec ----- Left CCA: 12.0 ----- Left ICA: 15.3 ----- Left ECA: 14.2 VERTEBRALS (direction of flow): Right Vertebral: Antegrade Left Vertebral: Antegrade Rhythm: Normal Bilateral wall thickening. No significant stenosis. No elevated velocities. Plaque seen in distal l eft CCA. Grayscale images show mild eccentric hyperechoic plaque left carotid bulb level. Velocity measurement s and ratios remain within normal limits in the visualized portion of both internal carotid arteries. IMPRESSION: No hemodynamically significant stenosis in either internal carotid artery. Criteria for Assigning % of Stenosis / Diameter reduction (Estimation based on the indirect measurements of the internal carotid artery velocities (ICA PSV). 1. Normal (no stenosis)=ICA PSV < 125 cm/s: ratio < 2.0: ICA EDV<40 cm/s. 2. Less than 50% stenosis=ICA PSV < 125 cm/s: ratio < 2.0: ICA EDV<40 cm/s. 3. 50 to 69% stenosis=ICA PSV of 125 to 230 cm/s: ration 2.0 ? 4.0: ICA EDV 40-100 cm/s. 4. Greater than 70% stenosis to near occlusion= ICA PSV > 230 cm/s: ratio > 4.0: ICA EDV > 100 cm/s. 5. Near occlusion= ICA PSV velocities may be low or undetectable: variable ratio and ICA EDV. 6. Total occlusion=unable to detect flow.
== END | disposition home or self-care (01) ==
LOC: RADUSMAIN 12:51
PROVIDERS: ATTEND Internal Medicine
DX: G31.1 Senile degeneration of brain, not elsewhere classified (principal); I63.9 Cerebral infarction, unspecified
CPT/HCPCS: 70450; 93880

== ENCOUNTER → 2019-10-09 | Outpatient (CLI) | payer MEDICARE ==
[2019-10-09 19:50] LABS: Urine Creatinine 182.6 mg/dL
[2019-10-09 21:12] LABS: African American GFR (CKD) 68.5 (60.0-200.0); Albumin/Globulin Ratio 1.48 (1.60-3.17); Anion Gap 14.4 mmol/L (4.00-12.00); Calcium 9.4 mg/dL (8.7-10.3); Carbon Dioxide 30.6 mmol/L (21.6-31.8); Chol/HDL Ratio 4.53; Globulin 2.7 g/dL (1.6-3.3); LDL Cholesterol,Calculated 109.8 mg/dL (0.0-131.0); Non-African American GFR(CKD) 59.1 (60.0-200.0); Total Bilirubin 0.4 mg/dL (0.3-1.2); Total Protein 6.7 g/dL (6.2-8.2); VLDL Calculation 31.2 mg/dL (5.00-40.00)
[2019-10-09 21:15] LABS: Hemoglobin A1C 10.7 % (4.0-6.0)
== END | disposition home or self-care (01) ==
LOC: LABWHC1 11:47
PROVIDERS: ATTEND Internal Medicine Endocrinology, Diabetes & Metabolism
DX: E11.65 Type 2 diabetes mellitus with hyperglycemia (principal)
CPT/HCPCS: 36415; 80053; 80061; 82043; 82570; 83036; 84443

== ENCOUNTER → 2020-02-18 | Outpatient (CLI) | payer MEDICARE ==
--- NOTE | 2020-02-18 14:55 | US ---
EXAMINATION TYPE: US venous doppler duplex LE DATE OF EXAM: 02/18/2020 2:43 PM COMPARISON: NONE CLINICAL HISTORY: M79.662; M79.661; R22.42; R22.41. Pain SIDE PERFORMED: Bilateral TECHNIQUE: The lower extremity deep venous system is examined utilizing real time linear array sonog dana with graded compression, doppler sonography and color-flow sonography. VESSELS IMAGED: External Iliac Vein (EIV) Common Femoral Vein Deep Femoral Vein Greater Saphenous Vein * Femoral Vein Popliteal Vein Small Saphenous Vein * Proximal Calf Veins (* superficial vessels) Right Leg: Negative for DVT GSV not visualized Left Leg: Negative for DVT IMPRESSION: Grayscale, color doppler, spectral doppler imaging performed of the deep veins of the lo wer extremities. There is normal flow, compressibility, vascular waveforms.
== END | disposition home or self-care (01) ==
LOC: RADUSWWP 13:57
PROVIDERS: ATTEND Internal Medicine
DX: M79.661 Pain in right lower leg (principal); M79.662 Pain in left lower leg; R22.43 Localized swelling, mass and lump, lower limb, bilateral; D68.8 Other specified coagulation defects
CPT/HCPCS: 36415; 85379; 93970

== ENCOUNTER → 2020-03-08 | Outpatient (CLI) | payer MEDICARE ==
--- NOTE | 2020-03-08 16:33 | XR ---
EXAMINATION TYPE: XR bone survey complete, 21 views DATE OF EXAM: 03/08/2020 COMPARISON: Correlation CT abdomen 07/15/2019 HISTORY: 64-year-old female multiple myeloma, hypertension, diabetes, brain neoplasm. FINDINGS: Chest: Right anterior chest wall injection port, catheter tip at the lower SVC. Heart is enlarged. Di ffuse interstitial prominence. Left anterior chest wall pacemaker generator with right atrial and rig ht ventricular leads. Cervical spine: Multilevel hypertrophic facet and uncovertebral joint arthropathy. The C6-C7 level and below is obscu red by the patient's shoulders. No predental space widening. Calvarium: Left occipitoparietal craniotomy flap. There are punched-out lytic lucencies throughout th e calvarium. The mandible appears clear. Thoracic spine: Prior vertebroplasty change T9 and L1. A few subtle rounded lucent areas within the r ight clavicle on the AP view of the thoracic spine. Moderate multilevel degenerative disc disease. No vertebral compression collapse. Lumbar spine: Left L5 hemisacralization. Cholecystectomy clips. Grade 2 anterolisthesis L5-S1. No ot her vertebral compression collapse aside from L1 where vertebroplasty change is present. Right femur: A single 5 mm lucent area projecting at the intramedullary space of the proximal femoral shaft. No endosteal scalloping. Left femur: Limited by overlying panniculus. Pelvis: No discrete lytic destruction. Multiple pelvic phleboliths. Right humerus: A 6 mm lucent lesion within the proximal third femoral shaft. Left humerus: Loss of the subacromial space suggests a chronic full-thickness rotator cuff tear. No e ndosteal scalloping or discrete lytic destruction. IMPRESSION: 1. Punched-out lucencies throughout the calvarium, a few subtle rounded lucent areas within the right clavicle, and a single small oval lucent area within the proximal right humerus and proximal right f emur. Findings may reflect myelomatous involvement. 2. Prior left occipital parietal craniotomy flap, full-thickness rotator cuff tear left shoulder, car diomegaly and interstitial changes, possible mild CHF, previous T9 and L1 vertebroplasty, and grade 2 anterolisthesis at L5-S1 could be from facet arthropathy or pars defects.
== END | disposition home or self-care (01) ==
LOC: RADXRMAIN 14:33
PROVIDERS: ATTEND Internal Medicine Hematology & Oncology
DX: M75.102 Unspecified rotator cuff tear or rupture of left shoulder, not specified as traumatic (principal); Z98.890 Other specified postprocedural states; C90.00 Multiple myeloma not having achieved remission; D49.6 Neoplasm of unspecified behavior of brain; I10 Essential (primary) hypertension; E11.9 Type 2 diabetes mellitus without complications
CPT/HCPCS: 77075; 80053; 82232; 83883; 84165; 84166

== ENCOUNTER 2020-07-26 06:50 | Day surgery (SDC) | payer MEDICARE ==
[2020-07-22 13:12] VITALS: BMI 27.4
[~2020-07-26 06:50] MED LIST changes: -DEXAMETHASONE SOD PHOSPHATE 10 MG/ML 1 ML VIAL IV ONE; -HYDROmorphone 0.5 MG/0.5 ML SYRINGE IVP PRN; +LACTATED RINGERS 1,000 ML IV SCH; +LIDOCAINE 1% (10MG/ML) FOR IV START INTRADERMA PRN; -MIDAZOLAM (PF) 2 MG/2 ML VIAL IV PRN; -ONDANSETRON 4 MG/2 ML VIAL IVP ONE; -SCOPOLAMINE 1.5MG/72HR PATCH TRANSDERM ONE; -SODIUM CHLORIDE 0.9% IRRIGATIO 1,000 ML IRRIGATION ONE; -ceFAZolin IN SWFI 2 GM/20 ML SYRINGE IVP ONE
[2020-07-26 07:21] VITALS: RESP 16; TEMP 97.4
[2020-07-26 07:29] LABS: Glucose,Whole Blood 186 mg/dL (75-99)
[2020-07-26] MEDS ORDERED: PROPOFOL 10 MG/ML 20 ML VIAL IV ONE (07:40)
[2020-07-26] MEDS ORDERED: LIDOCAINE 1% INJ 10MG/ML (20 ML MDV) ONE (07:40)
[2020-07-26] MEDS ORDERED: IV FLUID CONTINUATION 1,000 ML IV ONE (07:57)
--- NOTE | 2020-07-26 08:00 | P.PCN ---
Date of Procedure: 07/26/20 Description of Procedure: BRIEF HISTORY: Patient is a 64-year-old female presenting for outpatient EGD for evaluation of reflux and GERD. Patient had been seeing reporting nausea currently on a reflux regimen with PPI in the morning and famotidine at night. PROCEDURE PERFORMED: Esophagogastroduodenoscopy with biopsy. PREOPERATIVE DIAGNOSIS: Reflux, GERD. ESTIMATED BLOOD LOSS: Minimal. IV sedation per anesthesia. PROCEDURE: After informed consent was obtained, the patient was brought into the endoscopy unit. IV sedation was administered by Anesthesia under continuous monitoring. Initially the Olympus GIF-190 video endoscope was inserted into the mouth. Esophagus intubated without any difficulty. It was gradually advanced into the stomach and duodenum and carefully examined. The bulb and the second part of the duodenum appeared normal, with biopsies taken. The scope at this time was withdrawn to the stomach, adequately insufflated with air, and upon careful examination, mucosa of the antrum, body, cardia and the fundus appeared normal, except for some mild scattered erythema in the antrum and body suggestive of mild gastritis with biopsies taken. The scope was then withdrawn into the esophagus. The GE junction was located at 36 cm from the incisors and biopsies. Small 1 cm hiatal hernia noted. The esophagus appeared normal. There were no erosions or ulcerations seen and the patient tolerated the procedure well. IMPRESSION: 1. Mild gastritis . 2. Small hiatal hernia. 3. Biopsies of the duodenum, antrum body and GE junction . RECOMMENDATIONS: The findings of this examination were discussed with the patient and her family. Okay to resume diet. Okay to resume medications. Await pathology from biopsies. Follow up in the GI clinic as scheduled. Continue current medical regimen.
[2020-07-26 08:13] VITALS: BP 136/77; PULSE 80
== END 2020-07-26 09:06 | disposition home or self-care (01) ==
LOC: ORWHC2ENDO 06:50
PROVIDERS: ATTEND Internal Medicine
DX: K29.50 Unspecified chronic gastritis without bleeding (principal); K44.9 Diaphragmatic hernia without obstruction or gangrene; K21.9 Gastro-esophageal reflux disease without esophagitis; E11.22 Type 2 diabetes mellitus with diabetic chronic kidney disease; N18.30 Chronic kidney disease, stage 3 unspecified; M19.90 Unspecified osteoarthritis, unspecified site; Z88.8 Allergy status to other drugs, medicaments and biological substances; Z91.040 Latex allergy status; Z95.0 Presence of cardiac pacemaker; Z79.01 Long term (current) use of anticoagulants; Z79.4 Long term (current) use of insulin; Z79.899 Other long term (current) drug therapy
CPT/HCPCS: 88305; 43239; J2001; J2704

== ENCOUNTER → 2020-07-28 | Outpatient (CLI) | payer MEDICARE ==
[2020-07-28 14:41] LABS: Appearance,Urine Cloudy (Clear); Bacteria,Urine Rare /hpf; Bilirubin,Urine Negative (Negative); Blood,Urine Negative (Negative); Color,Urine Yellow; Glucose,Urine (UA) Negative (Negative); Hyaline Casts,Urine 3 /lpf (0-2); Ketones,Urine Negative (Negative); Leukocyte Esterase,Urine Large (Negative); Mucus,Urine Rare /hpf; Nitrite,Urine Negative (Negative); Protein,Urine 2+ (Negative); Specific Gravity,Urine 1.026 (1.001-1.035); Squamous Epithelial Cell,Urine 7 /hpf (0-4); WBC,Urine 20 /hpf (0-5)
--- NOTE | 2020-07-28 15:11 | XR ---
EXAMINATION TYPE: XR chest 2V DATE OF EXAM: 07/28/2020 COMPARISON: Chest x-ray 08/11/2019 HISTORY: R 50.9, fever TECHNIQUE: Frontal and lateral views of the chest are obtained. FINDINGS: There is no focal air space opacity, pleural effusion, or pneumothorax seen. The cardiac silhouette size is stable. The osseous structures are stable, vertebroplasty changes are present as on prior exam. There is a generator in left pectoral region, leads are present right atrium and vent ricle. Is a port in right pectoral region, catheter courses via subclavian approach cyst at the dista l tip is at the superior vena cava. Aorta is dense and tortuous. Suspect coronary artery calcificatio n is present. There is overlying artifact. IMPRESSION: No acute cardiopulmonary process. Stable cardiomegaly.
[2020-07-28 21:32] LABS: Basophils # (A) 0.05 X 10*3/uL (0.00-0.10); Basophils % (A) 0.5 %; Eosinophils # (A) 0.12 X 10*3/uL (0.04-0.35); Eosinophils % (A) 1.2 %; HCT 28.4 % (37.2-46.3); HGB 8.3 g/dL (12.0-15.0); Lymphocytes # (A) 2.01 X 10*3/uL (0.90-5.00); Lymphocytes % (A) 19.7 %; MCHC 29.2 g/dL (32.0-37.0); MCV 92.5 fL (80.0-97.0); Mean Platelet Volume 9.2 fL (9.5-12.2); Monocytes # (A) 0.87 X 10*3/uL (0.20-1.00); Monocytes % (A) 8.5 %; Neutrophils % (A) 69.4 %; Platelet Count 466 X 10*3/uL (140-440); RBC 3.07 X 10*6/uL (4.10-5.20); RDW 15.1 % (11.5-14.5); WBC 10.22 X 10*3/uL (4.50-10.00)
[2020-07-29 00:57] LABS: Erythrocyte Sedimentation Rate 126 mm/Hr (0-30)
[2020-07-29 04:12] LABS: African American GFR (CKD) 60.6 (60.0-200.0); Albumin 3.3 g/dL (3.80-4.90); Albumin/Globulin Ratio 0.83 (1.60-3.17); Anion Gap 13.6 mmol/L (4.00-12.00); BUN/Creat Ratio 15.45 Ratio (12.00-20.00); Calcium 8.4 mg/dL (8.7-10.3); Carbon Dioxide 28.4 mmol/L (21.6-31.8); Non-African American GFR(CKD) 52.3 (60.0-200.0); Potassium 4.9 mmol/L (3.5-5.5); Total Bilirubin 0.4 mg/dL (0.2-1.2); Total Protein 7.3 g/dL (6.2-8.2)
== END | disposition home or self-care (01) ==
LOC: LABWHC1 13:47
PROVIDERS: ATTEND Internal Medicine
DX: I51.7 Cardiomegaly (principal); R50.9 Fever, unspecified; D49.6 Neoplasm of unspecified behavior of brain; C90.00 Multiple myeloma not having achieved remission
CPT/HCPCS: 36415; 71046; 80053; 81001; 83880; 84484; 85025; 85652; 87040; 87086

== ENCOUNTER 2020-08-31 12:34 | Inpatient (IN) | payer MEDICARE ==
--- NOTE | 2020-08-31 13:34 | ED ---
Altered Mental Status HPI - General Chief Complaint: Altered Mental Status Stated Complaint: sent from Dr altered mental status Time Seen by Provider: 08/31/20 13:11 Source: patient, family, RN notes reviewed Mode of arrival: wheelchair Limitations: altered mental status - History of Present Illness Initial Comments: This is a 64-year-old female history of multiple myeloma who did have brain surgery this past March and with chemotherapy and the seventh of this month who was doing okay until 3 days ago she started developing some intermittent epi sodes of confusion and also intermittent fevers. She is brought in today at the behest of her doctor for evaluation was noted have a temperature 102.4 upon arrival she currently does have oral thrush that she is being treated for also. She denies any headache dizziness blurry vision nausea vomiting chest or abdominal pain or other symptoms. MD Complaint: altered mental status, confusion - Related Data Home Medications Medication Instructions Recorded Confirmed Apixaban [Eliquis] 5 mg PO BID 07/22/18 08/31/20 Ascorbic Acid [Vitamin C] 500 mg PO DAILY 07/22/18 08/31/20 Cholecalciferol (Vitamin D3) 50 mcg PO Q48H 07/22/18 08/31/20 [Vitamin D3] Folic Acid 0.4 mg PO DAILY 07/11/19 08/31/20 atenoloL [Tenormin] 25 mg PO BID 07/22/20 08/31/20 Furosemide [Lasix] 20 mg PO Q48H 08/31/20 08/31/20 Insulin Aspart (Niacinamide) 50 units SQ AC-TID 08/31/20 08/31/20 [Fiasp 100 Unit/ml Flextouch] Insulin Detemir [Levemir Flextouch] 50 units SQ HS 08/31/20 08/31/20 Lenalidomide [Revlimid] 10 mg PO DIRECTED 08/31/20 08/31/20 Lidocaine/Nystatin/Maalox/Benadryl 5 ml PO TID PRN 08/31/20 08/31/20 Oral Solution 1:1 Megestrol [Megace] 200 mg PO BID 08/31/20 08/31/20 dexAMETHasone [Dexamethasone] 20 mg PO TH 08/31/20 08/31/20 Previous Rx's Medication Instructions Recorded Acetaminophen Tab [Tylenol] 650 mg PO Q6HR PRN tab 07/21/19 amLODIPine [Norvasc] 5 mg PO HS #30 tab 07/21/19 Allergies Allergy/AdvReac Type Severity Reaction Status Date / Time latex Allergy Rash/Hives Verified 08/31/20 14:47 Klkxxuc-[id number]-Ssb Reductase Allergy Unknown Verified 08/31/20 14:47 Inhibitor Review of Systems ROS Statement: Those systems with pertinent positive or pertinent negative responses have been documented in the HPI. ROS Other: All systems not noted in ROS Statement are negative. Past Medical History Past Medical History: Cancer, Diabetes Mellitus, Hyperlipidemia, Hypertension, Osteoarthritis (OA), Renal Disease Additional Past Medical History / Comment(s): MULTIPLE MYELOMA had chemo in 07 01, renal failure with cancer tx and had dialysis for 2 months, , slight leaky heart valve, hx of H pylori, PACEMAKER, NAUSEA, CHRONIC KIDNEY DISEASE STAGE 3 History of Any Multi-Drug Resistant Organisms: None Reported Past Surgical History: Back Surgery, Cholecystectomy, Hysterectomy, Pacemaker Additional Past Surgical History / Comment(s): colonoscopy, rt carpal tunnel release, T9 kyphoplasty with bx, oophorectomy, cyst of inner R thigh, R foot surgery , AV fistula inserted and removed Past Anesthesia/Blood Transfusion Reactions: No Reported Reaction Additional Past Anesthesia/Blood Transfusion Reaction / Comment(s): Pt has received blood in the past without reaction. Type of Cardiac Device: Permanent Pacemaker Device Placement Date:: DECEMBER 2014 Past Psychological History: No Psychological Hx Reported Smoking Status: Never smoker Past Alcohol Use History: None Reported Past Drug Use History: None Reported - Past Family History Sister(s) Family Medical History: Cancer Daughter(s) Family Medical History: Pulmonary Embolus Mother Family Medical History: Congestive Heart Failure (CHF) Additional Family Medical History / Comment(s): Mother of CHF at age 76 yrs. Father Family Medical History: Myocardial Infarction (AR) Additional Family Medical History / Comment(s): Father of a AR at age 46 yrs. General Exam - General Exam Comments Initial Comments: This is a well-developed well-nourished awake alert female Limitations: altered mental status General appearance: alert, in no apparent distress Head exam: Present: atraumatic, normocephalic, normal inspection Eye exam: Present: normal appearance, PERRL, EOMI. Absent: scleral icterus, conjunctival injection, periorbital swelling ENT exam: Present: mucous membranes dry, other (Evidence of oral thrush noted.) Neck exam: Present: normal inspection. Absent: tenderness, meningismus, lymphadenopathy Respiratory exam: Present: normal lung sounds bilaterally. Absent: respiratory distress, wheezes, rales, rhonchi, stridor Cardiovascular Exam: Present: regular rate, normal rhythm, normal heart sounds. Absent: systolic murmur, diastolic murmur, rubs, gallop, clicks GI/Abdominal exam: Present: soft, normal bowel sounds. Absent: distended, tenderness, guarding, rebound, rigid Extremities exam: Present: normal inspection, full ROM, normal capillary refill. Absent: tenderness, pedal edema, joint swelling, calf tenderness Back exam: Present: normal inspection Neurological exam: Present: alert, oriented X3, CN II-XII intact Psychiatric exam: Present: normal affect, normal mood Skin exam: Present: warm, dry, intact, normal color. Absent: rash Course Vital Signs 08/31/20 08/31/20 08/31/20 12:46 13:40 14:00 Temperature 102.4 F H Pulse Rate 91 89 85 Respiratory 20 Rate Blood Pressure 122/63 136/69 136/69 O2 Sat by Pulse 97 94 L 95 Oximetry 08/31/20 08/31/20 14:30 15:36 Temperature 101.2 F H Pulse Rate Respiratory Rate Blood Pressure 134/71 O2 Sat by Pulse Oximetry Medical Decision Making - Medical Decision Making I did discuss findings with the patient family as well as with Dr. Cid and with Kiersten Turpin. The patient will be admitted place an IV antibiotics consultation by Dr. Careron as well as by neurology. Urine does show evidence of leukocyte esterase elevation no definitive UTI at this time. - Lab Data Result diagrams: 08/31/20 15:16 08/31/20 15:16 Lab Results 08/31/20 08/31/20 08/31/20 Range/Units 13:43 15:16 15:16 WBC 9.9 (3.8-10.6) k/uL RBC 3.22 L (3.80-5.40) m/uL Hgb 8.6 L (11.4-16.0) gm/dL Hct 27.1 L (34.0-46.0) % MCV 84.4 (80.0-100.0) fL MCH 26.7 (25.0-35.0) pg MCHC 31.7 (31.0-37.0) g/dL RDW 16.2 H (11.5-15.5) % Plt Count 330 (150-450) k/uL MPV 7.7 Neutrophils % 81 % Lymphocytes % 12 % Monocytes % 4 % Eosinophils % 2 % Basophils % 0 % Neutrophils # 8.0 H (1.3-7.7) k/uL Lymphocytes # 1.2 (1.0-4.8) k/uL Monocytes # 0.4 (0-1.0) k/uL Eosinophils # 0.2 (0-0.7) k/uL Basophils # 0.0 (0-0.2) k/uL Hypochromasia Moderate Anisocytosis Slight Sodium 131 L (137-145) mmol/L Potassium 3.9 (3.5-5.1) mmol/L Chloride 89 L (98-107) mmol/L Carbon Dioxide 34 H (22-30) mmol/L Anion Gap 8 mmol/L BUN 28 H (7-17) mg/dL Creatinine 0.90 (0.52-1.04) mg/dL Est GFR (CKD-EPI)AfAm 77 (>60 ml/min/1.73 sqM) Est GFR (CKD-EPI)NonAf 67 (>60 ml/min/1.73 sqM) Glucose 330 H (74-99) mg/dL Plasma Lactic Acid Cain (0.7-2.0) mmol/L Calcium 8.4 (8.4-10.2) mg/dL Magnesium 2.3 (1.6-2.3) mg/dL Total Bilirubin 1.4 H (0.2-1.3) mg/dL AST 68 H (14-36) U/L ALT 41 H (4-34) U/L Alkaline Phosphatase 228 H (38-126) U/L Creatine Kinase <20 L (30-135) U/L Troponin I (0.000-0.034) ng/mL Total Protein 7.2 (6.3-8.2) g/dL Albumin 3.3 L (3.5-5.0) g/dL Urine Color Urine Appearance (Clear) Urine pH (5.0-8.0) Ur Specific Chuckey (1.001-1.035) Urine Protein (Negative) Urine Glucose (UA) (Negative) Urine Ketones (Negative) Urine Blood (Negative) Urine Nitrite (Negative) Urine Bilirubin (Negative) Urine Urobilinogen (<2.0) mg/dL Ur Leukocyte Esterase (Negative) Urine RBC (0-5) /hpf Urine WBC (0-5) /hpf Ur Squamous Epith Cells (0-4) /hpf Urine Bacteria (None) /hpf Hyaline Casts (0-2) /lpf Urine Mucus (None) /hpf Urine Yeast (Budding) (None) /hpf Urine Sperm (None) /hpf Coronavirus (PCR) Not Detected (Not Detectd) 08/31/20 08/31/20 08/31/20 Range/Units 15:16 15:16 15:33 WBC (3.8-10.6) k/uL RBC (3.80-5.40) m/uL Hgb (11.4-16.0) gm/dL Hct (34.0-46.0) % MCV (80.0-100.0) fL MCH (25.0-35.0) pg MCHC (31.0-37.0) g/dL RDW (11.5-15.5) % Plt Count (150-450) k/uL MPV Neutrophils % % Lymphocytes % % Monocytes % % Eosinophils % % Basophils % % Neutrophils # (1.3-7.7) k/uL Lymphocytes # (1.0-4.8) k/uL Monocytes # (0-1.0) k/uL Eosinophils # (0-0.7) k/uL Basophils # (0-0.2) k/uL Hypochromasia Anisocytosis Sodium (137-145) mmol/L Potassium (3.5-5.1) mmol/L Chloride (98-107) mmol/L Carbon Dioxide (22-30) mmol/L Anion Gap mmol/L BUN (7-17) mg/dL Creatinine (0.52-1.04) mg/dL Est GFR (CKD-EPI)AfAm (>60 ml/min/1.73 sqM) Est GFR (CKD-EPI)NonAf (>60 ml/min/1.73 sqM) Glucose (74-99) mg/dL Plasma Lactic Acid Cain 1.3 (0.7-2.0) mmol/L Calcium (8.4-10.2) mg/dL Magnesium (1.6-2.3) mg/dL Total Bilirubin (0.2-1.3) mg/dL AST (14-36) U/L ALT (4-34) U/L Alkaline Phosphatase (38-126) U/L Creatine Kinase (30-135) U/L Troponin I <0.012 (0.000-0.034) ng/mL Total Protein (6.3-8.2) g/dL Albumin (3.5-5.0) g/dL Urine Color Yellow Urine Appearance Cloudy H (Clear) Urine pH 5.5 (5.0-8.0) Ur Specific Chuckey 1.008 (1.001-1.035) Urine Protein 1+ H (Negative) Urine Glucose (UA) Negative (Negative) Urine Ketones Negative (Negative) Urine Blood Negative (Negative) Urine Nitrite Negative (Negative) Urine Bilirubin Negative (Negative) Urine Urobilinogen <2.0 (<2.0) mg/dL Ur Leukocyte Esterase Large H (Negative) Urine RBC 2 (0-5) /hpf Urine WBC 31 H (0-5) /hpf Ur Squamous Epith Cells 1 (0-4) /hpf Urine Bacteria Occasional H (None) /hpf Hyaline Casts 3 H (0-2) /lpf Urine Mucus Rare H (None) /hpf Urine Yeast (Budding) Many H (None) /hpf Urine Sperm Rare (None) /hpf Coronavirus (PCR) (Not Detectd) - EKG Data -: EKG Interpreted by Me EKG Comments: Atrial sensed ventricular paced rhythm of 90 ND interval 170 QRS duration 162 QT since QTC 470/574 - Radiology Data Radiology results: report reviewed (Imaging reviewed x-ray shows no acute processes CAT scan shows evidence of a left-sided subdural of undetermined age likely chronic please see complete report), image reviewed Disposition Clinical Impression: Delirium due to general medical condition, Febrile illness, acute, Dehydration, Hyperglycemia, History of brain tumor Disposition: ADMITTED IP TO THIS HOSP Condition: Fair Referrals: Carl Cid MD [Primary Care Provider] - 1-2 days
[2020-08-31] MEDS ORDERED: ACETAMINOPHEN TAB 325 MG TAB PO STA (13:44)
--- NOTE | 2020-08-31 14:57 | XR ---
EXAMINATION TYPE: XR chest 2V DATE OF EXAM: 08/31/2020 COMPARISON: 07/28/2020 HISTORY: 64-year-old female with fever and confusion, altered mental status TECHNIQUE: AP and lateral views FINDINGS: Left anterior chest wall pacemaker generator with right atrial and right ventricular leads. Heart bor derline enlarged. Right anterior chest wall injection port with catheter tip at the lower SVC level. T9 and L1 vertebroplasty change. Mild interstitial prominence is unchanged. No consolidation or pleur al effusion. IMPRESSION: Borderline cardiomegaly. Interstitial changes appear largely chronic, correlate to exclude mild pulmo nary vascular congestion. Otherwise, no acute process seen.
--- NOTE | 2020-08-31 15:15 | CT ---
EXAMINATION TYPE: CT brain wo con DATE OF EXAM: 08/31/2020 COMPARISON: CT brain 09/18/2019 HISTORY: Altered mental status. History of multiple myeloma with brain surgery. First chemo treatmen t 1 week ago. Fever, headache. CT DLP: 1055.4 mGycm Automated exposure control for dose reduction was used. Helical imaging through the brain. FINDINGS: The exam shows interval surgery. There is encephalomalacia involving the left posterior parietal lobe , there is underlying craniotomy change. There is asymmetric appearance of the sulci which are more prominent on the right than on the left and there is a isodense subdural fluid collection present sofy suring approximately 4 mm in thickness on coronal imaging over the left cerebrum, there is preservati on of gonzalez-white junction. There is some periventricular white matter low-attenuation present. No richi dent hemorrhage or hydrocephalus. Ex vacuo phenomenon present at the posterior horn the left lateral ventricle, the underlying dense focus is no longer seen at this level. There are cerebral vascular ca lcifications present. Mastoid air cells are well aerated as are the visualized paranasal sinuses. IMPRESSION: THERE IS INTERVAL SURGICAL CHANGE, ENCEPHALOMALACIA, SUBDURAL FLUID COLLECTION MAY REPRESENT A SUBACU TE TO CHRONIC SUBDURAL HEMATOMA. Report relayed to Dr. Flores telephonically at the time of interpretat ion.
[2020-08-31 15:43] LABS: Anisocytosis Slight; Basophils % (A) 0 %; Eosinophils # (A) 0.2 k/uL (0-0.7); Eosinophils % (A) 2 %; HCT 27.1 % (34.0-46.0); HGB 8.6 gm/dL (11.4-16.0); Hypochromasia Moderate; Lymphocytes # (A) 1.2 k/uL (1.0-4.8); Lymphocytes % (A) 12 %; MCH 26.7 pg (25.0-35.0); MCHC 31.7 g/dL (31.0-37.0); MCV 84.4 fL (80.0-100.0); Mean Platelet Volume 7.7; Monocytes # (A) 0.4 k/uL (0-1.0); Monocytes % (A) 4 %; Neutrophils % (A) 81 %; Platelet Count 330 k/uL (150-450); RBC 3.22 m/uL (3.80-5.40); RDW 16.2 % (11.5-15.5); WBC 9.9 k/uL (3.8-10.6)
[2020-08-31 15:50] LABS: Appearance,Urine Cloudy (Clear); Bacteria,Urine Occasional /hpf; Bilirubin,Urine Negative (Negative); Blood,Urine Negative (Negative); Budding Yeast,Urine Many /hpf; Color,Urine Yellow; Glucose,Urine (UA) Negative (Negative); Hyaline Casts,Urine 3 /lpf (0-2); Ketones,Urine Negative (Negative); Leukocyte Esterase,Urine Large (Negative); Mucus,Urine Rare /hpf; Nitrite,Urine Negative (Negative); PH, Urine 5.5 (5.0-8.0); Protein,Urine 1+ (Negative); RBC,Urine 2 /hpf (0-5); Specific Gravity,Urine 1.008 (1.001-1.035); Sperm,Urine Rare /hpf; Squamous Epithelial Cell,Urine 1 /hpf (0-4); Urobilinogen,Urine <2.0 mg/dL (<2.0); WBC,Urine 31 /hpf (0-5)
[2020-08-31] MEDS ORDERED: cefTRIAXone IN SWFI 1,000 MG/10 ML SYRINGE IVP STA (15:54)
[2020-08-31 16:12] LABS: ALT 41 U/L (4-34); AST 68 U/L (14-36); African American GFR (CKD) 77 (>60 ml/min/1.73 sqM); Albumin 3.3 g/dL (3.5-5.0); Alkaline Phosphatase 228 U/L (38-126); Anion Gap 8 mmol/L; Blood Urea Nitrogen 28 mg/dL (7-17); Calcium 8.4 mg/dL (8.4-10.2); Carbon Dioxide 34 mmol/L (22-30); Chloride 89 mmol/L (98-107); Creatine Kinase <20 U/L (30-135); Glucose 330 mg/dL (74-99); Magnesium 2.3 mg/dL (1.6-2.3); Non-African American GFR(CKD) 67 (>60 ml/min/1.73 sqM); Potassium 3.9 mmol/L (3.5-5.1); Sodium 131 mmol/L (137-145); Total Bilirubin 1.4 mg/dL (0.2-1.3); Total Protein 7.2 g/dL (6.3-8.2)
[2020-08-31] MEDS ORDERED: NALOXONE 0.4 MG/ML 1 ML VIAL IV PRN (17:12)
[2020-08-31] MEDS ORDERED: BENADRYL PO PRN (17:16)
[2020-08-31] MEDS ORDERED: LIDOCAINE PO PRN (17:16)
[2020-08-31] MEDS ORDERED: MAALOX PO PRN (17:16)
[2020-08-31] MEDS ORDERED: NYSTATIN PO PRN (17:16)
[2020-08-31] MEDS ORDERED: LEVOFLOXACIN 750MG-D5W PMX 750 MG in DEXTROSE/WATER 1 150ML.BAG IVPB STA (17:42)
[2020-08-31] MEDS ORDERED: MAG HYDROX/AL HYDROX/SIMETH 30 ML, LIDOCAINE VISCOUS 30 ML, diphenhydrAMINE ELIXIR 75 M... PO PRN ×4 (17:43)
[2020-08-31 17:50] LABS: Glucose,Whole Blood 384 mg/dL (75-99)
[2020-08-31] MEDS: SODIUM CHLORIDE 0.9% 1,000 ML IV SCH (17:56)
[2020-08-31] MEDS: INSULIN ASPART (NovoLOG) 100 UNIT/ML VIAL SQ SCH ×2 (17:57→22:31)
[2020-08-31] MEDS ORDERED: INSULIN DETEMIR (LEVEMIR) 100 UNIT/ML SYR SQ SCH (21:00)
[2020-08-31] MEDS ORDERED: amLODIPine 5 MG TAB PO SCH (21:00)
[2020-08-31 22:15] LABS: Glucose,Whole Blood 325 mg/dL (75-99)
[2020-08-31] MEDS: atenoloL 25 MG TAB PO SCH (22:30)
[2020-08-31] MEDS: APIXABAN 5 MG TAB PO SCH (22:30)
[2020-08-31] MEDS: MEGESTROL 400 MG/10 ML CUP PO SCH (23:50)
[2020-09-01] MEDS: ACETAMINOPHEN TAB 325 MG TAB PO PRN ×2 (00:58→14:35)
--- NOTE | 2020-09-01 02:07 | HP ---
HISTORY AND PHYSICAL The patient admitted thru the emergency room. CHIEF COMPLAINT: Altered mental status with unable to communicate, confused, disoriented, and with the fever. HISTORY OF PRESENT ILLNESS: Mrs Mary who is a 64-year-old female recently on the last Sunday she received chemotherapy was designed by Dr. Carreon, Hematology/ Oncology, and the reason of multiple myeloma. Patient has a history of underlying multiple myeloma. She has at that time loss of the sight and fever and chills, and at that time, today, seen in the office and with the multiple complaints and with the altered mental status and subsequently referred to the emergency room and to contact also Dr. Carreon in the Hematology/Oncology because of the recent chemotherapy and the possibility of the chemotherapy effect on her mental status. The patient had a history of weight loss and she has history of Neely's palsy in 2013. She has history of underlying questionable SLE and she has also history on 11/10/2014 history of progression of multiple myeloma and at that time, she was started on Velcade and she took at that time 6 cycles. 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 She had subsequently compression fracture of the L5-S1 spine and underwent surgical treatment by Dr. Padron. She had also Remicade and Decadron in 03/2016 and had 8 cycles. She had steroids 06/2016 was stopped. Recently as the progression of the protein and patient started on Remicade again with the 1st course done last Sunday and subsequently on the Sunday started to have the change of mental status and came to be seen in the office. Subsequently referred to the emergency room and with this she had a chest x-ray and found that she had borderline cardiomegaly, she had also a pacemaker AICD and she had interstitial changes appear chronic in the mid pulmonary with vascular congestion as read by the Cardiology today on 08/31/2020. Subsequently also she had altered mental status. She underwent a CT scan of the brain without contrast and found that she had surgical changes and encephalomalacia and also found subdural fluid collection represents subacute to chronic subdural hematoma and the patient had previous the surgery by Dr. Luciano, neurosurgeon in [facility] with the removal of the tumor from the brain. She did well subsequently and her confusion has been resolved at that time, then currently recurrent again. She also associated with that fever and the temperature was 102 on arrival at [facility] Room and it is fluctuating. Her prior lab at Dr. Carreon which is done before the chemo and at that time, her sodium was 138, potassium 4.6, and chloride 98, and carbon dioxide 28, and BUN was 20 and creatinine 1.6 with the blood sugar was 333. The patient is a diabetic and she was seen by Dr. Contreras, the blood donor recruiter supervisor, and she is on insulin to scale. Her calcium to the chemo was 8.9. AST 33, ALT 24, and alkaline phosphatase was elevated to 136. She had also albumin 2.1 and bilirubin was 0.6, and GFR 39.1 with the underlying chronic kidney disease stage 3 with a globulin of 5.9. PAST MEDICAL HISTORY: Multiple myeloma and at that time when she had diagnosed with multiple myeloma, she was also had acute renal failure and was necessitating dialysis and subsequently she recovered. She had history of asthma, chronic obstructive pulmonary disease, diaphragmatic hernia. She had hyperlipidemia, she had a malignant neoplasm of the brain that has been was removed. Currently not completely removed and that was in the parietal lobe. She had multiple myeloma and now she is losing weight. She has intervertebral disc degeneration at the LS spine and she had also lupus erythematosus by Dr. Lozano and she had a cardiac pacemaker by Dr. Angela, was placed on 2012. She had been spondylolisthesis of the lumbar and some radiculopathy. She had diabetes mellitus type 2 with hyperglycemia with complication and diabetic nephropathy as well. SOCIAL HISTORY: She has 2 children. She had 1 son and 1 daughter and with the history of diabetes mellitus. She is and nondrinker and nonsmoker. ALLERGIES: Her allergic to STATIN and . MEDICATIONS: Her current medication that has been used: Revlimid 10 mg capsules and she taking dexamethasone 4 mg 5 tablets once a week, Lasix 20 mg in a.m. She has been using with the loss of weight and loss of appetite Boost liquid drink twice a day. She also was underwent on the dental care she had a prophylaxis of Amoxicillin, and she has also Nystatin, triamcinolone topical 100,000 with the 1% cream and that applied into the creases of the skin as well as the torso of the leg. She is on atenolol 25 mg twice a day and she is on Humalog [address] Pricila Contreras as well as Lantus 20 units q12 hours. She is has been on Falun in the past and currently because of confusion, she has been changed that. She is on Eliquis 2.5 mg tab b.i.d. and she has been also on vitamin C 500 mg once a day, vitamin D3 2000 units every other day and folic acid 400 mg tablet once a day and magnesium 250 mg once a day and she had an Accu-Chek machine. The Quick Pen Humalog that she uses for Accu- Chek coverage. REVIEW OF SYMPTOMS: On reviewing of the systems, the patient has fever and ambulating and current and when she arrived in the emergency room was 102 and recorded. She had a pacemaker in situ. Neurologically, she is confused, disoriented and on and off for the last 6 days with weakness for 4 days and her diabetes is not well controlled as well. Genitourinary was no evidence of abnormalities. However, she does not recall and she does not communicate. She can look at you and then does not answer the questions in the office and subsequently referred to the emergency room. In the office, her blood pressure 130/64 and pulse rate was 71 beats per minute and regular, and she is at that time in a wheelchair in the hospital. Subsequently seen in the emergency room module 2 and she was started to awaken. Her oxygen saturation was 98. The laboratory done again in the emergency room as well as the Covid testing rapid testing which was all negative. PHYSICAL EXAMINATION: The patient was at the time seen in the emergency room, the patient was conscious and alert, but lethargy and confused and she could not stand up or walk. HEAD was normocephalic and atraumatic. Pupil was equal reactive and conjunctivae was pink. Sclerae were nonicteric. However in the ED she is pale in color and she has underlying anemia of chronic disease. Oropharynx was negative. NECK was supple. No lymphadenopathy. Trachea midline. CHEST was clear to auscultation and percussion and the chest x-ray was done also in the emergency room and showed the picture of interstitial lung disease chronically present. HEART was regular sinus. Left upper extremity is weak. ABDOMEN: Positive bowel sounds and no palpable masses and no flank pain and suprapubic no tenderness. EXTREMITIES: No edema and positive pulses. ASSESSMENT: 1. Altered mental status with confusion, disorientation. 2. Fever with unknown etiology. Chest x-ray was no evidence of infiltrate and no other except the urine possibility of infection, which she was started on antibiotics. She had IV piggyback of Levaquin in the ER and subsequently placed on Rocephin and consultation with Dr. Sanchez as well as consultation with Dr. Carreon, Hematology/oncology to clarify the issue of the fever, recurrent. 3. Consultation with the neurology Dr. Kobe Gomez, the neurologist to evaluate mental status and with the possibility as she has no changes in her medication except that the use of the chemotherapy recently on last Sunday. 4. Underlying fever of unknown etiology. 5. Diabetes mellitus type 2, insulin dependent, uncontrolled. 6. Mental confusion. 7. She had history of chronic obstructive pulmonary disease in the past. 8. Malignant neoplasm has been removed from the left parietal side of the brain by Dr. Luciano in [facility]. 9. She had disc disease and that has been treated by Dr. Padron with minimal invasive procedure. 10.History of pacemaker was placed by Dr. Angela in 2016. 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 12.She had history of Neely's Palsy which resolved. RECOMMENDATION/PLAN: As mentioned, continue the antibiotic and consultation with the Oncology Hematology, Dr. Carreon, and infectious Disease, Dr. Sanchez, as well as the neurologist, Dr. Kobe Gomez. Course of treatment depends on the patient's response and the consultations. MMODL / IJN: [id number] /
[2020-09-01] MEDS: SODIUM CHLORIDE 0.9% 1,000 ML IV SCH ×2 (05:52→17:22)
[2020-09-01 07:05] LABS: Glucose,Whole Blood 235 mg/dL (75-99)
[2020-09-01 07:07] LABS: Anisocytosis Slight; Basophils % (A) 0 %; Eosinophils # (A) 0.4 k/uL (0-0.7); Eosinophils % (A) 5 %; HCT 25.8 % (34.0-46.0); HGB 8.2 gm/dL (11.4-16.0); Hypochromasia Marked; Lymphocytes # (A) 0.9 k/uL (1.0-4.8); Lymphocytes % (A) 12 %; MCH 27.4 pg (25.0-35.0); MCHC 31.9 g/dL (31.0-37.0); MCV 85.8 fL (80.0-100.0); Mean Platelet Volume 7.8; Monocytes # (A) 0.4 k/uL (0-1.0); Monocytes % (A) 6 %; Neutrophils # (A) 5.8 k/uL (1.3-7.7); Neutrophils % (A) 76 %; Platelet Count 295 k/uL (150-450); RDW 16.1 % (11.5-15.5); WBC 7.6 k/uL (3.8-10.6)
[2020-09-01] MEDS: INSULIN ASPART (NovoLOG) 100 UNIT/ML VIAL SQ SCH ×3 (07:52→17:21)
[2020-09-01] MEDS: APIXABAN 5 MG TAB PO SCH (07:53)
[2020-09-01] MEDS: atenoloL 25 MG TAB PO SCH (07:57)
[2020-09-01] MEDS: MEGESTROL 400 MG/10 ML CUP PO SCH (08:26)
[2020-09-01] MEDS ORDERED: ASCORBIC ACID 500 MG TAB PO SCH (09:00)
[2020-09-01] MEDS ORDERED: FOLIC ACID 1 MG TAB PO SCH (09:00)
[2020-09-01] MEDS ORDERED: FUROSEMIDE 20 MG TAB PO SCH (09:00)
[2020-09-01] MEDS ORDERED: REVLIMID 10 MG PO SCH (09:00)
--- NOTE | 2020-09-01 09:41 | P.CNNES ---
History of Present Illness Consult date: 09/01/20 Requesting physician: Nikhil Flores Reason for Consult: altered mental status History of Present Illness: This is a 64-year-old woman with history of multiple myeloma who had chemotherapy 2017, with Brain metastasis over left parietal (diagnosed 11/2019) s/p surgery 2019, radiation and chemotherapy, hyperlipidemia, hypertension, diabetes mellitus, pacemaker presented emergency department on 08/31/2020 for intermittent episode of confusion as well as intermittent fevers. She had a temperature of 102.4. Patient is at bedside and he is helped out with history. According to the patient's about a week ago the patient was running a fever then that resolved after couple days. Then since this past Sunday the patient was running fevers again and was confused. Sunday and she complained of headache over the left side but denied of any trauma. The patient had chemotherapy this past Sunday. Patient denies of any new weakness, numbness, visual disturbance, difficulty swallowing, nausea or vomiting. Per the patient that he feels that the patient is doing better compared to her initial presentation. Patient denies that the patient had any seizure-like activity, any jerk in of any extremity, any foaming of the mouth, teach she did not have any urinary or bowel incontinence. Currently the patient denies of any headache. Of note patient has history of multiple myeloma and then she had brain metastasis in which according to the she had the the diagnosis in November 2019 then she had the surgery according to him in March 2020 and it was done at [facility]. She followed up with a neurosurgeon once after the surgery and that was a while back. She had radiation in the last radiation was in April 2020 and she continues to get chemotherapy last chemo was Sunday. Condition does not follow up with a neurologist. Regarding any history of subdural per the patient's he stated that there were never told that she had subdural in the past. Ever since the surgery the patient has been having head tremor per the patient's . But according to him there is a family history of tremors and not sure if it central or not and could not describe it for me. Some of the Patient home medication includes Eliquis 5 mg 1 tablet twice a day, insulin, Lasix, atenolol, dexamethasone 20 mg every and amlodipine. Patient is on Eliquis 5 mg and she was told that she has her atrial fibrillation and has been on it for the last 2 years. He has a pacemaker placed in 2016. Workup in the hospital consisted of: Visual vitals: Blood pressure of 122/63, heart rate of 91, respiratory of 20, temperature of 102.4 Fahrenheit and pulse ox of 97% on room air CT of the head is reported as there is interval surgical change, e ncephalomalacia, subdural fluid collection may represent as subacute to chronic subdural hematoma. In the body of the report, it is reported as: The encephalomalacia involving the left posterior parietal lobe, there is underlying craniotomy change. There is asymmetric appearance of the sulci which are more prominent on the right than the left and there is an isodense subdural collection present measuring approximately 4 mm in thickness on the coronal imaging over the left cerebrum, there is a preservation of the gonzalez white matter junction. Personally reviewed the CT of the head and I felt that some fullness that involves parietal occipital region and it goes also to the border of the left c erebellar region slightly. I do sees the subacute subdural that is mentioned on the left cerebrum. There is no acute ischemia or intraparenchymal hemorrhage. EKG is reported as atrial sensed ventricular paced rhythm. Abnormal EKG. Initial white blood cell is 9.9 and a repeat it is 7.6 and both are normal. Hemoglobin is 8.6 repeated a 0.2 which is low. Sodium is 131 which is mildly low. Initial serum glucose 330 is elevated and that since the patient's been the hospital her blood sugar is in the 322 380s. AST of 68 and ALT of 41 which is mildly elevated. Alkaline phosphatase is 228 which is elevated. Urinalysis looks cloudy, there is a large leukocyte Estrace, urine white blood cells 31. Seems to be suggestive of urinary tract infection. Rock virus PCR is not detected. Review of Systems Review of system: The 12 point system was reviewed and apparent positive and negative per HPI. Past Medical History Past Medical History: Cancer, Diabetes Mellitus, Hyperlipidemia, Hypertension, Osteoarthritis (OA), Renal Disease Additional Past Medical History / Comment(s): MULTIPLE MYELOMA had chemo in 2007, renal failure with cancer tx and had dialysis for 2 months, , slight leaky heart valve, hx of H pylori, PACEMAKER, NAUSEA, CHRONIC KIDNEY DISEASE STAGE 3 History of Any Multi-Drug Resistant Organisms: None Reported Past Surgical History: Back Surgery, Cholecystectomy, Hysterectomy, Pacemaker Additional Past Surgical History / Comment(s): colonoscopy, rt carpal tunnel release, T9 kyphoplasty with bx, oophorectomy, cyst of inner R thigh, R foot surgery , AV fistula inserted and removed Past Anesthesia/Blood Transfusion Reactions: No Reported Reaction Additional Past Anesthesia/Blood Transfusion Reaction / Comment(s): Pt has received blood in the past without reaction. Type of Cardiac Device: Permanent Pacemaker Device Placement Date:: DECEMBER 2014 Past Psychological History: No Psychological Hx Reported Additional Psychological History / Comment(s): Pt resides with her spouse. She is independent. She uses no assistive device. She drives. Smoking Status: Never smoker Past Alcohol Use History: None Reported Past Drug Use History: None Reported - Past Family History Sister(s) Family Medical History: Cancer Daughter(s) Family Medical History: Pulmonary Embolus Mother Family Medical History: Congestive Heart Failure (CHF) Additional Family Medical History / Comment(s): Mother of CHF at age 76 yrs. Father Family Medical History: Myocardial Infarction ([place]) Additional Family Medical History / Comment(s): Father of a [place] at age 46 yrs. Medications and Allergies Home Medications Medication Instructions Recorded Confirmed Type Apixaban [Eliquis] 5 mg PO BID 07/22/18 08/31/20 History Ascorbic Acid [Vitamin C] 500 mg PO DAILY 07/22/18 08/31/20 History Cholecalciferol (Vitamin D3) 50 mcg PO Q48H 07/22/18 08/31/20 History [Vitamin D3] Folic Acid 0.4 mg PO DAILY 07/11/19 08/31/20 History Acetaminophen Tab [Tylenol] 650 mg PO Q6HR PRN tab 07/21/19 08/31/20 Rx amLODIPine [Norvasc] 5 mg PO HS #30 tab 07/21/19 08/31/20 Rx atenoloL [Tenormin] 25 mg PO BID 07/22/20 08/31/20 History Furosemide [Lasix] 20 mg PO Q48H 08/31/20 08/31/20 History Insulin Aspart (Niacinamide) 50 units SQ AC-TID 08/31/20 08/31/20 History [Fiasp 100 Unit/ml Flextouch] Insulin Detemir [Levemir Flextouch] 50 units SQ HS 08/31/20 08/31/20 History Lenalidomide [Revlimid] 10 mg PO DIRECTED 08/31/20 08/31/20 History Lidocaine/Nystatin/Maalox/Benadryl 5 ml PO TID PRN 08/31/20 08/31/20 History Oral Solution 1:1 Megestrol [Megace] 200 mg PO BID 08/31/20 08/31/20 History dexAMETHasone [Dexamethasone] 20 mg PO TH 08/31/20 08/31/20 History Allergies Allergy/AdvReac Type Severity Reaction Status Date / Time latex Allergy Rash/Hives Verified 08/31/20 14:47 [id number] Reductase Allergy Unknown Verified 08/31/20 14:47 Inhibitor Physical Examination - Vital Signs Vital Signs: Vital Signs Temp Pulse Pulse Resp BP BP Pulse Ox 09/01/20 04:43 98.4 F 72 16 121/75 100 09/01/20 03:20 18 09/01/20 03:09 99 F 09/01/20 00:56 102.4 F H 09/01/20 00:24 99.5 F 09/01/20 00:00 81 18 106/63 95 08/31/20 23:30 84 18 117/58 94 L 08/31/20 23:00 129/63 100 08/31/20 22:42 129/63 100 08/31/20 17:37 99.1 F 08/31/20 17:30 70 18 137/82 97 08/31/20 17:00 18 133/70 97 08/31/20 16:30 74 123/72 97 08/31/20 15:36 101.2 F H 08/31/20 15:00 83 134/71 89 L 08/31/20 14:30 134/71 08/31/20 14:00 85 136/69 95 08/31/20 13:40 89 136/69 94 L 08/31/20 12:46 102.4 F H 91 20 122/63 97 Intake and Output 08/31/20 09/01/20 09/01/20 22:59 06:59 14:59 Intake Total 520 Output Total 900 Balance -380 Intake: Intake, IV Titration 320 Amount Sodium Chloride 0.9% 1, 320 000 ml @ 80 mls/hr IV . [id number] [facility] Rx#:[id number] Oral 200 Output: Urine 900 Other: Voiding Method Bedside Commode Weight 79.379 kg GENERAL: The patient is lying in bed and is not in acute distress. HENT: No nuchal rdigity. Has head bopping tremor at rest and with action. Atraumatic. CHEST: The heart rate is regular rate rhythm. No murmurs to auscultation. LUNG: Clear to auscultation bilaterally no wheezing noted throughout. Not labored breathing. ABDOMEN/GI: Bowel sounds present in all 4 quadrants. No tenderness to palpation throughout. NEUROLOGICAL: Higher mental function: The patient is awake, alert, oriented to self. With options she correctly answered place and time and name of president. Patient is following simple commands. No aphasia and no neglect. Cranial nerves: The pupils are round, equal and reactive to light and accommodation. Visual pickard are right homonymous hemianopsia to visual confrontation. Extraocular movement is intact no nystagmus is noted. Facial sensation is normal to touch throughout. The facial strength is normal throughout. Hearing is mildly decreased to hand rub. Tongue is midline and moved [id number] without any difficulty. No dysarthria is noted. Shoulder shrug is normal bilaterally. Motor: Gait is deferred. The strength is 5-/5 over the right upper and lower extremity (old). Otherwise 5/5. Normal tone and bulk. Cerebellum: Normal finger to nose (no dysmetria or ataxia) but has tremor with finger to nose at end of action (right > left). Sensation: Sensation is normal to touch throughout. Reflexes (right/left): 2+ throughout. Plantars are downgoing bilaterally. Results - Laboratory Findings CBC and BMP: 09/01/20 06:19 09/01/20 06:19 Abnormal Lab Findings: Abnormal Labs 08/31/20 08/31/20 08/31/20 15:16 15:16 15:16 RBC 3.22 L Hgb 8.6 L Hct 27.1 L RDW 16.2 H Neutrophils # 8.0 H Lymphocytes # Sodium 131 L Chloride 89 L Carbon Dioxide 34 H BUN 28 H Glucose 330 H POC Glucose (mg/dL) Total Bilirubin 1.4 H AST 68 H ALT 41 H Alkaline Phosphatase 228 H Creatine Kinase <20 L Albumin 3.3 L Procalcitonin 1.64 H Urine Appearance Urine Protein Ur Leukocyte Esterase Urine WBC Urine Bacteria Hyaline Casts Urine Mucus Urine Yeast (Budding) 08/31/20 08/31/20 08/31/20 15:33 17:48 22:14 RBC Hgb Hct RDW Neutrophils # Lymphocytes # Sodium Chloride Carbon Dioxide BUN Glucose POC Glucose (mg/dL) 384 H 325 H Total Bilirubin AST ALT Alkaline Phosphatase Creatine Kinase Albumin Procalcitonin Urine Appearance Cloudy H Urine Protein 1+ H Ur Leukocyte Esterase Large H Urine WBC 31 H Urine Bacteria Occasional H Hyaline Casts 3 H Urine Mucus Rare H Urine Yeast (Budding) Many H 09/01/20 09/01/20 06:19 07:04 RBC 3.00 L Hgb 8.2 L Hct 25.8 L RDW 16.1 H Neutrophils # Lymphocytes # 0.9 L Sodium Chloride Carbon Dioxide BUN Glucose POC Glucose (mg/dL) 235 H Total Bilirubin AST ALT Alkaline Phosphatase Creatine Kinase Albumin Procalcitonin Urine Appearance Urine Protein Ur Leukocyte Esterase Urine WBC Urine Bacteria Hyaline Casts Urine Mucus Urine Yeast (Budding) Assessment and Plan Assessment: This is a 64-year-old woman with history of multiple myeloma who had chemotherapy with brain metastasis s/p craniotomy who received chemotherapy this past Sunday who presented emergency department on 08/31/2020 for intermittent episode of confusion as well as intermittent fevers. Altered mental status and seem septic one of the possibilities is urinary tract infection and component of metabolic encephalopathy (uncontrolled sugar, mild elevated LFT's) and result of current chemotherapy History of brain metastsis in left parietal s/p resection(craniotomy) 03/2020 over the left posterior region with encephalomalacia over left parietal/occipital as well as the border of the leftcerebellar s/p radiation and chemotherapy (last chemotherapy was a week ago). Subacute left cerebral subdural History of multiple myeloma with had chemotherapy Acute urinary tract infection Mild elevated liver function test (AST of 68 and ALT of 41 which is mildly elevated.) Pacemaker Atrial fibrillation on Eliquis diabetes with uncontrolled sugar History of hypertension Hyperlipidemia Plan: Currently the patient is on ceftriaxone and was given 1 dose of levofloxacin. I ordered ammonia level and TSH. Recommend holding Eliquis and in the meantime can be on aspirin 81mg until no further worsening of the the subdural or no new intraparechymal bleed. I recommend the patient either to be transferred to a tertiary center (such as [facility] since she is known to them) for evaluation of subdural vs oncologist knowing a neurosurgeon that can remotely evaluate the patient. I don't have any prior images to compared this subdural (images in our facility is while she had a mass and prior to surgery). If the patient the will be seen in our facility then recommend the patient to have serial CT of the heads. Regarding the patient's the tremors which I think are essential tremors, I started the patient on Topamax 25 mg 1 tablet twice a day which will help with her tremors as well as ask as an antiepileptic especially with the patient the encephalomalacia. Also bleed down the line may be as an outpatient to increase Topamax to 50 mg 1 tablet twice a day if the patient does not have any side effects to the medication. Placed patient on Q2 hour neuro checks (Q2 hours) and I recommended patient transferred to ICU if there is any beds available. Recommend a systolic blood pressure to be less than 140 and the diastolic to be less than 90. Oncology team as well as infections infection disease team are consulted. The plan was discussed thoroughly with the patient's nurse as well as the oncologist nurse practitioner. Thank you for the consultation. UPDATE: I was notified by the Oncologist nurse Practitioner that it was decided for the patient to be transferred to . Kobe Gomez M.D. Neuro-hospitalist Time with Patient: Greater than 30
[2020-09-01] MEDS ORDERED: TOPIRAMATE 25 MG TAB PO SCH (09:45)
[2020-09-01 11:59] LABS: Glucose,Whole Blood 203 mg/dL (75-99)
[2020-09-01 12:10] VITALS: RESP 18
[2020-09-01 12:29] LABS: African American GFR (CKD) 77.2 (60.0-200.0); Anion Gap 8.3 mmol/L (4.00-12.00); BUN/Creat Ratio 24.44 Ratio (12.00-20.00); Calcium 8.2 mg/dL (8.7-10.3); Carbon Dioxide 32.7 mmol/L (21.6-31.8); Non-African American GFR(CKD) 66.6 (60.0-200.0); Potassium 3.8 mmol/L (3.5-5.5)
[2020-09-01 14:35] VITALS: BP 123/66; PULSE 84
--- NOTE | 2020-09-01 15:27 | P.DS ---
Providers Date of admission: 08/31/20 17:12 Expected date of discharge: 09/01/20 (Transferred to [facility] leatha rosurgery) Attending physician: Carl Cid Consults: 08/31/20 17:13 Consult Physician Routine Consulting Provider: Isidro Carreon Consult Reason/Comments: Brain tumor, history of chemotherapy, fever Do you want consulting provider notified?: Already Contacted 08/31/20 17:14 Consult Physician Routine Consulting Provider: Kobe Gomez Consult Reason/Comments: Altered mental status Do you want consulting provider notified?: Yes 08/31/20 17:51 Consult Physician Urgent Consulting Provider: Chula Sanchez Consult Reason/Comments: Fever with unknown etiology with the change of mental status Do you want consulting provider notified?: Yes Primary care physician: Carl Cid Dictation on discharge summary date of service 09/01/2020 Disposition transfer to [facility] neurosurgery. Diagnoses on discharge and transfer. #1 altered mental status #2 subacute left cerebral subdural with the presence fluid collection in the computed tomography scan. #3 history of tumor removed from the left parietal with the resection and craniotomy in 04/09/2020. #3 fever and pyrexia fluctuating between 102, on discharge 101.8F oral. With the etiology is unknown. #4 [place] of UTI during the urine analysis. #5 diabetes mellitus type 2 insulin-dependent with the hyperglycemia associated with dexamethasone refused to fourth treatment of multiple myeloma. #6 chronic multiple myeloma has been treated recently on last Sunday with chemotherapy and dexamethasone. #7 atrial fibrillation paroxysmal with the status post left infraclavicular pacemaker and anticoagulant Eliquis. #8 mild elevation of the liver enzyme with AST 68 and LT 41. #9 encephalomalacia, fluid collection with the underlying subacute subdural hematoma. By computed tomography scan. Chest x-ray interstitial changes chronic with the questionable pulmonary congestion and borderline cardiomegaly. ER admission: #1 mental confusion and deterioration and loss of appetite and eating and loss of weight. And fever 102. Laboratory on admission: WBC 9.9, hemoglobin 8.6 hematocrit 27.1, MCV 84.4, platelets 3:30 Pro-calcitonin 1.64 significant elevation Urine analysis was large leukocyte WBC 31, there is a bonding with the could be underlying yeast infection Coronavirus PCR not detected. Hospital course: Patient admitted to the floor with the consultation of infectious diseases due to fever of unknown etiology as well as the neurology and Dr. Kobe Bello as well as oncology hematology Dr. Carreon. Subsequently after the neurology consultation patient will be transferred to [facility] for the neurosurgical floor as she has been taking care by Dr. Keith with the unknown etiology of the sudden do oral fluid and possibility of hematoma. On discharge: Vital sign: Temperature 101.8 F oral, pulse rate 84 bpm regular with the underlying history of paroxysmal atrial fibrillation, respiratory rate 18/m nonlabored. Pressure 123/66 with a mean 85, pulse ox 95 on room air. The head was normocephalic no trauma, pupil is equal reactive, oropharynx natural crease able to eat however she has no appetite. Hearing is normal. Neck was supple no JVD no thyromegaly no lymphadenopathy. Trachea midline. Chest radiated bilateral no wheezes no rhonchi's Heart: She has left infraclavicular pacemaker. And she had paroxysmal atrial fibrillation and on eliquis 5 mg twice a day has been discontinued until evaluation by the neurosurgeon. With the underlying subdural hematoma. Abdomen: Soft positive bowel sounds no organ enlargement with no tenderness in the 4 quadrants. Extremities no edema. Pulses bilateral and symmetric. Neurologically: She is lethargic she has also confusion no clear evidence of stroke but there is the CAT scan of the brain was subdural fluid collection. Patient currently stable. Disposition transfer care to [facility] neurosurgery Department. Prognosis is guarded. Patient Condition at Discharge: Fair Plan - Discharge Summary Discharge Rx Participant: No New Discharge Prescriptions: No Action Ascorbic Acid [Vitamin C] 500 mg PO DAILY Apixaban [Eliquis] 5 mg PO BID Cholecalciferol (Vitamin D3) [Vitamin D3] 50 mcg PO Q48H Folic Acid 0.4 mg PO DAILY amLODIPine [Norvasc] 5 mg PO HS #30 tab Acetaminophen Tab [Tylenol] 650 mg PO Q6HR PRN tab PRN Reason: Mild Pain Or Fever > 100.5 atenoloL [Tenormin] 25 mg PO BID Lidocaine/Nystatin/Maalox/Benadryl Oral Solution 1:1 5 ml PO TID PRN PRN Reason: thrush dexAMETHasone [Dexamethasone] 20 mg PO TH Furosemide [Lasix] 20 mg PO Q48H Lenalidomide [Revlimid] 10 mg PO DIRECTED Megestrol [Megace] 200 mg PO BID Insulin Detemir [Levemir Flextouch] 50 units SQ HS Insulin Aspart (Niacinamide) [Fiasp 100 Unit/ml Flextouch] 50 units SQ AC-TID Discharge Medication List Apixaban [Eliquis] 5 mg PO BID 07/22/18 [History] Ascorbic Acid [Vitamin C] 500 mg PO DAILY 07/22/18 [History] Cholecalciferol (Vitamin D3) [Vitamin D3] 50 mcg PO Q48H 07/22/18 [History] Folic Acid 0.4 mg PO DAILY 07/11/19 [History] Acetaminophen Tab [Tylenol] 650 mg PO Q6HR PRN tab 07/21/19 [Rx] amLODIPine [Norvasc] 5 mg PO HS #30 tab 07/21/19 [Rx] atenoloL [Tenormin] 25 mg PO BID 07/22/20 [History] Furosemide [Lasix] 20 mg PO Q48H 08/31/20 [History] Insulin Aspart (Niacinamide) [Fiasp 100 Unit/ml Flextouch] 50 units SQ AC-TID 08/31/20 [History] Insulin Detemir [Levemir Flextouch] 50 units SQ HS 08/31/20 [History] Lenalidomide [Revlimid] 10 mg PO DIRECTED 08/31/20 [History] Lidocaine/Nystatin/Maalox/Benadryl Oral Solution 1:1 5 ml PO TID PRN 08/31/20 [History] Megestrol [Megace] 200 mg PO BID 08/31/20 [History] dexAMETHasone [Dexamethasone] 20 mg PO TH 08/31/20 [History] Follow up Appointment(s)/Referral(s): Carl Cid MD [Primary Care Provider] - 1-2 days
--- NOTE | 2020-09-01 15:44 | DS ---
DISCHARGE SUMMARY DATE OF SERVICE: 09/01/2020 She is 64 years old female. She is . FINAL DIAGNOSES: 1. There is some fluid collection of the brain and she had unknown is it new or old and if it is hematoma or fluid collection only. 2. Underlying mental status change with altered mental status and encephalopathy. 3. History of recent treatment by Dr. Carreon, Hematology/Oncology, for multiple myeloma with new on Sunday infusion and subsequently mental status change 3 days post the infusion. 4. Diabetes mellitus type 2, insulin dependent. 5. Underlying neuropathy of the lower extremities. 6. History of status post tumor removed from the parietal area of the brain in [facility] by Dr. Quintero. 7. History of pacemaker with the currently regular sinus rhythm of the left infraclavicular. 8. History of low back pain with the minimal surgical done in [place] in the lower lumbar L5-S1 by Dr. Padron in the past. 9. History of chronic anemia. 10.Hypertension, controlled. 11. recurrent fever. Currently on the dictation, her temperature 101.8 and subsequently in the admission it was 102 and after that it goes down and then order picker/assembler again the temperature and recurrent fever of unknown etiology. On the discharge hospital course, the patient presented initially in the ER with progressive encephalopathy with confusion, disorientation, which is progressive. HOSPITAL COURSE: As she admitted, we consulted the Oncology/Hematology as well as consulted Infectious Disease. Patient admitted seen by Neurology, Dr. Kobe Gomez and reviewed the CT scan and subsequently he discussed with [facility] and able to transfer the patient to [facility] under care of Neurology Neurosurgery as well and for further evaluation of this fluid collection and the current mental status. She is monitored for mental status as well as monitor for the diabetes mellitus and the febrile illness, and she received antibiotic as well. PHYSICAL EXAMINATION: Physical examination on discharge, she is conscious, alert. Her pupils equal, reactive and conjunctivae was pink sclera was nonicteric. She has underlying pallor with anemia chronically and underlying multiple myeloma. The head was normocephalic, atraumatic. The oropharynx natural teeth. Neck was supple. No JVD. No thyromegaly. No lymphadenopathy. Trachea midline. The chest x-ray showed ground-glass however she is currently breathing normal and she has oxygen intermittently. The lung was aerated bilaterally. No wheezes, no rhonchi. Heart was regular sinus rhythm. However, she had a pacemaker with the underlying history of irregular irregularities with atrial fibrillation paroxysmal. The abdomen was soft, nontender, positive bowel sounds. Extremities, no edema and positive pulses bilaterally. Neurological examination is done in detail by Dr. Kobe Gomez. Subsequently, no weakness in both upper extremities or lower extremities, but she was mentally confused. ASSESSMENT: The patient currently stable for discharge and transport to [facility] under care of Neurosurgery and for further treatment. The patient accepted and with the discussion between Dr. Gomez, the neurologist and [facility]. Patient will continue the medication with no changes at this time. MMODL / IJN: [id number] /
[2020-09-01 16:07] VITALS: TEMP 100.1
--- NOTE | 2020-09-01 16:55 | P.CONS ---
History of Present Illness - Reason for Consult Consult date: 09/01/20 Hx of brain mets, new neuro changes Requesting physician: Nikhil Flores - Chief Complaint confusion, CRUZ - History of Present Illness Mrs. Mary is a very pleasant 64 year old AA female pt of Dr. Carreon, treated for MM intermittently over the years-see below. 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 More recently her myeloma was progressing and she agreed to start treatment. She is 1 week into her 1st cycle. Sun she c/o CRUZ, which improved after tylenol. She was having intermittent fevers >101F. Over the next 2 days her mental status declined, she became confused, staring off and loss for words per . On admit UA was suspicious, CT of the head noted the craniotomy but also a left area suspicious for subdural bleeding. When seen the patient is neurologically stable, quinn fonseca, case discussed with Neurology. malignancy history Zulma has a history of an IgG kappa multiple myeloma diagnosed in June 2007 with renal failure at presentation. Treated with Velcade and high-dose Decadron with an excellent response. She was referred for bone marrow transplant which she declined. She did not do any other therapy. 03/26/13 work up showed evidence of early progression. Pt refused maintenance therapy, opted for continued monitoring. She had slow but persistent progression, it was recommended on several occasions for her to resume some sort of therapy. She did do maintenance Velcade a for time. she was diagnosed with Neely's palsy in 2013, myeloma treatment was held at that time. she was then diagnosed with lupus. She was seen again 11/10/14 for myeloma progression and started back on weekly Velcade, held March 2015 due to neuropathic toxicities. She had a compression fracture of the spine 05/2015 treated with kyphoplasty. She was found to have H. pylori infection around that time as well. She resumed Velcade and Decadron weekly March 2016, steroids stopped June 2016, treatment stopped 10/2016. Started again in 07/25/17, stopped 03/14/18. placed on our request for cardiac arrhythmia 05/2018. Kyphoplasty to T12 07/2018. Her myeloma labs became progressively worse. She agreed to treatment with kyprolis, refused dexamethasone, started 02/06. She developed acute onset of headache on the left, with difficulty in finding words as well as weakness on the right side on 08/14/19. CT brain 08/15/19 revealed an isodense masslike structure in the left parietal lobe with mild surrounding vasogenic edema. Low-grade intra-axial or, more likely extra-axial meningioma was favored. The patient was then sent to [facility] for a CT scan with contrast. She was also started on st eroids. She had marked improvement in her symptoms with steroids. CT with contrast confirmed the finding, with maximal dimension of the tumor about 3.5-4 cm. She was placed on Keppra but this was discontinued due to side effects such as hallucinations and excessive sleepiness. She was placed back on Decadron 2 mg twice a day. She was also evaluated by Neurosurgery, and it was recommended that she should have surgical excision. Had additional brain imaging done at [place], told scans "showed no change". The patient developed symptoms of mild weakness on the right side and difficulty in finding words with some confusion again around 11/08/19. She was strongly recommended by her PCP to have a repeat surgical evaluation but adamantly refused the same. Back on low-dose Decadron at 1 mg per day with improvement in symptoms. She ultimately followed up with Neurosurgery on repeated urging, at [facility]. She had excision of the tumor on 02/05/20 showing a plasma cell neoplasm. Tolerated surgery well and referred to radiation, started 03/11/20, 04/14/20. She continued to refuse treatment until just recently due to progressively worsening labs. Review of Systems 14 point ROS is negative except as stated in HPI Past Medical History Past Medical History: Cancer, Diabetes Mellitus, Hyperlipidemia, Hypertension, Osteoarthritis (OA), Renal Disease Additional Past Medical History / Comment(s): MULTIPLE MYELOMA had chemo in 2007, renal failure with cancer tx and had dialysis for 2 months, , slight leaky heart valve, hx of H pylori, PACEMAKER, NAUSEA, CHRONIC KIDNEY DISEASE STAGE 3 History of Any Multi-Drug Resistant Organisms: None Reported Past Surgical History: Back Surgery, Cholecystectomy, Hysterectomy, Pacemaker Additional Past Surgical History / Comment(s): colonoscopy, rt carpal tunnel release, T9 kyphoplasty with bx, oophorectomy, cyst of inner R thigh, R foot surgery , AV fistula inserted and removed Past Anesthesia/Blood Transfusion Reactions: No Reported Reaction Additional Past Anesthesia/Blood Transfusion Reaction / Comm: Pt has received blood in the past without reaction. Type of Cardiac Device: Permanent Pacemaker Device Placement Date:: DECEMBER 2014 Past Psychological History: No Psychological Hx Reported Additional Psychological History / Comment(s): Pt resides with her spouse. She is independent. She uses no assistive device. She drives. Smoking Status: Never smoker Past Alcohol Use History: None Reported Past Drug Use History: None Reported - Past Family History Sister(s) Family Medical History: Cancer Daughter(s) Family Medical History: Pulmonary Embolus Mother Family Medical History: Congestive Heart Failure (CHF) Additional Family Medical History / Comment(s): Mother of CHF at age 76 yrs. Father Family Medical History: Myocardial Infarction (LA) Additional Family Medical History / Comment(s): Father of a LA at age 46 yrs. Medications and Allergies Home Medications Medication Instructions Recorded Confirmed Type Apixaban [Eliquis] 5 mg PO BID 07/22/18 08/31/20 History Ascorbic Acid [Vitamin C] 500 mg PO DAILY 07/22/18 08/31/20 History Cholecalciferol (Vitamin D3) 50 mcg PO Q48H 07/22/18 08/31/20 History [Vitamin D3] Folic Acid 0.4 mg PO DAILY 07/11/19 08/31/20 History Acetaminophen Tab [Tylenol] 650 mg PO Q6HR PRN tab 07/21/19 08/31/20 Rx amLODIPine [Norvasc] 5 mg PO HS #30 tab 07/21/19 08/31/20 Rx atenoloL [Tenormin] 25 mg PO BID 07/22/20 08/31/20 History Furosemide [Lasix] 20 mg PO Q48H 08/31/20 08/31/20 History Insulin Aspart (Niacinamide) 50 units SQ AC-TID 08/31/20 08/31/20 History [Fiasp 100 Unit/ml Flextouch] Insulin Detemir [Levemir Flextouch] 50 units SQ HS 08/31/20 08/31/20 History Lenalidomide [Revlimid] 10 mg PO DIRECTED 08/31/20 08/31/20 History Lidocaine/Nystatin/Maalox/Benadryl 5 ml PO TID PRN 08/31/20 08/31/20 History Oral Solution 1:1 Megestrol [Megace] 200 mg PO BID 08/31/20 08/31/20 History dexAMETHasone [Dexamethasone] 20 mg PO TH 08/31/20 08/31/20 History Allergies Allergy/AdvReac Type Severity Reaction Status Date / Time latex Allergy Rash/Hives Verified 08/31/20 14:47 Mvttgkd-Jdl-Fat Reductase Allergy Unknown Verified 08/31/20 14:47 Inhibitor Physical Exam Vitals: Vital Signs Temp Pulse Pulse Resp BP BP Pulse Ox 09/01/20 07:56 98.4 F 75 18 133/68 99 09/01/20 04:43 98.4 F 72 16 121/75 100 09/01/20 03:20 18 09/01/20 03:09 99 F 09/01/20 00:56 102.4 F H 09/01/20 00:24 99.5 F 09/01/20 00:00 81 18 106/63 95 08/31/20 23:30 84 18 117/58 94 L 08/31/20 23:00 129/63 100 08/31/20 22:42 129/63 100 08/31/20 17:37 99.1 F 08/31/20 17:30 70 18 137/82 97 08/31/20 17:00 18 133/70 97 08/31/20 16:30 74 123/72 97 08/31/20 15:36 101.2 F H 08/31/20 15:00 83 134/71 89 L 08/31/20 14:30 134/71 08/31/20 14:00 85 136/69 95 08/31/20 13:40 89 136/69 94 L 08/31/20 12:46 102.4 F H 91 20 122/63 97 Intake and Output 08/31/20 09/01/20 09/01/20 22:59 06:59 14:59 Intake Total 520 Output Total 900 Balance -380 Intake: Intake, IV Titration 320 Amount Sodium Chloride 0.9% 1, 320 000 ml @ 80 mls/hr IV . [id number] [facility] Rx#:[id number] Oral 200 Output: Urine 900 Other: Voiding Method Bedside Commode Weight 79.379 kg - Constitutional General appearance: average body habitus, cooperative, no acute distress - EENT Eyes: anicteric sclerae, EOMI ENT: hearing grossly normal, normal oropharynx - Neck Neck: no lymphadenopathy - Respiratory Respiratory: bilateral: CTA - Cardiovascular Rhythm: regular Heart sounds: normal: S1, S2 Abnormal Heart Sounds: no systolic murmur, no diastolic murmur, no rub, no S3 Gallop, no S4 Gallop, no click, no other leg Peripheral Edema: bilateral: Trace - Gastrointestinal General gastrointestinal: no absent bowel sounds, no decreased bowel sounds, no distended, no hepatomegaly, no hyperactive bowel sounds, normal bowel sounds, no organomegaly, no rigid, no scaphoid, soft, no splenomegaly, no tenderness, no umbilical hernia, no ventral hernia - Neurologic essential tremor - Musculoskeletal Musculoskeletal: generalized weakness - Psychiatric Psychiatric: A&O x's 3, appropriate affect, intact judgment & insight Results CBC & Chem 7: 09/01/20 06:19 09/01/20 06:19 Labs: Abnormal Lab Results - Last 24 Hours (Table) 08/31/20 08/31/20 08/31/20 Range/Units 15:16 15:16 15:16 RBC 3.22 L (3.80-5.40) m/uL Hgb 8.6 L (11.4-16.0) gm/dL Hct 27.1 L (34.0-46.0) % RDW 16.2 H (11.5-15.5) % Neutrophils # 8.0 H (1.3-7.7) k/uL Lymphocytes # (1.0-4.8) k/uL Sodium 131 L (137-145) mmol/L Chloride 89 L (98-107) mmol/L Carbon Dioxide 34 H (22-30) mmol/L BUN 28 H (7-17) mg/dL Glucose 330 H (74-99) mg/dL POC Glucose (mg/dL) (75-99) mg/dL Total Bilirubin 1.4 H (0.2-1.3) mg/dL AST 68 H (14-36) U/L ALT 41 H (4-34) U/L Alkaline Phosphatase 228 H (38-126) U/L Creatine Kinase <20 L (30-135) U/L Albumin 3.3 L (3.5-5.0) g/dL Procalcitonin 1.64 H (0.02-0.09) ng/mL Urine Appearance (Clear) Urine Protein (Negative) Ur Leukocyte Esterase (Negative) Urine WBC (0-5) /hpf Urine Bacteria (None) /hpf Hyaline Casts (0-2) /lpf Urine Mucus (None) /hpf Urine Yeast (Budding) (None) /hpf 08/31/20 08/31/20 08/31/20 Range/Units 15:33 17:48 22:14 RBC (3.80-5.40) m/uL Hgb (11.4-16.0) gm/dL Hct (34.0-46.0) % RDW (11.5-15.5) % Neutrophils # (1.3-7.7) k/uL Lymphocytes # (1.0-4.8) k/uL Sodium (137-145) mmol/L Chloride (98-107) mmol/L Carbon Dioxide (22-30) mmol/L BUN (7-17) mg/dL Glucose (74-99) mg/dL POC Glucose (mg/dL) 384 H 325 H (75-99) mg/dL Total Bilirubin (0.2-1.3) mg/dL AST (14-36) U/L ALT (4-34) U/L Alkaline Phosphatase (38-126) U/L Creatine Kinase (30-135) U/L Albumin (3.5-5.0) g/dL Procalcitonin (0.02-0.09) ng/mL Urine Appearance Cloudy H (Clear) Urine Protein 1+ H (Negative) Ur Leukocyte Esterase Large H (Negative) Urine WBC 31 H (0-5) /hpf Urine Bacteria Occasional H (None) /hpf Hyaline Casts 3 H (0-2) /lpf Urine Mucus Rare H (None) /hpf Urine Yeast (Budding) Many H (None) /hpf 09/01/20 09/01/20 Range/Units 06:19 07:04 RBC 3.00 L (3.80-5.40) m/uL Hgb 8.2 L (11.4-16.0) gm/dL Hct 25.8 L (34.0-46.0) % RDW 16.1 H (11.5-15.5) % Neutrophils # (1.3-7.7) k/uL Lymphocytes # 0.9 L (1.0-4.8) k/uL Sodium (137-145) mmol/L Chloride (98-107) mmol/L Carbon Dioxide (22-30) mmol/L BUN (7-17) mg/dL Glucose (74-99) mg/dL POC Glucose (mg/dL) 235 H (75-99) mg/dL Total Bilirubin (0.2-1.3) mg/dL AST (14-36) U/L ALT (4-34) U/L Alkaline Phosphatase (38-126) U/L Creatine Kinase (30-135) U/L Albumin (3.5-5.0) g/dL Procalcitonin (0.02-0.09) ng/mL Urine Appearance (Clear) Urine Protein (Negative) Ur Leukocyte Esterase (Negative) Urine WBC (0-5) /hpf Urine Bacteria (None) /hpf Hyaline Casts (0-2) /lpf Urine Mucus (None) /hpf Urine Yeast (Budding) (None) /hpf Microbiology - Last 24 Hours (Table) 08/31/20 15:33 Urine Culture - Preliminary Urine,Voided CT Scan - head: report reviewed Assessment and Plan (1) Delirium due to general medical condition Current Visit: Yes Status: Acute Priority: High Code(s): F05 - DELIRIUM DUE TO KNOWN PHYSIOLOGICAL CONDITION SNOMED Code(s): 9675573 (2) Febrile illness, acute Current Visit: Yes Status: Acute Priority: High Code(s): R50.9 - FEVER, UNSPECIFIED SNOMED Code(s): 311878527 (3) Hyperglycemia Current Visit: Yes Status: Acute Priority: High Code(s): R73.9 - HYPERGLYCEMIA, UNSPECIFIED SNOMED Code(s): 14708345 (4) Multiple myeloma Current Visit: Yes Status: Chronic Priority: Medium Code(s): C90.00 - MULTIPLE MYELOMA NOT HAVING ACHIEVED REMISSION SNOMED Code(s): 113807492 Plan: Case was discussed with Neurologist. On review of imaging and is very difficult to tell if there is an acute component to this left-sidedsubdural finding. Case reviewed with Radiologist who feels the same. Reviewed reports from the most recent CT of the head which was 05/17/20 performed at [facility] where she had radiation. There were no findings in the area of the head in question. Due to possible acute subdural hemorrhage patient is being transferred to tertiary care center. The Neurologist at [facility] who cared fo r her previously is willing to accept the admit. Dr. Carreon discussed case with the PA. Case management help get patient transferred very quickly. Doctor attests: I performed a history and physical examination of this patient, developed impression and plan of care. Discussed with dictator. I agree with dictators note, documented as a scribe.
[2020-09-01 16:58] LABS: Glucose,Whole Blood 195 mg/dL (75-99)
--- NOTE | 2020-09-01 20:15 | CONS ---
CONSULTATION DATE OF SERVICE: 09/01/2020 REASON FOR CONSULTATION: Fever and urinary tract infection. HISTORY OF PRESENT ILLNESS: The patient is a 64-year-old female brought into the ER yesterday afternoon for evaluation of mental status changes in this patient with a history of multiple myeloma, for which the patient did have brain surgery and chemotherapy. The patient was brought into the hospital for mental status changes, confusion and intermittent fever that has been going on for about a week. The history was provided mostly by the family member at the bedside. The patient knows that she is in the hospital. The patient denies having any headache. The patient denies having any chest pain, shortness of breath or cough. Denies having any nausea. No vomiting, no abdominal pain or any diarrhea. The patient was noticed to have some dark urine but no significant burning or suprapubic pain. With these symptoms, the patient was evaluated by the ER physician. On arrival in the ER, the patient did have a fever of 102 degrees Fahrenheit. The patient is currently 96% on room air. At one point she was down to 89% on room air. The patient did have a normal white count with mild left shift. Creatinine was normal, liver enzymes mildly elevated. Procalcitonin is 1.64. Urine was mildly positive. Rock PCR came back negative. The patient did have a chest x-ray showing borderline cardiomegaly, interstitial changes appearing largely chronic; correlate to exclude mild pulmonary vascular congestion. The patient was started on Rocephin 1 gram q.12 hours. Infectious Disease was consulted for further management of antibiotic therapy. REVIEW OF SYSTEMS: Positive points have been mentioned in the HPI. Rest of the systems are negative. PAST MEDICAL HISTORY: Diabetes mellitus, hyperlipidemia, hypertension, osteoarthritis, multiple myeloma. PAST SURGICAL HISTORY: Cholecystectomy, hysterectomy, back surgery, colonoscopy, carpal tunnel release and permanent pacemaker placement. SOCIAL HISTORY: No history of smoking, drinking or drug use. FAMILY HISTORY: Daughter with history of PE. Mother with history of congestive heart failure. ALLERGIES: STATINS and LATEX. MEDICATIONS: The patient is currently on Tylenol, Norvasc, vitamin C, Tenormin, Rocephin 1 gram q.12, vitamin D3, dexamethasone, folic acid, Lasix, NovoLog, Levemir, Megace, Narcan, Topamax. PHYSICAL EXAMINATION: Blood pressure 123/66, pulse of 84, temperature 101.8. She is 95% on room air. General description is an elderly female up in the chair in no distress. HEENT: Examination shows pallor. No scleral icterus. Oral mucous membrane is dry. LUNGS: Unlabored breathing. Decreased breath sounds at the base. No wheeze or crackle. HEART: S1, S2. Regular rate and rhythm. ABDOMEN: Soft. No tenderness. No guarding or rigidity. EXTREMITIES: No edema of the feet. SKIN EXAMINATION: No rash or mass palpable. Neurologically the patient is awake, alert, oriented . 3Mood and affect normal. LABS: Hemoglobin is 8.2, white count 7.6, BUN of 28, creatinine 0.90. Liver enzymes are mildly elevated. Procalcitonin was mildly elevated. Chest x-ray: No acute finding. DIAGNOSTIC IMPRESSION AND PLAN: Patient admitted to hospital with mental status changes and a fever. The patient's mentation seems to have improved. Fever pattern has improved as well. The only positive finding has been the positive UA and urine Symptoms on history, possible UTI, as no other obvious focus of infection. Clinically not behaving as pneumonia. She is saturating 96% to 97% on room air. Chest x-ray did not show any acute finding. The patient does not have any evidence of cellulitis. She did have elevated liver enzymes, and hence we need to rule out hepatobiliary source to be the likely source of fever as well. PLAN: 1. We will obtain ultrasound of the liver and gallbladder area. 2. Patient to continue with Rocephin while waiting for the culture to finalize. 3. We will follow clinical condition and culture to further adjust medication if needed. Thank you for this consultation. Will follow this patient with you. MMODL / IJN: [id number] / DONNELL
[2020-09-02] MEDS ORDERED: dexAMETHasone 4 MG TAB PO SCH (09:00)
[2020-09-02] MEDS ORDERED: CHOLECALCIFEROL 25 MCG (1000 IU) TABLET PO SCH (09:00)
--- NOTE | 2020-10-04 08:13 | CDI ---
Documentation Clarification Form Date: 10/04/2020 07:58:37 AM From: Michael Hassan Phone: Lena Berry [phone] Admit Date: 08/31/2020 05:12:00 PM Patient Name: Tana Mary Visit Number: [id number] Discharge Date: 09/01/2020 05:47:00 PM ATTENTION: The Clinical Documentation Specialists (CDI) and [facility] Coding Staff appreciate your assistance in clarifying documentation. Please respond to the clarification below the line at the bottom and electronically sign. The CDI & [facility] Coding staff will review the response and follow-up if needed. Please note: Queries are made part of the Legal Health Record. If you have any questions, please contact the author of this message via ITS. Dr. Carl Cid The patient presented with the following clinical indicators. Additional clarification regarding the etiology/cause of the clinical indicators is requested. Consult 09/01 by Kobe Gomez states seems septic. History/Risk Factors: Admitted with AMS. Possible UTI Clinical Indicators: ED: WBC: 9.9 Lactic acid: N/A Blood cultures: N/A Vitals signs: BP 122/63, Temp 102, pulse 91, resp 20 Treatment: ID Consult: [place] Antibiotics: IV piggyback Levaquin-ER, rocephin IV Bolus: In your professional opinion, please clarify if these findings signify one of the following conditions: [x ] Sepsis POA [ ] Sepsis, Not POA [ ] Sepsis ruled out [ ] SIRS, without underlying infectious process [ ] Other, please specify [ ] Unable to determine SIRS Criteria: 2 or more of the following may indicate SIRS -Temperature < 96.8F (36C) or > 101.0F (38.3C) -Heart Rate > 90 bpm -Respiratory Rate > 20 breaths/min or PaCO2 < 32 mmHg -White Blood Cell Count > 12,000 or < 4,000 cells/mm3 or > 10% ba MTDD
== END 2020-09-01 17:47 | disposition short-term general hospital (02) | DRG 871 ==
LOC: EC 12:34 → 5NMEDONC 17:12
PROVIDERS: ADMIT Internal Medicine; ATTEND Internal Medicine
DX: A41.9 Sepsis, unspecified organism (principal); I62.00 Nontraumatic subdural hemorrhage, unspecified; G93.41 Metabolic encephalopathy; C90.00 Multiple myeloma not having achieved remission; B37.0 Candidal stomatitis; F05 Delirium due to known physiological condition; N39.0 Urinary tract infection, site not specified; E87.1 Hypo-osmolality and hyponatremia; M32.9 Systemic lupus erythematosus, unspecified; Z20.822 Contact with and (suspected) exposure to COVID-19; G93.89 Other specified disorders of brain; N18.30 Chronic kidney disease, stage 3 unspecified; E11.22 Type 2 diabetes mellitus with diabetic chronic kidney disease; I12.9 Hypertensive chronic kidney disease with stage 1 through stage 4 chronic kidney disease, or unspecified chronic kidney disease; J44.9 Chronic obstructive pulmonary disease, unspecified; K44.9 Diaphragmatic hernia without obstruction or gangrene; E78.5 Hyperlipidemia, unspecified; Z85.841 Personal history of malignant neoplasm of brain; M43.16 Spondylolisthesis, lumbar region; M54.10 Radiculopathy, site unspecified; E11.65 Type 2 diabetes mellitus with hyperglycemia; Z95.0 Presence of cardiac pacemaker; Z79.4 Long term (current) use of insulin; E86.0 Dehydration; D63.0 Anemia in neoplastic disease; M48.57XD Collapsed vertebra, not elsewhere classified, lumbosacral region, subsequent encounter for fracture with routine healing; R25.1 Tremor, unspecified; I48.0 Paroxysmal atrial fibrillation; E11.40 Type 2 diabetes mellitus with diabetic neuropathy, unspecified; Z79.01 Long term (current) use of anticoagulants; Z91.040 Latex allergy status; Z82.49 Family history of ischemic heart disease and other diseases of the circulatory system; Z92.3 Personal history of irradiation; Z90.710 Acquired absence of both cervix and uterus; Z79.899 Other long term (current) drug therapy; T45.1X5A Adverse effect of antineoplastic and immunosuppressive drugs, initial encounter
CPT/HCPCS: 36415; 70450; 71046; 80048; 80053; 81001; 82140; 82533; 82550; 83605; 83735; 84145; 84443; 84484; 85025; 87040; 87086; 87635; 93005; 96374; 99285

== ENCOUNTER 2021-06-20 11:34 | Emergency (ER) | payer MEDICARE ==
--- NOTE | 2021-06-20 13:40 | ED ---
General Adult HPI - General Chief complaint: Upper Respiratory Infection Stated complaint: cough/chills/headache Time Seen by Provider: 06/20/21 12:45 Source: patient, family, RN notes reviewed, old records reviewed Mode of arrival: wheelchair Limitations: no limitations - History of Present Illness Initial comments: Well-appearing 65-year-old female presents to the emergency room with her family member with complaints of exposure to coronavirus, one day of cough, congestion and decreased appetite. Patient is sitting on the side of the bed, vital signs are stable. Family member states she does have a history of multiple myeloma and sees Dr. Carreon and had an IV infusion last month. She also has a history of diabetes, hypertension, osteoarthritis and renal disease. Patient denies any pain or shortness of breath at this time. -: days(s) (1) Severity scale (1-10): 0 Associated Symptoms: cough, loss of appetite, weakness - Related Data Home Medications Medication Instructions Recorded Confirmed Apixaban [Eliquis] 5 mg PO BID 07/22/18 06/20/21 Ascorbic Acid [Vitamin C] 500 mg PO DAILY 07/22/18 06/20/21 Folic Acid 0.4 mg PO DAILY 07/11/19 06/20/21 atenoloL [Tenormin] 25 mg PO BID 07/22/20 06/20/21 Furosemide [Lasix] 20 mg PO DAILY 08/31/20 06/20/21 Insulin Aspart (Niacinamide) 50 units SQ AC-TID 08/31/20 06/20/21 [Fiasp 100 Unit/ml Flextouch] Insulin Detemir [Levemir Flextouch] 50 units SQ HS 08/31/20 06/20/21 dexAMETHasone 20 mg PO TU 08/31/20 06/20/21 Cholecalciferol (Vitamin D3) 75 mcg PO DAILY 06/20/21 06/20/21 [Vitamin D3 (3000 Iu)] Donepezil [Aricept] 10 mg PO DAILY 06/20/21 06/20/21 Allergies Allergy/AdvReac Type Severity Reaction Status Date / Time latex Allergy Rash/Hives Verified 06/20/21 14:13 Hjfkwjo-UUZ-AfY Reductase Allergy Unknown Verified 06/20/21 14:13 Inhibitor [Mmegzum-Qvw-Vei Reductase Inhibitor] Review of Systems ROS Statement: Those systems with pertinent positive or pertinent negative responses have been documented in the HPI. ROS Other: All systems not noted in ROS Statement are negative. Past Medical History Past Medical History: Cancer, Diabetes Mellitus, Hyperlipidemia, Hypertension, Osteoarthritis (OA), Renal Disease Additional Past Medical History / Comment(s): MULTIPLE MYELOMA had chemo in 2007, renal failure with cancer tx and had dialysis for 2 months, , slight leaky heart valve, hx of H pylori, PACEMAKER, NAUSEA, CHRONIC KIDNEY DISEASE STAGE 3 History of Any Multi-Drug Resistant Organisms: None Reported Past Surgical History: Back Surgery, Cholecystectomy, Hysterectomy, Pacemaker Additional Past Surgical History / Comment(s): colonoscopy, rt carpal tunnel release, T9 kyphoplasty with bx, oophorectomy, cyst of inner R thigh, R foot surgery , AV fistula inserted and removed Past Anesthesia/Blood Transfusion Reactions: No Reported Reaction Additional Past Anesthesia/Blood Transfusion Reaction / Comment(s): Pt has received blood in the past without reaction. Type of Cardiac Device: Permanent Pacemaker Device Placement Date:: DECEMBER 2014 Past Psychological History: No Psychological Hx Reported Smoking Status: Never smoker Past Alcohol Use History: None Reported Past Drug Use History: None Reported - Past Family History Sister(s) Family Medical History: Cancer Daughter(s) Family Medical History: Pulmonary Embolus Mother Family Medical History: Congestive Heart Failure (CHF) Additional Family Medical History / Comment(s): Mother of CHF at age 76 yrs. Father Family Medical History: Myocardial Infarction (PA) Additional Family Medical History / Comment(s): Father of a PA at age 46 yrs. General Exam Limitations: no limitations General appearance: alert, in no apparent distress Eye exam: Present: normal appearance. Absent: scleral icterus, conjunctival injection ENT exam: Present: normal exam, normal oropharynx, mucous membranes moist Neck exam: Present: normal inspection, full ROM. Absent: tenderness, meningismus, lymphadenopathy Respiratory exam: Present: normal lung sounds bilaterally. Absent: respiratory distress, wheezes, rales, rhonchi, stridor, chest wall tenderness, accessory muscle use Cardiovascular Exam: Present: normal rhythm. Absent: JVD Back exam: Present: normal inspection, full ROM. Absent: tenderness, CVA tenderness (R), CVA tenderness (L), rash noted Neurological exam: Present: alert, oriented X3, normal gait Psychiatric exam: Present: normal affect, normal mood Skin exam: Present: warm, dry, intact, normal color. Absent: rash, cyanosis, diaphoretic, erythema Course Vital Signs 06/20/21 06/20/21 06/20/21 11:35 14:00 16:04 Temperature 98.2 F 98.4 F Pulse Rate 63 63 64 Respiratory 18 20 20 Rate Blood Pressure 152/91 143/88 147/90 O2 Sat by Pulse 99 98 98 Oximetry Medical Decision Making - Medical Decision Making Well-appearing 65-year-old female presents with complaints of exposure to coronavirus, one day of cough, congestion and decreased appetite. She has not been vaccinated against coronavirus. She does have a history of multiple myeloma had an IV infusion last month. Patient denies any chest pain or shortness of breath at this time. Chest x-ray shows cardiomegaly with no acute pulmonary process. No significant change compared to 08/21/2020. Patient is Covid positive. Daughter at bedside requesting monoclonal antibodies. Patient is agreeable to the infusion. She tolerated the infusion well and vital signs are stable. She is discharged home and directed to return to the emergency room with any new or worsening symptoms. Self quarantine for 10 days from symptom onset. Patient and family member are agreeable to this plan of care. Case was discussed with Dr. Aguila - Lab Data Lab Results 06/20/21 Range/Units 11:40 Coronavirus (PCR) Detected A (Not Detectd) Disposition Clinical Impression: COVID-19 Disposition: HOME SELF-CARE Condition: Good Instructions (If sedation given, give patient instructions): Coronavirus Disease 2019 (COVID-19) Additional Instructions: Increase your fluid intake. You can take Tylenol as needed for fevers or body aches. You can take vitamin C, vitamin D, and zinc to improve immune health. Follow-up with your primary care doctor this week. Return to the emergency room with any new or worsening symptoms including chest pain, difficulty in breathing or inability to keep food or fluids down. Self quarantine for 10 days from symptom onset. Is patient prescribed a controlled substance at d/c from ED?: No Referrals: Carl Cid MD [Primary Care Provider] - 1-2 days Time of Disposition: 15:28
--- NOTE | 2021-06-20 13:54 | XR ---
EXAMINATION TYPE: XR chest 2V DATE OF EXAM: 06/20/2021 COMPARISON: Chest x-ray August 31, 2020 HISTORY: Cough and weakness. TECHNIQUE: Frontal and lateral views of the chest are obtained. FINDINGS: Stable right subclavian Mediport catheter. There is no suspicious focal air space opacity, pleural effusion, or pneumothorax seen. Persistent cardiomegaly with dual lead pacemaker and atherosc lerotic and ectatic thoracic aorta. Osseous structures are demineralized with vertebroplasty mid thor acic vertebra site of moderate compression type fracture and vertebroplasty lower thoracic vertebra r edemonstrated. IMPRESSION: Cardiomegaly without acute pulmonary process. No significant change from prior
[2021-06-20] MEDS ORDERED: SOTROVIMAB (EUA) 500 MG in SODIUM CHLORIDE 0.9% 100 ML IVPB ONE (14:00)
[2021-06-20 14:05] VITALS: RESP 20
[2021-06-20] MEDS ORDERED: SODIUM CHLORIDE 0.9% 50 ML IVPB ONE (14:30)
[2021-06-20] MEDS ORDERED: SODIUM CHLORIDE 0.9% 500 ML 500 ML IV ONE (14:39)
[2021-06-20 16:05] VITALS: BP 147/90; PULSE 64; TEMP 98.4
== END 2021-06-20 16:05 | disposition home or self-care (01) ==
LOC: EC 11:34
DX: U07.1 COVID-19 (principal); E78.5 Hyperlipidemia, unspecified; I10 Essential (primary) hypertension; E11.9 Type 2 diabetes mellitus without complications; Z88.8 Allergy status to other drugs, medicaments and biological substances; Z91.040 Latex allergy status
CPT/HCPCS: 87635; 71046; 99283; 96360; 96361; Q0247

== ENCOUNTER 2021-07-31 15:12 | Emergency (ER) | payer MEDICARE ==
[2021-07-31 15:19] VITALS: TEMP 98.2
--- NOTE | 2021-07-31 16:20 | ED ---
General Adult HPI - General Source: family Mode of arrival: wheelchair <Anisha Dickens - Last Filed: 07/31/21 18:05> <Nikhil Solis - Last Filed: 07/31/21 19:54> - General Chief complaint: Recheck/Abnormal Lab/Rx Stated complaint: Abd labs Time Seen by Provider: 07/31/21 15:25 - History of Present Illness Initial comments: This 65-year-old female with a past medical history of multiple myeloma, renal failure, pacemaker, MA, seizure and stroke presents to the emergency department after being sent here by Dr. Guardado for positive blood culture. Patient was just discharged from the hospital 2 days ago after having a stroke. Patient is currently at her baseline and is nonverbal. and daughter in the room with patient states she has not had a fever at home and has been acting as usual. They state she has been eating and drinking and has been having normal bladder and bowel movements. Daughter and and room states patient is at her baseline and they have not recognized any changes since patient was last admitted and discharged. They deny patient complaining of any shortness breath, abdominal pain, nausea, vomiting, headache, visual changes, increased weakness or bowel/bladder changes. (Anisha Dickens) - Related Data Home Medications Medication Instructions Recorded Confirmed Apixaban [Eliquis] 5 mg PO BID 07/22/18 07/31/21 Ascorbic Acid [Vitamin C] 500 mg PO DAILY 07/22/18 07/31/21 Folic Acid 0.4 mg PO DAILY 07/11/19 07/31/21 atenoloL [Tenormin] 25 mg PO BID 07/22/20 07/31/21 Furosemide [Lasix] 20 mg PO DAILY PRN 08/31/20 07/31/21 Insulin Detemir [Levemir Flextouch] 10 units SQ BID 08/31/20 07/31/21 dexAMETHasone 12 mg PO WE 08/31/20 07/31/21 Divalproex Sodium [Divalproex 500 mg PO BID 07/31/21 07/31/21 Sodium ER] Magnesium 250 mg PO DAILY 07/31/21 07/31/21 Potassium Chloride ER [K-Dur 20] 20 meq PO DAILY 07/31/21 07/31/21 Allergies Allergy/AdvReac Type Severity Reaction Status Date / Time latex Allergy Rash/Hives Verified 07/31/21 16:51 Dckcehg-XFS-FcK Reductase Allergy Unknown Verified 07/31/21 16:51 Inhibitor [Zasqrbz-Ihy-Qxs Reductase Inhibitor] Review of Systems ROS Other: All systems not noted in ROS Statement are negative. <Anisha Dickens - Last Filed: 07/31/21 18:05> ROS Other: All systems not noted in ROS Statement are negative. <Nikhil Solis - Last Filed: 07/31/21 19:54> ROS Statement: Those systems with pertinent positive or pertinent negative responses have been documented in the HPI. Past Medical History Past Medical History: Cancer, Diabetes Mellitus, Hyperlipidemia, Hypertension, Osteoarthritis (OA), Renal Disease Additional Past Medical History / Comment(s): MULTIPLE MYELOMA had chemo in 2007, renal failure with cancer tx and had dialysis for 2 months, , slight leaky heart valve, hx of H pylori, PACEMAKER, NAUSEA, CHRONIC KIDNEY DISEASE STAGE 3, stroke and seizure which made patient non-verbal History of Any Multi-Drug Resistant Organisms: None Reported Past Surgical History: Back Surgery, Cholecystectomy, Hysterectomy, Pacemaker Additional Past Surgical History / Comment(s): colonoscopy, rt carpal tunnel release, T9 kyphoplasty with bx, oophorectomy, cyst of inner R thigh, R foot surgery , AV fistula inserted and removed Past Anesthesia/Blood Transfusion Reactions: No Reported Reaction Additional Past Anesthesia/Blood Transfusion Reaction / Comment(s): Pt has received blood in the past without reaction. Type of Cardiac Device: Permanent Pacemaker Device Placement Date:: DECEMBER 2014 Past Psychological History: No Psychological Hx Reported Smoking Status: Never smoker Past Alcohol Use History: None Reported Past Drug Use History: None Reported - Past Family History Sister(s) Family Medical History: Cancer Daughter(s) Family Medical History: Pulmonary Embolus Mother Family Medical History: Congestive Heart Failure (CHF) Additional Family Medical History / Comment(s): Mother of CHF at age 76 yrs. Father Family Medical History: Myocardial Infarction (MA) Additional Family Medical History / Comment(s): Father of a MA at age 46 yrs. <Anisha Dickens - Last Filed: 07/31/21 18:05> General Exam General appearance: alert, other (Patient is nonverbal, lying awake and alert and bed. Patient is able to look around, however she is unable to speak. Daughter and and room state since her baseline and stayed is no change from when she was discharged on Sunday) Head exam: Present: atraumatic, normocephalic, normal inspection Eye exam: Present: PERRL, EOMI ENT exam: Present: normal exam, mucous membranes moist Neck exam: Present: full ROM Respiratory exam: Present: normal lung sounds bilaterally. Absent: respiratory distress, wheezes, rales, rhonchi, stridor Cardiovascular Exam: Present: regular rate, normal rhythm, normal heart sounds. Absent: systolic murmur, diastolic murmur, rubs, gallop, clicks GI/Abdominal exam: Present: soft, normal bowel sounds. Absent: distended, tend erness, guarding, rebound, rigid Extremities exam: Present: normal inspection Neurological exam: Present: alert, oriented X3, CN II-XII intact Psychiatric exam: Present: normal affect, normal mood Skin exam: Present: warm, dry, intact, normal color. Absent: rash <Anisha Dickens - Last Filed: 07/31/21 18:05> Course <Anisha Dickens - Last Filed: 07/31/21 18:05> Vital Signs 07/31/21 15:16 Temperature 98.2 F Pulse Rate 71 Respiratory 18 Rate Blood Pressure 158/79 O2 Sat by Pulse 100 Oximetry - Reevaluation(s) Reevaluation #1: 07/31/21 17:46 I did speak with Dr. Guardado who stated he wants patient to be observed for 24 hours and labs to be drawn along with another set of blood cultures. I did inform him [place] [id number] came back as staph epidermidis which he was unaware of at the time of our call. He still suggested patient be observed until blood cultures and labs results. 07/31/21 18:06 I did speak with who stated he did not want to admit patient to observation unless patient has leukocytosis or other concerning laboratory results. He states this labs resulted negative that the staph epidermidis blood culture is likely just a skin contaminant and that patient can be evaluated in outpatient and seen by him early this week for new blood cultures to result. He states since patient does not have any new symptoms at this time and is at baseline. The patient needs to be observed and was labs come back with an abnormality. I did discuss this patient case with my attending, who I signed patient out to. Prior to me leaving, nursing staff was still trying to obtain labs from patient. agreed to the plan. (Anisha Dickens) Medical Decision Making - Lab Data Result diagrams: 07/31/21 18:27 07/31/21 18:27 <Nikhil Solis - Last Filed: 07/31/21 19:54> - Medical Decision Making The laboratory came back essentially unremarkable. There is no elevation of the white blood cell count. Primary care recommends discharge home that this likely is a skin contaminant. He would like to follow-up with her early this week in his office. It is felt as though this is very reasonable. Family is agreeable with this plan as well. She is at her baseline on recheck. Return parameters are discussed in detail. Close follow-up recommended. (Nikhil Solis) - Lab Data Lab Results 07/31/21 07/31/21 07/31/21 Range/Units 18:27 18:27 18:27 WBC 8.2 (3.8-10.6) k/uL RBC 4.14 (3.80-5.40) m/uL Hgb 13.6 (11.4-16.0) gm/dL Hct 41.6 (34.0-46.0) % MCV 100.7 H (80.0-100.0) fL MCH 33.0 (25.0-35.0) pg MCHC 32.7 (31.0-37.0) g/dL RDW 13.0 (11.5-15.5) % Plt Count 285 (150-450) k/uL MPV 7.2 Neutrophils % 50 % Lymphocytes % 39 % Monocytes % 5 % Eosinophils % 3 % Basophils % 1 % Neutrophils # 4.2 (1.3-7.7) k/uL Lymphocytes # 3.2 (1.0-4.8) k/uL Monocytes # 0.4 (0-1.0) k/uL Eosinophils # 0.2 (0-0.7) k/uL Basophils # 0.1 (0-0.2) k/uL PT 11.9 (9.0-12.0) sec INR 1.1 (<1.2) APTT 29.3 (22.0-30.0) sec Sodium 140 (137-145) mmol/L Potassium 4.2 (3.5-5.1) mmol/L Chloride 103 (98-107) mmol/L Carbon Dioxide 26 (22-30) mmol/L Anion Gap 11 mmol/L BUN 11 (7-17) mg/dL Creatinine 0.87 (0.52-1.04) mg/dL Est GFR (CKD-EPI)AfAm 80 (>60 ml/min/1.73 sqM) Est GFR (CKD-EPI)NonAf 69 (>60 ml/min/1.73 sqM) Glucose 153 H (74-99) mg/dL Plasma Lactic Acid Cain (0.7-2.0) mmol/L Calcium 8.9 (8.4-10.2) mg/dL Total Bilirubin 0.6 (0.2-1.3) mg/dL AST 18 (14-36) U/L ALT 10 (4-34) U/L Alkaline Phosphatase 66 (38-126) U/L Total Protein 6.2 L (6.3-8.2) g/dL Albumin 3.6 (3.5-5.0) g/dL 07/31/21 Range/Units 18:27 WBC (3.8-10.6) k/uL RBC (3.80-5.40) m/uL Hgb (11.4-16.0) gm/dL Hct (34.0-46.0) % MCV (80.0-100.0) fL MCH (25.0-35.0) pg MCHC (31.0-37.0) g/dL RDW (11.5-15.5) % Plt Count (150-450) k/uL MPV Neutrophils % % Lymphocytes % % Monocytes % % Eosinophils % % Basophils % % Neutrophils # (1.3-7.7) k/uL Lymphocytes # (1.0-4.8) k/uL Monocytes # (0-1.0) k/uL Eosinophils # (0-0.7) k/uL Basophils # (0-0.2) k/uL PT (9.0-12.0) sec INR (<1.2) APTT (22.0-30.0) sec Sodium (137-145) mmol/L Potassium (3.5-5.1) mmol/L Chloride (98-107) mmol/L Carbon Dioxide (22-30) mmol/L Anion Gap mmol/L BUN (7-17) mg/dL Creatinine (0.52-1.04) mg/dL Est GFR (CKD-EPI)AfAm (>60 ml/min/1.73 sqM) Est GFR (CKD-EPI)NonAf (>60 ml/min/1.73 sqM) Glucose (74-99) mg/dL Plasma Lactic Acid Cain 1.7 (0.7-2.0) mmol/L Calcium (8.4-10.2) mg/dL Total Bilirubin (0.2-1.3) mg/dL AST (14-36) U/L ALT (4-34) U/L Alkaline Phosphatase (38-126) U/L Total Protein (6.3-8.2) g/dL Albumin (3.5-5.0) g/dL Disposition <Anisha Dickens - Last Filed: 07/31/21 18:05> Is patient prescribed a controlled substance at d/c from ED?: No Time of Disposition: 19:53 <Nikhil Solis - Last Filed: 07/31/21 19:54> Clinical Impression: Positive blood culture, History of stroke, HTN (hypertension) Disposition: HOME SELF-CARE Condition: Good Additional Instructions: We saw you today for positive blood culture. This likely is a skin contaminant. Please return if any symptoms do occur as discussed. Please also have close follow-up with your primary care. Referrals: Carl Cid MD [Primary Care Provider] - 1-2 days
[2021-07-31 18:37] LABS: Basophils # (A) 0.1 k/uL (0-0.2); Basophils % (A) 1 %; Eosinophils # (A) 0.2 k/uL (0-0.7); Eosinophils % (A) 3 %; HCT 41.6 % (34.0-46.0); HGB 13.6 gm/dL (11.4-16.0); Lymphocytes # (A) 3.2 k/uL (1.0-4.8); Lymphocytes % (A) 39 %; MCHC 32.7 g/dL (31.0-37.0); MCV 100.7 fL (80.0-100.0); Mean Platelet Volume 7.2; Monocytes # (A) 0.4 k/uL (0-1.0); Monocytes % (A) 5 %; Neutrophils # (A) 4.2 k/uL (1.3-7.7); Neutrophils % (A) 50 %; Platelet Count 285 k/uL (150-450); RBC 4.14 m/uL (3.80-5.40); WBC 8.2 k/uL (3.8-10.6)
[2021-07-31 18:46] LABS: INR 1.1 (<1.2); Partial Thromboplastin Time 29.3 sec (22.0-30.0); Prothrombin Time 11.9 sec (9.0-12.0)
[2021-07-31 18:55] LABS: Albumin 3.6 g/dL (3.5-5.0); Calcium 8.9 mg/dL (8.4-10.2); Potassium 4.2 mmol/L (3.5-5.1); Total Bilirubin 0.6 mg/dL (0.2-1.3); Total Protein 6.2 g/dL (6.3-8.2)
[2021-07-31 20:57] VITALS: BP 125/59; PULSE 66; RESP 16
== END 2021-07-31 20:57 | disposition home or self-care (01) ==
LOC: EC 15:12
DX: R78.81 Bacteremia (principal); I10 Essential (primary) hypertension; Z86.73 Personal history of transient ischemic attack (TIA), and cerebral infarction without residual deficits; E11.9 Type 2 diabetes mellitus without complications; I25.2 Old myocardial infarction; Z91.040 Latex allergy status; Z88.8 Allergy status to other drugs, medicaments and biological substances
CPT/HCPCS: 80053; 83605; 85025; 85610; 85730; 99283

== ENCOUNTER 2021-09-15 16:59 | Inpatient (IN) | payer MEDICARE ==
--- NOTE | 2021-09-15 17:57 | ED ---
General Adult HPI - General Chief complaint: Seizure Stated complaint: Seizures Time Seen by Provider: 09/15/21 17:38 Source: patient Mode of arrival: ambulatory Limitations: no limitations - History of Present Illness Initial comments: Dictation was produced using [employer] dictation software. please excuse any grammatical, word or spelling errors. Chief Complaint: 65-year-old male past medical history of brain surgery several years ago for brain tumor presents the emergency department for concerns of worsening seizures and neurologic abnormalities History of Present Illness: Patient's 65-year-old female several years ago she was at [facility] where she had brain surgery for tumor excision. Since that she's been having deficits. Earlier this year she had another computed tomography scan that showed signs of stroke and worsening seizures. Since that she's been nonverbal and unable to perform activities of daily living. Patient is 24 hours care. She is cared for at home by her . reports at baseline she is normally able to show some effort and follow basic commands and look whenever her name is addressed. For the last 48 hours she has been having strange movement behaviors worse she would look up towards the ceiling in a random fashion and have abnormal movements of her right upper extremity. also reports she did have some episodes of loss of consciousness during these movement episodes. They called the neurologist told them that they should bring the patient to the emergency department for further evaluation. Patient does in fact take seizure medications. Also reports that patient takes Depakote. The ROS documented in this emergency department record has been reviewed and confirmed by me. Those systems with pertinent positive or negative responses have been documented in the HPI. All other systems are other negative and/or noncontributory. PHYSICAL EXAM: General Impression: not in acute distress, does not follow commands HEENT: Normocephalic atraumatic, extra-ocular movements intact, pupils equal and reactive to light bilaterally, mucous membranes moist. Cardiovascular: Heart regular rate and rhythm Chest: Able to complete full sentences, no retractions, no tachypnea Abdomen: abdomen soft, non-tender, non-distended, no organomegaly Musculoskeletal: Pulses present and equal in all extremities, no peripheral edema Motor: no focal deficits noted Neurological: CN II-XII grossly intact, does not follow commands, nonverbal, moves all tremors grossly, she had does have a strange woman pattern with her head and right upper extremity Skin: Intact with no visualized rashes ED course: 75-year-old female multiple complex neurologic comorbidities, status post tumor excision of the left brain hemisphere, multiple myeloma presents to the emergency department for neurologic complaints for the last 48 hours. Vital Signs upon arrival are within acceptable limits. Patient does not appear to be in acute distress. Computed tomography scan of the brain shows new left frontal process for which MRI with and without contrast is recommended. CT interpreted by radiology suggests that there is bilateral cerebellar foci of encephalomalacia. There is also surrounding edematous change.To evaluation obtained. CBC unremarkable. Coag panel is negative. Metabolic panel is within acceptable limits. Valproic acid within therapeutic range. Spoke in detail with neurologist Dr. Gomez requested patient be started on 100 mg then pat loading dose, 1 mg of Ativan and continue patient on Depakote. Also requests to start patient on 50 mg twice a day then pat. Patient will be admitted to Dr. Cid. EKG interpretation: Ventricular rate 65, paced rhythm, [place] interval 242, care is 173, QTc 5:15. No [place] prolongation, no QTC prolongation, no ST or T-wave changes noted. EKG compared to 08/31/2020 showing no changes. Overall, this EKG is unremarkable - Related Data Home Medications Medication Instructions Recorded Confirmed RX: Apixaban [Eliquis] 5 mg PO BID 07/22/18 09/15/21 RX: Ascorbic Acid [Vitamin C] 500 mg PO DAILY 07/22/18 09/15/21 RX: Folic Acid 0.4 mg PO DAILY 07/11/19 09/15/21 RX: atenoloL [Tenormin] 25 mg PO BID 07/22/20 09/15/21 Furosemide [Lasix] 20 mg PO DAILY 08/31/20 09/15/21 Insulin Detemir [Levemir Flextouch] 20 units SQ BID 08/31/20 09/15/21 RX: dexAMETHasone 12 mg PO WE 08/31/20 09/15/21 Divalproex Sodium [Divalproex 500 mg PO BID 07/31/21 09/15/21 Sodium ER] Potassium Chloride ER [K-Dur 20] 20 meq PO DAILY 07/31/21 09/15/21 RX: Magnesium 250 mg PO DAILY 07/31/21 09/15/21 Donepezil [Aricept] 10 mg PO HS 09/15/21 09/15/21 Insulin Aspart (Niacinamide) See Protocol SQ TID-W/MEALS PRN 09/15/21 09/15/21 [Fiasp Penfill 100 Unit/ml Cart] Aki's Solution 5 ml PO TID PRN 09/15/21 09/15/21 Lidocaine-Prilocaine Cream [Emla 1 applic TOPICAL DAILY PRN 09/15/21 09/15/21 Cream 2.5%/2.5%] hydrOXYzine HCL [Atarax] 10 mg PO BID PRN 09/15/21 09/15/21 Allergies Allergy/AdvReac Type Severity Reaction Status Date / Time latex Allergy Rash/Hives Verified 09/15/21 19:31 Uzfxwvu-RDE-JjG Reductase Allergy Unknown Verified 09/15/21 19:31 Inhibitor [Yfpeysv-Mnu-Xdr Reductase Inhibitor] Review of Systems ROS Statement: Those systems with pertinent positive or pertinent negative responses have been documented in the HPI. ROS Other: All systems not noted in ROS Statement are negative. Past Medical History Past Medical History: Cancer, Diabetes Mellitus, Hyperlipidemia, Hypertension, Osteoarthritis (OA), Renal Disease Additional Past Medical History / Comment(s): MULTIPLE MYELOMA had chemo in 2007, renal failure with cancer tx and had dialysis for 2 months, , slight leaky heart valve, hx of H pylori, PACEMAKER, NAUSEA, CHRONIC KIDNEY DISEASE STAGE 3, stroke and seizure which made patient non-verbal History of Any Multi-Drug Resistant Organisms: None Reported Past Surgical History: Back Surgery, Cholecystectomy, Hysterectomy, Pacemaker Additional Past Surgical History / Comment(s): colonoscopy, rt carpal tunnel release, T9 kyphoplasty with bx, oophorectomy, cyst of inner R thigh, R foot surgery , AV fistula inserted and removed Past Anesthesia/Blood Transfusion Reactions: No Reported Reaction Additional Past Anesthesia/Blood Transfusion Reaction / Comment(s): Pt has received blood in the past without reaction. Type of Cardiac Device: Permanent Pacemaker Device Placement Date:: DECEMBER 2014 Past Psychological History: No Psychological Hx Reported Smoking Status: Never smoker Past Alcohol Use History: None Reported Past Drug Use History: None Reported - Past Family History Sister(s) Family Medical History: Cancer Daughter(s) Family Medical History: Pulmonary Embolus Mother Family Medical History: Congestive Heart Failure (CHF) Additional Family Medical History / Comment(s): Mother of CHF at age 76 yrs. Father Family Medical History: Myocardial Infarction (NH) Additional Family Medical History / Comment(s): Father of a NH at age 46 yrs. General Exam Limitations: no limitations Course Vital Signs 09/15/21 17:31 Temperature 98.0 F Pulse Rate 60 Respiratory 16 Rate Blood Pressure 144/98 O2 Sat by Pulse 98 Oximetry Medical Decision Making - Lab Data Result diagrams: 09/15/21 20:28 09/15/21 20: Lab Results 09/15/21 09/15/21 09/15/21 Range/Units 20:28 20: 20: WBC 7.7 (3.8-10.6) k/uL RBC 3.97 (3.80-5.40) m/uL Hgb 12.7 (11.4-16.0) gm/dL Hct 39.7 (34.0-46.0) % MCV 99.8 (80.0-100.0) fL MCH 31.9 (25.0-35.0) pg MCHC 32.0 (31.0-37.0) g/dL RDW 12.9 (11.5-15.5) % Plt Count 189 (150-450) k/uL MPV 7.7 Neutrophils % 53 % Lymphocytes % 37 % Monocytes % 7 % Eosinophils % 1 % Basophils % 1 % Neutrophils # 4.1 (1.3-7.7) k/uL Lymphocytes # 2.9 (1.0-4.8) k/uL Monocytes # 0.5 (0-1.0) k/uL Eosinophils # 0.1 (0-0.7) k/uL Basophils # 0.1 (0-0.2) k/uL PT 11.2 (9.0-12.0) sec INR 1.0 (<1.2) APTT 29.2 (22.0-30.0) sec Sodium 137 (137-145) mmol/L Potassium 4.1 (3.5-5.1) mmol/L Chloride 99 (98-107) mmol/L Carbon Dioxide 34 H (22-30) mmol/L Anion Gap 4 mmol/L BUN 15 (7-17) mg/dL Creatinine 0.76 (0.52-1.04) mg/dL Est GFR (CKD-EPI)AfAm >90 (>60 ml/min/1.73 sqM) Est GFR (CKD-EPI)NonAf 82 (>60 ml/min/1.73 sqM) Glucose 125 H (74-99) mg/dL Plasma Lactic Acid Cain (0.7-2.0) mmol/L Calcium 8.8 (8.4-10.2) mg/dL Magnesium 2.0 (1.6-2.3) mg/dL Total Bilirubin 0.5 (0.2-1.3) mg/dL AST 16 (14-36) U/L ALT 6 (4-34) U/L Alkaline Phosphatase 52 (38-126) U/L Total Protein 6.3 (6.3-8.2) g/dL Albumin 3.5 (3.5-5.0) g/dL Valproic Acid 75.4 ug/mL 09/15/21 Range/Units 20:28 WBC (3.8-10.6) k/uL RBC (3.80-5.40) m/uL Hgb (11.4-16.0) gm/dL Hct (34.0-46.0) % MCV (80.0-100.0) fL MCH (25.0-35.0) pg MCHC (31.0-37.0) g/dL RDW (11.5-15.5) % Plt Count (150-450) k/uL MPV Neutrophils % % Lymphocytes % % Monocytes % % Eosinophils % % Basophils % % Neutrophils # (1.3-7.7) k/uL Lymphocytes # (1.0-4.8) k/uL Monocytes # (0-1.0) k/uL Eosinophils # (0-0.7) k/uL Basophils # (0-0.2) k/uL PT (9.0-12.0) sec INR (<1.2) APTT (22.0-30.0) sec Sodium (137-145) mmol/L Potassium (3.5-5.1) mmol/L Chloride (98-107) mmol/L Carbon Dioxide (22-30) mmol/L Anion Gap mmol/L BUN (7-17) mg/dL Creatinine (0.52-1.04) mg/dL Est GFR (CKD-EPI)AfAm (>60 ml/min/1.73 sqM) Est GFR (CKD-EPI)NonAf (>60 ml/min/1.73 sqM) Glucose (74-99) mg/dL Plasma Lactic Acid Cain 1.0 (0.7-2.0) mmol/L Calcium (8.4-10.2) mg/dL Magnesium (1.6-2.3) mg/dL Total Bilirubin (0.2-1.3) mg/dL AST (14-36) U/L ALT (4-34) U/L Alkaline Phosphatase (38-126) U/L Total Protein (6.3-8.2) g/dL Albumin (3.5-5.0) g/dL Valproic Acid ug/mL Disposition Clinical Impression: Seizure Disposition: ADMITTED IP TO THIS HOSP Condition: Fair Referrals: Carl Cid MD [Primary Care Provider] - 1-2 days
--- NOTE | 2021-09-15 19:02 | CT ---
EXAMINATION TYPE: CT brain wo con DATE OF EXAM: 09/15/2021 HISTORY: Seizure activity Additional: Reported history of multiple myeloma with brain surgery CT DLP: 1062.4 mGycm. Automated Exposure Control for Dose Reduction was Utilized. TECHNIQUE: CT scan of the head is performed without contrast. COMPARISON: 08/31/2020 FINDINGS: There is no mass or midline shift of structures. There is no intracranial hemorrhage. New since the prior study are bilateral cerebellar foci of encephalomalacia measuring 1.5 cm on the r ight and 2 cm on the left, in the territory of the bilateral superior cerebellar arteries. The previously seen prominent left posterior parietal encephalomalacia is redemonstrated, but there i s also surrounding edematous change suspicious for acute edematous change. There is associated locali zed sulcal effacement. There is mild interval prominence to the ventricular system. The basal cisterns are widely patent. Postsurgical right parietal skull changes redemonstrated. No focal skeletal findings. The mastoid sin us air cells, middle ear cavities, and paranasal sinuses are clear. Orbits unremarkable. IMPRESSION: Findings suggest new left parietal process, for which MRI without and with contrast is recommended.
[2021-09-15 20:58] LABS: Basophils # (A) 0.1 k/uL (0-0.2); Basophils % (A) 1 %; Eosinophils # (A) 0.1 k/uL (0-0.7); Eosinophils % (A) 1 %; HCT 39.7 % (34.0-46.0); HGB 12.7 gm/dL (11.4-16.0); Lymphocytes # (A) 2.9 k/uL (1.0-4.8); Lymphocytes % (A) 37 %; MCH 31.9 pg (25.0-35.0); MCV 99.8 fL (80.0-100.0); Mean Platelet Volume 7.7; Monocytes # (A) 0.5 k/uL (0-1.0); Monocytes % (A) 7 %; Neutrophils # (A) 4.1 k/uL (1.3-7.7); Neutrophils % (A) 53 %; Platelet Count 189 k/uL (150-450); RBC 3.97 m/uL (3.80-5.40); RDW 12.9 % (11.5-15.5); WBC 7.7 k/uL (3.8-10.6)
[2021-09-15 21:02] LABS: ALT 6 U/L (4-34); AST 16 U/L (14-36); African American GFR (CKD) >90 (>60 ml/min/1.73 sqM); Albumin 3.5 g/dL (3.5-5.0); Alkaline Phosphatase 52 U/L (38-126); Anion Gap 4 mmol/L; Blood Urea Nitrogen 15 mg/dL (7-17); Calcium 8.8 mg/dL (8.4-10.2); Carbon Dioxide 34 mmol/L (22-30); Chloride 99 mmol/L (98-107); Glucose 125 mg/dL (74-99); Non-African American GFR(CKD) 82 (>60 ml/min/1.73 sqM); Potassium 4.1 mmol/L (3.5-5.1); Sodium 137 mmol/L (137-145); Total Bilirubin 0.5 mg/dL (0.2-1.3); Total Protein 6.3 g/dL (6.3-8.2)
[2021-09-15 21:06] LABS: Partial Thromboplastin Time 29.2 sec (22.0-30.0); Prothrombin Time 11.2 sec (9.0-12.0)
[2021-09-15 21:08] LABS: Valproic Acid (Depakene) 75.4 ug/mL
[2021-09-15] MEDS ORDERED: LORazepam 2 MG/ML INJ IV STA (21:24)
[2021-09-15] MEDS ORDERED: LACOSAMIDE IV 100 MG in SODIUM CHLORIDE 0.9% 50 ML IVPB ONE (21:30)
[2021-09-15] MEDS ORDERED: NALOXONE 0.4 MG/ML 1 ML VIAL IV PRN (21:33)
[2021-09-15] MEDS: SODIUM CHLORIDE 0.9% 1,000 ML IV SCH (22:00)
[2021-09-15 22:03] LABS: Amorphous Sediment,Urine Rare /hpf; Appearance,Urine Clear (Clear); Bacteria,Urine Rare /hpf; Bilirubin,Urine Negative (Negative); Blood,Urine Negative (Negative); Color,Urine Light Yellow; Glucose,Urine (UA) Negative (Negative); Hyaline Casts,Urine 1 /lpf (0-2); Ketones,Urine Negative (Negative); Leukocyte Esterase,Urine Trace (Negative); Nitrite,Urine Negative (Negative); PH, Urine 7.5 (5.0-8.0); Protein,Urine Negative (Negative); RBC,Urine <1 /hpf (0-5); Specific Gravity,Urine 1.011 (1.001-1.035); Urobilinogen,Urine <2.0 mg/dL (<2.0); WBC,Urine 4 /hpf (0-5)
[2021-09-16] MEDS: atenoloL 25 MG TAB PO SCH ×3 (01:52→21:06)
[2021-09-16 08:30] LABS: Glucose,Whole Blood 182 mg/dL (75-99)
[2021-09-16] MEDS ORDERED: hydrOXYzine HCL 10 MG TAB PO PRN (09:00)
[2021-09-16] MEDS ORDERED: DIVALPROEX ER 250 MG TAB.ER.24H PO SCH (09:00)
[2021-09-16] MEDS ORDERED: LIDOCAINE-PRILOCAINE 2.5-2.5% CREAM 5 GM TUBE TOPICAL PRN (09:00)
[2021-09-16] MEDS ORDERED: DIVALPROEX ER 500 MG TAB.ER.24H PO SCH (09:00)
[2021-09-16] MEDS ORDERED: LORazepam 2 MG/ML INJ IV PRN (10:38)
[2021-09-16] MEDS: INSULIN ASPART (NovoLOG) 100 UNIT/ML VIAL SQ SCH ×4 (10:52→21:06)
--- NOTE | 2021-09-16 10:59 | P.CNNES ---
History of Present Illness Consult date: 09/16/21 Requesting physician: Kunal Avila Reason for Consult: focal seizure History of Present Illness: This is a 65-year-old woman multiple myeloma post chemotherapy, brain mass status post craniotomy in 2019 who received chemotherapy, seizure, stroke with residual right upper extremity weakness, atrial fibrillation on Eliquis, Pacemaker, diabetes mellitus, hypertension, hyperlipidemia who presented emergency department on 09/15/2021 or worsening of her seizures. The history is obtained from the patient's who is at bedside. According to the patient's patient has history of seizure (diagnosed by [facility] team) and is on Depakote 500mg 1 tab bid but for the last two months the patient would have intermittent right arm jerking that were brief without loss of consciousness. In the last 48 hours prior to presenting to ED, she has been having worsening of jerking of right upper extremity and this time also involved right lower extremity, patient was spacing off and had abnormal right arm movem ent. The maximum episode lasted 30 minutes then was in post-ictal stated. He contacted her neurologist (Dr. Mcginnis) and was notified to bring her to hospital. Regarding her episodes that she was having for past 2 months, did not known if they were seizures or not. Her neurosurgeon is over at [facility]. According to the nurse the patient has not had any seizure activity overnight or today in our facility. She is on dexamethasone 12 mg every Sunday. Of note patient was at [facility] about 2 months ago and had long term care phlebotomist EEG for 48 hours and was told she had seizure and was placed on Depakote at that time. She had CT of head during that admission. For the last two month patient, speech in not understable per the . Need assistance feeding and with ADL. Prior to 2 months she was more awake, her speech was more understood.Patient is 24-hour home care. She follows-up with Dr. Carreon (Oncologist). Some of the workup in the hospital consisted of Serum valproic acid level is 75.[address] therapeutic CT of the head is reported as findings suggest new left parietal process for which MRI without and with contrast is recommended. Patient has left posterior parietal encephalomalacia but there is surrounding edema change suspicious for acute edema change. I personally reviewed the CT of the head and the patient does have encephalomalacia over the left parietal temporal region with skull defect from previous craniotomy. Patient does have hydrocephalus which seems worse over the left posterior horn of the lateral ventricle. Also the patient does have encephalomalacia over the bilateral cerebellar I did not notice any midline shift. As well as I felt the patient has hypodensity lesion there are small over the right frontal and temporal region. I did also review the previous CT of the head in our facility on 08/31/2020 and bilateral cerebellar encephalomalacia is new, the the left parietal temporal encephalomalacia is wo rse and that the suspicious lesion over the right frontal temporal lesion seems new compared to a year ago. ED physician contacted me and I asked the mother to give the patient 1 mg Ativan as well as load the patient with Vimpat 100 mg once. Review of Systems Review of system: Is limited because of patient's condition. Past Medical History Past Medical History: Cancer, Diabetes Mellitus, Hyperlipidemia, Hypertension, Osteoarthritis (OA), Renal Disease Additional Past Medical History / Comment(s): MULTIPLE MYELOMA had chemo in 2007 and chemo now. , renal failure with cancer tx and had dialysis for 2 months 2007, , slight leaky heart valve, hx of H pylori, PACEMAKER, NAUSEA, CHRONIC KIDNEY DISEASE STAGE 3, stroke and seizure which made patient non-verbal History of Any Multi-Drug Resistant Organisms: None Reported Past Surgical History: Back Surgery, Cholecystectomy, Hysterectomy, Pacemaker Additional Past Surgical History / Comment(s): colonoscopy, rt carpal tunnel release, T9 kyphoplasty with bx, oophorectomy, cyst of inner R thigh, R foot surgery , AV fistula inserted and removed Past Anesthesia/Blood Transfusion Reactions: No Reported Reaction Additional Past Anesthesia/Blood Transfusion Reaction / Comment(s): Pt has received blood in the past without reaction. Type of Cardiac Device: Permanent Pacemaker Device Placement Date:: DECEMBER 2014 Past Psychological History: No Psychological Hx Reported Additional Psychological History / Comment(s): Pt resides with her spouse. does all of her care. Pt. is nonverbal and full assist Smoking Status: Former smoker Past Alcohol Use History: None Reported Additional Past Alcohol Use History / Comment(s): 60 years ago smoker. Past Drug Use History: None Reported - Past Family History Sister(s) Family Medical History: Cancer Daughter(s) Family Medical History: Pulmonary Embolus Mother Family Medical History: Congestive Heart Failure (CHF) Additional Family Medical History / Comment(s): Mother of CHF at age 76 yrs. Father Family Medical History: Myocardial Infarction (VT) Additional Family Medical History / Comment(s): Father of a VT at age 46 yrs. Medications and Allergies Home Medications Medication Instructions Recorded Confirmed Type Apixaban [Eliquis] 5 mg PO BID 07/22/18 09/15/21 History Ascorbic Acid [Vitamin C] 500 mg PO DAILY 07/22/18 09/15/21 History Folic Acid 0.4 mg PO DAILY 07/11/19 09/15/21 History atenoloL [Tenormin] 25 mg PO BID 07/22/20 09/15/21 History Furosemide [Lasix] 20 mg PO DAILY 08/31/20 09/15/21 History Insulin Detemir [Levemir Flextouch] 20 units SQ BID 08/31/20 09/15/21 History dexAMETHasone 12 mg PO WE 08/31/20 09/15/21 History Divalproex Sodium [Divalproex 500 mg PO BID 07/31/21 09/15/21 History Sodium ER] Magnesium 250 mg PO DAILY 07/31/21 09/15/21 History Potassium Chloride ER [K-Dur 20] 20 meq PO DAILY 07/31/21 09/15/21 History Donepezil [Aricept] 10 mg PO HS 09/15/21 09/15/21 History Insulin Aspart (Niacinamide) See Protocol SQ TID-W/MEALS PRN 09/15/21 09/15/21 History [Fiasp Penfill 100 Unit/ml Cart] Aki's Solution 5 ml PO TID PRN 09/15/21 09/15/21 History Lidocaine-Prilocaine Cream [Emla 1 applic TOPICAL DAILY PRN 09/15/21 09/15/21 History Cream 2.5%/2.5%] hydrOXYzine HCL [Atarax] 10 mg PO BID PRN 09/15/21 09/15/21 History Allergies Allergy/AdvReac Type Severity Reaction Status Date / Time latex Allergy Rash/Hives Verified 09/15/21 19:31 Dbylvpt-VPS-BaN Reductase Allergy Unknown Verified 09/15/21 19:31 Inhibitor [Pbrcxap-Iue-Luw Reductase Inhibitor] Physical Examination - Vital Signs Vital Signs: Vital Signs Temp Pulse Pulse Resp BP BP Pulse Ox 09/16/21 01:47 97.2 F L 60 15 143/72 100 09/15/21 23:00 67 15 09/15/21 22:45 97.8 F 67 15 150/74 100 09/15/21 17:31 98.0 F 60 16 144/98 98 Intake and Output 09/15/21 09/16/21 09/16/21 22:59 06:59 14:59 Other: Voiding Method Diaper Diaper Incontinent Incontinent # Voids 1 # Bowel Movements 0 Weight 65.771 kg GENERAL: The patient is lying in bed and does not appear in acute distress. CHEST: The heart rate is regular rate rhythm. No murmurs to auscultation. No carotid bruit bilaterally. LUNG: Clear to auscultation bilaterally no wheezing noted throughout. Not labored breathing. ABDOMEN/GI: Bowel sounds present in all 4 quadrants. No tenderness to palpation throughout. NEUROLOGICAL: Higher mental function: The patient is stupor. She is not verbalizing or following commands. Cranial nerves: I had to manually open her eyes and primary gaze is midline (patient had a lot of resistance). The pupils are round, equal. Could not assess light reactivity to pupils because of her resistance. No appreciable facial weakness. Patient is mute. Motor: The strength is withdrawing all her extremities to pain. Had increased tone of bilateral upper. No spontaneous movement noted. Cerebellum:Unable to assess. Sensation: Unable to assess light touch. To withdrawal she does react throughout. Reflexes (right/left): Unable to assess. Plantars are mute bilaterally. Results - Laboratory Findings CBC and BMP: 09/15/21 20:28 09/15/21 20:28 Abnormal Lab Findings: Abnormal Labs 09/15/21 09/15/21 09/16/21 20:28 20:28 08:28 Carbon Dioxide 34 H Glucose 125 H POC Glucose (mg/dL) 182 H Ur Leukocyte Esterase Trace H Amorphous Sediment Rare H Urine Bacteria Rare H Assessment and Plan Assessment: This is a 65 y/o woman with history of multiple myeloma, brain mets s/p resection, seizure for the having jerking of right upper extremity for past 3 months intermittently but for past 48 hours prior to presenting to hospital having prolonged jerking of right upper and lower with post-ictal state, staring off and episode lasted for at least 30 minute. Break-through seizure (seems focal motor seizure with LOC). Brain metastases status post resection in 2019 on the left craniotomy and patient received chemotherapy in the past History of seizure History of stroke with residual right upper extremity weakness History of multiple myeloma post chemotherapy Atrial fibrillation on Eliquis Pacemaker Diabetes mellitus Hypertension Plan: * CT of the head is reported as findings suggest new left parietal process for which MRI without and with contrast is recommended. Patient has left po sterior parietal encephalomalacia but there is surrounding edema change suspicious for acute edema change. I personally reviewed the CT of the head and the patient does have encephalomalacia over the left parietal temporal region with skull defect from previous craniotomy. Patient does have hydroc ephalus which seems worse over the left posterior horn of the lateral ventricle. Also the patient does have encephalomalacia over the bilateral cerebellar I did not notice any midline shift. As well as I felt the patient has hypodensity lesion there are small over the right frontal and temporal re gion. I did also review the previous CT of the head in our facility on 08/31/2020 and bilateral cerebellar encephalomalacia is new, the the left parietal temporal encephalomalacia is worse and that the suspicious lesion over the right frontal temporal lesion seems new compared to a year ago. * I started the patient on Vimpat 50 mg 1 tablet twice a day. I also increased her home medication of Depakote from mild 500 mg 1 tablet twice a day to 750 twice a day * Ativan every 4 hours when necessary for seizure * Ordered an EEG. * Will attempt to get medical records from [facility] from 2 month ago ad mission: She had CT brain and long term care phlebotomist EEG. Will compared their CT finding to our current finding to see if any new changes. r * Every 4 hours neuro checks * I'll defer the rest of the medical management to the primary team. * I recommend the patient to follow-up with her neurologist (Dr. Mcginnis) and her neurosurgeon (out of [facility]) as an outpatient within 1-2 weeks. I highly recommend the patient to get the an MRI of brain as an outpatient that is compatible for pacemaker to assess if any new lesions.. The plan is discussed with the patient's and primary team. Thank you for consultation. Kobe Gomez M.D. Neuro-hospitalist Time with Patient: Greater than 30
[2021-09-16] MEDS: FOLIC ACID 1 MG TAB PO SCH (11:48)
[2021-09-16] MEDS: APIXABAN 5 MG TAB PO SCH ×2 (11:48→21:07)
[2021-09-16] MEDS: POTASSIUM CHLORIDE ER 20 MEQ TAB.ER PO SCH (11:49)
[2021-09-16] MEDS: ASCORBIC ACID 500 MG TAB PO SCH (11:49)
[2021-09-16] MEDS: MAGNESIUM OXIDE 400 MG TAB PO SCH (11:49)
[2021-09-16] MEDS: FUROSEMIDE 20 MG TAB PO SCH (11:53)
[2021-09-16] MEDS: LACOSAMIDE 50 MG TABLET PO SCH ×2 (11:56→21:06)
[2021-09-16 12:14] LABS: Glucose,Whole Blood 166 mg/dL (75-99)
--- NOTE | 2021-09-16 12:14 | P.HPIM ---
History of Present Illness H&P Date: 09/16/21 (seizure disorder) Chief Complaint: family noticed patient jerky movement of her arms with the seizure uncontr history and physical Dictation by Date of service 09/16/2021. Chief complaint: Patient has visiting nurse at home which noticed that the patient had Augustus K movement of her extremities with the underlying history of seizure disorder has been diagnosed and had a for the hospital 4 weeks ago and this started her on Depakote. History of present illness: Mrs. Perez 65 years old -Monegasque female with a history of multiple medical problem, her visiting nurse and the caregiver noticed the patient is gently movement of the upper extremities and at that time they've thought of uncontrolled seizure disorder, they called Chester Gomez neurologist and he advised them to come to the emergency room to be evaluated and admitted as well as had EEG and to be seen by the neurology hospitalist. Patient had history of 1 month ago seen in the neurology clinic at [address] [place] [address], at that time patient diagnosed with seizure disorder and with the underlying history of stroke as well as they have previous surgery of the brain tumor which was removed. Patient at that time started on Depakote twice a day 500 mg and followed by Dr. Suman Briggs neurologist for continuing the care. In the last 2-3 days the family and the nurse that during the care with the visiting nurse has been noticed that she had shakiness of her upper extremities and attributed to uncontrolled seizure, they called Dr. Will the neurologist, at that time he advised them to go to the ER to be evaluated and also seen by neurology hospitalist as well as have EEG. For evaluation of the uncontrolled seizure disorder. In the ER she was seen by the ER physician, she did have computed tomography scan of the brain with the multiple new finding and they called Dr. Kobe Gomez who is the neurology in [facility] who advised them patient to be admitted and they will order the EEG and he may need to repeat the CAT scan. Patient subsequently admitted to [facility] in the [place] [address] room. I did discuss it with Dr. Kobe Gomez the neurologist, with the patient passed a history of pacemaker, could not receive MRI of the brain, and he will be investigating fourth her was computed tomography scan with contrast if needed and he will added anti-seizure medication and monitoring the patient. Past medical history #1 multiple myeloma currently under care of Dr. Carreon the hematology oncology who is treating her with chemotherapy and steroid once a Andria her lost dose was given in [facility] on September 07. #2 patient had as well diabetes mellitus type 2 insulin-dependent currently controlled with medication except at the time that she had steroid induction wi th the hyperglycemia associated with the steroid #3 recent history of stroke with aphasia expressive and still on the speech pathology draining which was diagnosed at [facility] 1 month ago as well will don't have the record from [facility]. #4 patient had cardiac dysrhythmia and history of atrial fibrillation and she is following with the machine shop worker, receiving eliques anticoagulation as well as she had a pacemaker. #5 she had surgery on the back with the history of spinal stenosis was done by Dr. Sarabia #6 hypertension with hypertensive heart diseas #7 hyperlipidemia #8 removal of a brain tumor on the left sided #9 walking disability #10 aphasia with the stroke #11 encephalomalacia . ALLERGY: Latex, statin, H MGC0 A reductase inhibitor Family history: , son and the daughter, Habits: No smoking never, no drinking alcoholic beverages. Review of system: Patient with aphasia unable to express herself and the review of system obtained from her . No indication of headache or blurred vision, only the presence of shakiness of her arm with a history of underlying seizure disorder probably uncontrolled Diabetes mellitus2 and fluctuating hyperglycemia associated with the chemotherapy and the steroid. Able to eat and swallow with significant weight loss No complain of the chest or the heart or the breathing Unable to ambulate she is on wheelchair. Diabetic neuropathy chronic and with the history of treatment of multiple myeloma medication in the past with the paresthesia. Other than the above patient did not able to participate in the discussion with her . Physical exam: Her vital sign is recorded stable with minimal hypertension The head normocephalic with a history of surgery on the brain Hearing diminished Oropharynx is normal Neck was supple no JVD no thyromegaly no lymphadenopathy trachea midline Chest is clear no wheezes no rhonchi's Heart patient has pacemaker, irregular heartbeat with the chronic atrial fibrillation and on anticoagulant. Compensated with no shortness of breath Abdomen soft positive bowel sounds no tenderness no diarrhea or constipation. Extremities no edema and positive pulses. Able to move her legs in the supine position but unable to walk. Neurological exam the failure to the neurology Dr. Gomez. Assessment: #1 seizure disorder uncontrolled #2 encephalomalacia #3 hypertension with hypertensive heart disease #4 atrial fibrillation with a. To be controlled ventricular response and on anticoagulant. #5 multiple myeloma on current treatment with the chemotherapy and the steroid. Dr. Carreon oncology hematology #6 diabetes mellitus type 2 insulin-dependent. #7 history of the stroke and expressive aphasia. #8 removal of tumor left sided by Dr. Drake Cano neurosurgeon at [facility] Plan: #1 we'll wait for Dr. Kobe Gomez neurologist opinion in the plan for care from the neurological point of view. #2 continue the current medication #3 adjusting medication for the seizure disorder by Dr. Gomez. #4 continue monitor diabetes mellitus2 and hypertension. Past Medical History Past Medical History: Cancer, Diabetes Mellitus, Hyperlipidemia, Hypertension, Osteoarthritis (OA), Renal Disease Additional Past Medical History / Comment(s): MULTIPLE MYELOMA had chemo in 2007 and chemo now. , renal failure with cancer tx and had dialysis for 2 months 2007, , slight leaky heart valve, hx of H pylori, PACEMAKER, NAUSEA, CHRONIC KIDNEY DISEASE STAGE 3, stroke and seizure which made patient non-verbal History of Any Multi-Drug Resistant Organisms: None Reported Past Surgical History: Back Surgery, Cholecystectomy, Hysterectomy, Pacemaker Additional Past Surgical History / Comment(s): colonoscopy, rt carpal tunnel release, T9 kyphoplasty with bx, oophorectomy, cyst of inner R thigh, R foot surgery , AV fistula inserted and removed Past Anesthesia/Blood Transfusion Reactions: No Reported Reaction Additional Past Anesthesia/Blood Transfusion Reaction / Comment(s): Pt has received blood in the past without reaction. Type of Cardiac Device: Permanent Pacemaker Device Placement Date:: DECEMBER 2014 Past Psychological History: No Psychological Hx Reported Additional Psychological History / Comment(s): Pt resides with her spouse. does all of her care. Pt. is nonverbal and full assist Smoking Status: Former smoker Past Alcohol Use History: None Reported Additional Past Alcohol Use History / Comment(s): 60 years ago smoker. Past Drug Use History: None Reported - Past Family History Sister(s) Family Medical History: Cancer Daughter(s) Family Medical History: Pulmonary Embolus Mother Family Medical History: Congestive Heart Failure (CHF) Additional Family Medical History / Comment(s): Mother of CHF at age 76 yrs. Father Family Medical History: Myocardial Infarction ([place]) Additional Family Medical History / Comment(s): Father of a [place] at age 46 yrs. Medications and Allergies Home Medications Medication Instructions Recorded Confirmed Type Apixaban [Eliquis] 5 mg PO BID 07/22/18 09/15/21 History Ascorbic Acid [Vitamin C] 500 mg PO DAILY 07/22/18 09/15/21 History Folic Acid 0.4 mg PO DAILY 07/11/19 09/15/21 History atenoloL [Tenormin] 25 mg PO BID 07/22/20 09/15/21 History Furosemide [Lasix] 20 mg PO DAILY 08/31/20 09/15/21 History Insulin Detemir [Levemir Flextouch] 20 units SQ BID 08/31/20 09/15/21 History dexAMETHasone 12 mg PO WE 08/31/20 09/15/21 History Divalproex Sodium [Divalproex 500 mg PO BID 07/31/21 09/15/21 History Sodium ER] Magnesium 250 mg PO DAILY 07/31/21 09/15/21 History Potassium Chloride ER [K-Dur 20] 20 meq PO DAILY 07/31/21 09/15/21 History Donepezil [Aricept] 10 mg PO HS 09/15/21 09/15/21 History Insulin Aspart (Niacinamide) See Protocol SQ TID-W/MEALS PRN 09/15/21 09/15/21 History [Fiasp Penfill 100 Unit/ml Cart] Aki's Solution 5 ml PO TID PRN 09/15/21 09/15/21 History Lidocaine-Prilocaine Cream [Emla 1 applic TOPICAL DAILY PRN 09/15/21 09/15/21 History Cream 2.5%/2.5%] hydrOXYzine HCL [Atarax] 10 mg PO BID PRN 09/15/21 09/15/21 History Allergies Allergy/AdvReac Type Severity Reaction Status Date / Time latex Allergy Rash/Hives Verified 09/15/21 19:31 Mxbmvss-PAD-NyP Reductase Allergy Unknown Verified 09/15/21 19:31 Inhibitor [Oaelkef-Vry-Qdv Reductase Inhibitor] Physical Exam Vitals: Vital Signs Temp Pulse Pulse Resp BP BP Pulse Ox 09/16/21 08:00 98.1 F 62 18 159/71 99 04/29/22 01:47 97.2 F L 60 15 143/72 100 09/15/21 23:00 67 15 09/15/21 22:45 97.8 F 67 15 150/74 100 09/15/21 17:31 98.0 F 60 16 144/98 98 Intake and Output 09/15/21 09/16/21 09/16/21 22:59 06:59 14:59 Other: Voiding Method Diaper Diaper Incontinent Incontinent # Voids 1 # Bowel Movements 0 Weight 65.771 kg Results CBC & Chem 7: 09/15/21 20:28 09/15/21 20:28 Labs: Abnormal Lab Results - Last 24 Hours (Table) 09/15/21 09/15/21 09/16/21 Range/Units 20:28 20:28 08:28 Carbon Dioxide 34 H (22-30) mmol/L Glucose 125 H (74-99) mg/dL POC Glucose (mg/dL) 182 H (75-99) mg/dL Ur Leukocyte Esterase Trace H (Negative) Amorphous Sediment Rare H (None) /hpf Urine Bacteria Rare H (None) /hpf Thrombosis Risk Factor Assmnt - Choose All That Apply Other Risk Factors: Yes Each Risk Factor Represents 2 Points: Age 61-74 years, Patient confined to bed Other congenital or acquired thrombophilia - If yes, enter type in comment: No Thrombosis Risk Factor Assessment Total Risk Factor Score: 4 Thrombosis Risk Factor Assessment Level: Moderate Risk
[2021-09-16 12:21] VITALS: BMI 25.7
[2021-09-16] MEDS ORDERED: NON FORMULARY DRUG (Kool's Solution 5 ML) PO PRN (12:28)
[2021-09-16] MEDS ORDERED: MAG HYDROX/AL HYDROX/SIMETH 30 ML, LIDOCAINE VISCOUS 2% 30 ML, diphenhydrAMINE ELIXIR 7... PO PRN ×4 (12:37)
[2021-09-16] MEDS ORDERED: ENALAPRILAT 1.25 MG/ML 1 ML VIAL IVP PRN (12:39)
[2021-09-16] MEDS: DIVALPROEX SPRINKLE 125 MG CAP.SPRINK PO SCH ×2 (13:59→21:07)
--- NOTE | 2021-09-16 14:37 | EEG ---
ELECTROENCEPHALOGRAM REPORT DATE OF SERVICE: 09/16/2021. CLINICAL HISTORY: This is a 65-year-old woman with history of brain metastases, status post resection, seizure, who presented to the emergency department for jerking of the right side, staring episode concerning for seizure. The video EEG is obtained to evaluate for seizure epileptiform activity. RELEVANT MEDICATION: Depakote, Ativan and Vimpat. EEG TYPE: A routine 21-channel EEG is performed with video using the 10/20 electrode placement system. DESCRIPTION: Wakefulness is only obtained. During awake state, the background consists of low to moderate voltage of 4.5 to 5 hertz nonrhythmic theta activity intermixed with delta activity. There is no physiological sleep architecture seen. There is no focal slowing. There is a moderate amount of diffuse myogenic artifact. Interictal and ictal is none. ACTIVATION PROCEDURE: Photic stimulation and hyperventilation are not performed. CLINICAL INTERPRETATION: This is an abnormal routine EEG. The background slowing is suggestive of moderate to severe encephalopathy. Otherwise there is no focal slowing, epileptiform discharges or seizure on the EEG. Clinical correlation is recommended. MMODL / IJN: [id number] / DONNELL
[2021-09-16 17:28] LABS: Glucose,Whole Blood 190 mg/dL (75-99)
[2021-09-16 20:46] LABS: Glucose,Whole Blood 178 mg/dL (75-99)
[2021-09-16] MEDS: SODIUM CHLORIDE 0.9% 1,000 ML IV SCH (23:03)
[2021-09-17 07:07] LABS: Glucose,Whole Blood 176 mg/dL (75-99)
[2021-09-17] MEDS: INSULIN ASPART (NovoLOG) 100 UNIT/ML VIAL SQ SCH ×4 (10:15→20:43)
[2021-09-17] MEDS: DIVALPROEX SPRINKLE 125 MG CAP.SPRINK PO SCH ×2 (10:50→20:43)
[2021-09-17] MEDS: LACOSAMIDE 50 MG TABLET PO SCH ×2 (10:54→20:43)
[2021-09-17] MEDS: APIXABAN 5 MG TAB PO SCH ×2 (10:54→20:43)
[2021-09-17] MEDS: FUROSEMIDE 20 MG TAB PO SCH (10:55)
[2021-09-17] MEDS: atenoloL 25 MG TAB PO SCH ×2 (10:55→20:43)
[2021-09-17] MEDS: FOLIC ACID 1 MG TAB PO SCH (10:58)
[2021-09-17] MEDS: POTASSIUM CHLORIDE ER 20 MEQ TAB.ER PO SCH (10:58)
[2021-09-17] MEDS: ASCORBIC ACID 500 MG TAB PO SCH (10:59)
[2021-09-17] MEDS: MAGNESIUM OXIDE 400 MG TAB PO SCH (11:01)
[2021-09-17 11:21] LABS: Glucose,Whole Blood 152 mg/dL (75-99)
--- NOTE | 2021-09-17 12:55 | P.PN ---
Subjective Progress Note Date: 09/17/21 (Seizure uncontrolled, CVA) Principal diagnosis: Diagnosis: #1 seizure disorder uncontrolled #2 CVA probably bilateral loss of speech, spastic of the upper extremities, and lower extremities. #3 bilateral encephalomalacia. #4 because of the pacemaker left infraclavicular, unable to obtain MRI until clarification from the senior policy associate office in regard of the pacemaker ca n be tolerated with the MRI are not and I did speak with the caregiver RN in regard to obtaining the 7 formation on Sunday has close office today and tomorrow. #5 underlying multiple myeloma chronic treated by Dr. Carreon with the steroid oral 12 mg dexamethasone on Sunday Q weekly admitted to chemotherapy once a wants, her stated that he crushed the medication orally and use it with apples auce. #6 ruling out dysphagia and will obtain speech therapy for evaluation of the swallowing with the modified barium swallow. #7 atrial fibrillation chronic on anticoagulant and Eliquis #8 left infraclavicular pacemaker with the cardiac dysrhythmia. #9 and aphasic with inability communicate verbally #10 ADL needs more than to person for her daily care. #11 diabetes mellitus type 2 insulin-dependent also hyperglycemia with the weekly dexamethasone. #12 hypertension with hypertensive heart disease. Progress note Dictation by Dr. Cid Date of service 09/17/2021. Patient seen and examined discussed with her [id number] with the extended time #1 future plan, [facility] versus home #2 future plan of care and the need for chemo therapy are not as well as a steroid #3 possibility of obtaining pacemaker nature in regard of the MRI from senior policy associate and discussed with the RN caring for the patient today. Patient seen and evaluated, her vital signs at this time stable with the blood pressure is fairly controlled and she is on beta carlos and she has atrial fibrillation covered with Eliquis Head normocephalic atraumatic with a history of left craniotomy for tumor arnaldo lloyd by Dr. Drake Cano at [facility] neurosurgeon. Patient has symmetry with the recent history of CVA which is progressively worsening over one months. Since seen in the [facility] outpatient for the neuro surgery and neurology. She become aphasic, her eating is still continued however will check for dysphagia, fascial has symmetry and pupil could not be assessed as patient closed her eyes when flashlight examined She has a spastic movement of both upper extremities worse on the left sided. Neck was supple no JVD no thyromegaly no lymphadenopathy Purposeless movement of the upper and lower extremities with the history of shakiness and seizure disorder and EEG so far was done however his partial no evidence of acute spikes. She had virtual neurology evaluation by a neurologist who is unknown and the nursing staff could not know the name of the neurologist female. We'll obtain the name as well Chest: Clear on auscultation no wheezes no rhonchi's however with the question able aspiration we'll check a chest x-ray. Heart: Regular with atrial fibrillation no evidence of acute decompensation. Hypertension currently controlled Abdomen: Soft. Bowel sounds no tenderness in the 4 quadrants she is incontinent to urine and bowel movement as well Extremities: Positive pulses no edema and unable to verbally process the questions, and with the virtual neurology exam patient did not communicate with the neurologist and fortunately her was at bedside and he was able to answer the questions as he can. Assessment: #1 seizure disorder uncontrolled #2 bilateral CVA clarification with MRI could not be done until clarification from the cardiology office in regard of the pacemaker. It can stand the MRI are not #3 multiple myeloma chronic and currently on the treatment. #4 she had history of renal failure in the past but currently her creatinine is normalized #5 diabetes mellitus type 2 insulin-dependent #6 history of diabetic neuropathy and also history of neuropathy secondary medication treatment from multiple myeloma in the past. #7 ALLERGY to statin therapy #8 hypertension with hypertensive heart disease and atrial fibrillation. #9 walking disability Plan: #1 speech therapy evaluation #2 physical therapy to assess limitation and the care needed for the future [facility] versus home #3 chest x-ray as well to rule out any aspiration with the current feeding #4 she is unable to feed herself anymore and could not use her arms as well Time spent 45 minutes Objective - Vital Signs Vital signs: Vital Signs Temp 97.4 F L 09/17/21 08:00 Pulse 60 09/17/21 08:00 Resp 16 09/17/21 08:00 BP 144/83 09/17/21 08:00 Pulse Ox 98 09/17/21 08:00 Intake & Output 09/16/21 09/17/21 09/17/21 18:59 06:59 18:59 Intake Total 480 540 Output Total 400 Balance 480 540 -400 Weight 65.771 kg Intake: Intake, IV Titration 240 Amount Sodium Chloride 0.9% 1, 240 000 ml @ 20 mls/hr IV . Q24H [facility] Rx#:[id number] Oral 480 300 Output: Urine 400 Other: Voiding Method Diaper Diaper Diaper Incontinent Incontinent Incontinent External Catheter External Catheter # Voids 2 # Bowel Movements 1 1 - Labs CBC & Chem 7: 09/15/21 20:28 09/15/21 20:28 Labs: Abnormal Lab Results - Last 24 Hours (Table) 09/16/21 09/16/21 09/17/21 Range/Units 17:27 20:45 07:06 POC Glucose (mg/dL) 190 H 178 H 176 H (75-99) mg/dL 09/17/21 Range/Units 11:20 POC Glucose (mg/dL) 152 H (75-99) mg/dL
[2021-09-17] MEDS: SODIUM CHLORIDE 0.9% 1,000 ML IV SCH (13:17)
--- NOTE | 2021-09-17 13:21 | XR ---
EXAMINATION TYPE: XR chest 2V DATE OF EXAM: 09/17/2021 COMPARISON: 06/20/2021 INDICATION: Aspiration, CVA TECHNIQUE: Frontal and lateral views of the chest are obtained. FINDINGS: The heart size is mildly prominent. The pulmonary vasculature is mildly prominent. Mild diffuse increased lung markings are present. Correlate for mild pulmonary edema. Follow-up can b e performed. Pacemaker overlies left chest IMPRESSION: 1. Cardiomegaly with prominent pulmonary vascular markings and mild diffuse alveolar infiltrate. Kavita elate for mild congestive heart failure and pulmonary edema. Follow up exams can be performed.
--- NOTE | 2021-09-17 15:53 | P.PN ---
Subjective Progress Note Date: 09/17/21 The patient is seen in neurologic follow-up on September 17, 2021, via teleneurology. The chart has been reviewed. The patient reportedly was initially seen because of breakthrough seizure. The patient has a history of multiple myeloma with brain metastases. She is status post resection of the brain metastases. Since that time, the patient has been having seizures. She is reportedly taking Depakote 750 mg twice daily and Vimpat 50 mg twice daily. The patient's is present at the bedside at time of the evaluation. He reports being present when the patient has had seizures. He describes a shaking movement of the bilateral upper extremities, with clenched fists. He does also report that the patient has had some movement of her arms this morning however not the same as her seizures. At her baseline, the patient is nonverbal. The reports that she is usually aware of what is going on around her. She reportedly has no control of her right upper extremity. More recently, patient has had a cough. The patient's nurse is present at the bedside of the time of the evaluation. She denies observing seizure activity. Objective - Vital Signs Vital signs: Vital Signs Temp 97.4 F L 09/17/21 08:00 Pulse 60 09/17/21 08:00 Resp 16 09/17/21 08:00 BP 144/83 09/17/21 08:00 Pulse Ox 98 09/17/21 08:00 Intake & Output 09/16/21 09/17/21 09/17/21 18:59 06:59 18:59 Intake Total 480 540 Output Total 400 Balance 480 540 -400 Weight 65.771 kg Intake: Intake, IV Titration 240 Amount Sodium Chloride 0.9% 1, 240 000 ml @ 20 mls/hr IV . Q24H [facility] Rx#:[id number] Oral 480 300 Output: Urine 400 Other: Voiding Method Diaper Diaper Diaper Incontinent Incontinent Incontinent External Catheter External Catheter # Voids 2 # Bowel Movements 1 1 - Exam Gen.: The patient is reclining in the bed. Initially, she is leaning toward the right. She is in no acute distress. HEENT: Head is normocephalic. There is no scleral icterus. Fundus not visualized. Mucous membranes are moist. Lungs: The patient has a loose cough. Neurologic examination Mental status: Initially, the patient's eyes are open. She is nonverbal. She follows no commands. Later during the examination, the patient closes her eyes and resists eye opening. Cranial nerves: Pupils are equal and reactive. There is intermittent visual tracking. Motor: The patient has near constant flexion and extension movements of the right elbow, not consistent with tonic clonic movements. Sensation: The patient does withdraw bilateral lower extremities and right upper extremity from noxious stimulation. - Labs CBC & Chem 7: 09/15/21 20:28 09/15/21 20:28 Labs: Abnormal Lab Results - Last 24 Hours (Table) 09/16/21 09/16/21 09/16/21 Range/Units 12:12 17:27 20:45 POC Glucose (mg/dL) 166 H 190 H 178 H (75-99) mg/dL 09/17/21 09/17/21 Range/Units 07:06 11:20 POC Glucose (mg/dL) 176 H 152 H (75-99) mg/dL Assessment and Plan Assessment: 1. Breakthrough seizure with possible, current, prolonged postictal state versus toxic encephalopathy 2. Cough, rule out pneumonia 3. History of multiple myeloma status post resection of brain metastasis Plan: 1. Would recommend chest x-ray to rule out aspiration pneumonia 2. Continue Depakote and Vimpat as ordered 3. Agree with Dr. Gomez regarding follow-up with [facility] neurology/neurosurgery, when medically and neurologically stable 4. MRI is unable to be done as the patient's pacemaker is reportedly, per not MRI compatible Time with Patient: Less than 30 (Spent 25 minutes with patient via telemedicine)
[2021-09-17 16:51] LABS: Glucose,Whole Blood 154 mg/dL (75-99)
[2021-09-17 20:20] LABS: Glucose,Whole Blood 174 mg/dL (75-99)
[2021-09-18 07:08] LABS: Glucose,Whole Blood 135 mg/dL (75-99)
[2021-09-18] MEDS: INSULIN ASPART (NovoLOG) 100 UNIT/ML VIAL SQ SCH ×4 (07:16→22:21)
[2021-09-18] MEDS: FUROSEMIDE 20 MG TAB PO SCH (09:56)
[2021-09-18] MEDS: LACOSAMIDE 50 MG TABLET PO SCH ×2 (09:56→20:26)
[2021-09-18] MEDS: DIVALPROEX SPRINKLE 125 MG CAP.SPRINK PO SCH ×2 (09:56→20:39)
[2021-09-18] MEDS: APIXABAN 5 MG TAB PO SCH ×2 (09:57→20:26)
[2021-09-18] MEDS: atenoloL 25 MG TAB PO SCH ×2 (09:57→20:26)
[2021-09-18] MEDS: FOLIC ACID 1 MG TAB PO SCH (09:57)
[2021-09-18] MEDS: MAGNESIUM OXIDE 400 MG TAB PO SCH (09:58)
[2021-09-18] MEDS: POTASSIUM CHLORIDE ER 20 MEQ TAB.ER PO SCH (09:58)
[2021-09-18] MEDS: ASCORBIC ACID 500 MG TAB PO SCH (09:58)
[2021-09-18 11:47] LABS: Glucose,Whole Blood 235 mg/dL (75-99)
--- NOTE | 2021-09-18 13:58 | P.PN ---
Subjective Progress Note Date: 09/18/21 (Bilateral CVA/minutes from multiple myeloma.) Principal diagnosis: Diagnosis: #1 seizure disorder uncontrolled #2 CVA probably bilateral loss of speech, spastic of the upper extremities, and lower extremities. #3 bilateral encephalomalacia. #4 because of the pacemaker left infraclavicular, unable to obtain MRI until clarification from the office services associate office in regard of the pacemaker can be tolerated with the MRI are not and I did speak with the caregiver RN in regard to obtaining the 7 formation on Sunday has close office today and tomorrow. #5 underlying multiple myeloma chronic treated by Dr. Carreon with the steroid oral 12 mg dexamethasone on Sunday Q weekly admitted to chemotherapy once a wants, her stated that he crushed the medication orally and use it with applesauce. #6 ruling out dysphagia and will obtain speech therapy for evaluation of the swallowing with the modified barium swallow. #7 atrial fibrillation chronic on anticoagulant and Eliquis #8 left infraclavicular pacemaker with the cardiac dysrhythmia. #9 and aphasic with inability communicate verbally #10 ADL needs more than to person for her daily care. #11 diabetes mellitus type 2 insulin-dependent also hyperglycemia with the weekly dexamethasone. #12 hypertension with hypertensive heart disease. 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 Drake Cano. #14 chemotherapy for multiple myeloma along the years. Progress note, date of service 09/18/[address] Park. Patient seen today evaluated [id number] discussed with her daughter at bedside. Patient is awake alert but mute with expressive aphasia has been progressively worsening and he lost 4 or 5 days. Patient was in [facility] in July 2021 where she was seen by ophthalmology oncology, hematology oncology, neurology, they could not do the MRI without the clarification from the cardiology about the made of the pacemaker. We are consulting the cardiology with the underlying pacemaker and underlying chronic atrial fibrillation as well as she had a chest x-ray yesterday was suspicious of congestive heart failure, patient has minimal intake as well as has IV 20 mL an hour no evidence of edema, she is incontinent of the urine and stool., She move her upper extremity purpose less with a spastic of her hand and arm, could not walk with could not carry her body and her feet that is pulses but also purposeless movement and stiffness. It is unclear to me is it a stroke versus metastatic multiple myeloma to several area in the brain. Patient when she was in [facility] the neurology did see her and he was indicating that she had seizure disorder and the place her on Depakote and them that which is currently patient started on by Dr. Kobe Gomez and I do not have idea why she stopped her vitamin Ernesto at home. In the hospital stay she did not have any seizure disorder but she had purposeless movement. Because of the pacemaker could not be done MRI until the clarification julian santos of the cardiology to indicate isn't possible or not for the MRI to be done to clarify her neurological condition. She has also cough and the her family was concerned and we did a chest x-ray wh ich stated that possibility of congestive heart failure however patient's intake and the physical finding does not indicate congestive heart failure as well and we will be obtaining a pain of the cardiology and has a regard as well. In regards of diabetes mellitus: She is fairly well controlled however she is receiving from oncology hematology next emesis on 12 mg once a week on Sunday which "blood sugar to be out of control plus that she is getting chemotherapy and I not recalling what chemotherapy that patient has and the is a current metastasis to the brain with the computed tomography scan done the initial one and multiple changes in the brain, the assessment by the neurology yesterday patient was seen with virtual neurology Dr. Jana Mccall however that that did not add to the current situation and it did not clarify the issue is it stroke versus metastasis and what we are going to do clinically more than controlling the seizure and monitoring at. Because of the question of the congestive heart failure and the cough, we'll obtain speech pathology evaluation was possible modified barium swallow to rule out dysphagia The obtaining tomorrow laboratories for CBC with differential and chemistry profile Also we consulting Dr. March hematology oncology who is her oncologist to evaluate her current status and they use for Donahue Mrs. Kwon as well as chemotherapy with the metastasis to the brain. Also obtaining the cardiology opinion for the nature of the pacemaker and the possibility of using MRI 8 as well as evaluation of her questionable congestive heart failure. On the exam:temperature 97.6 F oral, pulse rate 64 bpm irregular with a F, respiratory rate 18, blood pressure 134/81, pulse ox 96%. Patient is awake conscious open her eyes and mute aphasic completely no expressi ve aphasia which is completely not communicating She used to able to eat solid and liquid now is restricted because she is not able to eat or swallow actively and the week, start with the [place] until evaluation with the speech pathology with the use of notify barium swallow as needed to rule out aspiration. She had previously craniotomy on the left side with removal of tumor was found to a plasma cytoma. Neck was supple no JVD no thyromegaly no lymphadenopathy trachea midline Chest was radiated bilaterally with good oxygen saturation, [facility] that [facility] positive covert and the cold that's related to previous Covid that she had in And she had minimal cough and no expectoration Heart: Irregular irregularity with a chronic atrial fibrillation and left infraclavicular pacemaker. abdomen is soft positive bowel sounds and no tenderness in the four-quadrant She is incontinent of bowel month as well as urination. Extremity: She is positive pulses and she had minimal movement with the spastic not flaccid in the upper and the lower extremities. Assessment: #1 seizure disorder uncontrolled #2 it urology of the seizure probably associated with the brain metastasis from multiple myeloma. #3 could not pick seclude the stroke however patient has no flaccid paralysis appear #4 inability to stand up or ambulate #5 aphasic ( mute ) #6 diabetes mellitus type 2 insulin-dependent #7 multiple myeloma with metastasis #8 atrial fibrillation with controlled ventricular response however the chest x- ray stated congestive heart failure. #9 hypertension with hypertensive heart disease currently blood pressure is controlled. #10 ALLERGY to statin and latex. #10 dysphagia Plan: #1 consultation with the cardiology tomorrow as clarification of the above- mentioned #2 consultation with oncology hematology Dr. Carreon this clarification of future treatment with the treatment at this time including the use of Donahue Mrs. Kwon. #3 evaluation of dysphagiawith the speech pathology evaluation with the possible modified barium swallow #4 monitoring diabetes and the coverage #5 we'll wait for the opinion of the cardiology and the oncology and for further plan if MRI is amenable to investigation are not. Time spent more than 30 minutes Objective - Vital Signs Vital signs: Vital Signs Temp 97.6 F 09/18/21 08:00 Pulse 64 09/18/21 08:00 Resp 18 09/18/21 08:00 BP 134/81 09/18/21 08:00 Pulse Ox 96 09/18/21 08:00 Intake & Output 09/17/21 09/18/21 09/18/21 18:59 06:59 18:59 Intake Total 240 240 Output Total 400 300 Balance -160 240 -300 Intake: IV 240 Sodium Chloride 0.9% 1, 240 000 ml @ 20 mls/hr IV . Q24H [facility] Rx#:[id number] Intake, IV Titration 240 Amount Sodium Chloride 0.9% 1, 240 000 ml @ 20 mls/hr IV . Q24H [facility] Rx#:[id number] Output: Urine 400 300 Other: Voiding Method Diaper Diaper Diaper Incontinent Incontinent Incontinent External Catheter External Catheter External Catheter # Bowel Movements 1 - Labs CBC & Chem 7: 09/15/21 20:28 09/15/21 20:28 Labs: Abnormal Lab Results - Last 24 Hours (Table) 09/17/21 09/17/21 09/18/21 Range/Units 16:50 20:19 07:06 POC Glucose (mg/dL) 154 H 174 H 135 H (75-99) mg/dL 09/18/21 Range/Units 11:46 POC Glucose (mg/dL) 235 H (75-99) mg/dL
[2021-09-18 16:22] LABS: Glucose,Whole Blood 104 mg/dL (75-99)
[2021-09-18] MEDS ORDERED: ACETAMINOPHEN SUPPOSITORY 650 MG SUPP RECTAL PRN (18:16)
[2021-09-18 21:59] LABS: Glucose,Whole Blood 194 mg/dL (75-99)
[2021-09-18] MEDS: SODIUM CHLORIDE 0.9% 1,000 ML IV SCH (23:16)
[2021-09-19 07:25] LABS: Glucose,Whole Blood 119 mg/dL (75-99)
[2021-09-19] MEDS: INSULIN ASPART (NovoLOG) 100 UNIT/ML VIAL SQ SCH ×4 (08:38→21:39)
[2021-09-19] MEDS: DIVALPROEX SPRINKLE 125 MG CAP.SPRINK PO SCH ×2 (08:40→21:39)
[2021-09-19] MEDS: FOLIC ACID 1 MG TAB PO SCH (08:40)
[2021-09-19] MEDS: ASCORBIC ACID 500 MG TAB PO SCH (08:40)
[2021-09-19] MEDS: POTASSIUM CHLORIDE ER 20 MEQ TAB.ER PO SCH (08:41)
[2021-09-19] MEDS: MAGNESIUM OXIDE 400 MG TAB PO SCH (08:41)
[2021-09-19] MEDS: FUROSEMIDE 20 MG TAB PO SCH (08:41)
[2021-09-19] MEDS: atenoloL 25 MG TAB PO SCH ×2 (08:41→21:39)
[2021-09-19] MEDS: LACOSAMIDE 50 MG TABLET PO SCH ×2 (08:41→21:39)
[2021-09-19] MEDS: APIXABAN 5 MG TAB PO SCH ×2 (08:41→21:38)
--- NOTE | 2021-09-19 10:46 | P.PN ---
Subjective Progress Note Date: 09/19/21 (Uncontrolled seizures/CVA) Progress note dictation by Dr. pizarro Date of service 09/19/2021. Patient seen and evaluated [id number], Patient and her at bedside with Dr. jett hematology oncology visiting we discussed the patient condition with the more possibility of stroke than metastasis. Dr. Carreon also indicating that the pacemaker is not amenable for MRIs, and the PET scan will not be helpful to indicate the lesions in her brain. Also we discussed the continuation of dexamethasone 12 mg once a week on Sunday and he agreed to continue with the steroids as a minimum that has been used for maintenance of her program with the treatment of multiple myeloma in association with chemotherapy once a month. On exam: Vital signs stable temperature 97.9 F oral her pulse rate 67 regular with the pacemaker and history of atrial fibrillation and on and requests anticoagulation. Respiratory rate is 16/m nonlabored however he complained that she had cough and we did the chest x-ray and a chest x-ray was questionable congestive heart failure her NT proBNP was indicating elevation of the level and we consulted the cardiology for evaluation as well as the clarification on the pacemaker if can be used MRI with it or not and we would waiting for their opinion as well Her blood pressure 130/81 fairly well controlled with a mean 97. Her oxygen saturation 96% on room air. Patient is conscious alert she is nonsmoking with the underlying no voice and aphasic, we requested the speech pathology evaluation will with the possible modified barium swallow to assess if there is dysphagia. Neurological otherwise she is aphasic she only tolerating his liquid food with thickened no solid food. She is awake alert but noncomprehensive and her eyes movement is purposeless. In regard of the extremities: She has spastic both the right arm and left arm with the clenching of the hand and lower extremities was also spastic no flaccid paralysis. 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 She subsequently underwent radiation. Patient has symmetric 3 his minimal. Neck was supple no JVD no thyromegaly no lymphadenopathy. Trachea midline Chest clear normal breath sound with the pulse ox 96% without oxygen Heart atrial fibrillation with fairly controlled ventricular response pro-BMP is more than thousand which is increased Abdomen: No tenderness in the 4 quadrants no pain unable to eat solid food. Extremities no edema positive pulses and spastic on the flexion or extension. Neurology assessment: Bilateral stroke, encephalomalacia. Assessment: #1 the laboratory was not available yet and we ordered CBC with differential and chemistry profile. NT proBNP 1170 with abnormal elevation with the association of atrial fibrillation. #2 troponin 1 less than 0.012 #3 coronavirus PCR not detected #4 diabetes mellitus POC has been fairly well-controlled. #[address] Montiel consulted and he did see her today a failure to his note. #6 cardiology consult for evaluation of the pacemaker and the use of MRI as well as congestive heart failure could be diastolic however no edema of the lower extremities and no JVD. #7 cough and a chest x-ray was no evidence of pneumonia however patient has difficulty swallowing solid food. #8 dysphagia speech consult requested for evaluation at bedside as well as with the fied barium swallow in accordance with speech pathology. #9 hypertension fairly well controlled. #10 prognosis is guarded with the underlying probability of recurrent stroke versus myeloma metastasis which is questionable and unlikely. Plan: #1 discussed with the patient who is a caregiver the intensity of the care and the possibility of a alf as the patient has 2 Cervidil with at least 2-3 people with the underlying incontinent of urine and a bowel movement and mute patient speech is sinus and unable to stand unable to move her upper or lower extremities and her eyes is gazing. We'll wait for cardiology opinion and note as well as oncology hematology opinion and no and further decision depend on the future treatment. Objective - Vital Signs Vital signs: Vital Signs Temp 97.9 F 09/19/21 08:00 Pulse 67 09/19/21 08:00 Resp 16 09/19/21 08:00 BP 130/81 09/19/21 08:00 Pulse Ox 96 09/19/21 08:00 Intake & Output 09/18/21 09/19/21 09/19/21 18:59 06:59 18:59 Intake Total 180 360 Output Total 300 Balance -120 360 Intake: IV 240 Sodium Chloride 0.9% 1, 240 000 ml @ 20 mls/hr IV . Q24H [facility] Rx#:[id number] Intake, IV Titration 120 Amount Sodium Chloride 0.9% 1, 120 000 ml @ 20 mls/hr IV . Q24H [facility] Rx#:[id number] Oral 180 Output: Urine 300 Other: Voiding Method Diaper Diaper Diaper Incontinent Incontinent Incontinent External Catheter External Catheter External Catheter # Voids 1 - Labs CBC & Chem 7: 09/15/21 20:28 09/15/21 20:28 Labs: Abnormal Lab Results - Last 24 Hours (Table) 09/18/21 09/18/21 09/18/21 Range/Units 11:46 16:20 21:58 POC Glucose (mg/dL) 235 H 104 H 194 H (75-99) mg/dL 09/19/21 Range/Units 07:00 POC Glucose (mg/dL) 119 H (75-99) mg/dL
[2021-09-19 10:48] LABS: Basophils # (A) 0.02 X 10*3/uL (0.00-0.10); Basophils % (A) 0.3 %; Eosinophils # (A) 0.07 X 10*3/uL (0.04-0.35); HCT 38.3 % (37.2-46.3); HGB 11.9 g/dL (12.0-15.0); Immature Grans, Automated 0.3 %; Lymphocytes # (A) 3.05 X 10*3/uL (0.90-5.00); MCH 31.8 pg (27.0-32.0); MCHC 31.1 g/dL (32.0-37.0); MCV 102.4 fL (80.0-97.0); Mean Platelet Volume 10.3 fL (9.5-12.2); Monocytes # (A) 0.62 X 10*3/uL (0.20-1.00); Monocytes % (A) 9.1 %; NRBC Per 100 WBC 0 /100 WBCS (0.0-0.0); Neutrophils % (A) 44.3 %; Platelet Count 220 X 10*3/uL (140-440); RBC 3.74 X 10*6/uL (4.10-5.20); RDW 13.2 % (11.5-14.5); WBC 6.78 X 10*3/uL (4.50-10.00)
--- NOTE | 2021-09-19 11:00 | P.CRDCN ---
History of Present Illness Consult date: 09/19/21 History of present illness: This is a 65-year-old female who follows in the office with Dr. Bishop. Cardiology was consulted to clarify whether the patient could have an MRI completed or not secondary to her pacemaker. The patient has a history of paroxysmal atrial fibrillation, permanent pacemaker implantation, hypertension, severe pulmonary hypertension. She also has a history of multiple myeloma, brain metastasis with previous resection, and seizures. EKG completed on admission reveals paced rhythm with a heart rate in the 60s. She is anticoagulated with Eliquis. Her BNP is minimally elevated for her age. CXR reviewed. She is receiving oral lasix. Her vital signs are stable. Neurology has recommended an MRI. The patient has a Sky Frequency device which is not compatible for MRI. We will follow on an as needed basis. If you have any further questions, please do not hesitate to contact us Nurse practitioner note has been reviewed by physician. Signing provider agrees with the documented findings, assessment, and plan of care. Past Medical History Past Medical History: Cancer, Diabetes Mellitus, Hyperlipidemia, Hypertension, Osteoarthritis (OA), Renal Disease Additional Past Medical History / Comment(s): MULTIPLE MYELOMA had chemo in 2007 and chemo now. , renal failure with cancer tx and had dialysis for 2 months 2007, , slight leaky heart valve, hx of H pylori, PACEMAKER, NAUSEA, CHRONIC KIDNEY DISEASE STAGE 3, stroke and seizure which made patient non-verbal History of Any Multi-Drug Resistant Organisms: None Reported Past Surgical History: Back Surgery, Cholecystectomy, Hysterectomy, Pacemaker Additional Past Surgical History / Comment(s): colonoscopy, rt carpal tunnel release, T9 kyphoplasty with bx, oophorectomy, cyst of inner R thigh, R foot surgery , AV fistula inserted and removed Past Anesthesia/Blood Transfusion Reactions: No Reported Reaction Additional Past Anesthesia/Blood Transfusion Reaction / Comment(s): Pt has received blood in the past without reaction. Type of Cardiac Device: Permanent Pacemaker Device Placement Date:: DECEMBER 2014 Past Psychological History: No Psychological Hx Reported Additional Psychological History / Comment(s): Pt resides with her spouse. does all of her care. Pt. is nonverbal and full assist Smoking Status: Former smoker Past Alcohol Use History: None Reported Additional Past Alcohol Use History / Comment(s): 60 years ago smoker. Past Drug Use History: None Reported - Past Family History Sister(s) Family Medical History: Cancer Daughter(s) Family Medical History: Pulmonary Embolus Mother Family Medical History: Congestive Heart Failure (CHF) Additional Family Medical History / Comment(s): Mother of CHF at age 76 yrs. Father Family Medical History: Myocardial Infarction (ID) Additional Family Medical History / Comment(s): Father of a ID at age 46 yrs. Medications and Allergies Home Medications Medication Instructions Recorded Confirmed Type Apixaban [Eliquis] 5 mg PO BID 07/22/18 09/15/21 History Ascorbic Acid [Vitamin C] 500 mg PO DAILY 07/22/18 09/15/21 History Folic Acid 0.4 mg PO DAILY 07/11/19 09/15/21 History atenoloL [Tenormin] 25 mg PO BID 07/22/20 09/15/21 History Furosemide [Lasix] 20 mg PO DAILY 08/31/20 09/15/21 History Insulin Detemir [Levemir Flextouch] 20 units SQ BID 08/31/20 09/15/21 History dexAMETHasone 12 mg PO WE 08/31/20 09/15/21 History Divalproex Sodium [Divalproex 500 mg PO BID 07/31/21 09/15/21 History Sodium ER] Magnesium 250 mg PO DAILY 07/31/21 09/15/21 History Potassium Chloride ER [K-Dur 20] 20 meq PO DAILY 07/31/21 09/15/21 History Donepezil [Aricept] 10 mg PO HS 09/15/21 09/15/21 History Insulin Aspart (Niacinamide) See Protocol SQ TID-W/MEALS PRN 09/15/21 09/15/21 History [Fiasp Penfill 100 Unit/ml Cart] Aki's Solution 5 ml PO TID PRN 09/15/21 09/15/21 History Lidocaine-Prilocaine Cream [Emla 1 applic TOPICAL DAILY PRN 09/15/21 09/15/21 History Cream 2.5%/2.5%] hydrOXYzine HCL [Atarax] 10 mg PO BID PRN 09/15/21 09/15/21 History Allergies Allergy/AdvReac Type Severity Reaction Status Date / Time latex Allergy Rash/Hives Verified 09/15/21 19:31 [id number] Reductase Allergy Unknown Verified 09/15/21 19:31 Inhibitor [Fhsecwx-Ibx-Dpo Reductase Inhibitor] Physical Exam Vitals: Vital Signs Temp Pulse Resp BP Pulse Ox 09/19/21 08:00 97.9 F 67 16 130/81 96 09/19/21 02:13 98.5 F 91 17 148/63 97 09/18/21 22:23 98.5 F 09/18/21 20:00 99.4 F 86 16 169/89 97 09/18/21 17:57 100.3 F H 84 131/80 94 L 09/18/21 17:27 99.3 F 09/18/21 14:00 98.3 F 88 16 130/83 97 Intake and Output 09/18/21 09/19/21 09/19/21 22:59 06:59 14:59 Intake Total 360 Balance 360 Intake: IV 240 Sodium Chloride 0.9% 1, 240 000 ml @ 20 mls/hr IV . Q24H [facility] Rx#:[id number] Intake, IV Titration 120 Amount Sodium Chloride 0.9% 1, 120 000 ml @ 20 mls/hr IV . Q24H [facility] Rx#:[id number] Other: Voiding Method Diaper Diaper Incontinent Incontinent External Catheter External Catheter # Voids 1 Results 09/19/21 06:51 09/15/21 20:28 Cardiac Enzymes 09/19/21 Range/Units 06:51 Troponin I <0.012 (0.000-0.034) ng/mL CBC 09/19/21 Range/Units 06:51 WBC 6.78 (4.50-10.00) X 10*3/uL RBC 3.74 L (4.10-5.20) X 10*6/uL Hgb 11.9 L (12.0-15.0) g/dL Hct 38.3 (37.2-46.3) % Plt Count 220 (140-440) X 10*3/uL Current Medications Generic Name Dose Route Start Last Admin Trade Name Freq PRN Reason Stop Dose Admin Acetaminophen 650 mg 09/18/21 18:16 09/18/21 18:53 Acetaminophen Suppository 650 Mg Supp RECTAL 650 mg Q6HR PRN Administration Fever and/ or Pain Apixaban 5 mg 09/16/21 09:00 09/19/21 08:41 Apixaban 5 Mg Tab PO 5 mg BID [facility] Administration Protocol Ascorbic Acid 500 mg 09/16/21 09:00 09/19/21 08:40 Ascorbic Acid 500 Mg Tab PO 500 mg DAILY [facility] Administration Atenolol 25 mg 09/16/21 00:15 09/19/21 08:41 Atenolol 25 Mg Tab PO 25 mg BID [facility] Administration Al Hydroxide/Mg Hydroxide 30 0 ml 09/16/21 12:37 ml/ Lidocaine HCl 30 ml/ PO Diphenhydramine HCl 75 mg/ TID PRN Nystatin 3,000,000 unit SWISH AND SWALLOW Dexamethasone 12 mg 09/21/21 09:00 Dexamethasone 4 Mg Tab PO WE [facility] Divalproex Sodium 625 mg 09/16/21 13:30 09/19/21 08:40 Divalproex Sprinkle 125 Mg Cap.Sprink PO 625 mg BID [facility] Administration Enalaprilat 1.25 mg 09/16/21 12:39 09/16/21 14:25 Enalaprilat 1.25 Mg/Ml 1 Ml Vial IVP 1.25 mg Q6HR PRN Administration Blood Pressure - High Folic Acid 0.5 mg 09/16/21 09:00 09/19/21 08:40 Folic Acid 1 Mg Tab PO 0.5 mg DAILY [facility] Administration Furosemide 20 mg 09/16/21 09:00 09/19/21 08:41 Furosemide 20 Mg Tab PO 20 mg DAILY [facility] Administration Hydroxyzine HCl 10 mg 09/16/21 09:00 Hydroxyzine Hcl 10 Mg Tab PO BID PRN anxiety/itching Sodium Chloride 1,000 mls @ 20 mls/hr 09/15/21 21:45 09/18/21 23:16 Saline 0.9% IV Not Given .Q24H [facility] Insulin Aspart 2 - 12 unit 09/16/21 17:30 09/19/21 08:38 Insulin Aspart (Novolog) 100 Unit/Ml Vial SQ Not Given ACHS [facility] Protocol Lacosamide 50 mg 09/16/21 09:15 09/19/21 08:41 Lacosamide 50 Mg Tablet PO 50 mg BID [facility] Administration Lidocaine/Prilocaine 1 applic 09/16/21 09:00 Lidocaine-Prilocaine 2.5-2.5% Cream 5 Gm Tube TOPICAL DAILY PRN PORT ACCESS Protocol Lorazepam 1 mg 09/16/21 10:38 Lorazepam 2 Mg/Ml Inj IV Q4HR PRN Seizures Magnesium Oxide 200 mg 09/16/21 09:00 09/19/21 08:41 Magnesium Oxide 400 Mg Tab PO 200 mg DAILY [facility] Administration Naloxone HCl 0.2 mg 09/15/21 21:33 Naloxone 0.4 Mg/Ml 1 Ml Vial IV Q2M PRN Opioid Reversal Potassium Chloride 20 meq 09/16/21 09:00 09/19/21 08:41 Potassium Chloride Er 20 Meq Tab.Er PO 20 meq DAILY [facility] Administration Intake and Output 09/18/21 09/19/21 09/19/21 22:59 06:59 14:59 Intake Total 360 Balance 360 Intake: IV 240 Sodium Chloride 0.9% 1, 240 000 ml @ 20 mls/hr IV . Q24H [facility] Rx#:[id number] Intake, IV Titration 120 Amount Sodium Chloride 0.9% 1, 120 000 ml @ 20 mls/hr IV . Q24H [facility] Rx#:[id number] Other: Voiding Method Diaper Diaper Incontinent Incontinent External Catheter External Catheter # Voids 1 09/19/21 06:51 09/15/21 20:28
[2021-09-19 11:15] LABS: ALT <5 U/L (8-44); AST 7 U/L (13-35); African American GFR (CKD) 76.7 (60.0-200.0); Albumin 3.4 g/dL (3.8-4.9); Albumin/Globulin Ratio 1.62 (1.60-3.17); Alkaline Phosphatase 54 U/L (41-126); BUN/Creat Ratio 15.44 Ratio (12.00-20.00); Blood Urea Nitrogen 13.9 mg/dL (9.0-27.0); Calcium 8.6 mg/dL (8.7-10.3); Carbon Dioxide 29.8 mmol/L (20.0-27.5); Chloride 102 mmol/L (96-109); Globulin 2.1 g/dL (1.6-3.3); Glucose 100 mg/dL (70-110); Non-African American GFR(CKD) 66.2 (60.0-200.0); Potassium 4.2 mmol/L (3.5-5.5); Sodium 142 mmol/L (135-145); Total Protein 5.5 g/dL (6.2-8.2)
[2021-09-19 11:16] LABS: Glucose,Whole Blood 153 mg/dL (75-99)
--- NOTE | 2021-09-19 11:54 | CDI ---
Documentation Clarification Form Date: 09/19/2021 11:41:10 AM From: Britta Ricardo CCS, CCDS Admit Date: 09/15/2021 09:33:00 PM Patient Name: Tana Mary Visit Number: [id number] Discharge Date: ATTENTION: The Clinical Documentation Specialists (CDI) and [facility] Coding Staff appreciate your assistance in clarifying documentation. Please respond to the clarification below the line at the bottom and electronically sign. The CDI & [facility] Coding staff will review the response and follow-up if needed. Please note: Queries are made part of the Legal Health Record. If you have any questions, please contact the author of this message via ITS. Dr. Carl Cid: The following is documented in the 09/19 Attending Physician Progress Note: Cardiology consulted for evaluation of the pacemaker and the use of MRI as well as congestive heart failure could be diastolic however no edema of the lower extremities and no JVD. Additional information regarding the Acuity and Type of CHF if present is requested. History/Risk Factors per the 09/16 H/P: Seizure Disorder, Multiple Myeloma being treated with Chemotherapy, IDDM II, CVA with aphasia, Atrial Fibrillation on Eliquis, Spinal Stenosis status post surgery, Hypertension with Hypertensive Heart Disease and CKD Stage 3, Hyperlipidemia, Removal of a Brain Tumor of the left side and Encephalomalacia. Clinical Indicators: Presented to the ED on 09/15 with Seizures. Admit with Seizure. 09/15 VS: T 98.0, P 60, R 16, BP 144/98, PO 98 RA, BMI: 25.7 09/15 LAB: CO2 34, Glucose 125 5/2 BNP: 1170 09/17 CXR: Cardiomegaly with prominent pulmonary vascular markings and mild diffuse alveolar infiltrate. Correlate for mild congestive heart failure and pulmonary edema. Follow up exams can be performed. Most recent ECHO: 07/12/2019: Moderate LVH, left ventricular systolic function is mildly impaired with EF 45-50%, Pacemaker in right atrial cavity, Mild aortic valve sclerosis, Mild aortic regurgitation, Moderate MR, Mod-severe TR, Severe pulmonary hypertension, Trace/mild pulmonic regurgitation. Treatment 09/15: Telemetry, Pulmonary consult, IV Ativan 1 mg x1, IV Vimpat 60 mls @ 100 mls/hr x1, po Eliquis 5 mg BID. 09/16: po Lasix 20 mg Daily In your professional opinion, can you please clarify the Type & Acuity of CHF if known? [ ] Chronic Systolic Heart Failure [ x ] Chronic Diastolic Heart Failure [ ] Chronic Systolic & Diastolic Heart Failure [ ] Heart Failure is ruled out [ ] Other, please specify: [ ] Unable to determine (Template Last Revised: June 2020) MTDD
--- NOTE | 2021-09-19 13:29 | P.PN ---
Subjective Progress Note Date: 09/19/21 The patient is seen in neurologic follow-up. The chart has been reviewed. The patient reportedly was initially seen by Dr. Kobe Gomez because of breakthrough seizure. The patient has a history of multiple myeloma with brain metastases. She is status post resection of the brain metastases. Since that time, the patient has been having seizures. Patient was on Depakote 500 mg twice a day and the dose was increased to 750 mg twice a day by Dr. Kobe Gomez. He also started her on Vimpat 50 mg twice daily. She does move her right arm a little bit, but no seizures reported by the patient's nurse or the . The patient's is present at the bedside at time of the evaluation. He has also not noticed any breakthrough seizure. She does have some involuntary movement of the right arm. She has no control of the right side. These movements are not described as her seizure activity. At her baseline, the patient is nonverbal. The reports that she is usually aware of what is going on around her. She reportedly has no control of her right upper extremity. Patient's says that she was diagnosed with multiple myeloma in end of 2019. She had a brain surgery, followed by radiation. She is getting chemotherapy, and the last chemotherapy she received was on 09/07/2021. Patient follows up with Dr. Carreon. Objective - Vital Signs Vital signs: Vital Signs Temp 97.9 F 09/19/21 08:00 Pulse 67 09/19/21 08:00 Resp 16 09/19/21 08:00 BP 130/81 09/19/21 08:00 Pulse Ox 96 09/19/21 08:00 Intake & Output 09/18/21 09/19/21 09/19/21 18:59 06:59 18:59 Intake Total 180 360 Output Total 300 Balance -120 360 Intake: IV 240 Sodium Chloride 0.9% 1, 240 000 ml @ 20 mls/hr IV . Q24H LUCY Rx#:[id number] Intake, IV Titration 120 Amount Sodium Chloride 0.9% 1, 120 000 ml @ 20 mls/hr IV . Q24H LUCY Rx#:[id number] Oral 180 Output: Urine 300 Other: Voiding Method Diaper Diaper Diaper Incontinent Incontinent Incontinent External Catheter External Catheter External Catheter # Voids 1 - Exam Gen.: The patient is reclining in the bed. Her head is slightly tilted toward the right. She is in no acute distress. HEENT: Head is normocephalic. There is no scleral icterus. Fundus not visualized. Mucous membranes are moist. Lungs: Clear to auscultation. Neurologic examination Mental status: Patient keeps her eyes closed. She does try to move her eyelids intermittently. She is nonverbal since she arrived to the hospital. Prior to arrival to the hospital, she was talking "a word here and there", as per statement. Once I open her eyes manually, she maintained it open, and was following some directions. She was trying to raise her right arm up. She was wiggling her toes. Her dental appliance fixer is about 4- on the right, but very weak on the left. Cranial nerves: Pupils are equal and reactive. There is intermittent visual tracking to the left and right. Motor: The patient has near constant flexion and extension movements of the right elbow, and shoulder abduction movement, almost as if she is trying to raise her arm up. Very few involuntary movements of the left arm. She does wiggle her toes and foot bilaterally. Sensation: The patient does withdraw bilateral lower extremities and right upper extremity from noxious stimulation. - Labs CBC & Chem 7: 09/19/21 06:51 09/19/21 06:51 Labs: Abnormal Lab Results - Last 24 Hours (Table) 09/18/21 09/18/21 09/19/21 Range/Units 16:20 21:58 06:51 RBC (4.10-5.20) X 10*6/uL Hgb (12.0-15.0) g/dL MCV (80.0-97.0) fL MCHC (32.0-37.0) g/dL Carbon Dioxide 29.8 H (20.0-27.5) mmol/L POC Glucose (mg/dL) 104 H 194 H (75-99) mg/dL Calcium 8.6 L (8.7-10.3) mg/dL AST 7 L (13-35) U/L ALT <5 L (8-44) U/L Total Protein 5.5 L (6.2-8.2) g/dL Albumin 3.4 L (3.8-4.9) g/dL 05/07/1209/19/21 09/19/21 Range/Units 06:51 07:00 11:12 RBC 3.74 L (4.10-5.20) X 10*6/uL Hgb 11.9 L (12.0-15.0) g/dL MCV 102.4 H (80.0-97.0) fL MCHC 31.1 L (32.0-37.0) g/dL Carbon Dioxide (20.0-27.5) mmol/L POC Glucose (mg/dL) 119 H 153 H (75-99) mg/dL Calcium (8.7-10.3) mg/dL AST (13-35) U/L ALT (8-44) U/L Total Protein (6.2-8.2) g/dL Albumin (3.8-4.9) g/dL Assessment and Plan Assessment: 1. Breakthrough seizure with possible, current, prolonged postictal state versus toxic encephalopathy 2. Cough, rule out pneumonia 3. History of multiple myeloma status post resection of brain metastasis, followed by radiation, currently receiving chemotherapy. 4. Diabetes, poorly controlled, with last A1c 10.7 on 10/09/2019. Plan: 1. Chest x-ray revealed cardiomegaly with prominent vascular markings and diffuse alveolar infiltrate, correlate for mild CHF and pulmonary edema. IM following. 2. Continue Depakote 625 mg twice a day and Vimpat 50 mg twice a day as ordered by Dr. Kobe Gomez. Depakote level is 75.4 on 09/15/2021. 3. Agree with Dr. Gomez regarding follow-up with [facility] ology/neurosurgery, when medically and neurologically stable 4. MRI is unable to be done as the patient's pacemaker is reportedly, per not MRI compatible 5. Speech therapist saw the patient, recommending thickened liquids and pured diet. 6. On my review of her recent CT head from 09/15/2021 when compared to the previous computed tomography scan of head from 08/31/2020 revealed interval development of right frontal, right temporal, bilateral cerebellar ischemic areas. Patient's believes that these have been present from the recent admission to the [facility]. She has been on Eliquis for the last [address] head, rule out any interval change. 7. EEG 09/16/[address] Kobe Gomez as background slowing of severe degree, consistent with encephalopathy. No epileptiform activity or seizures were reported. 8. Discussed with patient's in detail. 9. Check ammonia level.
--- NOTE | 2021-09-19 14:18 | CT ---
EXAMINATION TYPE: CT brain wo con DATE OF EXAM: 09/19/2021 COMPARISON: 09/07/2021 HISTORY: Aphasia, rule out any interval change. R/O CVA CT DLP: 1141.4 mGycm Automated exposure control for dose reduction was used. FINDINGS: Postsurgical changes involving the calvarium. Intracranial atherosclerotic changes are noted. Craniocervical junction maintained. Partially empty sella turcica. Areas of low attenuation involving the cerebellum suggestive of encephalomalacia are stable. There al so appears to be areas of low attenuation involving the left temporal and parietal lobes. This could been the basis of a subacute process extension in the parietal occipital junction. Additional areas o f low attenuation involving the high superior parietal lobe appears new and measures approximately 2. 1 cm. Report called to the patient's nurse 2:12 PM 09/19/2021 No definite acute hemorrhage. Ventricular system compatible with mild to moderate degenerative change of the slightly greater central component. Degree of hydrocephalus or normal pressure hydrocephalus in the differential diagnosis. Small foci of abnormal signal seen in the deep white matter are most typical remote ischemic change. IMPRESSION: 1. There appears to be a new low area of attenuation involving the superior right parietal lobe sugge stive of recent or acute ischemia measuring 2.1 cm. Report called to the patient's nurse. Additional smaller 1 cm focus adjacent to this region also suspicious for recent or acute, subacute ischemia. Re commend MRI. 2. Degenerative changes with areas of encephalomalacia involving bilateral cerebellar hemispheres. 3. Low-attenuation extending from the left temporal and parietal lobes with some involvement of the t emporal occipital junction could be on the basis of acute to subacute ischemia as noted on prior exam . 4. Central ventricular dilation to be associated with hydrocephalus or normal pressure hydrocephalus. 5. No definite acute intracranial hemorrhage. Artifact from the postsurgical changes is limited asses sment insertion region along the left cerebral hemispheres.
--- NOTE | 2021-09-19 14:48 | FL ---
Modified barium swallow. HISTORY: Dysphagia. Modified barium swallow was performed with the department of speech pathology. The patient was prese nted with various consistencies of barium. Examination is limited given the overall patient condition. Aspiration was noted with thin liquid bar ium. Delayed oral pharyngeal phase. Full report is to follow from the department of speech pathology. Impression: Aspiration as noted.
[2021-09-19 15:41] LABS: Valproic Acid (Depakene) 103.2 ug/mL
[2021-09-19 16:23] LABS: Glucose,Whole Blood 126 mg/dL (75-99)
[2021-09-19 21:35] LABS: Glucose,Whole Blood 138 mg/dL (75-99)
[2021-09-19] MEDS: SODIUM CHLORIDE 0.9% 1,000 ML IV SCH (21:44)
[2021-09-20 07:35] LABS: Glucose,Whole Blood 150 mg/dL (75-99)
[2021-09-20] MEDS: INSULIN ASPART (NovoLOG) 100 UNIT/ML VIAL SQ SCH ×4 (08:55→22:22)
[2021-09-20] MEDS: LACOSAMIDE 50 MG TABLET PO SCH ×2 (09:11→21:38)
[2021-09-20] MEDS: FUROSEMIDE 20 MG TAB PO SCH (09:13)
[2021-09-20] MEDS: atenoloL 25 MG TAB PO SCH ×2 (09:13→21:38)
[2021-09-20] MEDS: DIVALPROEX SPRINKLE 125 MG CAP.SPRINK PO SCH ×2 (09:13→21:38)
[2021-09-20] MEDS: APIXABAN 5 MG TAB PO SCH ×2 (09:13→21:38)
[2021-09-20] MEDS: FOLIC ACID 1 MG TAB PO SCH (09:29)
[2021-09-20] MEDS: POTASSIUM CHLORIDE ER 20 MEQ TAB.ER PO SCH (09:29)
[2021-09-20] MEDS: ASCORBIC ACID 500 MG TAB PO SCH (09:29)
[2021-09-20] MEDS: MAGNESIUM OXIDE 400 MG TAB PO SCH (09:29)
[2021-09-20 11:22] LABS: Glucose,Whole Blood 186 mg/dL (75-99)
--- NOTE | 2021-09-20 13:36 | P.DS ---
Providers Date of admission: 09/15/21 21:33 Expected date of discharge: 09/20/21 (Transferred to [facility] urology Department/neurosurgery) Attending physician: Carl Pizarro Consults: 09/15/21 19:20 Consult Physician Routine Consulting Provider: Kobe Gomez Consult Reason/Comments: focal seizures Do you want consulting provider notified?: Already Contacted 09/19/21 11:00 Consult Physician Routine Consulting Provider: Isidro Carreon Consult Reason/Comments: Brain mets multible myeloma/stroke/chemo/steroids Do you want consulting provider notified?: Yes, Notify in am Primary care physician: Carl Pizarro Dictation of discharge summary Date of service 09/20/[address] pizarro. On admission chief complaint seizure disorder uncontrolled with the jerking movement of her upper extremities with inability to control her urine or bowel movement, unable to stand up or walk, gazing her eyes in purposeless diuretics and and mute with the underlying expressive aphasia with loss of swallowing solid food. History of present illness: Patient has been and [facility] one month ago where the family was told that she had stroke but she was able to answer some questions able to move her arms and legs and able to stand and transfer and able to eat and swallow. Patient with multiple myeloma has been treated with chemotherapy by oncology hematology Dr. Carreon from [facility] as well as dexamethasone 12 mg once a week on Sunday which causes her excessive hyperglycemia and patient treated with insulin. Patient admitted through the emergency room with the thoughts of uncontrolled seizure disorder, they called Dr. Kobe Gomez neurologist who did found that she is on Depakote only and not on Vimpat and at that time she had the computed tomography scan which is on the record subsequently they did partial EEG was not indicating seizure disorder, and the monitored her in the hospital for any activity of seizure which was not present and seen again by Dr. Perera neurol ogist and she had a second computed tomography scan with the multiple finding with could not be excluded's stroke versus multiple myeloma. We did consult also Dr. Carreon the hematology oncology who did see had a yesterday and today he called me and stated that patient should be transferred to [facility] due to the effect of possible multiple myeloma metastasis versus stroke and patient had the pacemaker and could not have MRI and the possibility of a brain biopsy was considered as well. 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 Cooney in November 2020. At [facility] patient also has an back admission to [facility]. Other medical problem: Diabetes mellitus type 2 insulin controlled, dysphagia to the solid food with questionable aspiration she is on the second. , Hypertension currently controlled with hypertensive heart disease, diastolic congestive heart failure was questionable maria isabel we consulted cardiology but they did not help us with the current finding and diagnosis. As I did consult and the nurse practitioner and answered the note for she is incompatible her pacemaker with MRI only. She is having ALLERGY to statin and the latex. Assessment and plan After [address] Carreon hematology oncology he stated that patient should be transferred to [facility] for for further evaluation and care as we could not have the capacity for continuing the care or finding the appropriate diagnosis. And he asked me to transfer the patient. We will try to contact [facility] I talked to the nurse RN to get the environmental emergencies planner and the transfer person that will taking care of communication was [facility] as well as give them my cell phone number to contact me if they have any further question and the patient should be transferred with the current medication and and the record and the computed tomography scan results. Is and of the discharge and transfer to tertiary facility by Patient Condition at Discharge: Fair Plan - Discharge Summary Discharge Rx Participant: Yes New Discharge Prescriptions: New Lacosamide [Vimpat] 50 mg PO BID tablet Divalproex Sprinkle [Depakote Sprinkle] 625 mg PO BID INSULIN ASPART (NovoLOG) [NovoLOG (formulary)] 2 - 12 unit SQ ACHS ml Acetaminophen Suppository [Tylenol Suppository] 650 mg RECTAL Q6HR PRN supp PRN Reason: Fever And/ Or Pain Lidocaine Viscous 2% [Xylocaine Viscous] 30 ml PO TID PRN ml PRN Reason: SWISH AND SWALLOW Continue Apixaban [Eliquis] 5 mg PO BID Folic Acid 0.4 mg PO DAILY atenoloL [Tenormin] 25 mg PO BID dexAMETHasone 12 mg PO WE Furosemide [Lasix] 20 mg PO DAILY Magnesium 250 mg PO DAILY Aki's Solution 5 ml PO TID PRN PRN Reason: swish and swallow Lidocaine-Prilocaine Cream [Emla Cream 2.5%/2.5%] 1 applic TOPICAL DAILY PRN PRN Reason: PORT ACCESS Discontinued Ascorbic Acid [Vitamin C] 500 mg PO DAILY Divalproex Sodium [Divalproex Sodium ER] 500 mg PO BID Insulin Detemir [Levemir Flextouch] 20 units SQ BID Potassium Chloride ER [K-Dur 20] 20 meq PO DAILY hydrOXYzine HCL [Atarax] 10 mg PO BID PRN PRN Reason: anxiety/itching Insulin Aspart (Niacinamide) [Fiasp Penfill 100 Unit/ml Cart] See Protocol SQ TID-W/MEALS PRN PRN Reason: HIGH BLOOD SUGAR Donepezil [Aricept] 10 mg PO HS Discharge Medication List Apixaban [Eliquis] 5 mg PO BID 07/22/18 [History] Folic Acid 0.4 mg PO DAILY 07/11/19 [History] atenoloL [Tenormin] 25 mg PO BID 07/22/20 [History] Furosemide [Lasix] 20 mg PO DAILY 08/31/20 [History] dexAMETHasone 12 mg PO WE 08/31/20 [History] Magnesium 250 mg PO DAILY 07/31/21 [History] Aki's Solution 5 ml PO TID PRN 09/15/21 [History] Lidocaine-Prilocaine Cream [Emla Cream 2.5%/2.5%] 1 applic TOPICAL DAILY PRN 09/15/21 [History] Acetaminophen Suppository [Tylenol Suppository] 650 mg RECTAL Q6HR PRN supp 09/20/21 [Rx] Divalproex Sprinkle [Depakote Sprinkle] 625 mg PO BID 09/20/21 [Rx] INSULIN ASPART (NovoLOG) [NovoLOG (formulary)] 2 - 12 unit SQ ACHS ml 09/20/21 [Rx] Lacosamide [Vimpat] 50 mg PO BID tablet 09/20/21 [Rx] Lidocaine Viscous 2% [Xylocaine Viscous] 30 ml PO TID PRN ml 09/20/21 [Rx] Follow up Appointment(s)/Referral(s): Carl Pizarro MD [Primary Care Provider] - 1-2 days Patient Instructions/Handouts: Seizure/Epilepsy Discharge Instructions & Follow-Up
--- NOTE | 2021-09-20 15:59 | P.CONS ---
History of Present Illness - Reason for Consult Consult date: 09/19/21 History of multiple myeloma, strokes, plasmacytoma Requesting physician: Carl Cid - Chief Complaint Seizure, decreased cognition - History of Present Illness Below is pt entire medical Hx from diagnosis to now. Patient medical history is very complex. Did highlight details that are most pertinent to current situation: Zulma has a history of an IgG kappa multiple myeloma diagnosed in June 2007 with renal failure. At that time, she was treated with Velcade and high- dose Decadron with an excellent response. She was referred for bone marrow transplant which she declined. The pt was seen back as her labs in 11/30 and then on 03/26/13 had shown evidence of early progression. Pt refused maintenance therapy, opted for continued monitoring. Due to slow, persistent progression, I continued to discuss resumption of therapy. She was unwilling for the recommended aggressive treatment with re-induction followed by evaluation for BMT, but did agree to start maintenance Velcade. She had 8 cycles. 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 Velcade was held 03/03. The symptoms slowly resolved with therapy. As her M proteins/ light chain levels were stable, the treatment break was continued at her own request. She was evaluated for possible SLE by Rheumat ology. She was diagnosed with the same, but did not want to start the "pill" that was recomended (? Plaquenil). She was asked to come back to the office on 11/10/14 due to progression noted on labs and started back on weekly Velcade. She had 6 cycles. This was held in 04/04 due to some progression of neuropathy in the feet. Admitted to [facility] in 06/05 with left sided pain. She was ultimately found to have a compression fracture in the spine, treated with kyphoplasty. She also had multiple GI issues during this time, a least partially related to medications. She was found to have H pylori on EGD and had treatment for the same. She had a PPM placed in late 09/03. Velcade and decadron (weekly) resumed in 04/05 due to slow progressive increase in her light chain levels and M protein. Had 8 cycles. Steroids stopped 07/07. Velcade held 11/04 due to progressive neuropathy. She was prescribed Revlimid at 10 mg/d but refused it after reading about the possible side effects, despite my recommendations and detailed discussions re risk/benefit. Labs showed steady progression of M protein and light chain. She was thus recommended Kyprolis in 07/08. She was initially agreeable, but subsequently refused after reading about the possible side effects. She agreed to take Neurontin, if she could go back on velcade. She resumed Velcade weekly x2 Q 3 wks on 07/25/17 and had 6 cycles. Steroid dose was reduced to 10 mg/d with C 5, per the pt's wishes (due to weight gain). She had a treatment break till 12/13/17 for her daughter's wedding, and then resumed treatment. She has had an additional 5 cycles (total 10). She stopped steroids with C 8. Velcade was stopped on 03/14/18 due to progressive neuropathy. The pt refused to increase her neurontin dose. She is c/o new onset flank pain, and is being evaluated for a possible kidney stone. She was started on Eliquis for cardiac arrhythmia in late 06/08. She underwent kyphoplasty in T12 in 08/06. Labs from 01/02/19 showed a significant increase with M protein 1.3 g/dL, and Light chain 130 7 mg/L. Admitted [facility] with chills and fever. Infection was ruled out and it is felt that her symptoms were due to myeloma. She was started on Decadron bolus and then discharged. She followed up in the office on 01/27/19. She has responded well to the Decadron with resolution of the fever and chills. She ultimately agreed to start treatment with kyprolis (without dex due to the pt's refusal), which was initiated in 02/06, had 6 cycles. Admitted to [facility] 07/11/19 c/o SOB, cough and fever. Imaging revealed bilateral pneumonia. Testing for influenza and coronavirus were negative. The patient improved with antibacterial antibiotic. Discharge was delayed due to nausea and vomiting, which improve slowly with supportive treatment. DC on O2 and antibiotics, and recovered completely in the outpatient setting within about 1-2 weeks. Developed acute onset of headache on the left side, with difficulty in finding words as well as weakness on the right side on 08/14/19. She was sent in for a CT scan of the brain on 08/15/19, which revealed an isodense masslike structure in the left parietal lobe with mild surrounding vasogenic edema. Low-grade intra-axial or, more likely extra-axial meningioma was favored. The patient was then sent to [facility] for a CT scan with contrast. She was also started on steroids. She had marked improvement in her symptoms with steroids. CT with contrast confirmed the finding, with maximal dimension of the tumor about 3.5-4 cm. She was placed on Keppra but this was discontinued due to side effects such as hallucinations and excessive sleepiness. She was placed back on Decadron 2 mg twice a day. She was also evaluated by neurosurgery, and it was recommended that she should have surgical excision, with scheduling based on status of the coronavirus epidemic. The patient's Decadron was subsequently discontinued, no recurrence of neurologic complaints. 10/07, additional brain imaging done at [facility], scans "showed no change". It was not clear if they were able to see definite evidence of a stroke. The patient developed symptoms of mild weakness on the right side and difficulty in finding words with some confusion again around 11/08/19. She was strongly recommended by her PCP to have a repeat surgical evaluation but adamantly refused the same. Back on low-dose Decadron at 1 mg per day with improvement in symptoms. Ultimately followed up with Neurosurgery on repeated urging, at [facility]. She had excision of the tumor on 02/05/20 showing a plasma cell neoplasm. Tolerated surgery well and was referred to radiation. She started involved field radiation on 03/11/20. She also completed her steroid taper, that was started postsurgery, in mid 03/09. Completed radiation on 04/14/20. F/U in ofc strongly recommended to resume systemic therapy. However she refused. The patient was seen at her own request 07/29/20, she was having progression of the above symptoms. She states that she was diagnosed with a UTI after a visit to the ER. He has been started on antibiotic. She had an EGD on 07/26/20, which showed some mild "redness" per the patient. Labs from 07/22/20 showed significant progression with kappa light chain 1110 mg/L versus 650+. Protein was 1.1 g/dL,was undetectable. Sedimentation rate is markedly elevated greater than 100. Workup for other causes of anemia were negative. She ultimately agreed to resume treatment, and was started on Daratumumab/Dex/Rev ( 10 mg D 1-21 q 28), on 08/25/20. She was admitted to the hospital after her first infusion, with fever, decreased alertness and confusion. She was found to have a UTI, CT scan also showed possible subdural hemorrhage at the site of her previous surgery. She was therefore transferred to [facility]. CT scans done here were compared to new scans done at [facility]. Recurrent hemorrhage was ruled out. The patient's symptoms were felt to be due to her UTI which was treated aggressively. She was hospitalized about a week, and then discharged. She completed antibiotics in late 09/08. She resumed Daratumumab on 09/22/20, along with Revlimid and weekly Dex. She cont on therapy until she had a major change in her status starting around the last week of 04/10. She has become significantly weaker, and focally on the right side. She also had progressive issues with nausea. Improved with initiation of speech therapy. She is now needing a wheelchair for ambulation again. Patient had CT scans without, and then with contrast ordered. These showed postsurgical/postradiation encephalomalacia with no new mass or bleeding. Lytic lesions were seen in the calvarium, consistent with known lesions of her myeloma. However myeloma labs continue to show essentially complete biochemical remission, confirming no progression. This felt to be highly unlikely that her symptoms were due to treatment effect. To rule that out further, treatment was held. Steroids were increased back to 20 mg per week. Repeat CT scan with contrast showed no change. It again showed significant encephalomalacia and enlargement of the left ventricle. Neurology did recommend MRI. Case was discussed with cardiology, as the patient has a pacemaker. They confirmed that her pacemaker was not compatible with MRI. The patient was admitted to [facility] because of further worsening of mental status after her visit on 07/06/21. She had a somewhat prolonged admission, during which time she had repeat imaging of the brain, and also had a lumbar puncture. Lumbar puncture was negative for evidence of myelomatous involvement, including on flow cytometry. CT scan showed multiple new lesions compatible with CVAs. It also appears that there was concern for underlying partial seizures, due to which the patient was started on Vimpat. She was sent home with the port accessed! Her home care nurse had called, stating that the patient had an indwelling catheter in for about 2 weeks. Patient came to the office on 07/30/21 and had catheter removed with blood cultures done. Cultures were positive for staph epidermidis. Patient was sent in the ER, but after further evaluation was discharged home and it is felt that this was more likely a contaminant, as she was quite asymptomatic. At her visit in 08/09, it was discussed with her family that her condition did not appear to be related either to myeloma or myeloma treatment. As her labs were showing early progression, she was started back on treatment with Daratumumab Q 4 wks, and Decadron 12 mg weekly. The patient has had some improvement physically with physical therapy. According to her who provided the history, she is able to ambulate with a walker, and some assistance, around the house. She has no difficulty swallowing and appetite seems to be getting back to normal. She is more verbal, but has expressive aphasia. Right-sided weakness persists. Headaches remain minor and intermittent. Comprehension variable. MOST RECENT VISIT: 09/08/21-The patient has had some improvement in her physical status, with ongoing PT/OT. Cognitively much improvement. The patient does seem to be more alert and more mobile, though she has expressive aphasia, CBC from 09/07/21 was normal. Restaging labs checked showed no significant increase in kappa light chain or significant increase in M-spike. Pt is currently admitted with progressive decrease in alertness,tremors suspicious for seizure activity. reports significant changes in communication ability of pt. Review of Systems Focused review of systems per ROS unobtainable: due to mental status Past Medical History Past Medical History: Cancer, Diabetes Mellitus, Hyperlipidemia, Hypertension, Osteoarthritis (OA), Renal Disease Additional Past Medical History / Comment(s): MULTIPLE MYELOMA had chemo in 2007 and chemo now. , renal failure with cancer tx and had dialysis for 2 months 2007, , slight leaky heart valve, hx of H pylori, PACEMAKER, NAUSEA, CHRONIC KIDNEY DISEASE STAGE 3, stroke and seizure which made patient non-verbal History of Any Multi-Drug Resistant Organisms: None Reported Past Surgical History: Back Surgery, Cholecystectomy, Hysterectomy, Pacemaker Additional Past Surgical History / Comment(s): colonoscopy, rt carpal tunnel release, T9 kyphoplasty with bx, oophorectomy, cyst of inner R thigh, R foot surgery , AV fistula inserted and removed Past Anesthesia/Blood Transfusion Reactions: No Reported Reaction Additional Past Anesthesia/Blood Transfusion Reaction / Comm: Pt has received blood in the past without reaction. Type of Cardiac Device: Permanent Pacemaker Device Placement Date:: DECEMBER 2014 Past Psychological History: No Psychological Hx Reported Additional Psychological History / Comment(s): Pt resides with her spouse. Adriel durham does all of her care. Pt. is nonverbal and full assist Smoking Status: Former smoker Past Alcohol Use History: None Reported Additional Past Alcohol Use History / Comment(s): 60 years ago smoker. Past Drug Use History: None Reported - Past Family History Sister(s) Family Medical History: Cancer Daughter(s) Family Medical History: Pulmonary Embolus Mother Family Medical History: Congestive Heart Failure (CHF) Additional Family Medical History / Comment(s): Mother of CHF at age 76 yrs. Father Family Medical History: Myocardial Infarction (OR) Additional Family Medical History / Comment(s): Father of a OR at age 46 yrs. Medications and Allergies Home Medications Medication Instructions Recorded Confirmed Type Apixaban [Eliquis] 5 mg PO BID 07/22/18 09/15/21 History Folic Acid 0.4 mg PO DAILY 07/11/19 09/15/21 History atenoloL [Tenormin] 25 mg PO BID 07/22/20 09/15/21 History Furosemide [Lasix] 20 mg PO DAILY 08/31/20 09/15/21 History dexAMETHasone 12 mg PO WE 08/31/20 09/15/21 History Magnesium 250 mg PO DAILY 07/31/21 09/15/21 History Aki's Solution 5 ml PO TID PRN 09/15/21 09/15/21 History Lidocaine-Prilocaine Cream [Emla 1 applic TOPICAL DAILY PRN 09/15/21 09/15/21 History Cream 2.5%/2.5%] Acetaminophen Suppository [Tylenol 650 mg RECTAL Q6HR PRN supp 09/20/21 Rx Suppository] Divalproex Sprinkle [Depakote 625 mg PO BID 09/20/21 Rx Sprinkle] INSULIN ASPART (NovoLOG) [NovoLOG 2 - 12 unit SQ ACHS ml 09/20/21 Rx (formulary)] Lacosamide [Vimpat] 50 mg PO BID tablet 09/20/21 Rx Lidocaine Viscous 2% [Xylocaine 30 ml PO TID PRN ml 09/20/21 Rx Viscous] Allergies Allergy/AdvReac Type Severity Reaction Status Date / Time latex Allergy Rash/Hives Verified 09/15/21 19:31 Lyokezs-KCW-VmQ Reductase Allergy Unknown Verified 09/15/21 19:31 Inhibitor [Rklzikp-Xmf-Kta Reductase Inhibitor] Physical Exam Vitals: Vital Signs Temp Pulse Resp BP Pulse Ox 09/19/21 08:00 97.9 F 67 16 130/81 96 09/19/21 02:13 98.5 F 91 17 148/63 97 09/18/21 22:23 98.5 F 09/18/21 20:00 99.4 F 86 16 169/89 97 09/18/21 17:57 100.3 F H 84 131/80 94 L 09/18/21 17:27 99.3 F 09/18/21 14:00 98.3 F 88 16 130/83 97 Intake and Output 09/18/21 09/19/21 09/19/21 22:59 06:59 14:59 Intake Total 360 Balance 360 Intake: IV 240 Sodium Chloride 0.9% 1, 240 000 ml @ 20 mls/hr IV . Q24H [facility] Rx#:[id number] Intake, IV Titration 120 Amount Sodium Chloride 0.9% 1, 120 000 ml @ 20 mls/hr IV . Q24H [facility] Rx#:[id number] Other: Voiding Method Diaper Diaper Incontinent Incontinent External Catheter External Catheter # Voids 1 - Constitutional General appearance: average body habitus, no acute distress - EENT Eyes: anicteric sclerae - Neck Neck: no lymphadenopathy - Respiratory Respiratory: bilateral: CTA - Cardiovascular Rhythm: regular Heart sounds: normal: S1, S2 Abnormal Heart Sounds: no systolic murmur, no diastolic murmur, no rub, no S3 Gallop, no S4 Gallop, no click, no other - Gastrointestinal General gastrointestinal: no absent bowel sounds, no decreased bowel sounds, no distended, no hepatomegaly, no hyperactive bowel sounds, normal bowel sounds, no organomegaly, no rigid, no scaphoid, soft, no splenomegaly, no tenderness, no umbilical hernia, no ventral hernia - Integumentary Integumentary: normal - Neurologic tracking with eyes. RUE flexed, hand clenched. Tremor noted. Neurologic: focal deficits - Musculoskeletal Musculoskeletal: generalized weakness - Psychiatric Psychiatric: no A&O x's 3, no appropriate affect, no intact judgment & insight Results CBC & Chem 7: 09/19/21 06:51 09/19/21 06:51 Labs: Abnormal Lab Results - Last 24 Hours (Table) 09/18/21 09/18/21 09/19/21 Range/Units 16:20 21:58 06:51 RBC (4.10-5.20) X 10*6/uL Hgb (12.0-15.0) g/dL MCV (80.0-97.0) fL MCHC (32.0-37.0) g/dL Carbon Dioxide 29.8 H (20.0-27.5) mmol/L POC Glucose (mg/dL) 104 H 194 H (75-99) mg/dL Calcium 8.6 L (8.7-10.3) mg/dL AST 7 L (13-35) U/L ALT <5 L (8-44) U/L Total Protein 5.5 L (6.2-8.2) g/dL Albumin 3.4 L (3.8-4.9) g/dL 09/19/21 09/19/21 09/19/21 Range/Units 06:51 07:00 11:12 RBC 3.74 L (4.10-5.20) X 10*6/uL Hgb 11.9 L (12.0-15.0) g/dL MCV 102.4 H (80.0-97.0) fL MCHC 31.1 L (32.0-37.0) g/dL Carbon Dioxide (20.0-27.5) mmol/L POC Glucose (mg/dL) 119 H 153 H (75-99) mg/dL Calcium (8.7-10.3) mg/dL AST (13-35) U/L ALT (8-44) U/L Total Protein (6.2-8.2) g/dL Albumin (3.8-4.9) g/dL Chest x-ray: report reviewed CT Scan - head: report reviewed Assessment and Plan (1) Seizure Current Visit: Yes Status: Acute Priority: High Code(s): R56.9 - UNSPECIFIED CONVULSIONS SNOMED Code(s): 35171970 (2) Plasmocytoma Current Visit: No Status: Chronic Priority: Medium Code(s): C90.30 - SOLITARY PLASMACYTOMA NOT HAVING ACHIEVED REMISSION SNOMED Code(s): 040303404 (3) Multiple myeloma Current Visit: No Status: Chronic Priority: Medium Code(s): C90.00 - MULTIPLE MYELOMA NOT HAVING ACHIEVED REMISSION SNOMED Code(s): 078477921 Plan: Dr. Carreon discussed case with Attending and pt . CT done here was compared with a CT done just about a year ago. Patient is had multiple procedures including surgery and radiation since that time. Since patient's last imaging at [facility] she has not had any other treatment or significant c hanges in her myeloma labs. difficult to say for certain if this is new or progressive. Patient has been seen by neurology, seizure medications have been adjusted. We'll see how patient does after she is recovered from seizure and postictal state. Further recommendations to follow. Doctor attests: I performed a history and physical examination of this patient, developed impression and plan of care. Discussed with dictator. I agree with dictators note, documented as a scribe.
--- NOTE | 2021-09-20 16:09 | P.PN ---
Subjective Progress Note Date: 09/20/21 Principal diagnosis: seizure, multiple myeloma, history of plasmacytoma of the brain In follow-up today patient is sleeping. is at the bedside. Patient is now requiring suction of secretions, now requiring thickened liquids due due to coughing after ingestion foods and fluids. She did not open her eyes to voice and touch. Objective - Vital Signs Vital signs: Vital Signs Temp 99.0 F 09/20/21 14:00 Pulse 75 09/20/21 14:00 Resp 16 09/20/21 14:00 BP 126/76 09/20/21 14:00 Pulse Ox 92 L 09/20/21 14:00 Intake & Output 09/19/21 09/20/21 09/20/21 18:59 06:59 18:59 Intake Total 0 Output Total 325 Balance -325 Weight 65.771 kg Intake: Oral 0 Output: Urine 325 Other: Voiding Method Diaper Diaper Diaper Incontinent Incontinent Incontinent External Catheter External Catheter External Catheter # Voids 2 - Constitutional General appearance: Present: average body habitus, no acute distress - Respiratory Respiratory: bilateral: CTA - Cardiovascular Rhythm: regular Heart sounds: normal: S1, S2 Abnormal Heart Sounds: Absent: systolic murmur, diastolic murmur, rub, S3 Gallop, S4 Gallop, click, other - Peripheral edema leg Peripheral Edema: bilateral: None - Gastrointestinal General gastrointestinal: Present: normal bowel sounds, soft - Neurologic Neurologic: Present: focal deficits - Psychiatric Psychiatric: Absent: A&O x's 3, appropriate affect, intact judgment & insight - Labs CBC & Chem 7: 09/19/21 06:51 09/19/21 06:51 Labs: Abnormal Lab Results - Last 24 Hours (Table) 09/19/21 09/19/21 09/19/21 Range/Units 06:51 14:49 16:21 POC Glucose (mg/dL) 126 H (75-99) mg/dL Hemoglobin A1c 8.2 H (0.0-6.0) % Procalcitonin 0.11 H (0.02-0.09) ng/mL 09/19/21 09/20/21 09/20/21 Range/Units 21:31 06:57 11:14 POC Glucose (mg/dL) 138 H 150 H 186 H (75-99) mg/dL Hemoglobin A1c (0.0-6.0) % Procalcitonin (0.02-0.09) ng/mL Microbiology - Last 24 Hours (Table) 09/18/21 18:48 Blood Culture - Preliminary Blood No Growth after 24 hours 09/18/21 18:48 Blood Culture - Preliminary Blood No Growth after 24 hours - Imaging and Cardiology CT Scan - head: report reviewed Assessment and Plan (1) Seizure Current Visit: Yes Status: Acute Priority: High Code(s): R56.9 - UNSPECIFIED CONVULSIONS SNOMED Code(s): 09792488 (2) Plasmocytoma Current Visit: No Status: Chronic Priority: Medium Code(s): C90.30 - SOLITARY PLASMACYTOMA NOT HAVING ACHIEVED REMISSION SNOMED Code(s): 317934469 (3) Multiple myeloma Current Visit: No Status: Chronic Priority: Medium Code(s): C90.00 - MULTIPLE MYELOMA NOT HAVING ACHIEVED REMISSION SNOMED Code(s): 317750578 Plan: reviewed labs from the office. Patient's kappa light chain is almost identical to what was in July. M spike is nearly the same as well. Patient has not been resumed on any medications for treatment of myeloma. Neurology has seen and examined patient. Seizure medications adjusted. isn't completely certain that there has been a huge change at this time in her ability to comprehend, her tremors are definitely decreased compared to yesterday. Since we are not able to compare most recent CT scans to the ones at [facility] recently done by Neurosurgery, and there have not been any other acute changes in patient's medical history that could be the cause, recommendation is for patient to be transferred to [facility] under the care of Neurosurgery. In case patient is needing biopsy, having progressive plasmacytoma, progressive/symptomatic scar tissue or CVA. Dr. Carreon discussed the case with Dr. Cid. I discussed the case with nursing and patient's . Patient said that he wanted to talk to his daughter first to transfer. I told him he needed to report his decision as soon as possible to nursing so Case Manger could be contacted. Doctor attests: I performed a history and physical examination of this patient, developed impression and plan of care. Discussed with dictator. I agree with dictators note, documented as a scribe. Time with Patient: Greater than 30 (greater than 40 minutes spent counseling and coordinating care)
[2021-09-20 16:36] LABS: Glucose,Whole Blood 100 mg/dL (75-99)
[2021-09-20 21:09] LABS: Glucose,Whole Blood 143 mg/dL (75-99)
[2021-09-20] MEDS: SODIUM CHLORIDE 0.9% 1,000 ML IV SCH (21:46)
[2021-09-21 07:03] LABS: Glucose,Whole Blood 116 mg/dL (75-99)
[2021-09-21] MEDS: INSULIN ASPART (NovoLOG) 100 UNIT/ML VIAL SQ SCH ×4 (07:05→20:28)
[2021-09-21] MEDS ORDERED: dexAMETHasone 4 MG TAB PO SCH (09:00)
[2021-09-21] MEDS: APIXABAN 5 MG TAB PO SCH ×2 (09:15→20:29)
[2021-09-21] MEDS: DIVALPROEX SPRINKLE 125 MG CAP.SPRINK PO SCH ×2 (09:15→20:29)
[2021-09-21] MEDS: atenoloL 25 MG TAB PO SCH ×2 (09:15→20:29)
[2021-09-21] MEDS: LACOSAMIDE 50 MG TABLET PO SCH ×2 (09:16→20:29)
[2021-09-21] MEDS: FUROSEMIDE 20 MG TAB PO SCH (09:16)
[2021-09-21] MEDS: ASCORBIC ACID 500 MG TAB PO SCH (09:28)
[2021-09-21] MEDS: FOLIC ACID 1 MG TAB PO SCH (09:28)
[2021-09-21] MEDS: MAGNESIUM OXIDE 400 MG TAB PO SCH (09:28)
[2021-09-21] MEDS: POTASSIUM CHLORIDE ER 20 MEQ TAB.ER PO SCH (09:28)
[2021-09-21 11:38] LABS: Glucose,Whole Blood 157 mg/dL (75-99)
--- NOTE | 2021-09-21 12:14 | P.PN ---
Subjective Progress Note Date: 09/20/21 09/21/2021: Patient's son, granddaughter were also present today. No significant improvement. Continues to have weakness of the left arm and some involuntary movement of the right upper extremity. 09/20/2021: The patient is seen in neurologic follow-up. The chart has been reviewed. The patient reportedly was initially seen by Dr. Kobe Gomez because of breakthrough seizure. The patient has a history of multiple myeloma with brain metastases. She is status post resection of the brain metastases. Since that time, the patient has been having seizures. Patient was on Depakote 500 mg twice a day and the dose was increased to 750 mg twice a day by Dr. Kobe Gomez. He also started her on Vimpat 50 mg twice daily. She does move her right arm a little bit, but no seizures reported by the patient's nurse or the . The patient's is present at the bedside at time of the evaluation. He has also not noticed any breakthrough seizure. She does have some involuntary movement of the right arm. She has no control of the right side. These movements are not described as her seizure activity. At her baseline, the patient is nonverbal. The reports that she is usually aware of what is going on around her. She reportedly has no control of her right upper extremity. Patient's says that she was diagnosed with multiple myeloma in end of 2019. She had a brain surgery, followed by radiation. She is getting chemotherapy, and the last chemotherapy she received was on 09/07/2021. Patient follows up with Dr. Carreon. Objective - Vital Signs Vital signs: Vital Signs Temp 99.0 F 09/20/21 14:00 Pulse 75 09/20/21 14:00 Resp 16 09/20/21 14:00 BP 126/76 09/20/21 14:00 Pulse Ox 92 L 09/20/21 14:00 Intake & Output 09/19/21 09/20/21 09/20/21 18:59 06:59 18:59 Intake Total 0 Output Total 325 600 Balance -325 -600 Weight 65.771 kg Intake: Oral 0 Output: Urine 325 600 Other: Voiding Method Diaper Diaper Diaper Incontinent Incontinent Incontinent External Catheter External Catheter External Catheter # Voids 2 # Bowel Movements 1 - Exam Gen.: The patient is reclining in the bed. Her head is slightly tilted toward the right. She is in no acute distress. HEENT: Head is normocephalic. There is no scleral icterus. Fundus not visualized. Mucous membranes are moist. Lungs: Clear to auscultation. Neurologic examination Mental status: Patient keeps her eyes closed. She does try to move her eyelids intermittently. She is nonverbal since she arrived to the hospital. Prior to arrival to the hospital, she was talking "a word here and there", as per statement. Once I open her eyes manually, she maintained it open, and was following some directions. She was trying to raise her right arm up. She was wiggling her toes. Her director of marketing communications is about 4- on the right, but very weak on the left. Cranial nerves: Pupils are equal and reactive. There is intermittent visual tracking to the left and right. Motor: The patient has near constant flexion and extension movements of the right elbow, and shoulder abduction movement, almost as if she is trying to raise her arm up. Very few involuntary movements of the left arm. She does wiggle her toes and foot bilaterally. Sensation: The patient does withdraw bilateral lower extremities and right upper extremity from noxious stimulation. - Labs CBC & Chem 7: 09/19/21 06:51 09/19/21 06:51 Labs: Abnormal Lab Results - Last 24 Hours (Table) 09/19/21 09/19/21 09/20/21 Range/Units 14:49 21:31 06:57 POC Glucose (mg/dL) 138 H 150 H (75-99) mg/dL Hemoglobin A1c 8.2 H (0.0-6.0) % 09/20/21 09/20/21 Range/Units 11:14 16:35 POC Glucose (mg/dL) 186 H 100 H (75-99) mg/dL Hemoglobin A1c (0.0-6.0) % Microbiology - Last 24 Hours (Table) 09/18/21 18:48 Blood Culture - Preliminary Blood No Growth after 24 hours 09/18/21 18:48 Blood Culture - Preliminary Blood No Growth after 24 hours Assessment and Plan Assessment: 1. Breakthrough seizure with possible, current, prolonged postictal state versus toxic encephalopathy 2. Recurrent ischemic strokes. Computed tomography scan of the head from 09/19/2021 revealed a new low area of attenuation involving the superior right parietal lobe suggestive of recent or acute ischemia measuring 2.1 cm. Additional smaller 1 cm focus adjacent to this region also suspicious for recent or acute subacute ischemia. Recommend MRI. I personally reviewed computed tomography scan of the head and agree with the findings. These areas of ischemia were also present in the initial computed tomography scan of the head on 09/15/2021, but now is more apparent and more well defined on the current study. 3. Cough, rule out pneumonia 4. History of multiple myeloma status post resection of brain metastasis, followed by radiation, currently receiving chemotherapy. 5. Diabetes, poorly controlled, with last A1c 10.7 on 10/09/2019, current A1c 8.2. 6. Vascular dementia Plan: 1. Repeat computed tomography scan of head revealed evolving infarct involving the right parietal region. Patient has history of multiple strokes in the past. Strokes appears embolic in nature. Patient may benefit from JAYME to evaluate for any embolic source. Apparently patient already is on Eliquis, but continues to throw emboli. Apparently hematology oncology wants patient to be transferred to [facility] to rule out cerebral metastasis related to myeloma. 2. Continue Depakote 625 mg twice a day and Vimpat 50 mg twice a day as ordered by Dr. Kobe Gomez. Depakote level is 75.4 on 09/15/2021. 3. Hemoglobin A1c 8.2. Recommend optimize control of diabetes to target A1c <7.0 4. MRI is unable to be done as the patient's pacemaker is reportedly, per not MRI compatible 5. Speech therapist saw the patient, recommending thickened liquids and pured diet. 6. On my review of her recent CT head from 09/15/2021 when compared to the previous computed tomography scan of head from 08/31/2020 revealed interval development of right frontal, right temporal, bilateral cerebellar ischemic areas. Patient's believes that these have been present from the recent admission to the [facility]. She has been on Eliquis for the last 2 years. 7. EEG 09/16/[address] Kobe Gomez as background slowing of severe degree, consistent with encephalopathy. No epileptiform activity or seizures were reported. 8. Discussed with patient's in detail. 9. Ammonia 45/30, may be related to use of Depakote. Consider starting lactulose. 10. B12 849, folate > 20.0. TSH normal 1.610.
--- NOTE | 2021-09-21 14:55 | P.PN ---
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 Dictation by . Patient seen and evaluated discussed with her , patient is aphasic, reviewed with the the computed tomography scan repeated and given a copy of the report. Which indicate presence of stroke bilaterally right and left hemispheric, despite of patient on Eliquis anticoagulant 5 mg twice a day without interruption. Significant discussion with the , patient was scheduled to be transferred to [facility] when the bed is available in the neurosurgeon department including [facility] and a [address] Drake Cano, I did also speak with Dr. Trevizo who accepted the case after discussion, During the night and received a call from a day for the hospital indicating that they're requesting as CAT scan done to be evaluated by Dr. Drake Cano neurosurge on and the team of the neurosurgery and subsequently they will call the hospital in the bed is available with a questionable they may change their mind. Patient today seen by the neurology Dr. Mackenzie and he reviewed also the new computed tomography scan with the presence of bilateral stroke was questionable new stroke. And patient unable to communicate with the mute, with the spastic upper extremities and lower extremities, incontinence of the urine a bowel movement, and her pupil and eyes is gazing S in a different direction. Patient received today dexamethasone 12 mg orally, and her at bedside stated that she she has more aware more alert and able to swallow. Communication with the speech pathology, who continued with the Thick-It and pured and it seems the patient tolerated, the modified diameter swallow is nonconclusive with a questionable aspiration, patient still has cough unclear etiology and it chest x-ray was not indicating aspiration. Vital sign temperature 97.4 FL oral, also rate 61 respiratory rate 16 nonlabored normal, blood pressure has been stable however with the steroid therapy blood pressure picked up to 164/77 prior to that was 139/65 and 143/84 and 126/76., Pulse ox was 99 on room air and able to Blease spontaneously. On the examination: Patient is conscious not communicating fed by spoon at bedside with the support of her Neck was supple no lymphadenopathy Chest was clear to auscultation and percussion no wheezes nor rhonchi's no need for oxygen with a saturation 99% Heart chronic atrial fibrillation was controlled ventricular response 61 bpm on anti-coagulant Eliquis was no interruption 5 mg twice a day. Abdomen soft. Bowel sounds no tenderness 4 quadrant Extremities no edema. Pulses Neurological exam her Dr. Mackenzie the neurology. 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 #5 hypertension was hypertensive heart disease #6 atrial fibrillation with controlled ventricular response #7 diabetes mellitus type 2 currently controlled #8 first laboratory results normal vitamin B12 level, serum ammonia is mildly elevated, we'll repeat ammonia level tomorrow to see us if his persistent. #9 history of chronic kidney disease secondary to multiple myeloma however her current kidney function and GFR is stable normal. Plan: #1 discussed with patient , patient is mute with suppressive aphagia. #2 waiting for [facility] for evaluation and a bed availability and if they change their mind for accepting the patient was not unclearness this time. #3 obtaining laboratory tomorrow to assess renal function, CBC was blood count, ammonia level. #4 neurology following, oncology hematology following, cardiology no farther input. Objective - Vital Signs Vital signs: Vital Signs Temp 97.4 F L 09/21/21 08:00 Pulse 61 09/21/21 08:00 Resp 16 09/21/21 08:00 BP 164/77 09/21/21 08:00 Pulse Ox 99 09/21/21 08:00 Intake & Output 09/20/21 09/21/21 09/21/21 18:59 06:59 18:59 Output Total 600 200 Balance -600 -200 Output: Urine 600 200 Other: Voiding Method Diaper Diaper Diaper Incontinent Incontinent Incontinent External Catheter External Catheter External Catheter # Bowel Movements 1 - Labs CBC & Chem 7: 09/19/21 06:51 09/19/21 06:51 Labs: Abnormal Lab Results - Last 24 Hours (Table) 09/20/21 09/20/21 09/21/21 Range/Units 16:35 21:00 07:01 POC Glucose (mg/dL) 100 H 143 H 116 H (75-99) mg/dL 09/21/21 Range/Units 11:37 POC Glucose (mg/dL) 157 H (75-99) mg/dL Microbiology - Last 24 Hours (Table) 09/18/21 18:48 Blood Culture - Preliminary Blood No Growth after 48 hours 09/18/21 18:48 Blood Culture - Preliminary Blood No Growth after 48 hours
--- NOTE | 2021-09-21 15:51 | P.PN ---
Subjective Progress Note Date: 09/21/21 Principal diagnosis: seizure, multiple myeloma, history of plasmacytoma of the brain In follow-up today patient is alert, at bedside feeding her. She did look at me and verbalized "ok" when we discussed her plan. suctioned some secretions last night and had not had to since. There is pudding, eggs, and applesauce at bedside- reports no coughing or choking with feeding. Objective - Vital Signs Vital signs: Vital Signs Temp 97.4 F L 09/21/21 08:00 Pulse 61 09/21/21 08:00 Resp 16 09/21/21 08:00 BP 164/77 09/21/21 08:00 Pulse Ox 99 09/21/21 08:00 Intake & Output 09/20/21 09/21/21 09/21/21 18:59 06:59 18:59 Output Total 600 200 Balance -600 -200 Output: Urine 600 200 Other: Voiding Method Diaper Diaper Diaper Incontinent Incontinent Incontinent External Catheter External Catheter External Catheter # Bowel Movements 1 - Constitutional General appearance: Present: average body habitus, cooperative, no acute distress - EENT Eyes: Present: anicteric sclerae ENT: Present: hearing grossly normal - Respiratory Respiratory: bilateral: CTA - Cardiovascular Rhythm: regular Heart sounds: normal: S1, S2 - Neurologic Neurologic: Present: focal deficits - Musculoskeletal Musculoskeletal: Present: generalized weakness - Psychiatric Psychiatric Comment(s): Alert today, answered me with the word "OK" after discussing plans - Labs CBC & Chem 7: 09/19/21 06:51 09/19/21 06:51 Labs: Abnormal Lab Results - Last 24 Hours (Table) 09/20/21 09/20/21 09/21/21 Range/Units 16:35 21:00 07:01 POC Glucose (mg/dL) 100 H 143 H 116 H (75-99) mg/dL 09/21/21 Range/Units 11:37 POC Glucose (mg/dL) 157 H (75-99) mg/dL Microbiology - Last 24 Hours (Table) 09/18/21 18:48 Blood Culture - Preliminary Blood No Growth after 48 hours 09/18/21 18:48 Blood Culture - Preliminary Blood No Growth after 48 hours Assessment and Plan (1) Seizure Current Visit: Yes Status: Acute Priority: High Code(s): R56.9 - UNSPECIFIED CONVULSIONS SNOMED Code(s): 57365946 (2) Plasmocytoma Current Visit: No Status: Chronic Priority: Medium Code(s): C90.30 - SOLITARY PLASMACYTOMA NOT HAVING ACHIEVED REMISSION SNOMED Code(s): 281861013 (3) Multiple myeloma Current Visit: No Status: Chronic Priority: Medium Code(s): C90.00 - MULTIPLE MYELOMA NOT HAVING ACHIEVED REMISSION SNOMED Code(s): 738362077 Plan: Pt responsiveness completely different today. Discussed with that pt m ay have had prolonged post ictal recovery, seizure meds were adjusted and that can take some time to have effect. Also, pt received her weekly dose of steroids for myeloma, if there was some swelling in the brain causing symptoms this may have helped. Cont current medications as prescribed. still wants pt transferred to [facility] for evaluation by her Neurosurgeon-in case patient is needing biopsy, having progressive plasmacytoma, progressive/symptomatic scar tissue or CVA. Pending bed availability
[2021-09-21 16:47] LABS: Glucose,Whole Blood 283 mg/dL (75-99)
[2021-09-21 20:25] LABS: Glucose,Whole Blood 241 mg/dL (75-99)
[2021-09-21] MEDS: SODIUM CHLORIDE 0.9% 1,000 ML IV SCH (22:28)
[2021-09-22 06:52] LABS: Glucose,Whole Blood 169 mg/dL (75-99)
[2021-09-22] MEDS: SODIUM CHLORIDE 0.9% 1,000 ML IV SCH ×2 (08:01→21:03)
[2021-09-22] MEDS: FOLIC ACID 1 MG TAB PO SCH (08:03)
[2021-09-22] MEDS: MAGNESIUM OXIDE 400 MG TAB PO SCH (08:03)
[2021-09-22] MEDS: POTASSIUM CHLORIDE ER 20 MEQ TAB.ER PO SCH (08:04)
[2021-09-22] MEDS: LACOSAMIDE 50 MG TABLET PO SCH ×2 (08:04→21:10)
[2021-09-22] MEDS: ASCORBIC ACID 500 MG TAB PO SCH (08:04)
[2021-09-22] MEDS: INSULIN ASPART (NovoLOG) 100 UNIT/ML VIAL SQ SCH ×4 (08:04→21:05)
[2021-09-22] MEDS: APIXABAN 5 MG TAB PO SCH ×2 (08:04→21:10)
[2021-09-22] MEDS: FUROSEMIDE 20 MG TAB PO SCH (08:04)
[2021-09-22] MEDS: DIVALPROEX SPRINKLE 125 MG CAP.SPRINK PO SCH ×2 (08:04→21:10)
[2021-09-22] MEDS: atenoloL 25 MG TAB PO SCH ×2 (08:04→21:10)
[2021-09-22 09:25] LABS: Basophils # (A) 0.01 X 10*3/uL (0.00-0.10); Basophils % (A) 0.2 %; Eosinophils # (A) 0 X 10*3/uL (0.04-0.35); Eosinophils % (A) 0 %; HCT 38.1 % (37.2-46.3); HGB 12.4 g/dL (12.0-15.0); Immature Grans, Automated 0.2 %; Lymphocytes # (A) 2.44 X 10*3/uL (0.90-5.00); MCH 32.2 pg (27.0-32.0); MCHC 32.5 g/dL (32.0-37.0); Mean Platelet Volume 10.3 fL (9.5-12.2); Monocytes # (A) 0.66 X 10*3/uL (0.20-1.00); NRBC Per 100 WBC 0 /100 WBCS (0.0-0.0); Neutrophils # (A) 3.48 X 10*3/uL (1.80-7.70); Neutrophils % (A) 52.6 %; Platelet Count 220 X 10*3/uL (140-440); RBC 3.85 X 10*6/uL (4.10-5.20); RDW 12.8 % (11.5-14.5)
--- NOTE | 2021-09-22 09:34 | P.PN ---
Subjective Progress Note Date: 09/21/21 09/21/2021: (Dates were labeled incorrect on the note from yesterday). Patient laying in the bed. No changes compared to yesterday. 09/20/2021: Patient's son, granddaughter were also present today. No s ignificant improvement. Continues to have weakness of the left arm and some involuntary movement of the right upper extremity. 09/19/2021: The patient is seen in neurologic follow-up. The chart has been reviewed. The patient reportedly was initially seen by Dr. Kobe Gomez because of breakthrough seizure. The patient has a history of multiple myeloma with brain metastases. She is status post resection of the brain metastases. Since that time, the patient has been having seizures. Patient was on Depakote 500 mg twice a day and the dose was increased to 750 mg twice a day by Dr. Kobe Gomez. He also started her on Vimpat 50 mg twice daily. She does move her right arm a little bit, but no seizures reported by the patient's nurse or the . The patient's is present at the bedside at time of the evaluation. He has also not noticed any breakthrough seizure. She does have some involuntary movement of the right arm. She has no control of the right side. These movements are not described as her seizure activity. At her baseline, the patient is nonverbal. The reports that she is usually aware of what is going on around her. She reportedly has no control of her right upper extremity. Patient's says that she was diagnosed with multiple myeloma in end of 2019. She had a brain surgery, followed by radiation. She is getting chemotherapy, and the last chemotherapy she received was on 09/07/2021. Patient follows up with Dr. Carreon. Objective - Vital Signs Vital signs: Vital Signs Temp 97.5 F L 09/22/21 08:00 Pulse 61 09/22/21 08:00 Resp 15 09/22/21 02:39 BP 159/88 09/22/21 08:00 Pulse Ox 99 09/22/21 08:00 Intake & Output 09/21/21 09/22/21 09/22/21 18:59 06:59 18:59 Intake Total 780 240 Output Total 900 0 Balance -120 240 0 Intake: IV 240 Sodium Chloride 0.9% 1, 240 000 ml @ 20 mls/hr IV . Q24H [facility] Rx#:[id number] Oral 780 Output: Urine 900 0 Other: Voiding Method Diaper Incontinent Incontinent External Catheter # Bowel Movements 0 - Exam Gen.: The patient is reclining in the bed. Her head is slightly tilted toward the right. She is in no acute distress. HEENT: Head is normocephalic. There is no scleral icterus. Fundus not visualized. Mucous membranes are moist. Lungs: Clear to auscultation. Neurologic examination Mental status: Patient keeps her eyes closed. She does try to move her eyelids intermittently. She is nonverbal since she arrived to the hospital. Prior to arrival to the hospital, she was talking "a word here and there", as per statement. Once I open her eyes manually, she maintained it open, and was following some directions. She was trying to raise her right arm up. She was w iggling her toes. Her local government legislator is about 4- on the right, but very weak on the left. Cranial nerves: Pupils are equal and reactive. There is intermittent visual tracking to the left and right. Motor: The patient has near constant flexion and extension movements of the right elbow, and shoulder abduction movement, almost as if she is trying to raise her arm up. Very few involuntary movements of the left arm. She does wiggle her toes and foot bilaterally. Sensation: The patient does withdraw bilateral lower extremities and right upper extremity from noxious stimulation. - Labs CBC & Chem 7: 09/19/21 06:51 09/19/21 06:51 Labs: Abnormal Lab Results - Last 24 Hours (Table) 09/21/21 09/21/21 09/21/21 Range/Units 11:37 16:45 20:22 POC Glucose (mg/dL) 157 H 283 H 241 H (75-99) mg/dL 09/22/21 Range/Units 06:51 POC Glucose (mg/dL) 169 H (75-99) mg/dL Microbiology - Last 24 Hours (Table) 09/18/21 18:48 Blood Culture - Preliminary Blood No Growth after 72 hours 09/18/21 18:48 Blood Culture - Preliminary Blood No Growth after 72 hours Assessment and Plan Assessment: 1. Breakthrough seizure with possible, current, prolonged postictal state versus toxic encephalopathy 2. Recurrent ischemic strokes. Computed tomography scan of the head from 09/19/2021 revealed a new low area of attenuation involving the superior right parietal lobe suggestive of recent or acute ischemia measuring 2.1 cm. Additional smaller 1 cm focus adjacent to this region also suspicious for recent or acute subacute ischemia. I personally reviewed computed tomography scan of the head and agree with the findings. These areas of ischemia were also present in the initial computed tomography scan of the head on 09/15/2021, but now is more apparent and more well defined on the current study. Patient already on anticoagulation. Uncertain as to the cause of recurrent embolic infarctions. Patient may have hyperviscosity/hypercoagulable state from multiple myeloma resulting in recurrent strokes. 3. Cough, rule out pneumonia 4. History of multiple myeloma status post resection of brain metastasis, followed by radiation, currently receiving chemotherapy. 5. Diabetes, poorly controlled, with last A1c 10.7 on 10/09/2019, current A1c 8.2. 6. Vascular dementia Plan: 1. Repeat computed tomography scan of head revealed evolving infarct involving the right parietal region. Patient has history of multiple strokes in the past. Strokes appears embolic in nature. We will check transthoracic echo with bubble study to rule out PFO. Patient may benefit from JAYME to evaluate for any embolic source, like vegetations. Apparently patient already is on Eliquis, but continues to throw emboli. Apparently hematology oncology wants patient to be transferred to [facility] to rule out cerebral metastasis related to myeloma. 2. Continue Depakote 625 mg twice a day and Vimpat 50 mg twice a day as ordered by Dr. Kobe Gomez. Depakote level is 75.4 on 09/15/2021. 3. Hemoglobin A1c 8.2. Recommend optimize control of diabetes to target A1c <7.0 4. MRI is unable to be done as the patient's pacemaker is reportedly, per not MRI compatible 5. Speech therapist saw the patient, recommending thickened liquids and pured diet. 6. EEG 09/16/[address] Kobe Gomez as background slowing of severe degree, consistent with encephalopathy. No epileptiform activity or seizures were reported. 7. Ammonia 45/30, may be related to use of Depakote. Consider starting lactulose. 8. B12 849, folate > 20.0. TSH normal 1.610. 9. Carotid Doppler rule out stenosis.
[2021-09-22 10:00] LABS: African American GFR (CKD) 76.7 (60.0-200.0); Anion Gap 10.9 mmol/L (10.00-18.00); Blood Urea Nitrogen 25.2 mg/dL (9.0-27.0); Calcium 8.7 mg/dL (8.7-10.3); Carbon Dioxide 28.1 mmol/L (20.0-27.5); Non-African American GFR(CKD) 66.2 (60.0-200.0); Potassium 4.1 mmol/L (3.5-5.5)
[2021-09-22 11:15] LABS: Glucose,Whole Blood 137 mg/dL (75-99)
--- NOTE | 2021-09-22 11:25 | US ---
EXAMINATION TYPE: US carotid duplex BILAT DATE OF EXAM: 09/22/2021 COMPARISON: 2019 CLINICAL HISTORY: Recurrent strokes. Exam done portable EXAM MEASUREMENTS: RIGHT: Peak Systolic Velocity (PSV) cm/sec ----- Right CCA: 58.4 ----- Right ICA: 112.2 ----- Right ECA: 76.6 ICA/CCA ratio: 1.9 RIGHT: End Diastole cm/sec ----- Right CCA: 8.6 ----- Right ICA: 15.6 ----- Right ECA: 5.7 LEFT: Peak Systolic Velocity (PSV) cm/sec ----- Left CCA: 31.0 ----- Left ICA: 51.8 ----- Left ECA: 36.9 ICA/CCA ratio: 1.7 LEFT: End Diastole cm/sec ----- Left CCA: 4.8 ----- Left ICA: 15.3 ----- Left ECA: 0.0 VERTEBRALS (direction of flow): Right Vertebral: Antegrade Left Vertebral: Antegrade Rhythm: Normal Difficult and limited study and mid and distal right ICA not seen due to patient's neck stiffly pos itioned to the right side Suboptimal study. López scale images show focal moderate to severe hyperechoic plaque left carotid bul b appears more prominent from prior but the velocity measurements and ratios in the proximal internal carotid arteries remain within normal limits. IMPRESSION: No hemodynamically significant stenosis in either internal carotid artery. Overall dimin ished velocities raises concern for poor left ventricular function or cardiac output. Correlate clini ephraim. Criteria for Assigning % of Stenosis / Diameter reduction (Estimation based on the indirect measurements of the internal carotid artery velocities (ICA PSV). 1. Normal (no stenosis)=ICA PSV < 125 cm/s: ratio < 2.0: ICA EDV<40 cm/s. 2. Less than 50% stenosis=ICA PSV < 125 cm/s: ratio < 2.0: ICA EDV<40 cm/s. 3. 50 to 69% stenosis=ICA PSV of 125 to 230 cm/s: ration 2.0 ? 4.0: ICA EDV 40-100 cm/s. 4. Greater than 70% stenosis to near occlusion= ICA PSV > 230 cm/s: ratio > 4.0: ICA EDV > 100 cm/s. 5. Near occlusion= ICA PSV velocities may be low or undetectable: variable ratio and ICA EDV. 6. Total occlusion=unable to detect flow.
--- NOTE | 2021-09-22 12:42 | P.PN ---
Subjective Progress Note Date: 09/22/21 (Bilateral CVA by recent computed tomography scan of the brain) Progress note Date of service 09/22/2021 Dictation by . Patient had already the carotid duplex study: The results indicating limited study due to patient neck stiffly position on the right side. Focal moderate to severe hyperechoic plaques left carotid bulb appeared to be a prominent from prior study but the velocity measurement and the ratio in the proximal internal carotid arteries within normal limits with the conclusion that no hemodynamic significant stenosis in either internal carotid artery and overall diminished velocities raises the concern for for left ventricular function and cardiac output. Correlate clinically. With the above results and he did reconsult cardiology for evaluation and requesting JAYME due to presence of atrial fibrillation and the possibility of embolization to the brain to cause bilateral strokes, as well as patient was on eliquis 5 mg twice a day for almost 2 years and anti-coagulated and with the possibilities could be failure of eliquis. Requesting cardiology consultation. For evaluation and treatment and his expertise in this matter as well as well as we requesting JAYME depend on the cardiology opinion Her cissp was Dr. Horn. Patient seen and evaluated [id number] and discussed with her in detail. [facility], after they accepted the patient they stated that they don't have bed and they will call us when the bed is available. They requested the CAT scan done in this hospital and they stated that they will review it and they will call back. So far no call back from [facility], however case brittnee has been following with them. Dr. Mackenzie the urologist he did order the echo and the carotid, we have the results of the carotid, but we don't have the echo results yet with her atrial fibrillation probably patient may need JAYME and I did request that from cardiology who going to see the patient, Unfortunately we did consultation before for cardiology and was the question of the pacemaker amenable to with MRI, and also evaluation however [employer] didn't answer that pacemaker is incompatible with MRI with no for further evaluation from the cissp with these findings of the MRI and the suspicious of embolization we repeat the consult and the request JAYME he as well to clarify the issue of bilateral stroke. On exam [id number] Her temperature 97.5 FL exemplary, pulse rate 61 and regular, respiratory rate 15/m nonlabored, blood pressure 159/88 and fluctuating her oxygen saturation 99%. Laboratories: Her white count 6.6, hemoglobin 12.4, hematocrit 38.1, platelet count 220. Chemistry Sodium 145, potassium 4.1, chloride 106, carbon dioxide 28.1, BUN 25.2, her creatinine 0.9. Her EGFR for 76.7. Her glucose 185 and she is diabetic however POC once she gets covered his control Ammonia level less than 9 which is normal range yesterday Dr. Mackenzie was advised with laculose, test today is normal calcium also is 8.7 normal. During corset fitter hour, I was called because of her urine output has been diminished and she was only on 20 mL an hour 0.9 normal saline and decrease the intake because of the stroke. I did answer them with increasing IV fluid to 75 mL an hour and his urine output improving. On exam: Patient is more awake, mute with expressive aphasia with the bilateral stroke. She had upper extremities with purpose less movement and stiffness as well as lower extremities, fascial acid [place] mostly affecting the right side of the face. And the dysphagia to solid food Neck was supple no JVD no thyromegaly megaly and she her neck is stiff to the right side and they did have difficulties for carotid duplex examination to correct her position. Chest is clear no wheezes no rhonchi's Heart: Irregular irregularities with atrial fibrillation and controlled ventricular response and murmur. Don't have the results of the echo yet Abdomen positive bowel sounds no tenderness in the four-quadrant Extremities: Positive pulses and no edema with the extension and spasticity Assessment: #1 we will proceed with the consultation with the cardiology for evaluation and treatment with the bilateral stroke and its etiology is unclear from the atrial fibrillation and the need for JAYME and also failure of requests for treatment and she has been on the request for the last 2 years 5 mg twice a day with the presence of stroke bilaterally #2 aphasia , bilateral spasticity of the upper extremities and lower extremities, dysphagia. 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 #5 could not rule out any more plasmocytoma metastasis of multiple myeloma at this time and could not be done with MRI as well because it is incompatible for her pacemaker #6 diabetes mellitus type 2 insulin-dependent with complicated with neuro pathies. #7 hypertension with hypertensive heart disease #8 chronic atrial fibrillation with controlled ventricular response on requests anticoagulant. #9 no response so far from [facility] for transfer the patient to their facility. Plan: #1 number increased the IV fluid to 75 mL an hour with the improving of the output was mild dehydration. #2 waiting for cardiology input and evaluation and the possibility of the JAYME. #3 waiting for any Peter if they will accept the patient over the changed their mind #4 I did discuss all the above was with extended time thank you Objective - Vital Signs Vital signs: Vital Signs Temp 97.5 F L 09/22/21 08:00 Pulse 61 09/22/21 08:00 Resp 15 09/22/21 02:39 BP 159/88 09/22/21 08:00 Pulse Ox 99 09/22/21 08:00 Intake & Output 09/21/21 09/22/21 09/22/21 18:59 06:59 18:59 Intake Total 780 240 Output Total 900 0 Balance -120 240 0 Intake: IV 240 Sodium Chloride 0.9% 1, 240 000 ml @ 20 mls/hr IV . Q24H [facility] Rx#:[id number] Oral 780 Output: Urine 900 0 Other: Voiding Method Diaper Incontinent Incontinent External Catheter # Bowel Movements 0 - Labs CBC & Chem 7: 09/22/21 05:43 09/22/21 05:43 Labs: Abnormal Lab Results - Last 24 Hours (Table) 09/21/21 09/21/21 09/22/21 Range/Units 16:45 20:22 05:43 RBC 3.85 L (4.10-5.20) X 10*6/uL MCV 99.0 H (80.0-97.0) fL MCH 32.2 H (27.0-32.0) pg Eosinophils # 0 L (0.04-0.35) X 10*3/uL Carbon Dioxide (20.0-27.5) mmol/L BUN/Creatinine Ratio (12.00-20.00) Ratio Glucose (70-110) mg/dL POC Glucose (mg/dL) 283 H 241 H (75-99) mg/dL 09/22/21 09/22/21 09/22/21 Range/Units 05:43 06:51 11:13 RBC (4.10-5.20) X 10*6/uL MCV (80.0-97.0) fL MCH (27.0-32.0) pg Eosinophils # (0.04-0.35) X 10*3/uL Carbon Dioxide 28.1 H (20.0-27.5) mmol/L BUN/Creatinine Ratio 28.00 H (12.00-20.00) Ratio Glucose 185 H (70-110) mg/dL POC Glucose (mg/dL) 169 H 137 H (75-99) mg/dL Microbiology - Last 24 Hours (Table) 09/18/21 18:48 Blood Culture - Preliminary Blood No Growth after 72 hours 09/18/21 18:48 Blood Culture - Preliminary Blood No Growth after 72 hours
--- NOTE | 2021-09-22 14:49 | CA ---
Transthoracic Echo Report Name: Tana Mary Age: 65 Gender: F : 1955 Exam Date: 09/22/2021 08:27 Exam Location: [facility] Ht (in): 63 Wt (lb): 145 Ordering Physician: Asif Villa MD Attending/Referring Phys: Licensed Professional Counselor Yessica Cruz RDCS Procedure CPT: Indications: Recurrent strokes Cardiac Hx: Technical Quality: Fair Contrast 1: Total Dose (mL): Contrast 2: Total Dose (mL): MEASUREMENTS (Male / Female) Normal Values 2D ECHO LV Diastolic Diameter PLAX 4.4 cm 4.2 - 5.9 / 3.9 - 5.3 cm LV Systolic Diameter PLAX 2.9 cm IVS Diastolic Thickness 1.6 cm 0.6 - 1.0 / 0.6 - 0.9 cm LVPW Diastolic Thickness 1.5 cm 0.6 - 1.0 / 0.6 - 0.9 cm LV Relative Wall Thickness 0.7 RV Internal Dim ED PLAX 3.4 cm LA Systolic Diameter LX 4.5 cm 3.0 - 4.0 / 2.7 - 3.8 cm M-MODE Aortic Root Diameter MM 2.8 cm LA Systolic Diameter MM 2.5 cm LA Ao Ratio MM 0.9 AV Cusp Separation MM 1.7 cm DOPPLER AV Peak Velocity 107.9 cm/s AV Peak Gradient 4.7 mmHg AI Peak Velocity 314.3 cm/s AI Peak Gradient 39.5 mmHg AI Pressure Half Time 573.4 ms LVOT Peak Velocity 57.3 cm/s LVOT Peak Gradient 1.3 mmHg TR Peak Velocity 199.0 cm/s TR Peak Gradient 15.8 mmHg Right Ventricular Systolic Press 20.8 mmHg FINDINGS Left Ventricle Reduced LV systolic function ejection fraction 45-50%. Left ventricular cavity size normal. Moderately increased left ventricular wall thickness. Left ventricular ejection fraction is estimated at 45-50 %. Right Ventricle Right ventricle at upper limits of normal. Right ventricular systolic pressure within normal limits. Right Atrium Right atrium not well visualized. Left Atrium Moderately increased left atrial diameter. Could not perform agitated saline study, patient was not compliant with both arms across her chest. Mitral Valve Structurally normal mitral valve. No mitral stenosis. No mitral regurgitation. Aortic Valve Trileaflet aortic valve. No aortic stenosis. Mild aortic regurgitation. Aortic valve sclerosis. Tricuspid Valve Mild tricuspid regurgitation. Pulmonic Valve Mild pulmonic regurgitation. Pericardium No pericardial effusion. Aorta Normal size aortic root and proximal ascending aorta. CONCLUSIONS Left ventricle hypertrophy with asymmetric septal thickening/septal bulge Reduced LV systolic function with mild septal hypokinesis Dyssynchronous contraction consistent with IVCD No intracardiac masses Previewed by: Dr. Gorge Chavez MD (Electronically Signed) Final Date: 22 Sep 2021 14:48
--- NOTE | 2021-09-22 15:21 | P.PN ---
Subjective Progress Note Date: 09/22/21 Principal diagnosis: seizure, multiple myeloma, history of plasmacytoma of the brain In follow-up today patient remains alert, feels she is stable, not improved but not worse. Cont eye contact, did attempt one word. Objective - Vital Signs Vital signs: Vital Signs Temp 97.5 F L 09/22/21 14:00 Pulse 63 09/22/21 14:00 Resp 15 09/22/21 02:39 BP 155/82 09/22/21 14:00 Pulse Ox 96 09/22/21 14:00 Intake & Output 09/21/21 09/22/21 09/22/21 18:59 06:59 18:59 Intake Total 780 240 Output Total 900 0 Balance -120 240 0 Weight 65.771 kg Intake: IV 240 Sodium Chloride 0.9% 1, 240 000 ml @ 20 mls/hr IV . Q24H [facility] Rx#:[id number] Oral 780 Output: Urine 900 0 Other: Voiding Method Diaper Incontinent External Catheter Incontinent External Catheter # Bowel Movements 0 - Constitutional General appearance: Present: average body habitus, cooperative, no acute distress - EENT Eyes: Present: anicteric sclerae ENT: Present: hearing grossly normal - Respiratory Respiratory: bilateral: CTA - Cardiovascular Rhythm: regular Heart sounds: normal: S1, S2 Abnormal Heart Sounds: Absent: systolic murmur, diastolic murmur, rub, S3 Gallop, S4 Gallop, click, other - Peripheral edema leg Peripheral Edema: bilateral: None - Labs CBC & Chem 7: 09/22/21 05:43 09/22/21 05:43 Labs: Abnormal Lab Results - Last 24 Hours (Table) 09/21/21 09/21/21 09/22/21 Range/Units 16:45 20:22 05:43 RBC 3.85 L (4.10-5.20) X 10*6/uL MCV 99.0 H (80.0-97.0) fL MCH 32.2 H (27.0-32.0) pg Eosinophils # 0 L (0.04-0.35) X 10*3/uL Carbon Dioxide (20.0-27.5) mmol/L BUN/Creatinine Ratio (12.00-20.00) Ratio Glucose (70-110) mg/dL POC Glucose (mg/dL) 283 H 241 H (75-99) mg/dL 09/22/21 09/22/21 09/22/21 Range/Units 05:43 06:51 11:13 RBC (4.10-5.20) X 10*6/uL MCV (80.0-97.0) fL MCH (27.0-32.0) pg Eosinophils # (0.04-0.35) X 10*3/uL Carbon Dioxide 28.1 H (20.0-27.5) mmol/L BUN/Creatinine Ratio 28.00 H (12.00-20.00) Ratio Glucose 185 H (70-110) mg/dL POC Glucose (mg/dL) 169 H 137 H (75-99) mg/dL Microbiology - Last 24 Hours (Table) 09/18/21 18:48 Blood Culture - Preliminary Blood No Growth after 72 hours 09/18/21 18:48 Blood Culture - Preliminary Blood No Growth after 72 hours Assessment and Plan (1) Seizure Current Visit: Yes Status: Acute Priority: High Code(s): R56.9 - UNSPECIFIED CONVULSIONS SNOMED Code(s): 93384282 (2) Plasmocytoma Current Visit: No Status: Chronic Priority: Medium Code(s): C90.30 - SOLITARY PLASMACYTOMA NOT HAVING ACHIEVED REMISSION SNOMED Code(s): 680216485 (3) Multiple myeloma Current Visit: No Status: Chronic Priority: Medium Code(s): C90.00 - MULTIPLE MYELOMA NOT HAVING ACHIEVED REMISSION SNOMED Code(s): 134927066 Plan: Pt responsiveness stable today. feels that the steroids did make a difference. Dr. Carreon agreed to 1mg of dex daily for a few days with close monitoring of blood glucose and see how she responds. will monitor and report his findings. PPI for GI prophylaxis. Reviewed again with that pt condition may have been result of a prolonged post ictal recovery. Adjustment in seizure meds likely preventing another seizure. The steroid dose will have reduced swelling in the brain which may have helped her condition too. Cont current medications as prescribed. Still wants transfer to [facility] for evaluation by her Neurosurgeon.
[2021-09-22 16:50] LABS: Glucose,Whole Blood 174 mg/dL (75-99)
[2021-09-22 20:36] LABS: Glucose,Whole Blood 119 mg/dL (75-99)
[2021-09-22 23:50] LABS: Chol/HDL Ratio 5.29 Ratio
[2021-09-23] MEDS: SODIUM CHLORIDE 0.9% 1,000 ML IV SCH ×2 (00:40→07:31)
[2021-09-23 06:55] LABS: Glucose,Whole Blood 128 mg/dL (75-99)
[2021-09-23] MEDS: INSULIN ASPART (NovoLOG) 100 UNIT/ML VIAL SQ SCH ×4 (06:57→20:56)
[2021-09-23] MEDS: APIXABAN 5 MG TAB PO SCH ×2 (07:22→20:40)
[2021-09-23] MEDS: MAGNESIUM OXIDE 400 MG TAB PO SCH (07:28)
[2021-09-23] MEDS: FUROSEMIDE 20 MG TAB PO SCH (07:28)
[2021-09-23] MEDS: atenoloL 25 MG TAB PO SCH ×2 (07:28→20:40)
[2021-09-23] MEDS: DIVALPROEX SPRINKLE 125 MG CAP.SPRINK PO SCH ×2 (07:29→20:40)
[2021-09-23] MEDS: POTASSIUM CHLORIDE ER 20 MEQ TAB.ER PO SCH (07:29)
[2021-09-23] MEDS: FOLIC ACID 1 MG TAB PO SCH (07:29)
[2021-09-23] MEDS: ASCORBIC ACID 500 MG TAB PO SCH (07:29)
[2021-09-23] MEDS: LACOSAMIDE 50 MG TABLET PO SCH ×2 (07:29→20:40)
[2021-09-23] MEDS: PANTOPRAZOLE 40 MG/10 ML VIAL IVP SCH (07:59)
[2021-09-23] MEDS ORDERED: fentaNYL (PF) 50 MCG/ML 2 ML AMP ONE (09:16)
[2021-09-23 09:30] LABS: African American GFR (CKD) 103.9 (60.0-200.0); Anion Gap 10.7 mmol/L (10.00-18.00); Blood Urea Nitrogen 12.6 mg/dL (9.0-27.0); Calcium 8.2 mg/dL (8.7-10.3); Carbon Dioxide 26.3 mmol/L (20.0-27.5); Non-African American GFR(CKD) 89.7 (60.0-200.0); Potassium 3.8 mmol/L (3.5-5.5)
--- NOTE | 2021-09-23 10:03 | P.PN ---
Subjective Progress Note Date: 09/22/21 HISTORY OF PRESENT ILLNESS: 09/19/2021 This is a 65-year-old female who follows in the office with Dr. Bishop. Cardiology was consulted to clarify whether the patient could have an MRI completed or not secondary to her pacemaker. The patient has a history of paroxysmal atrial fibrillation, permanent pacemaker implantation, hypertension, severe pulmonary hypertension. She also has a history of multiple myeloma, brain metastasis with previous resection, and seizures. EKG completed on admission reveals paced rhythm with a heart rate in the 60s. She is anticoagulated with Eliquis. Her BNP is minimally elevated for her age. CXR reviewed. She is receiving oral lasix. Her vital signs are stable. 09/23/2021 Cardiology was reconsulted for possible JAYME. CT scan of the head from 09/19/2021 revealed a new low area of attenuation involving the superior right parietal lobe suggestive of recent or acute ischemia measuring 2.1 cm. Additional smaller 1 cm focus adjacent to this region also suspicious for recent or acute subacute ischemia. Patient has been anticoagulated with Eliquis. PHYSICAL EXAM: VITAL SIGNS: Reviewed. GENERAL: Well-developed in no acute distress. NECK: Supple. No JVD or thyromegaly LUNGS: Respirations even and unlabored. Lungs essentially clear to auscultation bilaterally. HEART: Regular rate and rhythm. S1 and S2 heard. EXTREMITIES: Normal range of motion. No clubbing or cyanosis. Peripheral pul ses intact. No lower extremity edema ASSESSMENT: Seizures Recurrent ischemic CVA Paroxysmal atrial fibrillation Permanent pacemaker implantation ([employer]) Hypertension Severe pulmonary retention History of multiple myeloma status post resection of brain metastasis PLAN: Continue current cardiac medications Patient to undergo JAYME today with Dr. Bishop Further recommendations pending patient's course Nurse practitioner note has been reviewed by physician. Signing provider agrees with the documented findings, assessment, and plan of care. Objective - Vital Signs Vital signs: Vital Signs Temp 97.5 F L 09/22/21 08:00 Pulse 61 09/22/21 08:00 Resp 15 09/22/21 02:39 BP 159/88 09/22/21 08:00 Pulse Ox 99 09/22/21 08:00 Intake & Output 09/21/21 09/22/21 09/22/21 18:59 06:59 18:59 Intake Total 780 240 Output Total 900 0 Balance -120 240 0 Intake: IV 240 Sodium Chloride 0.9% 1, 240 000 ml @ 20 mls/hr IV . Q24H [facility] Rx#:[id number] Oral 780 Output: Urine 900 0 Other: Voiding Method Diaper Incontinent External Catheter Incontinent External Catheter # Bowel Movements 0 - Labs CBC & Chem 7: 09/22/21 05:43 09/23/21 04:54 Labs: Abnormal Lab Results - Last 24 Hours (Table) 09/21/21 09/21/21 09/22/21 Range/Units 16:45 20:22 05:43 RBC 3.85 L (4.10-5.20) X 10*6/uL MCV 99.0 H (80.0-97.0) fL MCH 32.2 H (27.0-32.0) pg Eosinophils # 0 L (0.04-0.35) X 10*3/uL Carbon Dioxide (20.0-27.5) mmol/L BUN/Creatinine Ratio (12.00-20.00) Ratio Glucose (70-110) mg/dL POC Glucose (mg/dL) 283 H 241 H (75-99) mg/dL 09/22/21 09/22/21 09/22/21 Range/Units 05:43 06:51 11:13 RBC (4.10-5.20) X 10*6/uL MCV (80.0-97.0) fL MCH (27.0-32.0) pg Eosinophils # (0.04-0.35) X 10*3/uL Carbon Dioxide 28.1 H (20.0-27.5) mmol/L BUN/Creatinine Ratio 28.00 H (12.00-20.00) Ratio Glucose 185 H (70-110) mg/dL POC Glucose (mg/dL) 169 H 137 H (75-99) mg/dL Microbiology - Last 24 Hours (Table) 09/18/21 18:48 Blood Culture - Preliminary Blood No Growth after 72 hours 09/18/21 18:48 Blood Culture - Preliminary Blood No Growth after 72 hours
--- NOTE | 2021-09-23 10:06 | P.PN ---
Subjective Progress Note Date: 09/22/21 09/22/2021: Patient's granddaughter was present today. She states that patient ate her lunch. She continues to have involuntary movement of the right side. Sometimes she mumbles, but not intelligible speech. No new concerns. 09/21/2021: (Dates were labeled incorrect on the note from yesterday). Patient laying in the bed. No changes compared to yesterday. 09/20/2021: Patient's son, granddaughter were also present today. No significant improvement. Continues to have weakness of the left arm and some involuntary movement of the right upper extremity. 09/19/2021: The patient is seen in neurologic follow-up. The chart has been reviewed. The patient reportedly was initially seen by Dr. Kobe Gomez because of breakthrough seizure. The patient has a history of multiple myeloma with brain metastases. She is status post resection of the brain metastases. Since that time, the patient has been having seizures. Patient was on Depakote 500 mg twice a day and the dose was increased to 750 mg twice a day by Dr. Kobe Gomez. He also started her on Vimpat 50 mg twice daily. She does move her right arm a little bit, but no seizures reported by the patient's nurse or the . The patient's is present at the bedside at time of the evaluation. He has also not noticed any breakthrough seizure. She does have some involuntary movement of the right arm. She has no control of the right side. These movements are not described as her seizure activity. At her baseline, the pat ient is nonverbal. The reports that she is usually aware of what is going on around her. She reportedly has no control of her right upper extremity. Patient's says that she was diagnosed with multiple myeloma in end of 2019. She had a brain surgery, followed by radiation. She is getting chemotherapy, and the last chemotherapy she received was on 09/07/2021. Patient follows up with Dr. Carreon. Objective - Vital Signs Vital signs: Vital Signs Temp 97.5 F L 09/22/21 14:00 Pulse 63 09/22/21 14:00 Resp 15 09/22/21 02:39 BP 155/82 09/22/21 14:00 Pulse Ox 96 09/22/21 14:00 Intake & Output 09/21/21 09/22/21 09/22/21 18:59 06:59 18:59 Intake Total 780 240 600 Output Total 900 0 Balance -120 240 600 Weight 65.771 kg Intake: IV 240 Sodium Chloride 0.9% 1, 240 000 ml @ 20 mls/hr IV . Q24H [facility] Rx#:[id number] Intake, IV Titration 600 Amount Sodium Chloride 0.9% 1, 600 000 ml @ 75 mls/hr IV . [id number] [facility] Rx#:[id number] Oral 780 Output: Urine 900 0 Other: Voiding Method Diaper Incontinent External Catheter Incontinent External Catheter # Bowel Movements 0 - Exam Gen.: The patient is laying in the bed. She is in no acute distress. HEENT: Head is normocephalic. There is no scleral icterus. Fundus not visualized. Mucous membranes are moist. Lungs: Clear to auscultation. Neurologic examination Mental status: Patient is very alert and awake today. She is nonverbal since she arrived to the hospital. Prior to arrival to the hospital, she was talking "a word here and there", as per statement. Patient has near constant choreoathetoid movement of her right arm and right leg. She does not follow commands. She did squeeze with her right hand, but did not let it go when asked. I think squeezing with her right hand was more reflexive action, rather than wall voluntary/purposeful. Motor: Her left side appears more spastic. Sensation: The patient does withdraw bilateral lower extremities and right upper extremity from noxious stimulation. - Labs CBC & Chem 7: 09/22/21 05:43 09/23/21 04:54 Labs: Abnormal Lab Results - Last 24 Hours (Table) 09/21/21 09/22/21 09/22/21 Range/Units 20:22 05:43 05:43 RBC 3.85 L (4.10-5.20) X 10*6/uL MCV 99.0 H (80.0-97.0) fL MCH 32.2 H (27.0-32.0) pg Eosinophils # 0 L (0.04-0.35) X 10*3/uL Carbon Dioxide 28.1 H (20.0-27.5) mmol/L BUN/Creatinine Ratio 28.00 H (12.00-20.00) Ratio Glucose 185 H (70-110) mg/dL POC Glucose (mg/dL) 241 H (75-99) mg/dL 09/22/21 09/22/21 09/22/21 Range/Units 06:51 11:13 16:49 RBC (4.10-5.20) X 10*6/uL MCV (80.0-97.0) fL MCH (27.0-32.0) pg Eosinophils # (0.04-0.35) X 10*3/uL Carbon Dioxide (20.0-27.5) mmol/L BUN/Creatinine Ratio (12.00-20.00) Ratio Glucose (70-110) mg/dL POC Glucose (mg/dL) 169 H 137 H 174 H (75-99) mg/dL Microbiology - Last 24 Hours (Table) 09/18/21 18:48 Blood Culture - Preliminary Blood No Growth after 72 hours 09/18/21 18:48 Blood Culture - Preliminary Blood No Growth after 72 hours Assessment and Plan Assessment: 1. Breakthrough seizure with possible, current, prolonged postictal state versus toxic encephalopathy 2. Recurrent ischemic strokes. Computed tomography scan of the head from 09/19/2021 revealed a new low area of attenuation involving the superior right parietal lobe suggestive of recent or acute ischemia measuring 2.1 cm. Additional smaller 1 cm focus adjacent to this region also suspicious for recent or acute subacute ischemia. I personally reviewed computed tomography scan of the head and agree with the findings. These areas of ischemia were also present in the initial computed tomography scan of the head on 09/15/2021, but now is more apparent and more well defined on the current study. Patient already on anticoagulation. Uncertain as to the cause of recurrent embolic infarctions. Patient may have hyperviscosity/hypercoagulable state from multiple myeloma resulting in recurrent strokes. 3. Multiple myeloma, history of plasmacytoma of the brain. Previous history of craniotomy, followed by radiation. Currently patient receiving chemotherapy. 4. Choreoathetoid movements right upper and lower extremity likely due to vascular insult. 5. Diabetes, poorly controlled, with last A1c 10.7 on 10/09/2019, current A1c 8.2. 6. Vascular dementia, Plan: 1. Repeat computed tomography scan of head revealed evolving infarct involving the right parietal region. Patient has history of multiple strokes in the past. Strokes appears embolic in nature. Apparently patient already is on Eliquis, but continues to throw emboli. Apparently hematology oncology wants patient to be transferred to [facility] to rule out cerebral metastasis related to myeloma. 2. Continue Depakote 625 mg twice a day and Vimpat 50 mg twice a day as ordered by Dr. Kobe Gomez. Depakote level is 75.4 on 09/15/2021. 3. Hemoglobin A1c 8.2. Recommend optimize control of diabetes to target A1c <7.0 4. MRI is unable to be done as the patient's pacemaker is reportedly, per not MRI compatible 5. Speech therapist saw the patient, recommending thickened liquids and pured diet. 6. EEG 09/16/[address] Kobe Gomez as background slowing of severe degree, consistent with encephalopathy. No epileptiform activity or seizures were reported. 7. Ammonia 45/30, may be related to use of Depakote. Consider starting lactulose. 8. B12 849, folate > 20.0. TSH normal 1.610. 9. Carotid Doppler revealed no hemodynamically significant stenosis in either ICA. Overall diminished velocities raises concern for poor left ventricular function or cardiac output. Correlate clinically. Antegrade flow in both vertebral arteries. 10. 2-D echo revealed left ventricular hypertrophy with asymmetric septal thickening/septal bulge. Reduced LV systolic function 45-50% with mild septal hypokinesis. Dyssynchronous contraction consistent with IVCD. No intracardiac masses. Patient to undergo JAYME. Cardiology consulted by primary physician.
[2021-09-23 11:17] LABS: Glucose,Whole Blood 142 mg/dL (75-99)
--- NOTE | 2021-09-23 15:14 | P.PN ---
Subjective Progress Note Date: 09/23/21 (Bilateral stroke, dysphagia, multiple myeloma.) Progress note date of service 10/03/[address] Park. I did have discussion today with Mr. Luis Eduardo Mary was extended times in regard of patient future plan and recommendation and the current diagnosis. Also during the discussion geriatric case manager came as well as give us information that history for the [facility] called and the expecting tomorrow for the accepting the transfer. Discussed with Mr. Hoff, the , patient noncommunicating with the underlying bilateral stroke, the etiology is unknown, seen by the neurologist Dr. Mackenzie as well as seen by the trail construction worker Dr. Chavez she underwent echocardiogram found that she had impaired ejection fraction, to 45% as well as atrial fibrillation. JAYME was arranged to be done by Dr. Horn trail construction worker, however patient unable to tolerate procedure and returned back to bed without testing. I discussed possibility continue the transfer process to [facility] for the [place] for the neurology department to be evaluating the patient. #2 the possibility of placement of PEG tube for nutritional support and currently refused and he will discuss it for further with his family. #3 future plan to abort the transfer, and go home or to group home for continuing care with the acceptance of her current condition. #4 discussed also hospice program and end-of-life. At this period of life, and the patient current condition, and the wishes transparent that he would like to go to [facility] for the [facility] for for further evaluation and treatment with the possibility of consideration of multiple myeloma metastasis. On exam today [id number] Temperature 90.8 F a delivery her pulse rate has been fluctuating between 61 and 49, respiratory rate 16 Laboratory today: Sodium 146, potassium 3.8, carbon dioxide 26.3, chloride 109 her be ON 12.6 creatinine 0.7 EGFR for -Citizen Of [place] female 103.9 stable Her CBG for glucose was stable with the ranging between 128 and 142 and she had insulin to scale, calcium is 8.2 She had a blood culture 2 which were negative. Patient is conscious alert her eyes is open wondering, upper extremities and purpose less movement Chest was clear no wheezes no rhonchi's Heart irregular irregularities with atrial fibrillation and controlled ventricular response. Echocardiogram indicating impaired systolic function to 45%. With the aortic valve no stenosis with the presence of mild aortic regurgitation, left atrium moderately increase in diameter with the conclusion of left ventricular hypertrophy with the past symmetric septal thickening and septal bulge and reduced left ventricular systolic function with mild septal hypokinesis with this synchronously contraction consistent with IVCD by Dr. Chavez. Abdomen obese and no tenderness and positive bowel sounds she is incontinent of urine and bowel movement Extremities positive pulses with cripples less movement and moderate stiffness could not flex the knee Neurologically seen by Dr. Mackenzie neurologist Assessment and plan: Discussed with the who is her legal guardian Bilateral stroke Decrease systolic ejection fraction Decreased urine output and currently improved with increase IV fluid due to general decrease her intake Decrease her calorie with the use of by pured food, decreased fluid intake, idea of PEG tube has been denied by the . Hypertension with fluctuation expected with the stroke Underlying multiple myeloma with metastasis is considered. Diabetes mellitus type 2 fairly controlled with the insulin to scale. Plan: #1 no added treatment at this time #2 her wishing to be transferred [facility] for and hopefully we have the bed tomorrow and patient to be transferred #3 no change on the current treatment her medication. Objective - Vital Signs Vital signs: Vital Signs Temp 98.0 F 09/23/21 14:00 Pulse 49 L 09/23/21 14:00 Resp 16 09/23/21 14:00 BP 172/75 09/23/21 14:00 Pulse Ox 97 09/23/21 14:00 Intake & Output 09/22/21 09/23/21 09/23/21 18:59 06:59 18:59 Intake Total 600 Output Total 0 400 1100 Balance 600 -400 -1100 Weight 65.771 kg Intake: Intake, IV Titration 600 Amount Sodium Chloride 0.9% 1, 600 000 ml @ 75 mls/hr IV . [id number] [facility] Rx#:[id number] Output: Urine 0 400 1100 Other: Voiding Method External Catheter External Catheter # Bowel Movements 0 - Labs CBC & Chem 7: 09/22/21 05:43 09/23/21 04:54 Labs: Abnormal Lab Results - Last 24 Hours (Table) 09/22/21 09/22/21 09/22/21 Range/Units 05:43 16:49 20:35 Sodium (135-145) mmol/L Glucose (70-110) mg/dL POC Glucose (mg/dL) 174 H 119 H (75-99) mg/dL Calcium (8.7-10.3) mg/dL Cholesterol 217.00 H (0.00-200.00) mg/dL LDL Cholesterol, Calc 153.0 H (0.0-131.0) mg/dL 09/23/21 09/23/21 09/23/21 Range/Units 04:54 06:53 11:16 Sodium 146 H (135-145) mmol/L Glucose 129 H (70-110) mg/dL POC Glucose (mg/dL) 128 H 142 H (75-99) mg/dL Calcium 8.2 L (8.7-10.3) mg/dL Cholesterol (0.00-200.00) mg/dL LDL Cholesterol, Calc (0.0-131.0) mg/dL Microbiology - Last 24 Hours (Table) 09/18/21 18:48 Blood Culture - Preliminary Blood No Growth after 96 hours 09/18/21 18:48 Blood Culture - Preliminary Blood No Growth after 96 hours
[2021-09-23 16:26] LABS: Glucose,Whole Blood 233 mg/dL (75-99)
--- NOTE | 2021-09-23 19:51 | P.PN ---
Subjective Progress Note Date: 09/23/21 more alert, family felt likely due to dexamethasone, however difficult to determine as may be related to recovery of post ictal phase. Objective - Vital Signs Vital signs: Vital Signs Temp 97.7 F 09/23/21 10:06 Pulse 61 09/23/21 10:06 Resp 16 09/23/21 10:06 BP 168/65 09/23/21 10:06 Pulse Ox 97 09/23/21 10:06 Intake & Output 09/22/21 09/23/21 09/23/21 18:59 06:59 18:59 Intake Total 600 Output Total 0 400 1100 Balance 600 -400 -1100 Weight 65.771 kg Intake: Intake, IV Titration 600 Amount Sodium Chloride 0.9% 1, 600 000 ml @ 75 mls/hr IV . [id number] [facility] Rx#:[id number] Output: Urine 0 400 1100 Other: Voiding Method External Catheter External Catheter # Bowel Movements 0 - Exam - Constitutional General appearance: Present: average body habitus, cooperative, no acute distress - EENT Eyes: Present: anicteric sclerae ENT: Present: hearing grossly normal - Respiratory Respiratory: bilateral: CTA - Cardiovascular Rhythm: regular Heart sounds: normal: S1, S2 - Neurologic Neurologic: Present: focal deficits - Musculoskeletal Musculoskeletal: Present: generalized weakness - Psychiatric Psychiatric Comment(s): More Alert today, - Labs CBC & Chem 7: 09/22/21 05:43 09/23/21 04:54 Labs: Abnormal Lab Results - Last 24 Hours (Table) 09/22/21 09/22/21 09/22/21 Range/Units 05:43 16:49 20:35 Sodium (135-145) mmol/L Glucose (70-110) mg/dL POC Glucose (mg/dL) 174 H 119 H (75-99) mg/dL Calcium (8.7-10.3) mg/dL Cholesterol 217.00 H (0.00-200.00) mg/dL LDL Cholesterol, Calc 153.0 H (0.0-131.0) mg/dL 09/23/21 09/23/21 09/23/21 Range/Units 04:54 06:53 11:16 Sodium 146 H (135-145) mmol/L Glucose 129 H (70-110) mg/dL POC Glucose (mg/dL) 128 H 142 H (75-99) mg/dL Calcium 8.2 L (8.7-10.3) mg/dL Cholesterol (0.00-200.00) mg/dL LDL Cholesterol, Calc (0.0-131.0) mg/dL Microbiology - Last 24 Hours (Table) 09/18/21 18:48 Blood Culture - Preliminary Blood No Growth after 96 hours 09/18/21 18:48 Blood Culture - Preliminary Blood No Growth after 96 hours Assessment and Plan Plan: Assessment and Plan (1) Seizure Current Visit: Yes Status: Acute Priority: High Code(s): R56.9 - UNSP ECIFIED CONVULSIONS SNOMED Code(s): 77606015 (2) Plasmocytoma Current Visit: No Status: Chronic Priority: Medium Code(s): C90.30 - SOLITARY PLASMACYTOMA NOT HAVING ACHIEVED REMISSION SNOMED Code(s): 940280301 (3) Multiple myeloma Current Visit: No Status: Chronic Priority: Medium Code(s): C90.00 - MULTIPLE MYELOMA NOT HAVING ACHIEVED REMISSION SNOMED Code(s): 146779920 Plan: Pt responsiveness stable today. feels that the steroids did make a difference. Dr. Carreon agreed to 1mg of dex daily for a few days with close monitoring of blood glucose and see how she responds. will monitor and report his findings. PPI for GI prophylaxis. Reviewed again with that pt condition may have been result of a prolonged post ictal recovery. Adjustment in seizure meds likely preventing another seizure. The steroid dose will have reduced swelling in the brain which may have helped her condition too. Cont current medications as prescribed. Still wants transfer to [facility] for evaluation by her Neurosurgeon. At this time will add a low dose dexamethasone as family convinced increased alertness is related to her weekly dose, however possible, unknown if related to post ictal recovery. 2mg po BID ordered. Dr. Garcia: I have completed the full history and physical and developed the above impression and plan, agree with dictation dictated as a scribe.
[2021-09-23] MEDS: dexAMETHasone 2 MG TAB PO SCH (20:40)
[2021-09-23 20:57] LABS: Glucose,Whole Blood 111 mg/dL (75-99)
[2021-09-24] MEDS: SODIUM CHLORIDE 0.9% 1,000 ML IV SCH ×3 (00:06→01:38)
[2021-09-24 07:08] LABS: Glucose,Whole Blood 153 mg/dL (75-99)
[2021-09-24] MEDS: MAGNESIUM OXIDE 400 MG TAB PO SCH (07:44)
[2021-09-24] MEDS: FUROSEMIDE 20 MG TAB PO SCH (07:44)
[2021-09-24] MEDS: POTASSIUM CHLORIDE ER 20 MEQ TAB.ER PO SCH (07:44)
[2021-09-24] MEDS: DIVALPROEX SPRINKLE 125 MG CAP.SPRINK PO SCH (07:44)
[2021-09-24] MEDS: LACOSAMIDE 50 MG TABLET PO SCH (07:44)
[2021-09-24] MEDS: FOLIC ACID 1 MG TAB PO SCH (07:45)
[2021-09-24] MEDS: APIXABAN 5 MG TAB PO SCH (07:45)
[2021-09-24] MEDS: dexAMETHasone 2 MG TAB PO SCH (07:45)
[2021-09-24] MEDS: INSULIN ASPART (NovoLOG) 100 UNIT/ML VIAL SQ SCH ×2 (07:45→11:58)
[2021-09-24] MEDS: atenoloL 25 MG TAB PO SCH (07:45)
[2021-09-24] MEDS: ASCORBIC ACID 500 MG TAB PO SCH (07:45)
[2021-09-24] MEDS: PANTOPRAZOLE 40 MG/10 ML VIAL IVP SCH (07:46)
--- NOTE | 2021-09-24 08:39 | P.PN ---
Subjective Progress Note Date: 09/23/21 09/23/2021: Patient was seen for a follow-up. Patient's brother was present today. Patient is laying comfortably in the bed. Patient is very alert and awake. Makes eye contact. She does follow some commands as mentioned below. 09/22/2021: Patient's granddaughter was present today. She states that patient ate her lunch. She continues to have involuntary movement of the right side. Sometimes she mumbles, but not intelligible speech. No new concerns. 09/21/2021: (Dates were labeled incorrect on the note from yesterday). Patient laying in the bed. No changes compared to yesterday. 09/20/2021: Patient's son, granddaughter were also present today. No significant improvement. Continues to have weakness of the left arm and some involuntary movement of the right upper extremity. 09/19/2021: The patient is seen in neurologic follow-up. The chart has been reviewed. The patient reportedly was initially seen by Dr. Kobe Gomez because of breakthrough seizure. The patient has a history of multiple myeloma with brain metastases. She is status post resection of the brain metastases. Since that time, the patient has been having seizures. Patient was on Depakote 500 mg twice a day and the dose was increased to 750 mg twice a day by Dr. Kobe Gomez. He also started her on Vimpat 50 mg twice daily. She does move her right arm a little bit, but no seizures reported by the patient's nurse or the . The patient's is present at the bedside at time of the evaluation. He has also not noticed any breakthrough seizure. She does have some involuntary movement of the right arm. She has no control of the right side. These movements are not described as her seizure activity. At her baseline, the patient is nonverbal. The reports that she is usually aware of what is going on around her. She reportedly has no control of her right upper extremity. Patient's says that she was diagnosed with multiple myeloma in end of 2019. She had a brain surgery, followed by radiation. She is getting chemotherapy, and the last chemotherapy she received was on 09/07/2021. Patient follows up with Dr. Carreon. Objective - Vital Signs Vital signs: Vital Signs Temp 98.0 F 09/23/21 14:00 Pulse 49 L 09/23/21 14:00 Resp 16 09/23/21 14:00 BP 172/75 09/23/21 14:00 Pulse Ox 97 09/23/21 14:00 Intake & Output 09/22/21 09/23/21 09/23/21 18:59 06:59 18:59 Intake Total 600 600 Output Total 0 400 1100 Balance 600 -400 -500 Weight 65.771 kg Intake: Intake, IV Titration 600 600 Amount Sodium Chloride 0.9% 1, 600 600 000 ml @ 75 mls/hr IV . [id number] [facility] Rx#:[id number] Output: Urine 0 400 1100 Other: Voiding Method External Catheter External Catheter External Catheter # Bowel Movements 0 - Exam Gen.: The patient is laying in the bed. She is in no acute distress. HEENT: Head is normocephalic. There is no scleral icterus. Fundus not visualized. Mucous membranes are moist. Lungs: Clear to auscultation. Neurologic examination Mental status: Patient is very alert and awake today. She is nonverbal since she arrived to the hospital. Prior to arrival to the hospital, she was talking "a word here and there", as per statement. Motor: Her left side appears more spastic. The choreoathetoid movement of her right arm and right leg was much improved today. Hardly noticeable until patient was being examined. She does not follow commands. Patient did not make high-five with the right hand. Her left arm is spastic paretic. Sensation: The patient does withdraw bilateral lower extremities and right upper extremity from noxious stimulation. - Labs CBC & Chem 7: 09/22/21 05:43 09/23/21 04:54 Labs: Abnormal Lab Results - Last 24 Hours (Table) 09/22/21 09/22/21 09/23/21 Range/Units 05:43 20:35 04:54 Sodium 146 H (135-145) mmol/L Glucose 129 H (70-110) mg/dL POC Glucose (mg/dL) 119 H (75-99) mg/dL Calcium 8.2 L (8.7-10.3) mg/dL Cholesterol 217.00 H (0.00-200.00) mg/dL LDL Cholesterol, Calc 153.0 H (0.0-131.0) mg/dL 09/23/21 09/23/2109/23/22 Range/Units 06:53 11:16 16:25 Sodium (135-145) mmol/L Glucose (70-110) mg/dL POC Glucose (mg/dL) 128 H 142 H 233 H (75-99) mg/dL Calcium (8.7-10.3) mg/dL Cholesterol (0.00-200.00) mg/dL LDL Cholesterol, Calc (0.0-131.0) mg/dL Microbiology - Last 24 Hours (Table) 09/18/21 18:48 Blood Culture - Preliminary Blood No Growth after 96 hours 09/18/21 18:48 Blood Culture - Preliminary Blood No Growth after 96 hours Assessment and Plan Assessment: 1. Breakthrough seizure with possible, current, prolonged postictal state versus toxic encephalopathy 2. Recurrent ischemic strokes. Computed tomography scan of the head from 09/19/2021 revealed a new low area of attenuation involving the superior right parietal lobe suggestive of recent or acute ischemia measuring 2.1 cm. Additional smaller 1 cm focus adjacent to this region also suspicious for recent or acute subacute ischemia. I personally reviewed computed tomography scan of the head and agree with the findings. These areas of ischemia were also present in the initial computed tomography scan of the head on 09/15/2021, but now is more apparent and more well defined on the current study. Patient already on anticoagulation. Uncertain as to the cause of recurrent embolic infarctions. Patient may have hyperviscosity/hypercoagulable state from multiple myeloma resulting in recurrent strokes. 3. Multiple myeloma (for last 20 years per patient's brother), history of plasmacytoma of the brain. Previous history of craniotomy, followed by radiation. Currently patient receiving chemotherapy. 4. Choreoathetoid movements right upper and lower extremity likely due to vascular insult. 5. Diabetes, poorly controlled, with last A1c 10.7 on 10/09/2019, current A1c 8.2. 6. Vascular dementia, Plan: 1. JAYME was attempted today. Patient apparently became agitated, and would not follow any commands. Coding Consultant felt it was too big of a risk of aspiration. Procedure aborted. 2. Repeat computed tomography scan of head revealed evolving infarct involving the right parietal region. Patient has history of multiple strokes in the past. Strokes appears embolic in nature. Apparently patient already is on Eliquis, but continues to throw emboli. Apparently hematology oncology wants patient to be transferred to [facility] to rule out cerebral metastasis related to myeloma. Per patient's family report, bed has been assigned in [facility]. Possible transfer to higher level of care. 3. Hemoglobin A1c 8.2. Recommend optimize control of diabetes to target A1c <7.0 4. MRI is unable to be done as the patient's pacemaker is reportedly, per not MRI compatible 5. Speech therapist saw the patient, recommending thickened liquids and pured diet. 6. EEG 09/16/[address] Kobe Gomez as background slowing of severe degree, consistent with encephalopathy. No epileptiform activity or seizures were reported. 7. Ammonia 45/30, may be related to use of Depakote. Consider starting lactulose. 8. B12 849, folate > 20.0. TSH normal 1.610. 9. Carotid Doppler revealed no hemodynamically significant stenosis in either ICA. Overall diminished velocities raises concern for poor left ventricular function or cardiac output. Correlate clinically. Antegrade flow in both vertebral arteries. 10. 2-D echo revealed left ventricular hypertrophy with asymmetric septal thickening/septal bulge. Reduced LV systolic function 45-50% with mild septal hypokinesis. Dyssynchronous contraction consistent with IVCD. No intracardiac masses. 11. Continue Depakote 625 mg twice a day and Vimpat 50 mg twice a day as ordered by Dr. Kobe Gomez. Depakote level is 75.4 on 09/15/2021. 12. Discussed with primary physician today. Also discussed with patient's brother about prognosis and quality of life issues.
[2021-09-24 09:45] VITALS: BP 171/89; PULSE 60; RESP 14; TEMP 97.5
[2021-09-24 11:46] LABS: Glucose,Whole Blood 116 mg/dL (75-99)
[2021-09-24] MEDS ORDERED: DOCUSATE ORAL SOLN 100 MG/10 ML CUP PO SCH (12:00)
--- NOTE | 2021-09-24 13:19 | P.DS ---
Providers Date of admission: 09/15/21 21:33 Expected date of discharge: 09/24/21 (Probability of a multiple myeloma meta stasis, bilateral CVA.) Attending physician: Carl Cid Consults: 09/15/21 19:20 Consult Physician Routine Consulting Provider: Kobe Gomez Consult Reason/Comments: focal seizures Do you want consulting provider notified?: Already Contacted 09/19/21 11:00 Consult Physician Routine Consulting Provider: Isidro Carreon Consult Reason/Comments: Brain mets multible myeloma/stroke/chemo/steroids Do you want consulting provider notified?: Yes, Notify in am Primary care physician: Carl Cid Discharge summary Date of service 09/24/[address] Palak M.D. [facility] Disposition: Patient transferred today to [facility] to the neurosurgery and neurology department. I did have extensive discussion today with [facility] hospitalist, and I did mention that he discussed it before with Dr. coleman, neurosurgeon accepting resident or fellow. And no response until today. What I have significant repeat the discussion again with the hospitalist and [facility] and he accepted the patient, he stated that we don't have bed at this time, however they found the bed and accepted the patient and they called the hospital and patient transferred to [facility]. Consulting physician: Neurologist, Kobe Gomez, subsequently seen by Dr. Mackenzie neurologist as well Oncology hematology Dr. Carreon in [facility]. Dr. Chavez operations research scientist. With the echocardiogram indicating ejection fraction of 45%, atrial fibrillation controlled ventricular response. Speech pathology for evaluation of dysphagia to solid food JAYME could not be done because of the patient positional and Dr. Horn operations research scientist could not proceed. 2 computed tomography scan of the brain has been already done. Dietitian consultation. Physical therapy. Disposition diagnosis: #1 seizure disorder uncontrolled on the admission diagnosis, no seizures so hospitalization. #2 left sided tumor was removed [facility] by Dr. Drake Cano the neurosurgeon. #3 multiple myeloma with brain metastasis #4 by the computed tomography scan bilateral strokes right and the left unknown etiology patient on anticoagulant, Eliquis 5 mg twice a day. #5 mute, noncommunicating, expressive aphasia. Nonverbal, #6 upper and lower extremities spasticity with purpose less movement no flaccid paralysis, #7 diabetes mellitus type 2 insulin-dependent, patient receiving dexamethasone 12 mg once a week michelle sauce which caused her hyperglycemia and abnormal hemo globin A1c with the minimal intake. #8 hypertension with hypertensive heart disease #9 atrial fibrillation with a controlled ventricular response. #10 choreoathetoid movement of the upper and lower extremities #11 vascular dementia 12 EEG was negative for seizures #13 vitamin B12 level was normal, TSH was normal, ammonia level repeated was normal. #15 echocardiogram left ventricular hypertrophy with left symmetrical septal thickening/septal bulge. Reduced left ventricular systolic function 4550 percent with the septal hypokinesis, #16 carotid duplex study no hemodynamic significant stenosis. #17 significant daily discussion with the Mr. Luis Eduardo Mary in regard of prognosis [id number], is still insisted on transfer patient to [facility] for evaluation of the metastasis of the brain. Exam on discharge Patient has no change on her current condition with the neurodeficits Chest is clear, abdomen was soft positive bowel sounds and she had constipation Colace ordered liquid with Thick-It The heart was irregular with atrial fibrillation controlled ventricular response. Vital sign temperature 97.5 fell exemplary, pulse is 60 and regular, respiratory rate 14 normal nonlabored, blood pressure 171/89, pulse ox 100% on room air. Extremities no edema and spastic Assessment and plan Patient stable for transfer to [facility] in [place] as the accepted the patient today after significant discussion with the hospitalist accepting the patient. Patient continued on her current medication. I discussed that with her today on the discharge. Patient Condition at Discharge: Fair Plan - Discharge Summary Discharge Rx Participant: Yes New Discharge Prescriptions: New Lacosamide [Vimpat] 50 mg PO BID tablet Divalproex Sprinkle [Depakote Sprinkle] 625 mg PO BID INSULIN ASPART (NovoLOG) [NovoLOG (formulary)] 2 - 12 unit SQ ACHS ml Acetaminophen Suppository [Tylenol Suppository] 650 mg RECTAL Q6HR PRN supp PRN Reason: Fever And/ Or Pain Lidocaine Viscous 2% [Xylocaine Viscous] 30 ml PO TID PRN ml PRN Reason: SWISH AND SWALLOW Continue Apixaban [Eliquis] 5 mg PO BID Folic Acid 0.4 mg PO DAILY atenoloL [Tenormin] 25 mg PO BID dexAMETHasone 12 mg PO WE Furosemide [Lasix] 20 mg PO DAILY Magnesium 250 mg PO DAILY Aki's Solution 5 ml PO TID PRN PRN Reason: swish and swallow Lidocaine-Prilocaine Cream [Emla Cream 2.5%/2.5%] 1 applic TOPICAL DAILY PRN PRN Reason: PORT ACCESS Discontinued Ascorbic Acid [Vitamin C] 500 mg PO DAILY Divalproex Sodium [Divalproex Sodium ER] 500 mg PO BID Insulin Detemir [Levemir Flextouch] 20 units SQ BID Potassium Chloride ER [K-Dur 20] 20 meq PO DAILY hydrOXYzine HCL [Atarax] 10 mg PO BID PRN PRN Reason: anxiety/itching Insulin Aspart (Niacinamide) [Fiasp Penfill 100 Unit/ml Cart] See Protocol SQ TID-W/MEALS PRN PRN Reason: HIGH BLOOD SUGAR Donepezil [Aricept] 10 mg PO HS Discharge Medication List Apixaban [Eliquis] 5 mg PO BID 07/22/18 [History] Folic Acid 0.4 mg PO DAILY 07/11/19 [History] atenoloL [Tenormin] 25 mg PO BID 07/22/20 [History] Furosemide [Lasix] 20 mg PO DAILY 08/31/20 [History] dexAMETHasone 12 mg PO WE 08/31/20 [History] Magnesium 250 mg PO DAILY 07/31/21 [History] Aki's Solution 5 ml PO TID PRN 09/15/21 [History] Lidocaine-Prilocaine Cream [Emla Cream 2.5%/2.5%] 1 applic TOPICAL DAILY PRN 09/15/21 [History] Acetaminophen Suppository [Tylenol Suppository] 650 mg RECTAL Q6HR PRN supp 09/20/21 [Rx] Divalproex Sprinkle [Depakote Sprinkle] 625 mg PO BID 09/20/21 [Rx] INSULIN ASPART (NovoLOG) [NovoLOG (formulary)] 2 - 12 unit SQ ACHS ml 09/20/21 [Rx] Lacosamide [Vimpat] 50 mg PO BID tablet 09/20/21 [Rx] Lidocaine Viscous 2% [Xylocaine Viscous] 30 ml PO TID PRN ml 09/20/21 [Rx] Follow up Appointment(s)/Referral(s): Carl Cid MD [Primary Care Provider] - 1-2 days Patient Instructions/Handouts: Seizure/Epilepsy Discharge Instructions & Fo llow-Up Discharge Disposition: OTHER INSTITUTION NOT DEFINED
[2021-09-25] MEDS ORDERED: PANTOPRAZOLE 40 MG TABLET PO SCH (07:30)
== END 2021-09-24 12:29 | disposition other institution (70) | DRG 100 ==
LOC: EC 16:59 → 4SSUR 21:33
PROVIDERS: ADMIT Internal Medicine; ATTEND Internal Medicine
DX: G40.909 Epilepsy, unspecified, not intractable, without status epilepticus (principal); G93.6 Cerebral edema; C79.31 Secondary malignant neoplasm of brain; C90.00 Multiple myeloma not having achieved remission; G91.9 Hydrocephalus, unspecified; I50.32 Chronic diastolic (congestive) heart failure; I13.0 Hypertensive heart and chronic kidney disease with heart failure and stage 1 through stage 4 chronic kidney disease, or unspecified chronic kidney disease; D32.9 Benign neoplasm of meninges, unspecified; N18.9 Chronic kidney disease, unspecified; E11.22 Type 2 diabetes mellitus with diabetic chronic kidney disease; E11.40 Type 2 diabetes mellitus with diabetic neuropathy, unspecified; E11.65 Type 2 diabetes mellitus with hyperglycemia; E78.5 Hyperlipidemia, unspecified; F01.50 Vascular dementia, unspecified severity, without behavioral disturbance, psychotic disturbance, mood disturbance, and anxiety; G93.89 Other specified disorders of brain; I27.20 Pulmonary hypertension, unspecified; I48.0 Paroxysmal atrial fibrillation; Z20.822 Contact with and (suspected) exposure to COVID-19; I69.320 Aphasia following cerebral infarction; I69.331 Monoplegia of upper limb following cerebral infarction affecting right dominant side; Z92.21 Personal history of antineoplastic chemotherapy; Z87.01 Personal history of pneumonia (recurrent); I69.991 Dysphagia following unspecified cerebrovascular disease; R13.10 Dysphagia, unspecified; Z79.01 Long term (current) use of anticoagulants; Z79.4 Long term (current) use of insulin; Z79.899 Other long term (current) drug therapy; Z82.49 Family history of ischemic heart disease and other diseases of the circulatory system; Z83.3 Family history of diabetes mellitus; Z86.16 Personal history of COVID-19; Z87.891 Personal history of nicotine dependence; Z88.8 Allergy status to other drugs, medicaments and biological substances; Z90.710 Acquired absence of both cervix and uterus; Z92.3 Personal history of irradiation; Z95.0 Presence of cardiac pacemaker
CPT/HCPCS: 36415; 70450; 71046; 74230; 80048; 80053; 80061; 80164; 81001; 82140; 82607; 82746; 83036; 83605; 83735; 83880; 84145; 84484; 85025; 85610; 85730; 87040; 87635; 93005; 93306; 93880; 95816; 96365; 96375; 99285